=== PATIENT | female | born 1960 | race Caucasian/White ===

== ENCOUNTER 2021-04-27 12:02 | Emergency (ER) | payer BC, SELFPAY ==
[2021-04-27 12:07] VITALS: BP 110/69; PULSE 78; RESP 12; TEMP 37; O2SAT 100
--- NOTE | 2021-04-27 12:19 | ED.WOUNDLAC ---
HPI - Wound/Laceration General Chief Complaint: Wound/Laceration <Phyllis Chapman APRN - Last Filed: 04/29/21 12:15> Stated Complaint: EYEBROW LACERATION <Phyllis Chapman APRN - Last Filed: 04/29/21 12:15> Time Seen by Provider: 04/27/21 12:19 <Phyllis Chapman APRN - Last Filed: 04/29/21 12:15> History of Present Illness HPI narrative: 60-year-old female patient [facility] with complaints of facial laceration. Reports she was putting on her pants lost her balance and fell this morning. She was wearing her glasses, glasses cut her head when she fell. Reports glasses are broken and she was cut above her left eyebrow. Reports bleeding from laceration and applied pressure. Denies loss of consciousness, double vision, headache, or nausea. Reports feeling okay other than hitting head. <Phyllis Chapman APRN - Last Filed: 04/29/21 12:15> Body four view annotation: 1. 3 cm x 0.5 mm laceration <Phyllis Chapman APRN - Last Filed: 04/29/21 12:15> Related Data Home Medications: Home Medications Medication Instructions Recorded Confirmed acyclovir 400 mg PO BID 04/27/21 04/27/21 alprazolam 1 mg PO PRN PRN 04/27/21 04/27/21 duloxetine 60 mg PO DAILY 04/27/21 04/27/21 fremanezumab-vfrm [Ajovy 225 mg SUBCUT PRN PRN 04/27/21 04/27/21 Autoinjector] lamotrigine [Lamictal] 100 mg PO DAILY 04/27/21 04/27/21 rimegepant [Nurtec ODT] 75 mg PO PRN PRN 04/27/21 04/27/21 rizatriptan 10 mg PO PRN PRN 04/27/21 04/27/21 sumatriptan succinate 6 mg SUBCUT PRN PRN 04/27/21 04/27/21 topiramate 100 mg PO BID 04/27/21 04/27/21 <Phyllis Chapman APRN - Last Filed: 04/29/21 12:15> Allergies/Adverse Reactions: Allergies Allergy/AdvReac Type Severity Reaction Status Date / Time clarithromycin Allergy Intermediate NAUSEA/RASH Verified 04/27/21 13:18 <Phyllis Chapman APRN - Last Filed: 04/29/21 12:15> Review of Systems Review of Systems: CONSTITUTIONAL: Denies fever, chills, or sweats. EYES: Denies visual changes, redness, or discharge. ENT: Denies rhinorrhea, congestion, sore throat, or otalgia. CARDIOVASCULAR: Denies chest pain, palpitations, or edema. RESPIRATORY: Denies cough or dyspnea. GASTROINTESTINAL: Denies abdominal pain, nausea, vomiting, or diarrhea. GENITOURINARY: Denies dysuria or hematuria. SKIN: Denies rash or itching. Laceration above left eyebrow. MUSCULOSKELETAL: Denies back pain, joint pain, or myalgia. NEUROLOGIC: Denies headache, numbness, or weakness. PSYCHIATRIC: Denies anxiety or depression. All other systems reviewed are negative, except as documented in HPI. <Phyllis Chapman APRN - Last Filed: 04/29/21 12:15> All systems reviewed & are unremarkable except as noted in HPI and below <Phyllis Chapman APRN - Last Filed: 04/29/21 12:15> Exam Narrative: GENERAL: This is a well-nourished, well-developed female, in no apparent distress. HEAD: normocephalic, 3 cm x 0.5 mm laceration above left eyebrow. EYES: PERRL. Sclera clear/white. Vision is grossly intact. EARS: External ears normal, auditory canals clear and without drainage, Hearing grossly intact. NOSE: External nose normal with no obvious nasal discharge, nares without redness, no rhinorrhea. THROAT: Mucous membranes moist, NECK: Neck supple, non-tender without lymphadenopathy, masses or thyromegaly. CARDIOVASCULAR: Regular rate and rhythm without murmurs, gallops, or rubs. RESPIRATORY: Clear to auscultation. Breath sounds equal bilaterally. No wheezes, rales, or rhonchi. GASTROINTESTINAL: Abdomen soft, non-tender, nondistended. Bowel sounds are active. No hepato-splenomegaly, or palpable masses. No guarding. SKIN: [place] warm, Dry, with no suspicious lesions or rash, good texture and turgor. 3 cm x 0.5 mm laceration above left eyebrow. NEURO: awake, alert, and oriented to person, place and time. There were no obvious focal neurologic abnormalities. EXTREMITIES: No joint tenderness, effusion, or edema noted. No
--- NOTE | 2021-04-27 12:50 | PC.NURSE ---
GREGORY Ferguson spoke with Danuta Zavala at [facility], will sent patient to [facility] to be sutured. [facility] notified. Phyllis spoke with Danuta Du NP.
[2021-04-27] MEDS: TETANUS,DIPHTHERIA,AC PERTUSSIS ADULT (0.5 ML) BOOSTRIX IM (13:33)
== END 2021-04-27 13:51 | disposition home or self-care (01) ==
PROVIDERS: Emergency Provider Nurse Practitioner
DX: S01.81XA Laceration without foreign body of other part of head, initial encounter (principal); W19.XXXA Unspecified fall, initial encounter; Z23 Encounter for immunization
CPT/HCPCS: 12011; 90471; 90715; 99212; G0463

== ENCOUNTER 2022-08-31 14:28 | Emergency (ER) | payer BC, SELFPAY ==
[2022-08-31 14:31] VITALS: BP 130/77; PULSE 105; RESP 18; TEMP 36.6; O2SAT 100
--- NOTE | 2022-08-31 14:42 | ECG_ITS ---
Measurements Intervals [place] Rate: 65 P: 71 ND: 148 QRS: 8 QRSD: 97 T: 53 QT: 377 QTc: 393 Interpretive Statements SINUS RHYTHM NORMAL ECG NO PREVIOUS ECG AVAILABLE FOR COMPARISON Electronically Signed On 08-31-2022 15:44:28 CDT by Kahlil Pacheco D.O.
[2022-08-31 15:17] LABS: Basophils Percent Auto 0.5 % (0.2-1.2); Eosinophils Percent Auto 0.5 % (0-4.4); Hematocrit 42.7 % (37.0-47.0); Hemoglobin 14.1 g/dL (12.0-15.0); Immature Granulocyte Absolute 0.01 K/mm3 (0.00-0.031); Immature Granulocyte Percent A 0.2 % (0-0.5); Lymphocytes Absolute Auto 1.24 K/mm3 (0.9-3.2); Lymphocytes Percent Auto 20.7 % (18.3-44.2); Mean Corpuscular Hemoglobin 31.7 pg (26-34); Mean Platelet Volume 9.4 fl (7.4-10.4); Monocytes Absolute Auto 0.4 K/mm3 (0.1-0.6); Monocytes Percent Auto 6.2 % (2.6-8.5); Neutrophils Absolute Auto 4.3 K/mm3 (1.3-6.7); Neutrophils Percent Auto 71.9 % (45.5-73.1); Platelet Count Result 188 k/mm3 (150-375); Red Blood Count 4.45 M/mm3 (4.2-5.4); Red Cell Distribution Width 12.3 % (11.5-14.5)
[2022-08-31 15:20] LABS: Acetaminophen < 10 ug/mL (10-30); Alanine Aminotransferase 34 U/L (6-35); Alkaline Phosphatase 84 U/L (38-126); Anion Gap 11 mmol/L (8-16); Aspartate Amino Transferase 38 U/L (14-36); Bilirubin,Total 1.1 mg/dL (0.2-1.3); Blood Urea Nitrogen 23 mg/dL (7-17); Calcium 9.9 mg/dL (8.4-10.2); Carbon Dioxide 26 mmol/L (22-30); Chloride 102 mmol/L (98-107); Estimated CRCL calculation 44 ml/min; Estimated Glomerular Filt Rate > 60; Ethanol < 10 mg/dL (<10); Glucose 90 mg/dL (65-110); Potassium 3.7 mmol/L (3.4-5.0); Salicylate < 1.0 mg/dL (2-20); Sodium 139 mmol/L (137-145)
--- NOTE | 2022-08-31 15:41 | PC.NURSE ---
pt changed into green scrubs, belongings collected, labeled and secured.
--- NOTE | 2022-08-31 15:50 | ED.PSYCH ---
HPI - Psych General Chief Complaint: Psychiatric Symptoms <Tammi Auguste MD - Last Filed: 09/05/22 06:10> Stated Complaint: suicidal ideations <Tammi Auguste MD - Last Filed: 09/05/22 06:10> Time Seen by Provider: 08/31/22 14:48 <Tammi Auguste MD - Last Filed: 09/05/22 06:10> History of Present Illness HPI Narrative: Patient is a 62-year-old female presenting after suicide attempt. Patient states that last night she took an unknown number of Xanax with the intent of killing herself. States that she did this in response to some news she recently got from her daughter. She denies HI, hallucinations, paranoia. She denies physical complaints. This morning she spoke with her sister and ended up admitting what she had done last night so she was brought in for evaluation. Denies prior suicide attempts. <Tammi Auguste MD - Last Filed: 09/05/22 06:10> Related Data Home Medications: Home Medications Medication Instructions Recorded Confirmed acyclovir 400 mg tablet 400 mg PO BID 04/27/21 09/01/22 alprazolam 1 mg tablet 1 mg PO PRN PRN Anxiety 04/27/21 09/01/22 duloxetine 60 mg capsule,delayed 60 mg PO QAM 04/27/21 09/01/22 release fremanezumab-vfrm 225 mg/1.5 mL 225 mg subcut PRN PRN Migraine 04/27/21 04/27/21 subcutaneous auto-injector (Ajovy) Headache lamotrigine 100 mg tablet 100 mg PO DAILY 04/27/21 09/01/22 (Lamictal) rimegepant 75 mg disintegrating 75 mg PO PRN PRN Migraine Headache 04/27/21 09/01/22 tablet (Nurtec ODT) rizatriptan 10 mg disintegrating 10 mg PO PRN PRN Migraine Headache 04/27/21 09/01/22 tablet sumatriptan succinate 6 mg/0.5 mL 6 mg subcut PRN PRN Migraine 04/27/21 09/01/22 subcutaneous pen injector Headache topiramate 100 mg tablet 100 mg PO PRN 04/27/21 09/01/22 atogepant 60 mg tablet (Qulipta) mg 09/01/22 magnesium oxide 140 mg capsule 140 mg PO 09/01/22 <Tammi Auguste MD - Last Filed: 09/05/22 06:10> Allergies/Adverse Reactions: Allergies Allergy/AdvReac Type Severity Reaction Status Date / Time clarithromycin Allergy Intermediate NAUSEA/RASH Verified 04/27/21 13:18 <Tammi Auguste MD - Last Filed: 09/05/22 06:10> Review of Systems Review of Systems: All systems reviewed & are unremarkable except as noted in HPI and below <Tammi Auguste MD - Last Filed: 09/05/22 06:10> [facility] Social History Social History: Social History Substance use type: prescription drug <Tammi Auguste MD - Last Filed: 09/05/22 06:10> Exam Narrative: GENERAL: In no acute distress, sitting in bed, cooperative and pleasant HEAD: Normocephalic, atraumatic. EYES: PERRLA and EOMI. ENT: Nares clear, no rhinorrhea or epistaxis. Mucous membranes moist. NECK: Supple. CHEST: No respiratory distress. HEART: Regular rate and rhythm ABDOMEN: nondistended EXTREMITIES: Normal range of motion. No edema. SKIN: Warm, dry, no rash. NEURO: No focal deficits. Alert and oriented x3. PSYCH: Normal mood and affect. <Tammi Auguste MD - Last Filed: 09/05/22 06:10> Course Course Emergency Course: 1899 Zych: [facility] signed out to [facility]. patient was given home night meds and 1 mg of p.o. Ativan for anxiety. 0700 Zych: Signed out to oncoming physician pending placement. <Sumit Ochoa MD - Last Filed: 09/01/22 18:53> 1900 Zych: [facility] to [facility]. patient was given home night meds and 1 mg of p.o. Ativan for anxiety. 0700 Zych: Signed out to oncoming physician pending placement. 0758: Accepted to [facility] by Dr. Encinas. Patient stable. <Cristhian Moore MD - Last Filed: 09/01/22 07:59> Vital Signs Vital signs: Vital Signs Temperature 97.8 F 08/31/22 14:31 Pulse Rate 105 H 08/31/22 14:31 Respiratory Rate 18 08/31/22 14:31 Blood Pressure 130/77 08/31/22 14:31 Pulse Oximetry 100
[2022-08-31 16:10] LABS: Appearance Urine Clear (Clear); Bacteria Urine None Seen /hpf; Bilirubin Urine Negative (Negative); Blood Urine Negative (Negative); Color Urine Yellow (Yellow); Glucose Urine UA Negative (Negative); Ketones Urine Negative (Negative); Leukocyte Esterase Ur 2+ LEU/UL (Negative); Need Manual Microscopic Reviewed; Nitrate Urine Negative (Negative); Non Pathogenic Casts 0-2; Protein Urine Negative (Negative); RBC Urine 0-2 /hpf (0-2); Specific Grav Ur 1.005 (1.001-1.035); Squamous Epithelial Cell Urine None seen /hpf (Few); Urobilinogen Urine 0.2 mg/dL (<2.0)
[2022-08-31 16:11] LABS: Add Urine Microscopic? YES
[2022-08-31 16:12] LABS: Amphetamine Screen Urine Negative (Negative); Barbiturate Screen Urine Negative (Negative); Benzodiazepines Screen Urine Positive (Negative); Cannabinoid Screen Urine Negative (Negative); Cocaine Screen Urine Negative (Negative); Methadone Screen Urine Negative (Negative); Opiate Screen Urine Negative (Negative); Phencyclidine Screen Urine Negative (Negative)
[2022-08-31 16:27] LABS: SARS-CoV-2 RNA PCR Negative (Negative)
[2022-08-31] MEDS: LORazepam (*CRX) 0.5 MG TABLET PO (18:49)
--- NOTE | 2022-08-31 19:43 | PC.NURSE ---
requested paperwork sent to [facility]
[2022-08-31] MEDS: RIZATRIPTAN BENZOATE 10 MG TABLET PO (22:31)
[2022-09-01] MEDS: LORazepam (*CRX) 0.5 MG TABLET PO (00:03)
--- NOTE | 2022-09-01 00:49 | PC.NURSE ---
Pt has been accepted at [facility] at this time. Accepting Doctor is Dr. Encinas. Transport is set for 0900 on 09/01/22
[2022-09-01] MEDS: MAGNESIUM OXIDE 200 MG TABLET PO (01:00)
[2022-09-01] MEDS: lamoTRIgine 100 MG TABLET PO (01:01)
--- NOTE | 2022-09-01 02:33 | PC.NURSE ---
Pt and pt sister made aware of acceptance to [facility]. Pt resting at this time with sister at bedside.
[2022-09-01] MEDS: LORazepam (*CRX) 1 MG TABLET PO (05:45)
[2022-09-01 07:02] VITALS: BP 131/89; PULSE 101; RESP 15; O2SAT 100
[2022-09-01] MEDS: hydrOXYzine HCL 25 MG TABLET PO (08:50)
[2022-09-01 08:57] VITALS: BP 140/74; PULSE 99; RESP 22; O2SAT 98
== END 2022-09-01 09:07 ==
PROVIDERS: Emergency Medicine; Emergency Provider Emergency Medicine
DX: T42.4X2A Poisoning by benzodiazepines, intentional self-harm, initial encounter (principal); Z20.822 Contact with and (suspected) exposure to COVID-19
CPT/HCPCS: 36415; 80053; 80307; 81001; 84443; 85025; 87086; 87635; 93005; 99285; A9270

== ENCOUNTER 2024-06-11 18:15 | Inpatient (IN) | payer BC, SELFPAY ==
--- NOTE | ~2024-06-11 | XR_ITS ---
Exam: Abdomen 1V HISTORY: SBO COMPARISON: Reference is made to a CT examination of the abdomen and pelvis dated 06/11/2024 TECHNIQUE: Supine images of the abdomen FINDINGS: Excreted contrast distends the bladder (from CT examination performed approximately 18 hours earlier) . Fecal stasis within the colon and specifically distending the rectum. No free air is appreciated. IMPRESSION: Significant fecal stasis within the colon and distending the rectum. Reviewed, dictated and finalized at location A.
--- NOTE | ~2024-06-11 | XR_ITS ---
EXAM: XR abdomen gastric tube insert DATE: 06/11/2024 21:20 HISTORY: ng placement . COMPARISON: 06/11/2024. FINDINGS: Clear lung bases. NG tube, tip and side port project over the expected area of the dilated stomach. Multiple loops of dilated small bowel in the upper abdomen. IMPRESSION: NG tube, in good position. Reviewed, dictated and finalized at location K. IMPRESSION: NG tube, in good position.
--- NOTE | ~2024-06-11 | CT_ITS ---
EXAMINATION: CT abdomen pelvis w con DATE: 06/11/2024 19:40 INDICATION: abd distention TECHNIQUE: Computed tomography (CT) of the abdomen and pelvis was performed with 100 mL Omnipaque-350 intravenous contrast. Automated exposure control and iterative reconstruction technique were employe d. The dose-length product was 272.41 mGy-cm. COMPARISON: None. FINDINGS: Lower thorax: Unremarkable Liver: Normal. Biliary/Gallbladder: Gallbladder is normal. No bile duct dilation. Pancreas: No mass or duct dilation. Spleen: Normal. Adrenals:No mass. Kidneys: No suspicious mass, obstructing stone, or hydronephrosis. Multiple simple renal cysts and bi lateral hypodensities that are too small to characterize but also likely represent cysts. GI tract: Large volume of colonic feces. The colon is otherwise normal in appearance. Gastric dilatio n. Multiple loops of dilated proximal and mid small bowel, with uniform bowel wall enhancement, sever al loops of decompressed small bowel are noted in the right lower quadrant. Normal appendix. Mesentery/Peritoneum: No free air. Suggestion of an irregular soft tissue density 2.7 cm mass, closel y applied to the wall of multiple loops of bowel in the upper pelvis (image 111/185, coronal 58/103). Retroperitoneum: No mass. Pelvis: Mostly empty urinary bladder. Absent uterus. Bilateral ovaries not confidently identified. Tr liam free pelvic fluid. Soft Tissues: Soft tissues and body wall unremarkable. Bones: No acute osseous finding. IMPRESSION: Distal small bowel obstruction. A specific transition point is not detected, but evaluation is limite d by paucity of intra-abdominal fat. Suggestion of a 2.7 cm extraluminal mass closely applied to multiple loops of bowel in the upper pelv is, may represent a mesenteric mass such as endometriosis with adjacent bowel wall tethering and subs equent obstruction. Reviewed, dictated and finalized at location K. IMPRESSION: Distal small bowel obstruction. A specific transition point is not detected, bu t evaluation is limited by paucity of intra-abdominal fat. Suggestion of a 2.7 cm extraluminal mass closely applied to multiple loops of b owel in the upper pelvis, may represent a mesenteric mass such as endometriosis with adjacent bowel wall tethering and subsequent obstruction.
--- NOTE | ~2024-06-11 | XR_ITS ---
XR abdomen/kub 1V 06/13/2024 07:55 Indication: Small bowel obstruction Procedure: KUB Comparison: 06/12/2024 Findings: NG tube in the stomach. No significant small bowel bowel dilation. Large amount retained fe herlinda material in the colon and rectum, consistent with fecal impaction. No abnormal calcifications. Allie ng bases unremarkable. No acute osseous abnormality. There is mild osteoarthritis of the hips. Impression: 1: Fecal impaction of the colon and rectum. Reviewed, dictated and finalized at location B. Impression: 1: Fecal impaction of the colon and rectum.
--- NOTE | ~2024-06-11 | XR_ITS ---
EXAMINATION: XR sm bowel follow through WS DATE: 06/13/2024 14:55 INDICATION: Small bowel obstruction TECHNIQUE: Water-soluble oral contrast was administered by the patient's existing nasogastric tube, a nd sequential radiographs of the abdomen were obtained until oral contrast was noted to be in the pro ximal colon. COMPARISON: 06/13/[address] dated 06/11/2024 FINDINGS: Nasogastric tube tip in the body the stomach. Transit time from the stomach to proximal colon was anamaria roximately 45 minutes. There is normal caliber and mucosal fold pattern throughout the small bowel. IMPRESSION: 1. Normal small bowel follow-through with resolution of prior small bowel obstruction. Reviewed, dictated and finalized at location A. IMPRESSION: 1. Normal small bowel follow-through with resolution of prior small bowel obstr uction.
--- OUTSIDE RECORDS SUMMARY | 2024-06-11 18:17 | XMS_ITS | Clinical Summary ---
Author Organization [facility] Address [address] [place] [address] Care Team Providers Care Lead [employer]man [employer] Name Role Phone Candy Rankin RN Unavailable [phone] Subha Rodriguez MD Primary Care Provider [phone] Source Comments [facility],non-owned Affiliates and Associated Physician Practices is amultiple site organization consisting of ambulatory clinics and hospital sitesin [place], [place], [place] and [place]. This disclosure is being madepursuant to the Care Everywhere program and may not contain all information available regarding this patient. Last updated 17.[facility] [employer] Allergies Active Allergy Reactions Criticality Noted Date Comments Clarithromycin Rash,Nausea and/or Vomiting Medium 06/29 Medications * Be aware that medications may not be up to date on this document. Alwaysverify current medications with the patient. acyclovir (Zovirax) 400 MG tablet Take 1 (one) tablet by mouth once daily as directed. 4 Active alendronate (Fosamax) 70 MG tablet Take 1 (one) tablet by mouth every 7 days 4 Active estradiol (Estrace) 0.1 MG/GM vaginal cream Insert 1 applicator into the vagina as directed 3 Active ondansetron, disintegrating , (Zofran ODT) 4 MG tablet Take 2.5 (two and one-half) tablets by mouth once daily 4 Active rizatriptan, disintegrating , (Maxalt CONTROL CLERK REPAIRS) 10 MG tablet Take 1 (one) tablet by mouth as needed 4 Active SUMAtriptan Succinate 6 MG/0.5ML Inject 6 mg subcutaneously as directed 3 Active terbinafine (LamISIL) 250 MG tablet Take 1 (one) tablet by mouth once daily 30 tablet 2 4 Active trospium (Sanctura) 20 MG tablet Take 1 (one) tablet by mouth 2 times daily 3 Active Magnesium Citrate 100 MG CAPS Take 500 mg by mouth once daily Active Calcium Carb-Cholecalc iferol (CALTRATE 600+D3 PO) Take 600 mg by mouth once daily Active ferrous sulfate 325 (65 FE) MG tablet Take 1 (one) tablet by mouth once daily Active Multiple Vitamin (MULTI-VITAMIN PO) Take 1 tablet by mouth once daily Active Atogepant (Qulipta) 60 MG TABS Take 1 (one) tablet by mouth once daily Active Cyanocobalamin (B-12) 100 MCG Take 4 tablets by mouth once daily Active Docusate Sodium 250 MG Take 1 (one) capsule by mouth once daily Active escitalopram (Lexapro) 20 MG tablet Take 1 (one) tablet by mouth once daily 4 Active clonazePAM (KlonoPIN) 0.5 MG tablet Take 1 (one) tablet by mouth 2 times daily 3 Active lamoTRIgine XR 24hr (LaMICtal XR) 200 MG tablet Take 1 (one) tablet by mouth once daily 4 Active Alpha-Lipoic Acid 600 MG Take 600 mg by mouth once daily Active lidocaine viscous (Xylocaine) 2 % solution Swish and spit 5 mL every 4 hours as needed for Sore Throat or Pain 100 mL 3 5 Active Pristiq 50 MG tablet Take 1 (one) tablet by mouth once daily 5 Active Riboflavin 400 MG Take 1 tablet by mouth once daily Active traZODone (Desyrel) 50 MG tablet Take 1 (one) tablet by mouth at bedtime 5 Active diazePAM (Valium) 5 MG tablet Take 1 (one) tablet by mouth 2 times daily 5 Active QUEtiapine (SEROquel) 200 MG tablet Take 1 (one) tablet by mouth once daily Active cyclobenzaprin e (Flexeril) 10 MG tablet Take 1 (one) tablet by mouth at bedtime 30 tablet 5 Active Active Problems Problem Noted Date Diagnosed Date Binocular vision disorder with diplopia 08/06/19 24 Hyperopia of both eyes 08/06/2023 Oral aphthous ulcer 07/22/2023 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 No recent travels, sick contact or trauma. No hx of tick bites. May use Tylenol and/or Ibuprofen for pain. Reviewed red flag symptoms and when to seek emergent care. IF symptoms persist and/or worsened, might need further imaging and or lab work up for eval. Follow up as needed. Vitamin B12 deficiency 10/07/2022 Overview (05/26/2023): Last Assessment & Plan: WNL per prior labs in june Discussed updating w/ any recurrent or persisting stomatitis if warranted Cnt current Vit b12 oral supp interim Generalized anxiety disorder 06/19/2022 Major depressive disorder, single episode, moder ate 09/06/2017 05/26/2023 Overview (05/26/2023): Stable on current regimen Last Assessment & Plan: Adequately controlled though still not satisfactory control and adjusting meds per psych Intractable chronic migraine without aura and without status migrainosus 08/18/2017 05/26/2023 Overview (05/26/2023): Last Assessment & Plan: Tolerable though ongoing severe. Seeing a headache specialist. Nocturia 10/09/2015 05/26/2023 Fatigue 04/09/2015 05/26/2023 Overview (05/26/2023): Last Assessment & Plan: Checking labs as per routine. Osteopenia 03/11/2010 05/26/2023 Overview (05/26/2023): Last Assessment & Plan: Checking vitamin d. Resolved Problems Problem Noted Date Diagnosed Date Resolved Date Pre-op testing 07/17/2014 02/10/2024 Encounters Date Type Department Care Team Description 05/18/2024 1:00 PM CDT Office Visit [facility] [address] [place] [phone] David Martin, BER[place] Burning mouth syndrome (Primary Dx); Tongue thrusting; Bruxism; Exostoses of jaw; Morsicatio buccarum 05/18/2024 Travel 05/02/2024 Orders Only [facility] [address] [place] [phone] Antonio Glover MD Burning mouth syndrome ; Facial pain syndrome 04/26/2024 Orders Only [facility] [address] [place] [phone] David Martin, BERLIN Facial pain syndrome ; Nasal pain 04/19/2024 2:57 PM MATHEMATICAL STATISTICIAN - 04/19/2024 11:59 PM MATHEMATICAL STATISTICIAN Hospital Encounter [facility] [address] [place] [phone] Antonio Glover MD Discharge Disposition: Home or Self Care 04/19/2024 Travel 04/06/2024 2:15 PM MATHEMATICAL STATISTICIAN Office Visit [facility] [address] [facility] [address] [address] Antonio Glover MD Facial pain syndrome (Primary Dx); Nasal pain 04/06/2024 Travel 03/31/2024 Travel 03/30/2024 1:15 PM MATHEMATICAL STATISTICIAN [facility] [address] [place] [phone] David Martin DMD Burning mouth syndrome (Primary Dx); Exostoses of jaw; Tongue thrusting; Bruxism; Morsicatio buccarum 03/30/2024 Travel 03/20/2024 Orders Only [facility] [address] [place] [phone] Shireen Garcia RN 03/17/2024 Telephone [facility] Physician [address] [phone] David Martin DMD Nurse Only 03/15/2024 Orders Only [facility] [address] [phone] Vineet Ambrose MD Facial pain syndrome ; Nasal pain 03/15/2024 Refill [facility] [address] [phone] Nessa Cast MD Refill Request from Last 3 Months Immunizations Immunization Administration Dates Next Due INFLUENZA VACCINE, ADJUVANTE D, TRIV. (FLUAD TRIVALENT; 65Y+) (AIIV3) 01/06/2024 INFLUENZA VACCINE, RECOM-METZ, TRIV. (FLUBLOCK TRIVALENT; 18Y+) (RIV3) 01/06/2024 Influenza Intradermal 12/24/2016 MODERNA SARS-COV-2 COVID-19 VACCINE 0.25ML 02/17 PNEUMOCOCCAL PCV21 01/21/2024 TDAP, HISTORIC VACCINE 04/27/2021 Zoster Hzv Vacc Recombinant Inj Im 01/21/2024 Social History Tobacco Use Types Packs/Day Years Used Date Smoking Tobacco: Never Smokeless Tobacco: Never Tobacco Cessation:Counseling Given: Not Answered Alcohol Use Standard Drinks/Week Comments No 0 (1 standard drink = 0.6 oz pur e alcohol) Comments No Sex and Gender Information Value Date Recorded Sex Assigned at Not on file Legal Sex Female 7:48 AM CDT Gender Identity Not on file Sexual Orientation Not on file Last Filed Vital Signs Vital Sign Reading Time Taken Comments Blood Pressure 117/78 05/18/2024 1:12 PM CDT Pulse 92 05/18/2024 1:12 PM CDT Temperature 36.7 C (98.1 F) 04/19/2024 3:08 PM MATHEMATICAL STATISTICIAN Respiratory Rate 16 04/19/2024 3:08 PM MATHEMATICAL STATISTICIAN Oxygen Saturation 96% 02/10/2024 7:53 AM MATHEMATICAL STATISTICIAN Inhaled Oxygen Concentration - - Weight 52.6 kg (116 lb) 05/18/2024 1:12 PM CDT Height 162.6 cm (5' 4 ) 05/18/2024 1:12 PM CDT Body Mass Index 19.91 05/18/2024 1:12 PM CDT Plan of Treatment Upcoming Encounters Date Type Department Care Team (Late st Contact Info) Description 11/16/2024 1:00 PM CDT Office Visit [facility] [address] [facility], [place] [phone] David Martin, DMD [address] [place] [address] Health Maintenance Due Date Last Done Comments COLOGUARD (AGES 45-75) - COLON CA SCREENING [address] COLONOGRAPHY - COLON CA SCREENING 1960 FIT - COLON CA SCREENING 1960 FLEX SIG - COLON CA SCREENING 1960 LIPID TESTING 1960 HIV SCREENING 1976 Respiratory Syncytial Virus (RSV) Vaccine Pt: or over 60 yrs (1 - Risk 60-74 years 1-dose series) 2021 COVID-19 VACCINE (2 - season) 2023 02/17/2021 DEPRESSION SCREENING 03/01/2024 ZOSTER VACCINE (2 of 2) 03/17/2024 01/21/2024 MAMMOGRAM 09/06/2025 09/07/2023, 07/0 10/2023, 08/25/2022, Additional history exists DTAP/TDAP/TD VACCINES (2 - Td or Tdap) 04/27/2031 04/27/2021 COLONOSCOPY - COLON CA SCREENING 11/26/2032 11/26/2022 Colorectal Cancer Screening 11/26/2032 HEPATITIS C SCREENING Completed 08/02/2023, 024 INFLUENZA VACCINE Completed 01/06/2024, , 12/24/2016 PNEUMOCOCCAL VACCINE 50+ Completed 01/21/2024 HEPATITIS B VACCINE Aged Out No longe r eligible based on patient's age to complete this topic HIB VACCINE Aged Out No longer eligi ble based on patient's age to complete this topic HPV VACCINE Aged Out No longer eligi ble based on patient's age to complete this topic MENINGOCOCCAL (Group B) VACCINE SHARED DECISION-MAKING Aged Out No longer eligible based on patient's age to complete this topic MENINGOCOCCAL GROUPS A/C/Y/W VACCINE Aged Out No longer eligible based on patient's age to complete this topic Medical Devices Implanted Type Area Valve Setter Device Identifier Shelf Expiration Date Model / Serial / Lot Dev Sys Sgl Obtryx Implanted:Qty: 1 on 07/17/2014 by Katya Mccall MD at [facility] [employer] 04/29/2017 [id number] / / [id number] Grft Tiss Rep Xenform 4 X 7cm Implanted:Qty: 1 on 07/17/2014 by Katya Mccall MD at [facility] [employer] [id number] / / [id number] Procedures Procedure Name Priority Date/Time Associated Diagnosis Comments PAIN MANAGEMENT PROCEDURE TIME Routine 04/19/2024 3:32 PM MATHEMATICAL STATISTICIAN Nerve pain from Last 3 Months Results * Pain Management Procedure Time (04/19/2024 3:32 PM MATHEMATICAL STATISTICIAN) Anatomical Region Laterality Modality Radio Fluoroscop y Narrative 04/19/2024 3:40 PM MATHEMATICAL STATISTICIAN Nolberto Alvarez DO 04/19/2024 3:40 PM Procedure Note: Bilateral Sphenopalatine Ganglion Block with Catheter Patient Name: Sabrina SANTAMARIA Date of : 1960 Date of Procedure: 04/19/2024 Physician: Antonio Glover MD Pre-Procedure Details Indication: Refractory facial pain not responsive to conservative measures. Informed Consent: The risks, benefits, and alternatives to the procedure, including potential complications such as bleeding, infection, numbness, and failure of symptom relief, were explained to the patient. The patient demonstrated understanding and provided informed consent. Allergies: Allergies Allergen Reactions Biaxin [Clarithromycin] Rash and Nausea and/or Vomiting Time Out: A procedural time-out was performed to confirm the patient's identity, procedure, site, and planned intervention. Procedure Patient Positioning: The patient was placed in a supine position with the head slightly elevated and rotated left for optimal access and comfort. An 18-gauge, 2-inch, angiocatheter was inserted via intranasal approach, directed towards the pterygopalatine fossa. 2 mL of 4% Lidocaine was injected into the left Naris. The patient's head was then rotated to the right and 2mL of 4% lidocaine was injected into the right naris. The patient tolerated the procedure well. Post-Injection Evaluation: The Angiocatheter was removed without complication. The patient was observed for any immediate adverse reactions or complications. Post-Procedure Instructions The patient was advised to monitor for numbness, nasal congestion, or changes in facial sensation, which are expected and typically temporary. The patient was instructed to contact the clinic if they experienced signs of infection, severe pain, or persistent numbness. Plan of care: Patient advised to contact the Pain Center for any of the followin. Fever, chills or night sweats 2. New onset of severe sharp pain 3. Any new upper/lower extremity weakness or numbness 4. Any questions regarding the procedure If unable to contact the Pain Center, patient instructed to go to local Emergency Room. Procedure Outcome The injection was successfully performed without immediate complications. The patient tolerated the procedure well and reported mild, expected numbness in the treated region during post-procedure evaluation. Final procedural note pending attending attestation. Nolberto Alvarez DO 04/19/2024 3:21 PM Antonio Glover MD DIAGNOSTIC IMAGING ORDERABLES Fi nal Result from Last 3 Months Insurance [employer] Advance Directives * Full Code (Latest Code Status on File) Date Activated Date Inactivated Comments 07/17/2014 1:33 PM 07/18/2014 4:00 PM Care Teams Lead Pressman [employer] Relationship Specialty Start Date End Date Subha Rodriguez MD [id number] [facility] [address] [phone] PCP - General Family Medicine 05/18/24 Candy Rankin, LUISANA Supervisor [employer] 07/17/14
--- OUTSIDE RECORDS SUMMARY | 2024-06-11 18:17 | XMS_ITS | Referral Summary ---
Author Organization [facility] al Address [address] [place] [address] Care Team Providers Care Receiving Worker Name Role Phone Job Coker MD Unavailable [phone] Kendra Steiner MD PhD Unavailable [phone] Mike Levy MD Unavailable [phone] Subha Rodriguez MD Primary Care Provider [phone] Encounters Date Type Department Care Team Description 05/26/2024 Telephone [facility] with [facility] [address] [facility] [address] [place] [address] Lexii Pritchard 05/24/[address] [facility] at [facility] [address] 1[address] [place] [address] Melanie Ramos RN Treat Facial Pain? 05/03/2024 9:27 AM INTERIOR DESIGN ASSISTANT - 05/03/2024 11:59 PM INTERIOR DESIGN ASSISTANT Hospital Encounter [facility] [address] [place] [address] Vertigo Discharge Disposition: Discharge to home or self care 04/26/[address] [facility] [facility] [address] [place] [address] David Martin, B[place] Facial pain syndrome (Primary Dx); Nasal pain 04/17/[address] [place] [phone] Subha Rodriguez MD Medical Question/Miscellane ous 04/17/2024 11:30 AM INTERIOR DESIGN ASSISTANT Office Visit [address] [place] [phone] Subha Rodriguez MD Vertigo (Primary Dx); Pure hypercholesterolemi a; Vitamin B12 deficiency; Well adult exam 04/14/2024 Nurse Triage [address] [place] [phone] Subha Rodriguez MD 03/20/2024 10:00 AM INTERIOR DESIGN ASSISTANT Office Visit [address] [phone] Subha Rodriguez MD Intractable chronic migraine without aura and without status migrainosus (Primary Dx); Vitamin B12 deficiency; Pure hypercholesterolemi a; Family history of heart disease; Well adult exam from Last 3 Months Allergies Active Allergy Reactions Criticality Noted Date Comments Clarithromycin Rash Medium BIAcin Medications acyclovir (ZOVIRAX) 400 mg tablet Take 1 tablet (400 mg total) by mouth 2 (two) times a day 180 tablet 019 Active Additional Information Patient taking differently:400 mg oralDaily, Informant: Self, Reported on 04/17/2024 cyanocobalamin (Vitamin B-12) 1,000 mcg tablet Take 1 tablet (1,000 mcg total) by mouth daily Active multivitamin tablet Take 1 tablet by mouth daily Active ferrous sulfate 325 mg (65 mg of elemental iron) tablet Take 1 tablet (325 mg total) by mouth daily Active magnesium citrate 100 mg capsule Take 100 mg by mouth daily Active lidocaine 2 % solution Take 5 mL by mouth as needed Active calcium carbonate-vitamin D3 (Caltrate with Vitamin D3) 1,500 mg (600mg elemental) -800 unit per tablet daily Acti ve escitalopram (LEXAPRO) 20 mg tablet Take 0.5 tablets (10 mg total) by mouth 2 (two) times a day 08/28/2 024 Active SUMAtriptan (IMITREX) 6 mg/0.5 mL injection INJECT 6 MG UNDER THE SKIN NEEDED FOR MIGRAINE. MAY REPEAT DOSE IN 2 HOURS IF NEEDED. DO NOT EXCEED 2 DOSES IN 24 HOURS. Active trospium (SANCTURA) 20 mg tablet Take 1 tablet (20 mg total) by mouth 2 (two) times a day 60 tablet 11 024 2024 Active alendronate (FOSAMAX) 70 mg tabletIndications :Post-Menopausal Osteoporosis Prevention Take 1 tablet (70 mg total) by mouth every 7 days Take in the morning with a full glass of water, on an empty stomach, and do not take anything else by mouth or lie down for the next 30 min. 4 tablet 11 024 2024 Active lamoTRIgine XR (LaMICtal XR) 200 mg tablet extended release 24hr Take 1 tablet (200 mg total) by mouth daily Active Qulipta 60 mg tablet TAKE 1 TABLET BY MOUTH DAILY 30 tablet 5 Active alpha lipoic acid 600 mg capsule Take 1 capsule (600 mg total) by mouth daily Active rizatriptan RELIEF MAN (MAXALT-RELIEF MAN) 10 mg disintegrating tablet DISSOLVE 1 TABLET ON THE TONGUE AT ONSET OF HEADACHE. MAY REPEAT IN 2 HOURS NEEDED. MAX DOSE 2 IN 24 HOURS 12 tablet 3 025 Active QUEtiapine (SEROquel) 200 mg tablet Take 1 tablet (200 mg total) by mouth nightly Active riboflavin, vitamin B2, 400 mg tablet Take by mouth Active zinc gluconate 50 mg tablet Take 1 tablet (50 mg total) by mouth daily Active estradioL (ESTRACE) 0.01 % (0.1 mg/gram) vaginal cream APPLY 1 GRAM NIGHTLY TO VAGINA FOR 1 WEEK, THEN Wednesday, WEDNESDAY 42.5 g 5 025 Active ondansetron ODT (ZOFRAN-ODT) 4 mg disintegrating tablet DISSOLVE 1 TABLET(4 MG) ON THE TONGUE EVERY 8 HOURS NEEDED FOR NAUSEA OR VOMITING 20 tablet 3 025 Active ondansetron ODT (ZOFRAN-ODT) 4 mg disintegrating tablet DISSOLVE 1 TABLET(4 MG) ON THE TONGUE EVERY 8 HOURS NEEDED FOR NAUSEA OR VOMITING 20 tablet 3 024 2024 Discontinued Active Problems Problem Noted Date Diagnosed Date Vertigo 04/17/2024 Assessment & Plan (04/23/2024 11:47 PM INTERIOR DESIGN ASSISTANT): New Order PT Pure hypercholesterolemia 03/20/2024 Assessment & Plan (03/26/2024 10:50 PM INTERIOR DESIGN ASSISTANT): Chronic Stable Follow low chol diet Goal: TC<200, LDL<100, TG<150 Family history of heart disease 03/20/2024 Well adult exam 03/20/2024 Other general symptoms and signs 01/06/2024 Assessment & Plan (01/06/2024 2:52 PM INTERIOR DESIGN ASSISTANT): Nonspecific, episodic generalized sxs ongoing for over last yr w/o identifiable triggers, etiology; possibly multifactorial Extensive evaluation (imaging, cardiac testing, neuroimaging) w/ PCP & specialist (both neuro & cardiology) unappreciated to explain Exam benign Discussed probable modifiable factors (dietary, supportive mgmt, healthy lifestyle) to consider towards prevention, psychogenic & RX related causes to consider & interim monitoring Recommending endocrinology further eval r/o endo/pituitary dysfunction to align w/ chronic symptoms Reportable red flags reviewed Low serum cortisol level 08/17/2023 Hypoglycemia 07/09/2023 Assessment & Plan (07/09/2023 3:37 PM CDT): This noted on labs last visit . Doubt this a persistent symtpom. Checking again and cortisol level. Atypical nevi 05/04/2023 Assessment & Plan (05/04/2023 2:30 PM INTERIOR DESIGN ASSISTANT): Exam favorable of crusted SK lesion though would appreciate second option from derm for reassurance Provided multiple derm contact in [place] & [place] to arrange and update to route referral once scheduled Interim concerns warranting update discussed Onychomycosis 05/04/2023 Assessment & Plan (05/04/2023 2:26 PM INTERIOR DESIGN ASSISTANT): Moderate onychomycosis along multiple BL feet digits Voiced concerns of oral terbinafine therapy recommending trial of jublia though would like to clear this up sooner Connecting w/ dermatology for unrelated concern and may be best for them to culture & discuss mgmt further Agreeable update LFTs and discuss oral antifungal therapy w/ PCP if WNL w/ closer surveillance Counseled of supportive care mgmt for this as well Update in the wk Polyarthralgia 12/22/2022 Assessment & Plan (07/09/2023 3:36 PM CDT): No overt inflammatory arthritis as cause. Continue efforts to get exercising more regularly . Checking follow up labs. Assessment & Plan (12/22/2022 10:25 AM CDT): Denies fever, chills or joint swelling. No recent travels, sick contact or trauma. No hx of tick bites. May use Tylenol and/or Ibuprofen for pain. Reviewed red flag symptoms and when to seek emergent care. IF symptoms persist and/or worsened, might need further imaging and or lab work up for eval. Follow up as needed. Neck pain 12/22/2022 Right hip pain 12/22/2022 Assessment & Plan (02/10/2023 1:21 PM INTERIOR DESIGN ASSISTANT): May use Tylenol and/or Ibuprofen as needed. Ice/heat the area. Encourage rest. Recent xray did not show any fracture. Referral to Ortho placed. Acute parotitis 10/19/2022 Overview (10/21/2022): 10/21/22 parotid & neck soft tissue US: IMPRESSION: 1. Mildly dilated right parotid duct following sialagogue administration which can be seen in the setting of duct stenosis or intraductal debris/stones. However, no debris or stones were identified within the visualized portions of the duct. The left parotid gland was normal. 2. No cervical lymphadenopathy. Assessment & Plan (10/19/2022 1:48 PM CDT): Exam c/w viral sialoadenitis given recent aphthosis pharyngitis-likely Coxsackie, adenoviral > suppurative More systemic sx of recent, remain mild though best to arrange US for further eval of suppurative sialadenitis, stensen duct obstruction, lymphadenopathy Update pertinent labs as detailed below Referral to ENT further evaluation Discussed trial augmentin- deferred pending US, labs Counseled of OTC supportive including NSAIDs, heat, massage & sour food/candy ingestion to assist with duct drainage Red flags report discussed Update in 1-2wks w/ testing Vitamin B12 deficiency 10/07/2022 Assessment & Plan (03/26/2024 10:50 PM INTERIOR DESIGN ASSISTANT): Chronic Stable Cont supplmeent Assessment & Plan (10/07/2022 2:10 PM CDT): WNL per prior labs in june Discussed updating w/ any recurrent or persisting stomatitis if warranted Cnt current Vit b12 oral supp interim Routine physical examination 06/19/2022 Assessment & Plan (07/09/2023 3:36 PM CDT): Checking labs per routine and pertaining to problems listed . HM items reviewed and updated . No new concerns. Immunizations and cancer screening utd. Assessment & Plan (06/19/2022 10:38 AM CDT): Checking labs per routine and pertaining to problems listed . HM items reviewed and updated . No new concerns. Encouraged shingrix Exercise encouragement. Checking routine labs Colonoscopy/mammogram to be scheduled Generalized anxiety disorder 06/19/2022 Major depressive disorder 09/06/2017 Overview (09/06/2017): Stable on current regimen Assessment & Plan (07/09/2023 3:36 PM CDT): Worsening of symptoms recently . She denies SI/HI. Continue close psych follow up . Assessment & Plan (06/19/2022 10:39 AM CDT): Adequately controlled though still not satisfactory control and adjusting meds per psych Assessment & Plan (06/06/2018 12:10 PM CDT): Psychological condition is doing ok . This is tolerable and monitoring with psych. Assessment & Plan (09/06/2017 2:20 PM CDT): Psychological condition is stable on meds Intractable chronic migraine without aura and without status migrainosus 08/18/2017 Assessment & Plan (03/26/2024 10:50 PM INTERIOR DESIGN ASSISTANT): Chronic Stable Cont maxalt, imitrex prn Assessment & Plan (06/19/2022 10:39 AM CDT): Tolerable though ongoing severe. Seeing a headache specialist. Assessment & Plan (05/02/2021 2:02 PM INTERIOR DESIGN ASSISTANT): Lingering migraine post fall -improving with abortive therapy Neurocognitively intact w/o atypical migraine features Continue with supportive therapies as recommended by neurologist Understand sxs to report Assessment & Plan (06/06/2018 12:10 PM CDT): Headaches are doing great on current regimen . No new complications. Assessment & Plan (09/06/2017 2:25 PM CDT): Headaches are stable on meds per dr steiner Recurrent falls 12/24/2016 Assessment & Plan (06/19/2022 10:39 AM CDT): Working on strength and balance. 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 No sores or erythema noted. Physical assessment negative. Trial patient on Gabapentin x 1 month Encouraged good oral hygiene; salt water gargle; use of soft bristle tooth brush. Follow up as needed Fatigue 04/09/2015 Assessment & Plan (07/09/2023 3:35 PM CDT): Likely combination of depression and polypharmacy of meds for this. Continue current regimen and to discuss with her psychiatrist ? If regimen could be simplified. That stated checking for hormonal or other disease related causes including tft's , cortisol , basic lab.s Assessment & Plan (06/06/2018 12:11 PM CDT): Checking labs as per routine. Unspecified urinary incontinence 11/20/2011 Osteopenia 03/11/2010 Assessment & Plan (06/06/2018 12:13 PM CDT): Checking vitamin d. Resolved Problems Problem Noted Date Diagnosed Date Resolved Date Aphthous ulcer of mouth 10/07/2022 08/2 03/2022 Assessment & Plan (10/07/2022 2:09 PM CDT): Exam C/W mild, aphthaous oropharyngitis Discussed pred course- declined p + valacyclovir, magic mouth wash prn;SER Counseled of expectations in viral illness & treatment, OTC supportives, food avoidances & sx warranting further f/u Update status 1-2wks revisit steroids, labs, etc Rib pain on right side 09/06/201706/19 Overview (09/06/2017): No obvious explanation. Checking cxr and ekg. If no improvement then further eval Acquired deviated nasal septum 08/19/2015 09/06/2017 Open fracture of nasal bone 08/19/2015 09/06/2017 Nasal congestion 08/19/2015 09/06/2017 Fracture of nasal septum 08/19/201510/2017 Pruritus of skin 07/31/2015 09/06/2017 Injury of head 11/29/2014 09/06/2017 Closed fracture of proximal end of humerus 06/19/2013 09/06/2017 Blood in urine 02/02/2012 09/06/2017 Atrophic vaginitis 11/20/2011 8 Crushing injury of finger 12/18/2010 Immunizations Immunization Administration Dates Next Due Influenza, Trivalent, Adjuvanted, Intramuscular 01/06/2024 Influenza, Trivalent, Recomb inant, Egg Free, Preservative Free, Antibiotic Free, IM (FLUBLOK) 01/06/2024 Influenza, Trivalent, Split, Preservative Free, Intradermal 12/24/2016 Tdap 04/27/2021 Social History Tobacco Use Types Packs/Day Years Used Date Smoking Tobacco: Never Smokeless Tobacco: Never Tobacco Cessation:Counseling Given: Not Answered AUDIT-C Answer Date Recorded Q1: How often do you have a drink containing alcohol? Never 03/20/2024 Q2: How many drinks containi ng alcohol do you have on a typical day when you are drinking? Patient does not drink Q3: How often do you have si x or more drinks on one occasion? Never 03/20/2024 PHQ-2 Answer Date Recorded PHQ-2 Total Score (If total score is 3 or more points, staff should administer the PHQ-9) 1 06/19/2022 PHQ-9 Answer Date Recorded PHQ-9 Total Score 10 07/09/2023 Personal Safety Answer Date Recorded Have you ever been in or are you currently in a harmful physical or emotional relationship or is someone making you feel afraid or unsafe? Denies 09/06/2023 Comments No Sex and Gender Information Value Date Recorded Sex Assigned at Not on file Legal Sex Female 3:24 PM INTERIOR DESIGN ASSISTANT Gender Identity Female 11/21/2020 8:28 AM CDT Sexual Orientation Not on file Last Filed Vital Signs Vital Sign Reading Time Taken Comments Blood Pressure 110/68 04/17/2024 11:27 AM INTERIOR DESIGN ASSISTANT Pulse 90 04/17/2024 11:27 AM INTERIOR DESIGN ASSISTANT Temperature 36.7 C (98 F) 04/17/2024 11:27 AM INTERIOR DESIGN ASSISTANT Respiratory Rate 18 03/20/2024 10:00 AM INTERIOR DESIGN ASSISTANT Oxygen Saturation 97% 04/17/2024 11:27 AM INTERIOR DESIGN ASSISTANT Inhaled Oxygen Concentration - - Weight 53.3 kg (117 lb 6.4 oz) 04/17/2024 11:27 AM INTERIOR DESIGN ASSISTANT Height 162.6 cm (5' 4 ) 04/17/2024 11:27 AM INTERIOR DESIGN ASSISTANT Body Mass Index 20.15 04/17/2024 11:27 AM INTERIOR DESIGN ASSISTANT Plan of Treatment Scheduled Procedures Name Priority Associated Diagnoses Date/Ti me ESOPHAGOGASTRODUODENOSCOPY Iron deficiency anemia, unspecified iron deficiency anemia type Procedures Procedure Name Priority Date/Time Associated Diagnosis Comments MRI BRAIN WO CONTRAST Schedule Routine, Read Routine (OP Routine) 05/03/2024 10:12 AM INTERIOR DESIGN ASSISTANT Vertigo VITAMIN B12 Routine 04/18/2024 12:34 PM INTERIOR DESIGN ASSISTANT Vertigo Pure hypercholesterole jose david Vitamin B12 deficiency Well adult exam CBC WITH AUTO DIFFERENTIAL Routine 04/18/2024 12:34 PM INTERIOR DESIGN ASSISTANT Vertigo Pure hypercholesterole jose david Vitamin B12 deficiency Well adult exam LIPID PANEL Routine 04/18/2024 12:34 PM INTERIOR DESIGN ASSISTANT Vertigo Pure hypercholesterole jose david Vitamin B12 deficiency Well adult exam COMPREHENSIVE METABOLIC PANEL Routine 04/18/2024 12:34 PM INTERIOR DESIGN ASSISTANT Vertigo Pure hypercholesterole jose david Vitamin B12 deficiency Well adult exam THYROID FUNCTION CASCADE Routine 04/18/2024 12:34 PM INTERIOR DESIGN ASSISTANT Vertigo Pure hypercholesterole jose david Vitamin B12 deficiency Well adult exam SCREENING MAMMOGRAM BILATERAL W QUE Schedule Routine, Read Routine (OP Routine) 09/07/2023 9:42 AM CDT Screening mammogram, encounter for HEPATITIS PANEL, ACUTE Routine 12/23/2022 9:46 AM CDT Polyarthralgia COLONOSCOPY 11/26/2022 8:14 AM CDT from Last 3 Months or Most Recently Relevant to Health Maintenance Results * MRI Brain WO Contrast (05/03/2024 10:12 AM INTERIOR DESIGN ASSISTANT) Anatomical Region Laterality Modality Head and Neck N/A Magnetic Resonan ce 05/03/2024 12:4 6 PM INTERIOR DESIGN ASSISTANT Impressions 05/03/2024 12:46 PM INTERIOR DESIGN ASSISTANT No acute intracranial abnormality. Electronically signed by: MD Dangelo Gil 05/03/2024 12:46 PM INTERIOR DESIGN ASSISTANT EXAMINATION: Magnetic resonance imaging (MRI) of the brain and brainstem without contrast HISTORY: vertigo. TECHNIQUE: Multiplanar multi-weighted MRI of the brain and brainstem was performed without intravenous contrast using the general brain protocol. COMPARISON: 02/13/2023 FINDINGS: No acute intracranial infarction or hemorrhage. Morphologically normal ventricles without hydrocephalus. Incidental note of a cavum septum pellucidum. Periventricular white matter T2 FLAIR hyperintense signal is nonspecific but may reflect underlying chronic small vessel ischemic changes. The scalp and calvarium are normal. The superior sagittal sinus demonstrates normal venous flow. The corpus callosum is normal in shape and signal intensity. The posterior fossa is unremarkable. The pituitary and sella are normal. The brainstem and craniocervical junction are unremarkable. The visualized portions of the orbits are normal. The visualized portions of the mastoids are normal. The visualized portions of the paranasal sinuses are normal. Normal flow voids are demonstrated in the carotid arteries and basilar artery. Procedure Note Dane Warner MD - 05/03/2024 EXAMINATION: Magnetic resonance imaging (MRI) of the brain and brainstem without contrast HISTORY: vertigo. TECHNIQUE: Multiplanar multi-weighted MRI of the brain and brainstem was performed without intravenous contrast using the general brain protocol. COMPARISON: 02/13/2023 FINDINGS: No acute intracranial infarction or hemorrhage. Morphologically normal ventricles without hydrocephalus. Incidental note of a cavum septum pellucidum. Periventricular white matter T2 FLAIR hyperintense signal is nonspecific but may reflect underlying chronic small vessel ischemic changes. The scalp and calvarium are normal. The superior sagittal sinus demonstrates normal venous flow. The corpus callosum is normal in shape and signal intensity. The posterior fossa is unremarkable. The pituitary and sella are normal. The brainstem and craniocervical junction are unremarkable. The visualized portions of the orbits are normal. The visualized portions of the mastoids are normal. The visualized portions of the paranasal sinuses are normal. Normal flow voids are demonstrated in the carotid arteries and basilar artery. IMPRESSION: No acute intracranial abnormality. Electronically signed by: Dane Warner MD us Subha Rodriguez MD [facility] MRI PROCEDURES Final Result * Thyroid Function [place] (04/18/2024 12:34 PM INTERIOR DESIGN ASSISTANT) TSH 1.13 0.40 - 4.50 mIU/L [facility] Blood 04/18/2024 12:3 4 PM INTERIOR DESIGN ASSISTANT 04/18/2024 12:35 PM INTERIOR DESIGN ASSISTANT Narrative [facility] - 04/19/2024 6:17 AM INTERIOR DESIGN ASSISTANT FASTING:NO FASTING: NO us Subha Rodriguez MD LAB BLOOD ORDERABLES Alissa l Result [facility] [address] [place] [address] * CBC with auto differential (04/18/2024 12:34 PM INTERIOR DESIGN ASSISTANT) WBC 3.9 3.8 - 10.8 Thousand/u L [facility] RBC, POC 4.06 3.80 - 5.10 Million/uL [facility] Hgb 12.9 11.7 - 15.5 g/dL [facility] Hct 39.3 35.0 - 45.0 % [facility] MCV 96.8 80.0 - 100.0 fL [facility] MCH 31.8 27.0 - 33.0 pg [facility] MCHC 32.8 32.0 - 36.0 g/dL [facility] Comment: For adults, a slight decrease in the calculated MCHC value (in the range of 30 to 32 g/dL) is most likely not clinically significant; however, it should be interpreted with caution in correlation with other red cell parameters and the patient's clinical condition. Rdw 12.1 11.0 - 15.0 % [facility] Platelets 235 140 - 400 Thousand/u L [facility] MPV 9.9 7.5 - 12.5 fL [facility] Neutrophils, abs 2,480 1,500 - 7,800 cells/uL [facility] Lymphocytes, abs 913 850 - 3,900 cells/uL [facility] Monocyte abs 406 200 - 950 cells/uL [facility] Eosinophils, abs 82 15 - 500 cells/uL [facility] Basophils, abs 20 0 - 200 cells/uL [facility] Neutrophils 63.6 % [facility] Lymphocyte pct 23.4 % [facility] Monocytes 10.4 % [facility] Eosinophils 2.1 % [facility] Basophils 0.5 % [facility] Blood 04/18/2024 12:3 4 PM INTERIOR DESIGN ASSISTANT 04/18/2024 12:35 PM INTERIOR DESIGN ASSISTANT Narrative [facility] - 04/19/2024 6:17 AM INTERIOR DESIGN ASSISTANT FASTING:NO FASTING: NO us Subha Km-Hilaly MD LAB BLOOD ORDERABLES Alissa l Result [facility] [address] [place] [address] * (ABNORMAL) Vitamin B12 (04/18/2024 12:34 PM INTERIOR DESIGN ASSISTANT) Vitamin B12 >2000(H) 200 - 1100 pg/mL [facility] Blood 04/18/2024 12:3 4 PM INTERIOR DESIGN ASSISTANT 04/18/2024 12:35 PM INTERIOR DESIGN ASSISTANT Narrative [facility] - 04/19/2024 6:17 AM INTERIOR DESIGN ASSISTANT FASTING:NO FASTING: NO Subha Rodriguez MD LAB BLOOD ORDERABLES Alissa l Result [facility] [address] [place] [address] * (ABNORMAL) Lipid panel (04/18/2024 12:34 PM INTERIOR DESIGN ASSISTANT) Cholesterol 209(H) <200 mg/dL [facility] HDL 77 > OR = 50 mg/dL [facility] Triglycerides 210(H) <150 mg/dL [facility] Comment: If a non-fasting specimen was collected, consider repeat triglyceride testing on a fasting specimen if clinically indicated. Atul et al. J. of Clin. Lipidol. 2015;9:129-169. LDL 99 mg/dL (calc) [facility] Comment: Reference range: <100 Desirable range <100 mg/dL for primary prevention; <70 mg/dL for patients with CHD or diabetic patients with > or = 2 CHD risk factors. LDL-C is now calculated using the Tyron calculation, which is a validated novel method providing better accuracy than the Friedewald equation in the estimation of LDL-C. Leandro SHETH et al. JANKI. 2013;310(19): 0602-8291 (http://education.Gigzolo/faq/RVP799) Chol/HDL ratio 2.7 <5.0 (calc) [facility] Non-HDL, (LDL+VLDL) 132(H) <130 mg/dL (calc) [facility] Comment: For patients with diabetes plus 1 major ASCVD risk factor, treating to a non-HDL-C goal of <100 mg/dL (LDL-C of <70 mg/dL) is considered a therapeutic option. Blood 04/18/2024 12:3 4 PM INTERIOR DESIGN ASSISTANT 04/18/2024 12:35 PM INTERIOR DESIGN ASSISTANT Narrative [facility] - 04/19/2024 6:17 AM INTERIOR DESIGN ASSISTANT FASTING:NO FASTING: NO us Subha Rodriguez MD LAB BLOOD ORDERABLES Alissa l Result [facility] [address] [place] [address] * (ABNORMAL) Comprehensive metabolic panel (04/18/2024 12:34 PM INTERIOR DESIGN ASSISTANT) Glucose 76 65 - 139 mg/dL [facility] Comment: Non-fasting reference interval BUN 31(H) 7 - 25 mg/dL [facility] [[email or web address]] [facility] [place] Creatinine 1.24(H) 0.50 - 1.05 mg/dL [facility] [place] eGFR 49(L) > OR = 60 mL/min/1.7 3m2 [facility] BUN/creat ratio 25(H) 6 - 22 (calc) [facility] [place] Sodium 140 135 - 146 mmol/L [facility] [place] Potassium, pl 4.2 3.5 - 5.3 mmol/L [facility] [place] Chloride 100 98 - 110 mmol/L [facility] [place] CO2 33(H) 20 - 32 mmol/L [facility] Calcium 9.4 8.6 - 10.4 mg/dL [facility] [place] Protein, sr 6.6 6.1 - 8.1 g/dL [facility] [place] Albumin 4.5 3.6 - 5.1 g/dL [facility] GLOBULIN 2.1 1.9 - 3.7 g/dL (calc) [facility] Alb/glob ratio 2.1 1.0 - 2.5 (calc) [facility] Bilirubin, total 0.4 0.2 - 1.2 mg/dL [facility] Alk phos 56 37 - 153 U/L [facility] AST 25 10 - 35 U/L [facility] ALT (SGPT) 24 6 - 29 U/L [facility] Blood 04/18/2024 12:3 4 PM INTERIOR DESIGN ASSISTANT 04/18/2024 12:35 PM INTERIOR DESIGN ASSISTANT Narrative [facility] - 04/19/2024 6:17 AM INTERIOR DESIGN ASSISTANT FASTING:NO FASTING: NO us Subha Rodriguez MD LAB BLOOD ORDERABLES Alissa l Result [facility] [address] [place] [address] * Screening Mammogram Bilateral W Que (09/07/2023 9:42 AM CDT) Anatomical Region Laterality Modality Breast Bilateral Mammography Narrative 09/07/2023 4:21 PM CDT Mammogram Technique: Bilateral Digital Breast Tomosynthesis, Bilateral C-view 2D Screening mammogram. Views obtained: bilateral craniocaudal and bilateral mediolateral oblique. Computer Aided Detection was performed. Mammogram Findings: The present examination has been compared to prior imaging studies performed at [facility] on 08/19/2012, and at [facility] on 09/06/2017 and 08/25/2022. There are scattered areas of fibroglandular density. There is no suspicious abnormality in either breast. There are no significant changes from the prior study. Impression: There is no mammographic evidence of malignancy. Annual screening mammography is recommended. OVERALL FINAL ASSESSMENT: BI-RADS CATEGORY 1: Negative. Procedure Note Alva Holloway MD - 09/07/2023 Mammogram Technique: Bilateral Digital Breast Tomosynthesis, Bilateral C-view 2D Screening mammogram. Views obtained: bilateral craniocaudal and bilateral mediolateral oblique. Computer Aided Detection was performed. Mammogram Findings: The present examination has been compared to prior imaging studies performed at [facility] on 08/19/2012, and at [facility] on 09/06/2017 and 08/25/2022. There are scattered areas of fibroglandular density. There is no suspicious abnormality in either breast. There are no significant changes from the prior study. Impression: There is no mammographic evidence of malignancy. Annual screening mammography is recommended. OVERALL FINAL ASSESSMENT: BI-RADS CATEGORY 1: Negative. us Self Screening Mammogram IMG MAMMO PROCEDURES Fi nal Result * Hepatitis panel, acute Blood (12/23/2022 9:46 AM CDT) Hep A IgM NON-REACTI VE NON-REACT MAURIZIO [facility] Comment: For additional information, please refer to http://SignStorey/faq/CXV855 (This link is being provided for informational/ educational purposes only.) HepBsAg NON-REACTI VE NON-REACT MAURIZIO [facility] Comment: For additional information, please refer to http://SignStorey/faq/ECE450 (This link is being provided for informational/ educational purposes only.) Hep B core IgM NON-REACTI VE NON-REACT MAURIZIO [facility] Comment: For additional information, please refer to http://SignStorey/faq/PDP231 (This link is being provided for informational/ educational purposes only.) Hep C Ab NON-REACTI VE NON-REACT MAURIZIO [facility] Comment: HCV antibody was non-reactive. There is no laboratory evidence of HCV infection. In most cases, no further action is required. However, if recent HCV exposure is suspected, a test for HCV RNA (test code 29782) is suggested. For additional information please refer to http://Exavio[employer]/faq/LSG60k6 (This link is being provided for informational/ educational purposes only.) Blood 12/23/2022 9:46 AM CDT 12/23/2022 9:47 AM CDT Narrative [facility] - 12/25/2022 3:26 PM CDT FASTING:YES FASTING: YES Palma Trevino [facility] MICROBIOLOGY - GE NERAL ORDERABLES Final Result [facility] [address] [id number] * COLONOSCOPY (11/26/2022 8:14 AM CDT) Anatomical Region Laterality Modality Other Narrative Procedure Note Gómez Kirk MD PhD - 11/26/2022 8:14 AM CDT [facility] Patient Name: Sabrina Barajas Procedure Date: 11/26/2022 8:14 AM Date of : 1960 Admit Type: Outpatient Age: 62 Gender: Female Attending MD: Gómez Kirk MD,PHD Room: [facility] ENDOSCOPY ROOM 4 Note Status: Finalized Procedure: Colonoscopy Indications: Screening for colorectal malignant neoplasm Referring MD: Claudio Suazo M.D. Providers: Gómez Kirk MD, PHD Medicines: Monitored Anesthesia Care Complications: No immediate complications. Estimated Blood Loss: Estimated blood loss was minimal. Procedure: Pre-Anesthesia Assessment: - Prior to the procedure, a History and Physicalwas performed, and patient medications, allergies and sensitivities were reviewed. The patient'stolerance of previous anesthesia was reviewed. - The risks and benefits of the procedure and the sedation options and risks were discussed with the patient. All questions were answered and informed consent was obtained. - After reviewing the risks and benefits, thepatient was deemed in satisfactory condition to undergo the procedure. - Immediately prior to administration ofmedications, the patient was re-assessed for adequacy to receive sedatives. The benefits, risks and alternatives of theprocedure and sedation were discussed and informed consentwas obtained. All questions were answered. Please referto the signed informed consent document in the medical record. The scope was passed under direct vision.The CF HQ [id number] endoscope was introducedthrough the anus and advanced to the cecum, identified by appendiceal orifice and ileocecal valve. The colonoscopy was performed without difficulty. The patient tolerated the procedure well. The qualityof the bowel preparation was good. The quality of the bowel preparation was evaluated using the BBPS(Tyler Bowel Preparation Scale) with scores of: RightColon = 2 (minor amount of residual staining, smallfragments of stool and/or opaque liquid, but mucosa seenwell), Transverse Colon = 2 (minor amount of residual staining, small fragments of stool and/or opaque liquid, but mucosa seen well) and Left Colon = 2 (minor amount of residual staining, small fragmentsof stool and/or opaque liquid, but mucosa seen well).The total BBPS score equals 6. The quality of the bowel preparation was good. The bowel preparation usedwas GoLYTELY via split dose instruction. Findings: The perianal and digital rectal examinations were normal. A 3 mm polyp was found in the cecum. The polyp was sessile. The polyp was removed with a jumbo cold forceps. Resection and retrieval were complete. A 4 mm polyp was found in the ascending colon. The polyp was sessile. The polyp was removed with a jumbo cold forceps. Resection andretrieval were complete. The exam was otherwise without abnormality on direct and retroflexion views. Impression: - One 3 mm polyp in the cecum, removed with a jumbo cold forceps. Resected and retrieved. - One 4 mm polyp in the ascending colon, removedwith a jumbo cold forceps. Resected and retrieved. - The examination was otherwise normal on directand retroflexion views. Recommendation: - Discharge patient to home. - Repeat colonoscopy in 5 years for surveillance. - A polyp or polyps were removed during your colonoscopy today. After the pathology result ofthe polyp(s) is reviewed, the doctor who performedyour colonoscopy will recommend follow-up colonoscopy to you based on current guidelines by gastroenterology societies: - If only small hyperplastic polyps from the rectumor sigmoid were removed, repeat the colonoscopy in 10 years. - If 1 or 2 polyps less than 1 cm in size are adenomas, repeat the colonoscopy in 5 years. - If 3 or more polyps are adenomas, repeat the colonoscopy in 3 years. - If there are 10 or more adenomas, repeat the colonoscopy in 1 year. - If any polyp is 10 mm or greater in size, has villous histology or high grade dysplasia,repeat the colonoscopy in 3 years. - If a polyp greater than 2 cm was removed with a piecemeal technique, repeat the colonoscopy in 6 months to be certain that there is no residualpolyp. - Sessile serrated polyps are treated like adenomas for surveillance purposes. Electronically signed by Gómez Kirk MD PHD Gómez Kirk MD, PHD 11/26/2022 8:55:34 AM . Number of Addenda: 0 Note Initiated On: 11/26/2022 8:14 AM Recognized by the [place] for promoting quality in endoscopy Gómez Kirk MD PhD ENDOSCOPY PROCEDURES F inal Result from Last 3 Months or Most Recently Relevant to Health Maintenance [place] Advance Directives For more information, please contact: [phone] * Full Code (Latest Code Status on File) Date Activated Date Inactivated Comments 11/26/2022 7:28 AM 11/26/2022 1:55 PM Care Teams Receiving Worker Relationship Specialty Start Date End Date Subha Rodriguez MD [address] [facility] [place] [id number] PCP - General Family Medicine 03/07/24 Job Coker MD [address] [place] [address] Referring Physician Psychiatry 06/19/22 Kendra Steiner MD PhD [address] [place] [address] Referring Physician Neurology 06/19/22 Mike Levy MD [address] [facility] [place] [id number] Referring Physician Emergency Medicine 06/19/22
--- OUTSIDE RECORDS SUMMARY | 2024-06-11 18:17 | XMS_ITS | Continuity of Care Document ---
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 Name Role Phone Barrington PT,MPT,ATC, Mike Unavailable Unavai lable Procedures Procedure Date Therapeutic Activities Neuromuscular Re-Ed Therapeutic Exercise Therapeutic Activities Neuromuscular Re-Ed Therapeutic Exercise Therapeutic Activities Neuromuscular Re-Ed Therapeutic Exercise Neuromuscular Re-Ed Therapeutic Activities Therapeutic Exercise Doc neg elder mal no plan PT Evaluation High Complexity Therapeutic Activities Therapeutic Exercise Progress Note Therapeutic Exercise Therapeutic Activities Neuromuscular Re-Ed Manual Therapy Therapeutic Exercise Therapeutic Activities Neuromuscular Re-Ed Manual Therapy Therapeutic Exercise Therapeutic Activities Neuromuscular Re-Ed Manual Therapy Therapeutic Exercise Therapeutic Activities Neuromuscular Re-Ed Manual Therapy Therapeutic Exercise Therapeutic Activities Neuromuscular Re-Ed Manual Therapy PT Evaluation Moderate Complexity Therapeutic Exercise Neuromuscular Re-Ed Manual Therapy Advance Directives Directive Yes / No Effective Date File Name No Information Encounters Encounter Description Practice Location Reason(s) For Visit Diagnoses Date Provider Providers Copied on Encounter [facility] [address] [facility] [place], [place], [id number], tel:[phone] [place] No Information Nov-2 3 [place], [place], [place]. Referring Provider: Palma Trevino, [address] [place] [address], [address]. tel:[phone] [place] [address] [address], [place], [place], [address], tel:[phone] [place] No Information Nov-1 3 [place], [place], [place]. Referring Provider: Palma Trevino, [address] [place] [address], [address]. tel:[phone] [facility] [address], [place], [place], [address], tel:[phone] [place] No Information Nov-1 3 [facility] [place]erring Provider: Palma Trevino, [address] [place] [address], [address]. tel:[phone] [facility] [address], [place], [place], [address], [place] tel:[phone] [place] No Information Nov-0 3 [place], [place], [place]. Referring Provider: Palma Trevino, [address] [place] [address], [address]. tel:[phone] [facility] [address], [place], [place], [address], tel:[phone] [place] No Information Nov-0 1-202 3 [place], [place], [place]. Referring Provider: Palma Trevino, [address] [place] [address], [address]. tel:[phone] [facility], [address], [place], [place], [id number], [place] tel:[phone] [place] Pain in left shoulderWeakness May-1 5-201 9 Makler Luke. . Referring Provider: Claudio Suazo, [address] [place] [address], [place], [address]. tel:[phone] [facility], [address], [place], [place], [id number], [place] tel:[phone] [place] Pain in left shoulderWeakness May-0 8-201 9 Makler Luke. . Referring Provider: Claudio Suazo, [address] [place] [address], [place], [address]. tel:[phone] [facility], [address], [place], [place], [address], [place] tel:[phone] [place] Pain in left shoulderWeakness May-0 1-201 9 Makler Luke. . Referring Provider: Claudio Suazo, [address] [place] [address], [place], [address]. tel:[phone] [facility] [address], [place], [place], [id number], [place] tel:[phone] [place] Pain in left shoulderWeakness Apr-2 4-201 9 Makler Luke. . Referring Provider: Claudio Suazo, [address] [place] [address], [place], [address]. tel:[phone] [facility], [address], [place], [place], [address], [place] tel:[phone] [place] Pain in left shoulderWeakness Apr-1 6-201 9 Makler Luke. . Referring Provider: Claudio Suazo [address] [place] [address], [place], [address]. tel:[phone] [facility], [address] [facility] [address], [place], [place], [id number], [place] tel:[phone] [place] Pain in left shoulderWeakness 9 Mady Toth. . Referring Provider: Claudio Suazo, [address] [address], [place], [address]. tel:[phone] Family History Family Member Type Diagnosis Age At Onset No Information Payers Payer name Insurance type Covered green party ID Authorchaa debbie(s) [facility] [id number] Social History Type Description Quantity Date Captured Comments Sex Female Smoking Status No Information Chief Complaint And Reason For Visit No Information Reason For Referral Reason For Referral No Information History Of Present Illness Encounter Date Complaint History Of Prese nt Illness No Information Functional Status Date Functional Assessmen t No Information Instructions Date Instruction Additional Infor mation No Information Assessments Type Assessment Date No Information Patient Care Teams Name Effective Dates (start - stop) Status Members No Information
--- OUTSIDE RECORDS SUMMARY | 2024-06-11 18:17 | XMS_ITS | Encounter Summary ---
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 Name Role Phone Claudio Suazo MD Primary Care Provider [phone] Job Coker MD Unavailable [phone] Kendra Steiner MD PhD Unavailable [phone] Mike Levy MD Unavailable [phone] Subha Rodriguez MD Primary Care Provider [phone] Reason for Visit * Reason Onset Date Comments ready to schedule 06/23/2022 Encounter Details Date Type Department Care Team (Late st Contact Info) Description 06/23/2022 Telephone [facility] Specialty Services [address] [place] [address] Miscellaneous, Not In File ready to schedule Social History Tobacco Use Types Packs/Day Years Used Date Smoking Tobacco: Never Smokeless Tobacco: Never AUDIT-C Answer Date Recorded Q1: How often do you have a drink containing alcohol? Never 06/19/2022 Q2: How many drinks containi ng alcohol do you have on a typical day when you are drinking? Patient does not drink Q3: How often do you have si x or more drinks on one occasion? 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 Gender Identity Female 11/21/2020 8:28 AM CDT Sexual Orientation Not on file documented as of this encounter Plan of Treatment Scheduled Procedures Name Priority Associated Diagnoses Date/Ti me ESOPHAGOGASTRODUODENOSCOPY Iron deficiency anemia, unspecified iron deficiency anemia type documented as of this encounter Visit Diagnoses Not on filedocumented in this encounter Care Teams Bricklayer Tender Relationship Specialty Start Date End Date Claudio Suazo MD PCP - General 06/19/16 03/06/24 Subha Rodriguez MD [address] [facility] [place] [address] PCP - General Family Medicine 03/07/24 Job Coker MD [address] [place] [address] Referring Physician Psychiatry 06/19/22 Kendra Steiner MD PhD [address] [place] [address] Referring Physician Neurology 06/19/22 Mike Levy MD [address] [facility] [place] [address] Referring Physician Emergency Medicine 06/19/22 documented as of this encounter
--- OUTSIDE RECORDS SUMMARY | 2024-06-11 18:17 | XMS_ITS | Patient Health Record ---
Author Organization [facility] [employer] Address [address] [place] [address] Care Team Providers Care Software Test Technician Name Role Phone Jennifer PÉREZ, Subha Primary Care Provider Un available Job Coker Unavailable [phone] David Martin DMD Unavailable Unavailable Migration, Provider Unavailable Unavailable Diogenes Muñiz Unavailable [phone] Allergies Allergen (clinical drug ingredient) Drug/Non Drug Allergy documented on EMR Reaction Allergy Type Onset Date Status Biaxin Unknown Drug Allergy 05/14/2023 Active clarithromycin Clarithromycin rash Drug Allergy Active Results Component Value Reference Range Notes DRUG SCREEN, 14 DRUGS (DETEC TIMED), URINE Reviewed date:07/02/2023 12:00:00 AM Interpretation: Performing Lab: Notes/Report: Amphetamine negative Barbiturates negative Benzodiazipine negative Buprenorphine negative Cocaine negative MDMA/Ectasy negative Methadone negative Methamphetamine negative Morphine negative note 90, neg Oxycodone negative Phenocyclidine negative THC negative UDT Reviewed date:10/29/2023 10:17:36 PM Interpretation: Performing Lab: Notes/Report: THC n 0 - 50 ng/ml Cocaine n 0 - 300 ng/ml Amphetamine n 0 - 1000 ng/ml Buprenorphine (BUP) n 0 - 10 ng/ml Secobarbital (Bar) n 0 - 300 ng/ml Oxazepam (BZO) n 0 - 300 ng/ml 9-dqfzocyqzf-5,1-ajqftkif-7, 3-diphenylpyrrolidine (EDDP) n 0 - 300 ng/ml Methamphetamine (MET) n 0 - 1000 ng/ml Methylenedioxymethamphetamine (MDMA) n 0 - 500 ng/ml Morphine (MOP 300/[id number]) n 0 - 300 ng/ml Methadone (MTD) n 0 - 300 ng/ml Phencyclidine (PCP) n 0 - 25 ng/ml Nortriptyline (TCA) n 0 - 1000 ng/ml Oxycodone n 0 - 300 ng/ml x n 0 - 300 ng/ml UDT Reviewed date:03/24/2024 01:14:14 PM Interpretation: Performing Lab: Notes/Report: THC NEG 0 - 50 ng/ml Cocaine NEG 0 - 300 ng/ml Amphetamine NEG 0 - 1000 ng/ml Buprenorphine (BUP) NEG 0 - 10 ng/ml Secobarbital (Bar) NEG 0 - 300 ng/ml Oxazepam (BZO) NEG 0 - 300 ng/ml 4-hrixdmqxsa-2,0-swjjbhnj-7, 3-diphenylpyrrolidine (EDDP) NEG 0 - 300 ng/ml Methamphetamine (MET) NEG 0 - 1000 ng/ml Methylenedioxymethamphetamine (MDMA) NEG 0 - 500 ng/ml Morphine (MOP 300/[id number]) NEG 0 - 300 ng/ml Methadone (MTD) NEG 0 - 300 ng/ml Phencyclidine (PCP) NEG 0 - 25 ng/ml Nortriptyline (TCA) NEG 0 - 1000 ng/ml Oxycodone NEG 0 - 300 ng/ml x NEG 0 - 300 ng/ml UDT Reviewed date:12/02/2023 08:47:59 AM Interpretation: Performing Lab: Notes/Report: THC n 0 - 50 ng/ml Cocaine n 0 - 300 ng/ml Amphetamine n 0 - 1000 ng/ml Buprenorphine (BUP) n 0 - 10 ng/ml Secobarbital (Bar) n 0 - 300 ng/ml Oxazepam (BZO) n 0 - 300 ng/ml 9-tpwuyrwtah-8,9-ultuials-5, 3-diphenylpyrrolidine (EDDP) n 0 - 300 ng/ml Methamphetamine (MET) n 0 - 1000 ng/ml Methylenedioxymethamphetamine (MDMA) n 0 - 500 ng/ml Morphine (MOP 300/[id number]) n 0 - 300 ng/ml Methadone (MTD) n 0 - 300 ng/ml Phencyclidine (PCP) n 0 - 25 ng/ml Nortriptyline (TCA) n 0 - 1000 ng/ml Oxycodone n 0 - 300 ng/ml x n 0 - 300 ng/ml Reason For Referral No Information Medications Medication SIG (Take, Route, Frequency, Duration) Notes Start Date End Date Status Riboflavin 400 MG 1 capsule Orally Onc e a day Active QUEtiapine Fumarate 200 MG 1 tablet Oral Once a day for 90 days Active Zinc 50 MG 1 tablet Orally Once a day Active lamoTRIgine ER 200 MG 1 tablet Orally On ce a day for 90 days Active B12 Active Iron 18 MG/15ML 15 mL mixed with israel er or juice Orally Once a day Active Magnesium Citrate 100 MG as directed Orally Active clonazePAM 0.5 MG 1 tablet Orally Twic e a day for 30 days 06/08/2024 Active Alpha Lipoic Acid 200 MG 1 capsule Orally 3 times a day 600 mg total 03/24/2024 Active busPIRone HCl 5 MG 1 tablet once a day for 4 days, 1 tablet 2 times a day for 4 days, 1 tablet 3 times a day for 22 days Oral see sign for 30 days 06/08/2024 07/08/2024 Active Multi Vitamin Active QUEtiapine Fumarate 200 MG TAKE 1 TABLET BY MOUTH EVERY NIGHT for 90 Active Trospium Chloride 20 MG 1 tablet at bedtime on an empty stomach Orally Twice a day 03/24/2024 Active Estradiol 0.1 MG/GM as directed Vaginal Active Rizatriptan Benzoate 10 MG Oral for 12 Days Active Qulipta 60 MG Oral for 30 Days Active SUMAtriptan Succinate 6 MG/0.5ML INJECT 6 MG UNDER THE SKIN NEEDED FOR MIGRAINE. MAY REPEAT DOSE IN 2 HOURS IF NEEDED. DO NOT EXCEED 2 DOSES IN 24 HOURS. Subcutaneous for 28 Days Active Alendronate Sodium 70 MG Oral for 84 Days Active Acyclovir 400 MG TAKE 1 TABLET BY NICOLAS TH DAILY Oral for 90 Days Active Lidocaine Viscous HCl 2 % Mouth/Throat for 3 Days Active Immunizations Vaccine Route Administration Date Status Comme nts Tdap Unknown 04/27/2021 Administered Tdap Unknown 04/27/2021 Administered Moderna Covid-19 Vaccine 1st dose Unknown 02/17/2021 Ad ministered Influenza (split), seasonal, intradermal, preservative free Unknown 12/24/2016 Administered Influenza (split), seasonal, intradermal, preservative free Unknown 12/24/2016 Administered Social History Tobacco Use: Social History Observation Description Date Details (start date - stop date) Never Smoker NA - NA Sex Assigned At : Social History Observation Description Sex Assigned At Female Tobacco Control (Standard) Question Answer Notes Tobacco use: Nonsmoker AUDIT-C (Standard) Question Answer Notes Did you have a drink containing alcohol in the p ast year? No Problems Problem Type SNOMED Code ICD Code Onset Dates Problem Status W/U Status Risk Notes Problem Severe recurrent major depression without psychotic features (35616680) Major depressive disorder, recurrent severe without psychotic features (F33.2) Active confirmed Problem Generalized anxiety disorder (99483336) Generalized anxiety disorder (F41.1) Active confirmed Problem Primary insomnia (4220915) Primary insomnia (F51.01) Active confirmed Problem Vitamin B12 deficiency (388047466) Vitamin B12 deficiency (E53.8) 4 Active confirmed Problem Chronic intractable migraine without aura (503666599063730 ) Intractable chronic migraine without aura and without status migrainosus (G43.719) 4 Active confirmed Problem Burning mouth syndrome (985296966) Burning mouth syndrome (K14.6) 3 Active confirmed Problem Vertigo (374421896) Vertigo (R42) 5 Active confirmed Vital Signs Heart Rate 108 /min 06/08/2024 Height-cm 162.56 cm 06/08/2024 Blood pressure diastolic 83 mm Hg 06/08/2024 Weight-kg 52.89 kg 06/08/2024 Height 64.00 in 06/08/2024 Blood pressure systolic 121 mm Hg 06/08/2024 Weight 116.6 lbs 06/08/2024 BMI 20.01 kg/m2 06/08/2024 Encounters Encounter Location Date Provider Diagnosis [facility] [address] [facility] [address] [facility] [address] [place] [address] 07/02/2023 Job Coker Generalized anxiety disorder F41.1 ; Major depressive disorder, single episode, in full remission F32.5 and Primary insomnia F51.01 [facility] [address] [facility] [address] [place] [address] 08/13/2023 Job Sheela Major depressive disorder, recurrent severe without psychotic features F33.2 ; Primary insomnia F51.01 ; Intractable chronic migraine without aura and without status migrainosus G43.719 ; Vitamin B12 deficiency E53.8 and Generalized anxiety disorder F41.1 [facility] [address] [place] [address] 10/13/2023 Job Sheela Major depressive disorder, recurrent severe without psychotic features F33.2 ; Generalized anxiety disorder F41.1 ; Primary insomnia F51.01 ; Intractable chronic migraine without aura and without status migrainosus G43.719 and Vitamin B12 deficiency E53.8 [facility] [address] [place] [address] 10/19/2023 Diogenes Clubb Major depressive disorder, recurrent severe without psychotic features F33.2 ; Generalized anxiety disorder F41.1 and Primary insomnia F51.01 [facility], [facility] [address] [place] [address] 10/27/2023 Job Sheela Major depressive disorder, recurrent severe without psychotic features F33.2 ; Generalized anxiety disorder F41.1 and Primary insomnia F51.01 [facility], [facility] [address] [place] [address] 12/02/2023 Job Sheela Major depressive disorder, recurrent severe without psychotic features F33.2 ; Generalized anxiety disorder F41.1 and Primary insomnia F51.01 [facility] [email or web address] [facility] [address] [place] [address] 01/03/2024 Job Sheela Major depressive disorder, recurrent severe without psychotic features F33.2 ; Generalized anxiety disorder F41.1 and Primary insomnia F51.01 [facility] [email or web address] [facility] [address] [place] [address] 01/10/2024 Job Sheela Major depressive disorder, recurrent severe without psychotic features F33.2 ; Generalized anxiety disorder F41.1 and Primary insomnia F51.01 [facility], [facility] [address] [place] [address] 01/26/2024 Job Sheela Major depressive disorder, recurrent severe without psychotic features F33.2 ; Generalized anxiety disorder F41.1 and Primary insomnia F51.01 [facility] [email or web address] [facility] [address] [place] [address] 02/28/2024 Job Sheela Major depressive disorder, recurrent severe without psychotic features F33.2 ; Generalized anxiety disorder F41.1 and Primary insomnia F51.01 [facility], [facility] [address] [place] [address] 03/24/2024 Job Sheela Major depressive disorder, recurrent severe without psychotic features F33.2 ; Generalized anxiety disorder F41.1 and Primary insomnia F51.01 [facility], [facility] [address] [place] [address] 04/27/2024 Job Sheela Major depressive disorder, recurrent severe without psychotic features F33.2 ; Generalized anxiety disorder F41.1 and Primary insomnia F51.01 [facility], [place] [address] [place] [address] 05/11/2024 Job Sheela Encounter for screening for cardiovascular disorders Z13.6 ; Burning mouth syndrome K14.6 ; Vertigo R42 ; Encounter for screening for depression Z13.31 ; Major depressive disorder, recurrent severe without psychotic features F33.2 ; Generalized anxiety disorder F41.1 and Primary insomnia F51.01 [facility], [place] [address] [place] [address] 06/08/2024 Job Sheela Encounter for screening for depression Z13.31 ; Encounter for screening for cardiovascular disorders Z13.6 ; Burning mouth syndrome K14.6 ; Vertigo R42 ; Major depressive disorder, recurrent severe without psychotic features F33.2 ; Generalized anxiety disorder F41.1 and Primary insomnia F51.01 [facility], [place] [address] [place] [address] 07/17/2023 Provider Migration [facility], [facility] [address] [place] [address] 07/18/2023 Provider Migration [facility], [place] [address] [place] [address] 09/06/2023 Job Sheela [facility], [facility] [address] [place] [address] 09/14/2023 Job Sheela [facility], [facility] [address] [place] [address] 09/16/2023 Job Sheela Generalized anxiety disorder F41.1 [facility], [place] [address] [place] [address] 09/17/2023 Job Sheela Generalized anxiety disorder F41.1 [facility], [facility] [address] [place] [address] 10/18/2023 Job Sheela [facility], [facility] [address] [place] [address] 11/25/2023 Job Sheela Major depressive disorder, recurrent severe without psychotic features F33.2 [facility], [facility] [address] [place] [address] 11/30/2023 Job Sheela [facility], [facility] [address] [place] [address] 03/27/2024 Job Sheela [facility], [facility] [address] [place] [address] 03/28/2024 Job Sheela Major depressive disorder, recurrent severe without psychotic features F33.2 [facility], [facility] [address] [place] [address] 04/19/2024 Job Sheela [facility], [facility] [address] [place] [address] 04/26/2024 Job Sheela [facility], [facility] [address] [place] [address] 10/19/2023 Job Sheela [facility], [facility] [address] [place] [address] 04/05/2024 Job Sheela [facility], [facility] [address] [place] [address] 04/05/2024 Job Sheela [facility], [facility] [address] [place] [address] 04/06/2024 Job Sheela Major depressive disorder, recurrent severe without psychotic features F33.2 [facility], [facility] [address] [place] [address] 05/10/2024 Job Sheela [facility], [facility] [address] [place] [address] 05/10/2024 Job Sheela [facility], [facility] [address] [place] [address] 05/10/2024 Job Sheela Assessments Encounter Date Diagnosis (ICD Code) Assessment Notes Treatment Notes Treatment Clinical Notes Section Notes 09/17/2023 Generalized anxiety disorder (ICD-10 - F41.1) 08/13/2023 Major depressive disorder, recurrent severe without psychotic features (ICD-10 - F33.2) Depression - Assessment: Patient reports ongoing depression with fluctuations depending on daily situations. - Plan: - Continue current medications: Escitalopram 10 mg daily, Trazodone for insomnia, Quetiapine at bedtime, Lamotrigine one tablet twice a day. - Continue weekly counseling sessions with therapist. - Follow-up in two months. Anxiety Related to Communication with Estranged Family Member - Assessment: Patient experiences panic when receiving text messages, fearing contact from Prema. - Plan: - Encourage continued support from sisters and therapist. - No changes in medications at this time. Interest in Obtaining a Psychiatric Service Dog (PSD) - Plan: - Provide a letter of support for a support dog. - Discuss options for obtaining a service dog, including companies that provide service dogs for free or train the patient's dog for fees. Migraines - Assessment: Patient reports being prescribed Lyrica by neurologist for migraines. - Plan: - No changes in medications at this time. - Encourage patient to follow up with neurologist as needed. Driving Ability - Assessment: Patient reports no issues with driving. - Plan: - No changes in medications at this time. Follow-up - Plan: Follow-up in two months to reassess patient's progress and make any necessary adjustments to the treatment plan. 10/19/2023 Major depressive disorder, recurrent severe without psychotic features (ICD-10 - F33.2) 1. Anxiety and sleep disturbance - She reports increased anxiety and difficulty sleeping after the recent medication change from quetiapine 150 mg and trazodone 50 mg to quetiapine ER 50 mg (2 tablets at night). - Plan: return medications to trazodone 50 mg HS and quetiapine 150. discontinue quetiapine extended release 100 mg hs. 2. Dizziness and lightheadedness - She reports persistent dizziness and lightheadedness , which has not resolved after the medication change. Her vital signs are within normal range, - Plan: Monitor her symptoms and consider further evaluation if they persist or worsen. Review her recent blood work results, including sodium and potassium levels, to rule out any electrolyte imbalances. 3. Shaking and weakness - She reports shaking and weakness, which could be related to the quetiapine or lack of sleep. She was previously on quetiapine 150 mg without these side effects. - Plan: Monitor her symptoms and consider adjusting the quetiapine dosage if necessary. Encourage her to maintain good sleep hygiene and address any sleep disturbances. 5. Medication management - She is on a complex medication regimen, including multivitamin, iron supplement, vitamin B12, calcitrate, D3 magnesium, trospium chloride, rizatriptan, clonazepam, lubiprostone, acyclovir, Zofran, sumatriptan, alendronate, estradiol cream, terbinafine, escitalopram, lamotrigine, and quetiapine. - Plan: Review her medication list for any potential interactions or side effects that may be contributing to her symptoms. - stop extended release quetiapine. - start short acting quetiapine 150 mg - start Trazodone 50 mg po hs 6. Follow-up - Plan: Follow up with Dr. Coker in one week. 11/25/2023 Major depressive disorder, recurrent severe without psychotic features (ICD-10 - F33.2) 12/02/2023 Major depressive disorder, recurrent severe without psychotic features (ICD-10 - F33.2) Major Depressive Disorder - Assessment: Patient reports no significant change in mood and depression since the last visit. Currently on escitalopram 10mg daily (half tablet of 20mg). - Plan: - Continue escitalopram at the current dose and monitor for any changes in mood. - Encourage the patient to continue attending counseling sessions with Cele at [facility]. Generalized Anxiety Disorder - Assessment: Patient reports improvement in anxiety since the last visit. Currently on clonazepam 0.5mg daily. - Plan: - Continue clonazepam at the current dose and monitor for any changes in anxiety levels. Insomnia - Assessment: Patient is using trazodone 50mg for sleep. - Plan: - Continue trazodone at the current dose and monitor for sleep quality. Bipolar Disorder - Assessment: Patient is on lamotrigine 100mg twice a day. - Plan: - Continue lamotrigine at the current dose and monitor for mood stability. Family and Social Issues - Assessment: Patient expresses feelings of guilt and loneliness due to lack of contact with children and grandchildren. Patient reports being very close to her youngest sister and two nieces, considering them as her family. - Plan: - Encourage the patient to strengthen relationships with her sister and nieces and consider making one of them her power of certified retinal angiographer for health. - Suggest the patient to explore opportunities for social support and engagement, such as joining support groups or participating in community activities. Medication Management - Plan: - Quetiapine 150mg was not approved; revert to the previous dose. - Refill prescriptions for lamotrigine, clonazepam, trazodone, and quetiapine. - Schedule a follow-up appointment in 3 months to assess the patient's progress and medication needs. 10/13/2023 Major depressive disorder, recurrent severe without psychotic features (ICD-10 - F33.2) Major Depressive Disorder - Plan: - Continue Escitalopram 10 mg once daily - Discontinue Trazodone 50 mg - Change Quetiapine to ER, 50 mg two tablets at night - Maintain Lamotrigine 100 mg daily - Follow up in three months or sooner if needed Anxiety - Plan: - Increase Quetiapine ER to help with anxiety symptoms - Continue Clonazepam 0.5 mg twice a day - Continue Risperidone 10 mg as needed - Encourage patient to seek support from family members for caregiving responsibilitie s - Address patient's report of feeling shaky and weak upon waking, which worsens throughout the day Orofacial Pain - Plan: - Patient to undergo CT scan of sinuses on November 01 - Continue care under Dr. Reyez from [facility] and ENT referral - Address patient's report of horrible throbbing in face, teeth, and gums Suspected POTS and Autoimmune Issues - Plan: - Patient to be referred for POTS evaluation by Dr. Castro - Autoimmune blood work to be done - Continue current multivitamin, iron, B12, calcium, magnesium, and Qulipta 60 mg daily regimen - Address patient's report of feeling lightheaded and shaky Caregiver Stress - Plan: - Encourage patient to seek additional support from family members and consider community resources for assistance with parents' needs - Continue counseling sessions with Cele - Acknowledge patient's role as primary caregiver for 89-year-old father and mother, responsible for appointments, groceries, and transportation Sleep - Plan: - Advise patient to adjust Quetiapine ER administration time if difficulty falling asleep occurs - Note patient typically takes medications at 9 PM and goes to bed around 10-10:30 PM Follow-up - Plan: - Follow up in three months or sooner if needed 10/13/2023 Generalized anxiety disorder (ICD-10 - F41.1) Major Depressive Disorder - Plan: - Continue Escitalopram 10 mg once daily - Discontinue Trazodone 50 mg - Change Quetiapine to ER, 50 mg two tablets at night - Maintain Lamotrigine 100 mg daily - Follow up in three months or sooner if needed Anxiety - Plan: - Increase Quetiapine ER to help with anxiety symptoms - Continue Clonazepam 0.5 mg twice a day - Continue Risperidone 10 mg as needed - Encourage patient to seek support from family members for caregiving responsibilitie s - Address patient's report of feeling shaky and weak upon waking, which worsens throughout the day Orofacial Pain - Plan: - Patient to undergo CT scan of sinuses on November 01 - Continue care under [facility]. Reyez from [facility] and ENT referral - Address patient's report of horrible throbbing in face, teeth, and gums Suspected POTS and Autoimmune Issues - Plan: - Patient to be referred for POTS evaluation by Dr. Castro - Autoimmune blood work to be done - Continue current multivitamin, iron, B12, calcium, magnesium, and Qulipta 60 mg daily regimen - Address patient's report of feeling lightheaded and shaky Caregiver Stress - Plan: - Encourage patient to seek additional support from family members and consider community resources for assistance with parents' needs - Continue counseling sessions with Cele - Acknowledge patient's role as primary caregiver for 89-year-old father and mother, responsible for appointments, groceries, and transportation Sleep - Plan: - Advise patient to adjust Quetiapine ER administration time if difficulty falling asleep occurs - Note patient typically takes medications at 9 PM and goes to bed around 10-10:30 PM Follow-up - Plan: - Follow up in three months or sooner if needed 08/13/2023 Primary insomnia (ICD-10 - F51.01) Depression - Assessment: Patient reports ongoing depression with fluctuations depending on daily situations. - Plan: - Continue current medications: Escitalopram 10 mg daily, Trazodone for insomnia, Quetiapine at bedtime, Lamotrigine one tablet twice a day. - Continue weekly counseling sessions with therapist. - Follow-up in two months. Anxiety Related to Communication with Estranged Family Member - Assessment: Patient experiences panic when receiving text messages, fearing contact from [facility]. - Plan: - Encourage continued support from sisters and therapist. - No changes in medications at this time. Interest in Obtaining a Psychiatric Service Dog (PSD) - Plan: - Provide a letter of support for a support dog. - Discuss options for obtaining a service dog, including companies that provide service dogs for free or train the patient's dog for fees. Migraines - Assessment: Patient reports being prescribed Lyrica by neurologist for migraines. - Plan: - No changes in medications at this time. - Encourage patient to follow up with neurologist as needed. Driving Ability - Assessment: Patient reports no issues with driving. - Plan: - No changes in medications at this time. Follow-up - Plan: Follow-up in two months to reassess patient's progress and make any necessary adjustments to the treatment plan. 08/13/2023 Vitamin B12 deficiency (ICD-10 - E53.8) Depression - Assessment: Patient reports ongoing depression with fluctuations depending on daily situations. - Plan: - Continue current medications: Escitalopram 10 mg daily, Trazodone for insomnia, Quetiapine at bedtime, Lamotrigine one tablet twice a day. - Continue weekly counseling sessions with therapist. - Follow-up in two months. Anxiety Related to Communication with Estranged Family Member - Assessment: Patient experiences panic when receiving text messages, fearing contact from [facility]. - Plan: - Encourage continued support from sisters and therapist. - No changes in medications at this time. Interest in Obtaining a Psychiatric Service Dog (PSD) - Plan: - Provide a letter of support for a support dog. - Discuss options for obtaining a service dog, including companies that provide service dogs for free or train the patient's dog for fees. Migraines - Assessment: Patient reports being prescribed Lyrica by neurologist for migraines. - Plan: - No changes in medications at this time. - Encourage patient to follow up with neurologist as needed. Driving Ability - Assessment: Patient reports no issues with driving. - Plan: - No changes in medications at this time. Follow-up - Plan: Follow-up in two months to reassess patient's progress and make any necessary adjustments to the treatment plan. 08/13/2023 Intractable chronic migraine without aura and without status migrainosus (ICD-10 - G43.719) Depression - Assessment: Patient reports ongoing depression with fluctuations depending on daily situations. - Plan: - Continue current medications: Escitalopram 10 mg daily, Trazodone for insomnia, Quetiapine at bedtime, Lamotrigine one tablet twice a day. - Continue weekly counseling sessions with therapist. - Follow-up in two months. Anxiety Related to Communication with Estranged Family Member - Assessment: Patient experiences panic when receiving text messages, fearing contact from [place]. - Plan: - Encourage continued support from sisters and therapist. - No changes in medications at this time. Interest in Obtaining a Psychiatric Service Dog (PSD) - Plan: - Provide a letter of support for a support dog. - Discuss options for obtaining a service dog, including companies that provide service dogs for free or train the patient's dog for fees. Migraines - Assessment: Patient reports being prescribed Lyrica by neurologist for migraines. - Plan: - No changes in medications at this time. - Encourage patient to follow up with neurologist as needed. Driving Ability - Assessment: Patient reports no issues with driving. - Plan: - No changes in medications at this time. Follow-up - Plan: Follow-up in two months to reassess patient's progress and make any necessary adjustments to the treatment plan. 10/27/2023 Major depressive disorder, recurrent severe without psychotic features (ICD-10 - F33.2) Anxiety - Assessment: The patient reports increased anxiety and difficulty sleeping. They are currently on Clonazepam 0.5 mg once a day and Acetalopram 10 mg daily. The patient is tolerating the medication but experiences increased anxiety later in the day. - Plan: - Increase Acetalopram to 20 mg daily, with the patient taking half a tablet twice a day. - Monitor the patient's response to the increased dosage and adjust as needed during the follow-up visit. - The patient can use their current 10 mg tablets twice daily until the new prescription is filled. Insomnia - Assessment: The patient is currently taking Trazodone 50 mg for sleep and reports no issues with the medication. The patient recently picked up their Trazodone prescription. - Plan: - Continue Trazodone 50 mg as needed for sleep. - Reassess the patient's sleep quality during the follow-up visit. Shaking and Fatigue - Assessment: The patient reports shaking and fatigue, which may or may not be related to anxiety. The patient has seen a PA at the clinic who did not attribute the shaking to anxiety. The patient is currently being evaluated for autoimmune disorders. Recent tests show negative results for SSA antibodies and Brazilian antibodies. - Plan: - Await results of the autoimmune disorder evaluation. - Reassess the patient's shaking and fatigue during the follow-up visit and consider further evaluation or referral if necessary. Psychiatric Medications - Assessment: The patient is currently taking Quetiapine 150 mg at night (as 100 mg + 50 mg tablets) and Lamotrigine 100 mg twice a day. The patient reports tolerating the medications well. - Plan: - Send a prescription for Quetiapine 150 mg to the pharmacy, as it was not sent previously. - Continue the current dosages of Quetiapine and Lamotrigine. - Reassess the patient's psychiatric symptoms during the follow-up visit. Follow-up - Schedule a follow-up visit in one month to reassess the patient's anxiety, sleep, shaking, fatigue, and response to the increased Acetalopram dosage. The patient hopes to have more information about their ongoing health issues by then. 01/03/2024 Major depressive disorder, recurrent severe without psychotic features (ICD-10 - F33.2) Anxiety - Assessment: Patient reports severe anxiety upon waking, with symptoms including shaking, chest pains, and nausea. Currently on Lexapro 20 mg daily and clonazepam as needed. Anxiety described as extreme, forcing patient to push through morning routine. - Plan: - Change lamotrigine 100 mg twice daily to lamotrigine ER (extended-relea se) once daily at night. - Monitor response to medication change for 4 weeks. - Schedule follow-up in 4 weeks; extend to 2 months if patient is doing well. Nausea - Assessment: Patient experiences intermittent morning nausea, less frequent than anxiety symptoms. Currently taking Zofran as needed for headaches. Nausea not correlated with food intake. - Plan: - Continue using Zofran as needed for nausea. - Monitor response to lamotrigine ER change and assess impact on nausea symptoms at follow-up. Insomnia - Assessment: Patient discontinued trazodone independently and reports improved sleep without dizziness or haziness. Reports difficulty falling asleep. - Plan: - No further intervention needed at this time. - Monitor sleep quality at follow-up appointment. Medication Management - Assessment: Patient currently on Lexapro 20 mg daily (10 mg twice daily), lamotrigine 100 mg twice daily, and clonazepam as needed. - Plan: - Discontinue lamotrigine 100 mg twice daily. - Prescribe lamotrigine ER once daily at night, to be taken about 30 minutes before bedtime with other medications. - Continue Lexapro 20 mg daily and clonazepam as needed. - Monitor response to medication changes at follow-up appointment. Note: Follow-up appointment scheduled during potentially stressful time (Thanksgiving with family), which may affect assessment of anxiety symptoms. 01/10/2024 Major depressive disorder, recurrent severe without psychotic features (ICD-10 - F33.2) Severe Anxiety - Assessment: The patient reports worsening anxiety with persistent shaking and worrying for the past 4 days. The patient's insurance premium increase seems to be a contributing factor. The current medication regimen does not appear to be providing adequate relief. Patient reports shaking all the time and that exercise is not helping as it usually does. - Plan: Increase clonazepam to twice a day (morning and evening) to help manage anxiety. Reevaluate in 2 weeks. Depression - Assessment: The patient reports no significant improvement in depressive symptoms but emphasizes that anxiety is the primary concern. Patient states, I'm not saying I want to commit suicide or anything, but this anxiety, it's mostly the anxiety, not the depression. - Plan: Continue current medications (Lexapro 20 mg half tablet twice a day, quetiapine 150 mg, and lamotrigine 200 mg). Reevaluate in 2 weeks. Mouth Movements (Possible Tardive Dyskinesia) - Assessment: The patient has been experiencing mouth movements for over a year, starting in October of the previous year. No body rocking or other body movements reported. Patient states the mouth movement is just escalating. - Plan: Continue monitoring the patient's symptoms and consider referral to a specialist if the condition does not improve or worsens. Insomnia - Assessment: The patient reports somewhat improved sleep. - Plan: Continue current medications and monitor sleep quality during follow-up visits. Family Stressors - Assessment: The patient has ongoing concerns regarding her daughter, who has not been in contact for a month. The daughter lives in [place]. - Plan: Encourage the patient to seek support from friends, family, or a therapist to help cope with family stressors. Follow-up - Plan: Schedule a follow-up appointment in 2 weeks to assess the patient's response to the increased clonazepam dosage and overall mental health status. Patient agreed to the 2-week follow-up. 01/26/2024 Major depressive disorder, recurrent severe without psychotic features (ICD-10 - F33.2) Anxiety and Stress-related Oral Symptoms - Assessment: Patient reports stress and anxiety significantly affect her mouth. - Plan: - Continue using Viscous Lidocaine as needed for oral symptoms. - Monitor the effectiveness of the current anxiety management strategies. Clonazepam - Assessment: Patient reports that the increased clonazepam dosage has not improved morning anxiety. - Plan: - No further increase in clonazepam at this time. Lamotrigine ER - Assessment: The patient is currently on 200 mg of lamotrigine ER. - Plan: - Continue the current dosage and monitor for effectiveness and side effects. Quetiapine - Plan: - Increase quetiapine dosage from 150 mg to 200 mg at night. - If increased dosage causes excessive tiredness, the patient may reduce the dosage back to 150 mg. - Monitor for effectiveness in improving morning anxiety and any side effects. - Patient has enough medication for more than a month with current prescriptions. Coping Strategies and Support - Assessment: Patient reports using relaxation exercises to cope with stressful situations. - Plan: - Encourage the patient to continue exercising and pursuing volunteer opportunities at the [facility]. - Support the patient in managing her relationship with her daughter and navigating insurance issues. Follow-up - Plan: - Schedule a follow-up appointment after [place] to assess the effectiveness of the increased quetiapine dosage and overall mental health status. - Ensure the patient has an adequate supply of medications and adjust prescriptions as needed. - Next appointment may be after [place] due to provider's time off. 03/28/2024 Major depressive disorder, recurrent severe without psychotic features (ICD-10 - F33.2) Electronic Prior Authorization was requested for Pristiq 50 MG Tablet Extended Release 24 Hour. Provider can order medication once approval received. 04/06/2024 Major depressive disorder, recurrent severe without psychotic features (ICD-10 - F33.2) 04/27/2024 Major depressive disorder, recurrent severe without psychotic features (ICD-10 - F33.2) Electronic Prior Authorization was requested for Desvenlafaxine ER 50 MG Tablet Extended Release 24 Hour. Provider can order medication once approval received. 02/28/2024 Major depressive disorder, recurrent severe without psychotic features (ICD-10 - F33.2) Mood Stabilization - Assessment: Patient reports improvement in mood after the change in medication. Lamotrigine 200 mg daily is helping in stabilizing the patient's mood. - Plan: - Continue Lamotrigine 200 mg daily. Depression - Assessment: Patient reports no significant symptoms of depression currently. Escitalopram 20 mg daily is being taken for depression. - Plan: - Continue Escitalopram 20 mg daily. Anxiety - Assessment: Patient reports some anxiety during the holidays but was able to manage it. Clonazepam 0.5 mg twice a day is being taken for anxiety. - Plan: - Continue Clonazepam 0.5 mg twice a day. - Refill prescription for 30 days with 2 refills. - Ensure patient does not use the old prescription when contacting the pharmacy. Sleep and Mood Regulation - Assessment: Patient reports improvement with the change in medication to Quetiapine 200 mg daily. - Plan: - Change Quetiapine prescription to 200 mg tablets. - Continue Quetiapine 200 mg daily, to be taken at night. - Refill prescription as needed. Social Support and Activities - Assessment: Patient exercises 5 times a week and plans to volunteer at the [facility]. Patient has a good relationship with siblings and nieces, which provides strong social support. - Plan: - Encourage patient to continue engaging in social activities and maintaining relationships. Follow-up - Assessment: Patient requests to extend the time between appointments to 3 months. - Plan: - Schedule a follow-up appointment in 3 months. 03/24/2024 Major depressive disorder, recurrent severe without psychotic features (ICD-10 - F33.2) Electronic Prior Authorization was requested for Desvenlafaxine ER 50 MG Tablet Extended Release 24 Hour. Provider can order medication once approval received. 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) 05/11/2024 Encounter for screening for cardiovascular disorders (ICD-10 - Z13.6) 06/08/2024 Encounter for screening for depression (ICD-10 - Z13.31) 07/02/2023 Major depressive disorder, single episode, in full remission (ICD-10 - F32.5) 07/02/2023 Generalized anxiety disorder (ICD-10 - F41.1) 07/02/2023 Primary insomnia (ICD-10 - F51.01) 05/11/2024 Encounter for screening for depression (ICD-10 - Z13.31) 06/08/2024 Encounter for screening for cardiovascular disorders (ICD-10 - Z13.6) 03/24/2024 Generalized anxiety disorder (ICD-10 - F41.1) 02/28/2024 Generalized anxiety disorder (ICD-10 - F41.1) Mood Stabilization - Assessment: Patient reports improvement in mood after the change in medication. Lamotrigine 200 mg daily is helping in stabilizing the patient's mood. - Plan: - Continue Lamotrigine 200 mg daily. Depression - Assessment: Patient reports no significant symptoms of depression currently. Escitalopram 20 mg daily is being taken for depression. - Plan: - Continue Escitalopram 20 mg daily. Anxiety - Assessment: Patient reports some anxiety during the holidays but was able to manage it. Clonazepam 0.5 mg twice a day is being taken for anxiety. - Plan: - Continue Clonazepam 0.5 mg twice a day. - Refill prescription for 30 days with 2 refills. - Ensure patient does not use the old prescription when contacting the pharmacy. Sleep and Mood Regulation - Assessment: Patient reports improvement with the change in medication to Quetiapine 200 mg daily. - Plan: - Change Quetiapine prescription to 200 mg tablets. - Continue Quetiapine 200 mg daily, to be taken at night. - Refill prescription as needed. Social Support and Activities - Assessment: Patient exercises 5 times a week and plans to volunteer at the [facility]. Patient has a good relationship with siblings and nieces, which provides strong social support. - Plan: - Encourage patient to continue engaging in social activities and maintaining relationships. Follow-up - Assessment: Patient requests to extend the time between appointments to 3 months. - Plan: - Schedule a follow-up appointment in 3 months. 04/27/2024 Generalized anxiety disorder (ICD-10 - F41.1) 01/26/2024 Generalized anxiety disorder (ICD-10 - F41.1) Anxiety and Stress-related Oral Symptoms - Assessment: Patient reports stress and anxiety significantly affect her mouth. - Plan: - Continue using Viscous Lidocaine as needed for oral symptoms. - Monitor the effectiveness of the current anxiety management strategies. Clonazepam - Assessment: Patient reports that the increased clonazepam dosage has not improved morning anxiety. - Plan: - No further increase in clonazepam at this time. Lamotrigine ER - Assessment: The patient is currently on 200 mg of lamotrigine ER. - Plan: - Continue the current dosage and monitor for effectiveness and side effects. Quetiapine - Plan: - Increase quetiapine dosage from 150 mg to 200 mg at night. - If increased dosage causes excessive tiredness, the patient may reduce the dosage back to 150 mg. - Monitor for effectiveness in improving morning anxiety and any side effects. - Patient has enough medication for more than a month with current prescriptions. Coping Strategies and Support - Assessment: Patient reports using relaxation exercises to cope with stressful situations. - Plan: - Encourage the patient to continue exercising and pursuing volunteer opportunities at the [facility]. - Support the patient in managing her relationship with her daughter and navigating insurance issues. Follow-up - Plan: - Schedule a follow-up appointment after [place] to assess the effectiveness of the increased quetiapine dosage and overall mental health status. - Ensure the patient has an adequate supply of medications and adjust prescriptions as needed. - Next appointment may be after [place] due to provider's time off. 01/10/2024 Generalized anxiety disorder (ICD-10 - F41.1) Severe Anxiety - Assessment: The patient reports worsening anxiety with persistent shaking and worrying for the past 4 days. The patient's insurance premium increase seems to be a contributing factor. The current medication regimen does not appear to be providing adequate relief. Patient reports shaking all the time and that exercise is not helping as it usually does. - Plan: Increase clonazepam to twice a day (morning and evening) to help manage anxiety. Reevaluate in 2 weeks. Depression - Assessment: The patient reports no significant improvement in depressive symptoms but emphasizes that anxiety is the primary concern. Patient states, I'm not saying I want to commit suicide or anything, but this anxiety, it's mostly the anxiety, not the depression. - Plan: Continue current medications (Lexapro 20 mg half tablet twice a day, quetiapine 150 mg, and lamotrigine 200 mg). Reevaluate in 2 weeks. Mouth Movements (Possible Tardive Dyskinesia) - Assessment: The patient has been experiencing mouth movements for over a year, starting in October of the previous year. No body rocking or other body movements reported. Patient states the mouth movement is just escalating. - Plan: Continue monitoring the patient's symptoms and consider referral to a specialist if the condition does not improve or worsens. Insomnia - Assessment: The patient reports somewhat improved sleep. - Plan: Continue current medications and monitor sleep quality during follow-up visits. Family Stressors - Assessment: The patient has ongoing concerns regarding her daughter, who has not been in contact for a month. The daughter lives in [place]. - Plan: Encourage the patient to seek support from friends, family, or a therapist to help cope with family stressors. Follow-up - Plan: Schedule a follow-up appointment in 2 weeks to assess the patient's response to the increased clonazepam dosage and overall mental health status. Patient agreed to the 2-week follow-up. 01/03/2024 Generalized anxiety disorder (ICD-10 - F41.1) Anxiety - Assessment: Patient reports severe anxiety upon waking, with symptoms including shaking, chest pains, and nausea. Currently on Lexapro 20 mg daily and clonazepam as needed. Anxiety described as extreme, forcing patient to push through morning routine. - Plan: - Change lamotrigine 100 mg twice daily to lamotrigine ER (extended-relea se) once daily at night. - Monitor response to medication change for 4 weeks. - Schedule follow-up in 4 weeks; extend to 2 months if patient is doing well. Nausea - Assessment: Patient experiences intermittent morning nausea, less frequent than anxiety symptoms. Currently taking Zofran as needed for headaches. Nausea not correlated with food intake. - Plan: - Continue using Zofran as needed for nausea. - Monitor response to lamotrigine ER change and assess impact on nausea symptoms at follow-up. Insomnia - Assessment: Patient discontinued trazodone independently and reports improved sleep without dizziness or haziness. Reports difficulty falling asleep. - Plan: - No further intervention needed at this time. - Monitor sleep quality at follow-up appointment. Medication Management - Assessment: Patient currently on Lexapro 20 mg daily (10 mg twice daily), lamotrigine 100 mg twice daily, and clonazepam as needed. - Plan: - Discontinue lamotrigine 100 mg twice daily. - Prescribe lamotrigine ER once daily at night, to be taken about 30 minutes before bedtime with other medications. - Continue Lexapro 20 mg daily and clonazepam as needed. - Monitor response to medication changes at follow-up appointment. Note: Follow-up appointment scheduled during potentially stressful time (Thanksgiving with family), which may affect assessment of anxiety symptoms. 10/27/2023 Generalized anxiety disorder (ICD-10 - F41.1) Anxiety - Assessment: The patient reports increased anxiety and difficulty sleeping. They are currently on Clonazepam 0.5 mg once a day and Acetalopram 10 mg daily. The patient is tolerating the medication but experiences increased anxiety later in the day. - Plan: - Increase Acetalopram to 20 mg daily, with the patient taking half a tablet twice a day. - Monitor the patient's response to the increased dosage and adjust as needed during the follow-up visit. - The patient can use their current 10 mg tablets twice daily until the new prescription is filled. Insomnia - Assessment: The patient is currently taking Trazodone 50 mg for sleep and reports no issues with the medication. The patient recently picked up their Trazodone prescription. - Plan: - Continue Trazodone 50 mg as needed for sleep. - Reassess the patient's sleep quality during the follow-up visit. Shaking and Fatigue - Assessment: The patient reports shaking and fatigue, which may or may not be related to anxiety. The patient has seen a PA at the clinic who did not attribute the shaking to anxiety. The patient is currently being evaluated for autoimmune disorders. Recent tests show negative results for SSA antibodies and Brazilian antibodies. - Plan: - Await results of the autoimmune disorder evaluation. - Reassess the patient's shaking and fatigue during the follow-up visit and consider further evaluation or referral if necessary. Psychiatric Medications - Assessment: The patient is currently taking Quetiapine 150 mg at night (as 100 mg + 50 mg tablets) and Lamotrigine 100 mg twice a day. The patient reports tolerating the medications well. - Plan: - Send a prescription for Quetiapine 150 mg to the pharmacy, as it was not sent previously. - Continue the current dosages of Quetiapine and Lamotrigine. - Reassess the patient's psychiatric symptoms during the follow-up visit. Follow-up - Schedule a follow-up visit in one month to reassess the patient's anxiety, sleep, shaking, fatigue, and response to the increased Acetalopram dosage. The patient hopes to have more information about their ongoing health issues by then. 09/16/2023 Generalized anxiety disorder (ICD-10 - F41.1) 10/13/2023 Primary insomnia (ICD-10 - F51.01) Major Depressive Disorder - Plan: - Continue Escitalopram 10 mg once daily - Discontinue Trazodone 50 mg - Change Quetiapine to ER, 50 mg two tablets at night - Maintain Lamotrigine 100 mg daily - Follow up in three months or sooner if needed Anxiety - Plan: - Increase Quetiapine ER to help with anxiety symptoms - Continue Clonazepam 0.5 mg twice a day - Continue Risperidone 10 mg as needed - Encourage patient to seek support from family members for caregiving responsibilitie s - Address patient's report of feeling shaky and weak upon waking, which worsens throughout the day Orofacial Pain - Plan: - Patient to undergo CT scan of sinuses on November 01 - Continue care under [facility]z [facility] - Address patient's report of horrible throbbing in face, teeth, and gums Suspected POTS and Autoimmune Issues - Plan: - Patient to be referred for POTS evaluation by Dr. Castro - Autoimmune blood work to be done - Continue current multivitamin, iron, B12, calcium, magnesium, and Qulipta 60 mg daily regimen - Address patient's report of feeling lightheaded and shaky Caregiver Stress - Plan: - Encourage patient to seek additional support from family members and consider community resources for assistance with parents' needs - Continue counseling sessions with Cele - Acknowledge patient's role as primary caregiver for 89-year-old father and mother, responsible for appointments, groceries, and transportation Sleep - Plan: - Advise patient to adjust Quetiapine ER administration time if difficulty falling asleep occurs - Note patient typically takes medications at 9 PM and goes to bed around 10-10:30 PM Follow-up - Plan: - Follow up in three months or sooner if needed 12/02/2023 Generalized anxiety disorder (ICD-10 - F41.1) Major Depressive Disorder - Assessment: Patient reports no significant change in mood and depression since the last visit. Currently on escitalopram 10mg daily (half tablet of 20mg). - Plan: - Continue escitalopram at the current dose and monitor for any changes in mood. - Encourage the patient to continue attending counseling sessions with Cele at [facility]. Generalized Anxiety Disorder - Assessment: Patient reports improvement in anxiety since the last visit. Currently on clonazepam 0.5mg daily. - Plan: - Continue clonazepam at the current dose and monitor for any changes in anxiety levels. Insomnia - Assessment: Patient is using trazodone 50mg for sleep. - Plan: - Continue trazodone at the current dose and monitor for sleep quality. Bipolar Disorder - Assessment: Patient is on lamotrigine 100mg twice a day. - Plan: - Continue lamotrigine at the current dose and monitor for mood stability. Family and Social Issues - Assessment: Patient expresses feelings of guilt and loneliness due to lack of contact with children and grandchildren. Patient reports being very close to her youngest sister and two nieces, considering them as her family. - Plan: - Encourage the patient to strengthen relationships with her sister and nieces and consider making one of them her power of certified retinal angiographer for health. - Suggest the patient to explore opportunities for social support and engagement, such as joining support groups or participating in community activities. Medication Management - Plan: - Quetiapine 150mg was not approved; revert to the previous dose. - Refill prescriptions for lamotrigine, clonazepam, trazodone, and quetiapine. - Schedule a follow-up appointment in 3 months to assess the patient's progress and medication needs. 10/19/2023 Generalized anxiety disorder (ICD-10 - F41.1) 1. Anxiety and sleep disturbance - She reports increased anxiety and difficulty sleeping after the recent medication change from quetiapine 150 mg and trazodone 50 mg to quetiapine ER 50 mg (2 tablets at night). - Plan: return medications to trazodone 50 mg HS and quetiapine 150. discontinue quetiapine extended release 100 mg hs. 2. Dizziness and lightheadedness - She reports persistent dizziness and lightheadedness , which has not resolved after the medication change. Her vital signs are within normal range, - Plan: Monitor her symptoms and consider further evaluation if they persist or worsen. Review her recent blood work results, including sodium and potassium levels, to rule out any electrolyte imbalances. 3. Shaking and weakness - She reports shaking and weakness, which could be related to the quetiapine or lack of sleep. She was previously on quetiapine 150 mg without these side effects. - Plan: Monitor her symptoms and consider adjusting the quetiapine dosage if necessary. Encourage her to maintain good sleep hygiene and address any sleep disturbances. 5. Medication management - She is on a complex medication regimen, including multivitamin, iron supplement, vitamin B12, calcitrate, D3 magnesium, trospium chloride, rizatriptan, clonazepam, lubiprostone, acyclovir, Zofran, sumatriptan, alendronate, estradiol cream, terbinafine, escitalopram, lamotrigine, and quetiapine. - Plan: Review her medication list for any potential interactions or side effects that may be contributing to her symptoms. - stop extended release quetiapine. - start short acting quetiapine 150 mg - start Trazodone 50 mg po hs 6. Follow-up - Plan: Follow up with Dr. Coker in one week. 08/13/2023 Generalized anxiety disorder (ICD-10 - F41.1) Depression - Assessment: Patient reports ongoing depression with fluctuations depending on daily situations. - Plan: - Continue current medications: Escitalopram 10 mg daily, Trazodone for insomnia, Quetiapine at bedtime, Lamotrigine one tablet twice a day. - Continue weekly counseling sessions with therapist. - Follow-up in two months. Anxiety Related to Communication with Estranged Family Member - Assessment: Patient experiences panic when receiving text messages, fearing contact from [facility]. - Plan: - Encourage continued support from sisters and therapist. - No changes in medications at this time. Interest in Obtaining a Psychiatric Service Dog (PSD) - Plan: - Provide a letter of support for a support dog. - Discuss options for obtaining a service dog, including companies that provide service dogs for free or train the patient's dog for fees. Migraines - Assessment: Patient reports being prescribed Lyrica by neurologist for migraines. - Plan: - No changes in medications at this time. - Encourage patient to follow up with neurologist as needed. Driving Ability - Assessment: Patient reports no issues with driving. - Plan: - No changes in medications at this time. Follow-up - Plan: Follow-up in two months to reassess patient's progress and make any necessary adjustments to the treatment plan. 10/19/2023 Primary insomnia (ICD-10 - F51.01) 1. Anxiety and sleep disturbance - She reports increased anxiety and difficulty sleeping after the recent medication change from quetiapine 150 mg and trazodone 50 mg to quetiapine ER 50 mg (2 tablets at night). - Plan: return medications to trazodone 50 mg HS and quetiapine 150. discontinue quetiapine extended release 100 mg hs. 2. Dizziness and lightheadedness - She reports persistent dizziness and lightheadedness , which has not resolved after the medication change. Her vital signs are within normal range, - Plan: Monitor her symptoms and consider further evaluation if they persist or worsen. Review her recent blood work results, including sodium and potassium levels, to rule out any electrolyte imbalances. 3. Shaking and weakness - She reports shaking and weakness, which could be related to the quetiapine or lack of sleep. She was previously on quetiapine 150 mg without these side effects. - Plan: Monitor her symptoms and consider adjusting the quetiapine dosage if necessary. Encourage her to maintain good sleep hygiene and address any sleep disturbances. 5. Medication management - She is on a complex medication regimen, including multivitamin, iron supplement, vitamin B12, calcitrate, D3 magnesium, trospium chloride, rizatriptan, clonazepam, lubiprostone, acyclovir, Zofran, sumatriptan, alendronate, estradiol cream, terbinafine, escitalopram, lamotrigine, and quetiapine. - Plan: Review her medication list for any potential interactions or side effects that may be contributing to her symptoms. - stop extended release quetiapine. - start short acting quetiapine 150 mg - start Trazodone 50 mg po hs 6. Follow-up - Plan: Follow up with Dr. Coker in one week. 12/02/2023 Primary insomnia (ICD-10 - F51.01) Major Depressive Disorder - Assessment: Patient reports no significant change in mood and depression since the last visit. Currently on escitalopram 10mg daily (half tablet of 20mg). - Plan: - Continue escitalopram at the current dose and monitor for any changes in mood. - Encourage the patient to continue attending counseling sessions with Cele at [facility]. Generalized Anxiety Disorder - Assessment: Patient reports improvement in anxiety since the last visit. Currently on clonazepam 0.5mg daily. - Plan: - Continue clonazepam at the current dose and monitor for any changes in anxiety levels. Insomnia - Assessment: Patient is using trazodone 50mg for sleep. - Plan: - Continue trazodone at the current dose and monitor for sleep quality. Bipolar Disorder - Assessment: Patient is on lamotrigine 100mg twice a day. - Plan: - Continue lamotrigine at the current dose and monitor for mood stability. Family and Social Issues - Assessment: Patient expresses feelings of guilt and loneliness due to lack of contact with children and grandchildren. Patient reports being very close to her youngest sister and two nieces, considering them as her family. - Plan: - Encourage the patient to strengthen relationships with her sister and nieces and consider making one of them her power of certified retinal angiographer for health. - Suggest the patient to explore opportunities for social support and engagement, such as joining support groups or participating in community activities. Medication Management - Plan: - Quetiapine 150mg was not approved; revert to the previous dose. - Refill prescriptions for lamotrigine, clonazepam, trazodone, and quetiapine. - Schedule a follow-up appointment in 3 months to assess the patient's progress and medication needs. 10/27/2023 Primary insomnia (ICD-10 - F51.01) Anxiety - Assessment: The patient reports increased anxiety and difficulty sleeping. They are currently on Clonazepam 0.5 mg once a day and Acetalopram 10 mg daily. The patient is tolerating the medication but experiences increased anxiety later in the day. - Plan: - Increase Acetalopram to 20 mg daily, with the patient taking half a tablet twice a day. - Monitor the patient's response to the increased dosage and adjust as needed during the follow-up visit. - The patient can use their current 10 mg tablets twice daily until the new prescription is filled. Insomnia - Assessment: The patient is currently taking Trazodone 50 mg for sleep and reports no issues with the medication. The patient recently picked up their Trazodone prescription. - Plan: - Continue Trazodone 50 mg as needed for sleep. - Reassess the patient's sleep quality during the follow-up visit. Shaking and Fatigue - Assessment: The patient reports shaking and fatigue, which may or may not be related to anxiety. The patient has seen a PA at the clinic who did not attribute the shaking to anxiety. The patient is currently being evaluated for autoimmune disorders. Recent tests show negative results for SSA antibodies and Brazilian antibodies. - Plan: - Await results of the autoimmune disorder evaluation. - Reassess the patient's shaking and fatigue during the follow-up visit and consider further evaluation or referral if necessary. Psychiatric Medications - Assessment: The patient is currently taking Quetiapine 150 mg at night (as 100 mg + 50 mg tablets) and Lamotrigine 100 mg twice a day. The patient reports tolerating the medications well. - Plan: - Send a prescription for Quetiapine 150 mg to the pharmacy, as it was not sent previously. - Continue the current dosages of Quetiapine and Lamotrigine. - Reassess the patient's psychiatric symptoms during the follow-up visit. Follow-up - Schedule a follow-up visit in one month to reassess the patient's anxiety, sleep, shaking, fatigue, and response to the increased Acetalopram dosage. The patient hopes to have more information about their ongoing health issues by then. 01/03/2024 Primary insomnia (ICD-10 - F51.01) Anxiety - Assessment: Patient reports severe anxiety upon waking, with symptoms including shaking, chest pains, and nausea. Currently on Lexapro 20 mg daily and clonazepam as needed. Anxiety described as extreme, forcing patient to push through morning routine. - Plan: - Change lamotrigine 100 mg twice daily to lamotrigine ER (extended-relea se) once daily at night. - Monitor response to medication change for 4 weeks. - Schedule follow-up in 4 weeks; extend to 2 months if patient is doing well. Nausea - Assessment: Patient experiences intermittent morning nausea, less frequent than anxiety symptoms. Currently taking Zofran as needed for headaches. Nausea not correlated with food intake. - Plan: - Continue using Zofran as needed for nausea. - Monitor response to lamotrigine ER change and assess impact on nausea symptoms at follow-up. Insomnia - Assessment: Patient discontinued trazodone independently and reports improved sleep without dizziness or haziness. Reports difficulty falling asleep. - Plan: - No further intervention needed at this time. - Monitor sleep quality at follow-up appointment. Medication Management - Assessment: Patient currently on Lexapro 20 mg daily (10 mg twice daily), lamotrigine 100 mg twice daily, and clonazepam as needed. - Plan: - Discontinue lamotrigine 100 mg twice daily. - Prescribe lamotrigine ER once daily at night, to be taken about 30 minutes before bedtime with other medications. - Continue Lexapro 20 mg daily and clonazepam as needed. - Monitor response to medication changes at follow-up appointment. Note: Follow-up appointment scheduled during potentially stressful time (Thanksgiving with family), which may affect assessment of anxiety symptoms. 01/10/2024 Primary insomnia (ICD-10 - F51.01) Severe Anxiety - Assessment: The patient reports worsening anxiety with persistent shaking and worrying for the past 4 days. The patient's insurance premium increase seems to be a contributing factor. The current medication regimen does not appear to be providing adequate relief. Patient reports shaking all the time and that exercise is not helping as it usually does. - Plan: Increase clonazepam to twice a day (morning and evening) to help manage anxiety. Reevaluate in 2 weeks. Depression - Assessment: The patient reports no significant improvement in depressive symptoms but emphasizes that anxiety is the primary concern. Patient states, I'm not saying I want to commit suicide or anything, but this anxiety, it's mostly the anxiety, not the depression. - Plan: Continue current medications (Lexapro 20 mg half tablet twice a day, quetiapine 150 mg, and lamotrigine 200 mg). Reevaluate in 2 weeks. Mouth Movements (Possible Tardive Dyskinesia) - Assessment: The patient has been experiencing mouth movements for over a year, starting in October of the previous year. No body rocking or other body movements reported. Patient states the mouth movement is just escalating. - Plan: Continue monitoring the patient's symptoms and consider referral to a specialist if the condition does not improve or worsens. Insomnia - Assessment: The patient reports somewhat improved sleep. - Plan: Continue current medications and monitor sleep quality during follow-up visits. Family Stressors - Assessment: The patient has ongoing concerns regarding her daughter, who has not been in contact for a month. The daughter lives in [place]. - Plan: Encourage the patient to seek support from friends, family, or a therapist to help cope with family stressors. Follow-up - Plan: Schedule a follow-up appointment in 2 weeks to assess the patient's response to the increased clonazepam dosage and overall mental health status. Patient agreed to the 2-week follow-up. 01/26/2024 Primary insomnia (ICD-10 - F51.01) Anxiety and Stress-related Oral Symptoms - Assessment: Patient reports stress and anxiety significantly affect her mouth. - Plan: - Continue using Viscous Lidocaine as needed for oral symptoms. - Monitor the effectiveness of the current anxiety management strategies. Clonazepam - Assessment: Patient reports that the increased clonazepam dosage has not improved morning anxiety. - Plan: - No further increase in clonazepam at this time. Lamotrigine ER - Assessment: The patient is currently on 200 mg of lamotrigine ER. - Plan: - Continue the current dosage and monitor for effectiveness and side effects. Quetiapine - Plan: - Increase quetiapine dosage from 150 mg to 200 mg at night. - If increased dosage causes excessive tiredness, the patient may reduce the dosage back to 150 mg. - Monitor for effectiveness in improving morning anxiety and any side effects. - Patient has enough medication for more than a month with current prescriptions. Coping Strategies and Support - Assessment: Patient reports using relaxation exercises to cope with stressful situations. - Plan: - Encourage the patient to continue exercising and pursuing volunteer opportunities at the [facility]. - Support the patient in managing her relationship with her daughter and navigating insurance issues. Follow-up - Plan: - Schedule a follow-up appointment after [place] to assess the effectiveness of the increased quetiapine dosage and overall mental health status. - Ensure the patient has an adequate supply of medications and adjust prescriptions as needed. - Next appointment may be after [place] due to provider's time off. 04/27/2024 Primary insomnia (ICD-10 - F51.01) 05/11/2024 Major depressive disorder, recurrent severe without psychotic features (ICD-10 - F33.2) Electronic Prior Authorization was requested for Desvenlafaxine ER 50 MG Tablet Extended Release 24 Hour. Provider can order medication once approval received. 02/28/2024 Primary insomnia (ICD-10 - F51.01) Mood Stabilization - Assessment: Patient reports improvement in mood after the change in medication. Lamotrigine 200 mg daily is helping in stabilizing the patient's mood. - Plan: - Continue Lamotrigine 200 mg daily. Depression - Assessment: Patient reports no significant symptoms of depression currently. Escitalopram 20 mg daily is being taken for depression. - Plan: - Continue Escitalopram 20 mg daily. Anxiety - Assessment: Patient reports some anxiety during the holidays but was able to manage it. Clonazepam 0.5 mg twice a day is being taken for anxiety. - Plan: - Continue Clonazepam 0.5 mg twice a day. - Refill prescription for 30 days with 2 refills. - Ensure patient does not use the old prescription when contacting the pharmacy. Sleep and Mood Regulation - Assessment: Patient reports improvement with the change in medication to Quetiapine 200 mg daily. - Plan: - Change Quetiapine prescription to 200 mg tablets. - Continue Quetiapine 200 mg daily, to be taken at night. - Refill prescription as needed. Social Support and Activities - Assessment: Patient exercises 5 times a week and plans to volunteer at the [facility]. Patient has a good relationship with siblings and nieces, which provides strong social support. - Plan: - Encourage patient to continue engaging in social activities and maintaining relationships. Follow-up - Assessment: Patient requests to extend the time between appointments to 3 months. - Plan: - Schedule a follow-up appointment in 3 months. 03/24/2024 Primary insomnia (ICD-10 - F51.01) 10/13/2023 Intractable chronic migraine without aura and without status migrainosus (ICD-10 - G43.719) Major Depressive Disorder - Plan: - Continue Escitalopram 10 mg once daily - Discontinue Trazodone 50 mg - Change Quetiapine to ER, 50 mg two tablets at night - Maintain Lamotrigine 100 mg daily - Follow up in three months or sooner if needed Anxiety - Plan: - Increase Quetiapine ER to help with anxiety symptoms - Continue Clonazepam 0.5 mg twice a day - Continue Risperidone 10 mg as needed - Encourage patient to seek support from family members for caregiving responsibilitie s - Address patient's report of feeling shaky and weak upon waking, which worsens throughout the day Orofacial Pain - Plan: - Patient to undergo CT scan of sinuses on November 01 - Continue care under [facility]. Reyez [facility] - Address patient's report of horrible throbbing in face, teeth, and gums Suspected POTS and Autoimmune Issues - Plan: - Patient to be referred for POTS evaluation by Dr. Castro - Autoimmune blood work to be done - Continue current multivitamin, iron, B12, calcium, magnesium, and Qulipta 60 mg daily regimen - Address patient's report of feeling lightheaded and shaky Caregiver Stress - Plan: - Encourage patient to seek additional support from family members and consider community resources for assistance with parents' needs - Continue counseling sessions with Cele - Acknowledge patient's role as primary caregiver for 89-year-old father and mother, responsible for appointments, groceries, and transportation Sleep - Plan: - Advise patient to adjust Quetiapine ER administration time if difficulty falling asleep occurs - Note patient typically takes medications at 9 PM and goes to bed around 10-10:30 PM Follow-up - Plan: - Follow up in three months or sooner if needed 06/08/2024 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) 06/08/2024 Vertigo (ICD-10 - R42) 05/11/2024 Generalized anxiety disorder (ICD-10 - F41.1) 10/13/2023 Vitamin B12 deficiency (ICD-10 - E53.8) Major Depressive Disorder - Plan: - Continue Escitalopram 10 mg once daily - Discontinue Trazodone 50 mg - Change Quetiapine to ER, 50 mg two tablets at night - Maintain Lamotrigine 100 mg daily - Follow up in three months or sooner if needed Anxiety - Plan: - Increase Quetiapine ER to help with anxiety symptoms - Continue Clonazepam 0.5 mg twice a day - Continue Risperidone 10 mg as needed - Encourage patient to seek support from family members for caregiving responsibilitie s - Address patient's report of feeling shaky and weak upon waking, which worsens throughout the day Orofacial Pain - Plan: - Patient to undergo CT scan of sinuses on November 01 - Continue care under Dr. Reyez from [facility] referral - Address patient's report of horrible throbbing in face, teeth, and gums Suspected POTS and Autoimmune Issues - Plan: - Patient to be referred for POTS evaluation by Dr. Castro - Autoimmune blood work to be done - Continue current multivitamin, iron, B12, calcium, magnesium, and Qulipta 60 mg daily regimen - Address patient's report of feeling lightheaded and shaky Caregiver Stress - Plan: - Encourage patient to seek additional support from family members and consider community resources for assistance with parents' needs - Continue counseling sessions with Cele - Acknowledge patient's role as primary caregiver for 89-year-old father and mother, responsible for appointments, groceries, and transportation Sleep - Plan: - Advise patient to adjust Quetiapine ER administration time if difficulty falling asleep occurs - Note patient typically takes medications at 9 PM and goes to bed around 10-10:30 PM Follow-up - Plan: - Follow up in three months or sooner if needed 05/11/2024 Primary insomnia (ICD-10 - F51.01) 06/08/2024 Major depressive disorder, recurrent severe without psychotic features (ICD-10 - F33.2) 06/08/2024 Generalized anxiety disorder (ICD-10 - F41.1) 06/08/2024 Primary insomnia (ICD-10 - F51.01) 03/24/2024 Other Anxiety - Assessment: Patient reports increased anxiety in recent weeks, with mornings being particularly difficult. Currently on escitalopram 20 mg in the morning, which helps with depression but not anxiety. Patient has been exercising excessively to cope with anxiety. - Plan: - Obtain prior authorization for desvenlafaxine (Pristiq) 50 mg once daily in the morning. - Once approved, instruct patient to reduce escitalopram to half a tablet for 2 weeks and then discontinue. - Monitor patient's response to desvenlafaxine and adjust treatment as needed. - If desvenlafaxine is not approved or ineffective, consider prescribing BuSpar 5 mg twice daily as an alternative anxiety treatment. Depression - Assessment: Patient reports that depression is well-managed with current escitalopram regimen. - Plan: - Taper and discontinue escitalopram as part of the anxiety treatment plan. - Monitor for any changes in depressive symptoms and adjust treatment accordingly. Medication Management - Assessment: Patient does not need a refill for clonazepam at this time. Patient will need a refill for lamotrigine ER in one week. - Plan: - Coordinate with the patient and pharmacy to ensure timely refills and prior authorization for desvenlafaxine. Follow-up Appointment - Assessment: Patient currently has a follow-up appointment scheduled for April. - Plan: - Schedule a follow-up appointment in one month to assess the patient's response to desvenlafaxine and any changes in anxiety and depression symptoms. - Inform patient they may cancel the appointment if not needed. 04/27/2024 Other Vertigo - Assessment: Patient reports lightheadedness, fogginess, nausea, and shakiness, but denies room spinning sensation. Episodes last 3 to 4 hours, typically starting around 3 PM. Currently attending physical therapy. MRI scheduled for May 03. Meclizine tried but ineffective. Taking Zofran for nausea. - Plan: - Continue physical therapy. - Follow up with seat coverer and neurologist as scheduled. - Monitor symptoms and consider alternative treatments if no improvement. Anxiety - Assessment: Patient has a history of anxiety and is currently taking clonazepam. - Plan: - Discuss the possibility of switching to diazepam with the treating physician if vertigo symptoms persist, as it may help with both vertigo and anxiety. Burning Mouth Syndrome - Assessment: Patient is being treated by Dr. May. Suggested using clonazepam by dissolving on the tongue and spitting it out. - Plan: - Increase clonazepam to 0.5 mg tablets, up to 3 times a day as needed. - Dissolve in the mouth for 3 minutes and swallow instead of spitting out. - Avoid eating or drinking for 10 minutes after administration. - Monitor and rate burning sensation from 0 to 10 before and after taking the medication. - Follow up in 15 days to assess effectiveness. Medication Management - Assessment: Patient is currently taking lamotrigine and ketamine, in addition to clonazepam. Discontinued escitalopram. - Plan: - Refill clonazepam prescription for 15 days. - Assess the need for refills on lamotrigine and ketamine. - Monitor patient's response to medications and adjust as needed during follow-up appointments. 05/11/2024 Carolyn Santamaria presents with anxiety and depression, currently managed with medication, and reports benign positional vertigo with an upcoming specialist appointment. Anxiety Assessment: Patient reports ongoing anxiety, though less severe than previously experienced. Recent trial of clonazepam dissolving tablets up to three times daily did not provide benefit and was discontinued by the patient on Wednesday. Previous medications for anxiety caused side effects including lightheadedness, fatigue, and dizziness, which were problematic given the patient's vertigo symptoms. Plan: - Discontinue clonazepam - Start diazepam 5 mg PO BID - Instruct patient to reduce to half tablet (2.5 mg) if excessive sedation occurs - Advise caution while driving - Inform vertigo specialist of medication change and lack of benefit from clonazepam - Follow up in 4 weeks Depression Assessment: Patient reports depression is currently manageable. Current treatment regimen includes quetiapine 200 mg and lamotrigine ER 200 mg. Plan: - Continue quetiapine 200 mg (frequency and timing not specified) - Continue lamotrigine ER 200 mg (frequency and timing not specified) Benign Positional Vertigo Assessment: Patient confirms diagnosis of benign positional vertigo. Upcoming appointment with Dr. Maritn, a specialist in [place], on May 18. Previous ENT specialist, Dr. Vineet Reyez, is no longer involved in care. Plan: - Patient to attend scheduled appointment with Dr. Martin on May 18 - Diazepam trial may potentially assist with vertigo symptoms - Request detailed instructions from vertigo specialist if alternative treatment is suggested The note is transcribed using speech recognition software. It is a reflection of a visit with the patient. It might have some inaccuracy, including medication names and transcribing errors, though efforts have been made to correct them. 06/08/2024 Other Sabrina Santamaria, a female patient with a history of anxiety and vertigo, presents with increased anxiety this month and reports failed trial of diazepam. Anxiety Disorder Assessment: Patient reports increased anxiety this month. Recent trial of diazepam 5 mg BID was unsuccessful, causing excessive sedation and grogginess without improvement in anxiety or vertigo symptoms. Patient reduced dose to 2.5 mg BID without benefit. Previously, clonazepam was effective in managing anxiety symptoms. During a past hospitalization in [place], buspirone was helpful. Antidepressant trials, including desvenlafaxine (Pristiq), were not tolerated or ineffective. Plan: - Discontinue diazepam - Restart clonazepam 0.5 mg PO BID - Start buspirone 5 mg PO daily for 4 days, then increase to 5 mg PO BID for 4 days, with option to increase to TID as tolerated - Continue current doses of quetiapine and lamotrigine (200 mg ER) - Encourage continuation of current coping strategies: yoga, exercise classes, yard work, yarsani volunteering, and companionship with new puppy - Follow up in 4 weeks Disclaimer: This note has been transcribed using speech recognition software and serves as a reflection of the patient's visit. While efforts have been made to ensure accuracy, there may be errors, including can conveyor feeder inaccuracies and misspellings of medication names. This document should not be considered a verbatim record, and any discrepancies should be verified with the provider. 11/25/2023 Other Electronic Prior Authorization was requested for QUEtiapine Fumarate 150 MG Tablet. Provider can order medication once approval received. Plan Of Treatment Next Appt Details Provider Name:Job Coker , 07/12/2024 10:45:00 AM, [address], [facility] [address], [place], [address], Insurance Providers Payer Name Payer Address Payer Phone Subscriber Number Group Number Insured Name Patient Relationship to Insured Coverage Start Date Coverage End Date [employer] [employer] [address] [place] [address] [id number] SABRINA SANTAMARIA Self - patient is the insured Medical (General) History Medical History History ICD Code Problems: Generalized anxiety disorder Major depression in remission Primary insomnia Past Psychiatric History: Anxiety Disord er,Major Depressive Episode undefined Surgical History Surgery Date(Month/Year) Hysterectomy (43364) Oophorectomy (68378) Sinus surgery
--- OUTSIDE RECORDS SUMMARY | 2024-06-11 18:17 | XMS_ITS | Encounter Summary ---
Author Organization [facility] Address [address] [place] [address] Care Team Providers Care Pastry Artist Name Role Phone Claudio Suazo MD Primary Care Provider [phone] Job Coker MD Unavailable [phone] Kendra Steiner MD PhD Unavailable [phone] Mike Levy MD Unavailable [phone] Subha Rodriguez MD Primary Care Provider [phone] Encounter Details Date Type Department Care Team (Late st Contact Info) Description 09/01/[address] [facility] [address] [place] [address] Cele Iraheta, RN Social History Tobacco Use Types Packs/Day Years Used Date Smoking Tobacco: Never Smokeless Tobacco: Never AUDIT-C Answer Date Recorded Q1: How often do you have a drink containing alcohol? Never 11/26/2022 Q2: How many drinks containi ng alcohol do you have on a typical day when you are drinking? Patient does not drink Q3: How often do you have si x or more drinks on one occasion? Never 11/26/2022 PHQ-2 Answer Date Recorded PHQ-2 Total Score (If total score is 3 or more points, staff should administer the PHQ-9) 1 06/19/2022 PHQ-9 Answer Date Recorded PHQ-9 Total Score 10 07/09/2023 Personal Safety Answer Date Recorded Have you ever been in or are you currently in a harmful physical or emotional relationship or is someone making you feel afraid or unsafe? 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 Gender Identity Female 11/21/2020 8:28 AM CDT Sexual Orientation Not on file documented as of this encounter Plan of Treatment Scheduled Procedures Name Priority Associated Diagnoses Date/Ti me ESOPHAGOGASTRODUODENOSCOPY Iron deficiency anemia, unspecified iron deficiency anemia type documented as of this encounter Visit Diagnoses Not on filedocumented in this encounter Care Teams Pastry Artist Relationship Specialty Start Date End Date Claudio Suazo MD PCP - General 06/19/16 03/06/24 Subha Rodriguez MD [address] [facility] [place] [id number] PCP - General Family Medicine 03/07/24 Job Coker MD [address] [place] [address] Referring Physician Psychiatry 06/19/22 Kendra Steiner MD PhD [address] [place] [address] Referring Physician Neurology 06/19/22 Mike Levy MD [address] [facility] [place] [id number] Referring Physician Emergency Medicine 06/19/22 documented as of this encounter
--- OUTSIDE RECORDS SUMMARY | 2024-06-11 18:17 | XMS_ITS | Clinical Summary ---
Author Organization [facility] Address [address] [place] [address] Care Team Providers Care Intensive Care Anaesthetist Name Role Phone Job Coker MD Unavailable [phone] Kendra Steiner MD PhD Unavailable [phone] Mike Levy MD Unavailable [phone] Subha Rodriguez MD Primary Care Provider [phone] Allergies Active Allergy Reactions Criticality Noted Date [...] mg total) by mouth daily Active rizatriptan SOCIAL AND HUMAN SERVICES ASSISTANT (MAXALT-SOCIAL AND HUMAN SERVICES ASSISTANT) 10 mg disintegrating tablet DISSOLVE 1 TABLET [...] 04/17/2024 Assessment & Plan (04/23/2024 11:47 PM SUPERVISOR MICROWAVE): New Order PT Pure hypercholesterolemia 03/20/2024 Assessment & Plan (03/26/2024 10:50 PM SUPERVISOR MICROWAVE): Chronic Stable Follow low chol diet Goal: TC<200, LDL<100, TG<150 Family history of heart disease 03/20/2024 Well adult exam 03/20/2024 Other general symptoms and signs 01/06/2024 Assessment & Plan (01/06/2024 2:52 PM SUPERVISOR MICROWAVE): Nonspecific, episodic generalized sxs ongoing for over [...] 05/04/2023 Assessment & Plan (05/04/2023 2:30 PM SUPERVISOR MICROWAVE): Exam favorable of crusted SK lesion though would appreciate second option from derm for reassurance Provided multiple derm contact in [place] & [place] to arrange and update to route referral once scheduled Interim concerns warranting update discussed Onychomycosis 05/04/2023 Assessment & Plan (05/04/2023 2:26 PM SUPERVISOR MICROWAVE): Moderate onychomycosis along multiple BL feet digits [...] 12/22/2022 Assessment & Plan (02/10/2023 1:21 PM SUPERVISOR MICROWAVE): May use Tylenol and/or Ibuprofen as needed. [...] 10/07/2022 Assessment & Plan (03/26/2024 10:50 PM SUPERVISOR MICROWAVE): Chronic Stable Cont supplmeent Assessment & Plan [...] 08/18/2017 Assessment & Plan (03/26/2024 10:50 PM SUPERVISOR MICROWAVE): Chronic Stable Cont maxalt, imitrex prn Assessment & Plan (06/19/2022 10:39 AM CDT): Tolerable though ongoing severe. Seeing a headache specialist. Assessment & Plan (05/02/2021 2:02 PM SUPERVISOR MICROWAVE): Lingering migraine post fall -improving with abortive [...] 04/09/2015 Assessment & Plan (01/14/2023 5:59 PM SUPERVISOR MICROWAVE): Patient continue to complain of burning sensation [...] 11/20/2011 8 Crushing injury of finger 12/18/2010 Encounters Date Type Department Care Team Description 05/26/2024 Telephone [facility] with [facility] [address] [facility] [address] [place] [address] Lexii Pritchard 05/24/2024 Telephone [facility] at [facility] [address] [place] [phone] Melanie Ramos RN Treat Facial Pain? 05/03/2024 9:27 AM SUPERVISOR MICROWAVE - 05/03/2024 11:59 PM SUPERVISOR MICROWAVE Hospital Encounter [facility] [address] [facility] [place] [address] Vertigo Discharge Disposition: Discharge to home or self care 04/26/2024 Orders Only [facility] Center at the [facility] [address] [place] [address] David Martin DMD Facial pain syndrome (Primary Dx); Nasal pain 04/17/2024 11:30 AM SUPERVISOR MICROWAVE Office Visit [address] [place] [phone] Subha Rodriguez MD Vertigo (Primary Dx); Pure hypercholesterolemi a; Vitamin B12 deficiency; Well adult exam 04/17/[address] [place] [phone] Subha Rodriguez MD Medical Question/Miscellane ous 04/14/2024 Nurse Triage [address] [place] [phone] Subha Rodriguez MD 03/20/2024 10:00 AM SUPERVISOR MICROWAVE Office Visit [address] [place] [phone] Subha Rodriguez MD Intractable chronic migraine without aura and without status migrainosus (Primary Dx); Vitamin B12 deficiency; Pure hypercholesterolemi a; Family history of heart disease; Well adult exam from Last 3 Months Immunizations Immunization Administration Dates Next Due Influenza, Trivalent, Adjuvanted, Intramuscular 01/06/2024 Influenza, Trivalent, Recomb inant, Egg Free, Preservative Free, Antibiotic Free, IM (FLUBLOK) 01/06/2024 Influenza, Trivalent, Split, Preservative Free, Intradermal 12/24/2016 Tdap 04/27/2021 Surgical History Surgery Date Site/Laterality Comments NC TX ECTOPIC ABDOMINAL/VAGINAL APPR Salpingectomy For Ectopic - (Added by Conv) NC OOPHORECTOMY PARTIAL/TOTA L UNI/BI Oophorectomy Unilateral Left Side - (Added by Conv) EYE SURGERY Eye Surgery - muscle repair after trauma as child (Added by Conv) NC CLOSED TX NASAL SEPTAL FR ACT W/WO STABILIZATION Closed Treatment Of Nasal Septal Fracture - (Added by Conv) FLUORO GUIDED INJECTION SHOULDER LEFT 08/22/2018 Left HYSTERECTOMY BLADDER SURGERY Sling FLUORO GUIDED ASPIRATION OR INJECTION LARGE JOINT BILATERAL 06/04/2023 Bilateral Medical History Medical History Date Comments Urinary incontinence Urinary inc ontinence - (Added by Conv) Personal history of other co mplications of , childbirth and the puerperium History of spontaneous abort ion - (Added by Conv) Intractable migraine without aura and without status migrainosus Common migraine with intrac table migraine - (Added by Conv) Pain in ankle Ankle joint pain - (Added by Conv) Other specified disorders of bone density and structure, unspecified site Osteopenia - (Added by Conv) PONV (postoperative nausea and vomiting) Depression BMS (burning mouth syndrome) Family History Medical History Relation Name Comments recovered alcohol Brother 1 eleazar No Known Problems Brother 2 regan myocardial infarction Brother 3 autumn Depression Daughter 1 adolfo Migraines Daughter 1 adolfo Migraine Headac he - (Added by Conv) pots Daughter 1 adolfo Heart disease Father Migraines Father Migraine Headac he - (Added by Conv) Migraines Mother Migraine Headac he - (Added by Conv) Migraines Sister 1 denny Migraine Headac he - (Added by Conv) polysubstance abuse Son 1 santo Breast cancer Neg Hx Ovarian cancer Neg Hx Uterine cancer Neg Hx Relation Name Status Comments Brother 1 eleazar Alive Brother 2 regan Alive Brother 3 autumn Alive Brother 4 marianela Alive Daughter 1 adolfo Alive Daughter 2 christina Alive Father Alive Mother Alive Sister 1 denny Sister 2 gerber Alive Son 1 santo Alive Son 2 shreya Alive Social History Tobacco Use Types Packs/Day Years [...] on file Legal Sex Female 3:24 PM SUPERVISOR MICROWAVE Gender Identity Female 11/21/2020 8:28 AM CDT Sexual Orientation Not on file Obstetrics History Para Term AB IAB SAB Ectopic Multiple Livin g Live Births 7 4 4 0 3 2 1 2 2 Date Outcome GA Total Labor Labor/2nd/3rd Weight Sex Type Anes PTL Aleida A1 A5 Name Clin SAB SAB Ectopic Term Term Term Term Comments 4 term, all vaginal delivery Ectopic x 2 with left salpingectomy Last Filed Vital Signs Vital Sign Reading Time Taken Comments Blood Pressure 110/68 04/17/2024 11:27 AM SUPERVISOR MICROWAVE Pulse 90 04/17/2024 11:27 AM SUPERVISOR MICROWAVE Temperature 36.7 C (98 F) 04/17/2024 11:27 AM SUPERVISOR MICROWAVE Respiratory Rate 18 03/20/2024 10:00 AM SUPERVISOR MICROWAVE Oxygen Saturation 97% 04/17/2024 11:27 AM SUPERVISOR MICROWAVE Inhaled Oxygen Concentration - - Weight 53.3 kg (117 lb 6.4 oz) 04/17/2024 11:27 AM SUPERVISOR MICROWAVE Height 162.6 cm (5' 4 ) 04/17/2024 11:27 AM SUPERVISOR MICROWAVE Body Mass Index 20.15 04/17/2024 11:27 AM SUPERVISOR MICROWAVE Plan of Treatment Scheduled Procedures Name Priority Associated Diagnoses Date/Ti me ESOPHAGOGASTRODUODENOSCOPY Iron deficiency anemia, unspecified iron deficiency anemia type Health Maintenance Due Date Last Done Comments Covid-19 Vaccine ( season) 2023 02/17/2021, 06/26/2020, 06/04/2020 Zoster Vaccine (2 of 2) 03/17/2024 01/21/2024 Depression Screening 07/08/2024 07/09/2023, 06/20/19 23 Breast Cancer Screening-Mammogram 09/06/2024 09/07/2023, 08/25/2022, 09/06/2017, Additional history exists Regular Well Visit/Exam 18-64 11/29/2024 11/30/2023, 07/09/2023, 11/27/2022 DTaP/Tdap/Td Vaccine (2 - Td or Tdap) 04/27/2031 04/27/2021 Colon Cancer Screening-Colonoscopy 11/26/2032 11/26/2022 Colon Cancer Screening-CT Colonography Discontinued 11/26/2022 Colon Cancer Screening-DNA Stool Discontinued 11/26/2022 Colon Cancer Screening-FIT Discontinued 11/26/2022 Colon Cancer Screening-Sigmoidoscopy Discontinued 11/26/2022 Hepatitis C Screening Completed 12/23/2022 Hepatitis B Screening Completed 08/02/2023 Influenza Vaccine Completed 01/06/2024, , 12/24/2016 Pneumococcal vaccine <65 Aged Out No longer eligible based on patient's age to complete this topic Procedures Procedure Name Priority Date/Time Associated Diagnosis Comments MRI BRAIN WO CONTRAST Schedule Routine, Read Routine (OP Routine) 05/03/2024 10:12 AM SUPERVISOR MICROWAVE Vertigo VITAMIN B12 Routine 04/18/2024 12:34 PM SUPERVISOR MICROWAVE Vertigo Pure hypercholesterole jose david Vitamin B12 deficiency Well adult exam CBC WITH AUTO DIFFERENTIAL Routine 04/18/2024 12:34 PM SUPERVISOR MICROWAVE Vertigo Pure hypercholesterole jose david Vitamin B12 deficiency Well adult exam LIPID PANEL Routine 04/18/2024 12:34 PM SUPERVISOR MICROWAVE Vertigo Pure hypercholesterole jose david Vitamin B12 deficiency Well adult exam COMPREHENSIVE METABOLIC PANEL Routine 04/18/2024 12:34 PM SUPERVISOR MICROWAVE Vertigo Pure hypercholesterole jose david Vitamin B12 deficiency Well adult exam THYROID FUNCTION CASCADE Routine 04/18/2024 12:34 PM SUPERVISOR MICROWAVE Vertigo Pure hypercholesterole jose david Vitamin B12 [...] MRI Brain WO Contrast (05/03/2024 10:12 AM SUPERVISOR MICROWAVE) Anatomical Region Laterality Modality Head and Neck N/A Magnetic Resonan ce 05/03/2024 12:4 6 PM SUPERVISOR MICROWAVE Impressions 05/03/2024 12:46 PM SUPERVISOR MICROWAVE No acute intracranial abnormality. Electronically signed by: Dane Warner MD Narrative 05/03/2024 12:46 PM SUPERVISOR MICROWAVE EXAMINATION: Magnetic resonance imaging (MRI) of the [...] abnormality. Electronically signed by: Dane Warner MD Subha Rodriguez MD IMG MRI PROCEDURES Final Result * Thyroid Function [place] (04/18/2024 12:34 PM SUPERVISOR MICROWAVE) TSH 1.13 0.40 - 4.50 mIU/L [facility] Blood 04/18/2024 12:3 4 PM SUPERVISOR MICROWAVE 04/18/2024 12:35 PM SUPERVISOR MICROWAVE Narrative [facility] - 04/19/2024 6:17 AM SUPERVISOR MICROWAVE FASTING:NO FASTING: NO Subha Rodriguez MD LAB BLOOD ORDERABLES Alissa l Result [facility] [address] [place] [address] * CBC with auto differential (04/18/2024 12:34 PM SUPERVISOR MICROWAVE) WBC 3.9 3.8 - 10.8 Thousand/u L [facility] RBC, POC 4.06 3.80 - 5.10 Million/uL [facility] Hgb 12.9 11.7 - 15.5 g/dL [facility] Hct 39.3 35.0 - 45.0 % [facility] MCV 96.8 80.0 - 100.0 fL [facility] MCH 31.8 27.0 - 33.0 pg [facility] MCHC 32.8 32.0 - 36.0 g/dL [facility] Comment: For adults, a slight decrease in the calculated MCHC value (in the range of 30 to 32 g/dL) is most likely not clinically significant; however, it should be interpreted with caution in correlation with other red cell parameters and the patient's clinical condition. Rdw 12.1 11.0 - 15.0 % [facility] Platelets 235 140 - 400 Thousand/u L [facility] MPV 9.9 7.5 - 12.5 fL [facility] Neutrophils, abs 2,480 1,500 - 7,800 cells/uL [facility] Lymphocytes, abs 913 850 - 3,900 cells/uL [facility] Monocyte abs 406 200 - 950 cells/uL [facility] Eosinophils, abs 82 15 - 500 cells/uL [facility] Basophils, abs 20 0 - 200 cells/uL [facility] Neutrophils 63.6 % [facility] Lymphocyte pct 23.4 % [facility] Monocytes 10.4 % [facility] Eosinophils 2.1 % [facility] Basophils 0.5 % [facility] Blood 04/18/2024 12:3 4 PM SUPERVISOR MICROWAVE 04/18/2024 12:35 PM SUPERVISOR MICROWAVE Narrative [facility] - 04/19/2024 6:17 AM SUPERVISOR MICROWAVE FASTING:NO FASTING: NO Result [facility] Subha Rodriguez MD LAB BLOOD ORDERABLES Alissa l Result [facility] [address] [place] [address] * (ABNORMAL) Vitamin B12 (04/18/2024 12:34 PM SUPERVISOR MICROWAVE) Vitamin B12 >2000(H) 200 - 1100 pg/mL [facility] Blood 04/18/2024 12:3 4 PM SUPERVISOR MICROWAVE 04/18/2024 12:35 PM SUPERVISOR MICROWAVE Narrative [facility] - 04/19/2024 6:17 AM SUPERVISOR MICROWAVE FASTING:NO FASTING: NO Subha Rodriguez MD LAB BLOOD ORDERABLES Alissa l Result [facility] [address] [address] * (ABNORMAL) Lipid panel (04/18/2024 12:34 PM SUPERVISOR MICROWAVE) Cholesterol 209(H) <200 mg/dL [facility] HDL 77 > OR = 50 mg/dL [facility] j[facility] Triglycerides 210(H) <150 mg/dL [facility] jonn Stark Comment: If a non-fasting specimen was collected, consider repeat triglyceride testing on a fasting specimen if clinically indicated. Atul et al. J. of Clin. Lipidol. 2015;9:129-169. LDL 99 mg/dL (calc) Jorge L azeti NetworksSally jonn Stark Comment: Reference range: <100 Desirable range <100 mg/dL for primary prevention; <70 mg/dL for patients with CHD or diabetic patients with > or = 2 CHD risk factors. LDL-C is now calculated using the Leandro-Gray calculation, which is a validated novel method providing better accuracy than the Friedewald equation in the estimation of LDL-C. Leandro SHETH et al. JANKI. 2013;310(19): 9271-5766 (http://education.Theracos/faq/KAH056) Chol/HDL ratio 2.7 <5.0 (calc) [facility]on[facility] Non-HDL, (LDL+VLDL) 132(H) <130 mg/dL (calc) AP[facility]S jonn Stark Comment: For patients with diabetes plus 1 major ASCVD risk factor, treating to a non-HDL-C goal of <100 mg/dL (LDL-C of <70 mg/dL) is considered a therapeutic option. Blood 04/18/2024 12:3 4 PM SUPERVISOR MICROWAVE 04/18/2024 12:35 PM SUPERVISOR MICROWAVE Narrative [facility] - 04/19/2024 6:17 AM SUPERVISOR MICROWAVE FASTING:NO FASTING: NO us Subha Rodriguez MD LAB BLOOD ORDERABLES Alisas l Result [facility] [address] [place] [address] * (ABNORMAL) Comprehensive metabolic panel (04/18/2024 12:34 PM SUPERVISOR MICROWAVE) Pathologist [facility] Glucose 76 65 - 139 mg/dL Jorge L [facility]Sally Stark Comment: Non-fasting reference interval BUN 31(H) 7 - 25 mg/dL Jorge L [facility]Sally Stark Creatinine 1.24(H) 0.50 - 1.05 mg/dL [facility] Stark eGFR 49(L) > OR = 60 mL/min/1.7 3m2 Jorge L [facility] NetworksSally Stark BUN/creat ratio 25(H) 6 - 22 (calc) Jorge L [facility]Sally Stark Sodium 140 135 - 146 mmol/L Jorge L [facility] NetworksSally Stark Potassium, pl 4.2 3.5 - 5.3 mmol/L Jorge L Ritchie[employer] BeautySally Stark Chloride 100 98 - 110 mmol/L Jorge L [facility]itch[facility] BeautySally Stark CO2 33(H) 20 - 32 mmol/L Jorge L [facility] NetworksSally Stark Calcium 9.4 8.6 - 10.4 mg/dL Jorge L [facility]Sally Stark Protein, sr 6.6 6.1 - 8.1 g/dL Jorge L [facility] NetworksSally Stark Albumin 4.5 3.6 - 5.1 g/dL Jorge L [facility] NetworksSally Stark GLOBULIN 2.1 1.9 - 3.7 g/dL (calc) Jorge L [employer]Sally Stark Alb/glob ratio 2.1 1.0 - 2.5 (calc) Jorge L [facility] NetworksSally Stark Bilirubin, total 0.4 0.2 - 1.2 mg/dL Jorge L [facility] NetworksSally Stark Alk phos 56 37 - 153 U/L [facility] AST 25 10 - 35 U/L [facility]ally Stark ALT (SGPT) 24 6 - 29 U/L [facility] Blood 04/18/2024 12:3 4 PM SUPERVISOR MICROWAVE 04/18/2024 12:35 PM SUPERVISOR MICROWAVE Narrative [facility] - 04/19/2024 6:17 AM SUPERVISOR MICROWAVE FASTING:NO FASTING: NO us Subha Rodriguez MD LAB BLOOD ORDERABLES Alissa l Result [facility] Jorge L [facility] [address] [place] [address] * Screening Mammogram Bilateral W Que (09/07/2023 9:42 AM CDT) Anatomical Region Laterality Modality Breast Bilateral Mammography Narrative 09/07/2023 4:21 PM CDT Mammogram Technique: Bilateral Digital Breast Tomosynthesis, Bilateral C-view 2D Screening mammogram. Views obtained: bilateral craniocaudal and bilateral mediolateral oblique. Computer Aided Detection was performed. Mammogram Findings: The present examination has been compared to prior imaging studies performed at [facility] on 08/19/2012, and at [facility] on 09/06/2017 and 08/25/2022. There are scattered [...] compared to prior imaging studies performed at [facility] on 08/19/2012, and at [facility] on 09/06/2017 and 08/25/2022. There are scattered [...] Comment: For additional information, please refer to http://education.51credit.coms.com/faq/PTE570 (This link is being provided for informational/ educational purposes only.) HepBsAg NON-REACTI VE NON-REACT MAURIZIO [facility] Comment: For additional information, please refer to http://Posh Eyes/faq/WGH418 (This link is being provided for informational/ educational purposes only.) Hep B core IgM NON-REACTI VE NON-REACT MAURIZIO [facility] Comment: For additional information, please refer to http://Posh Eyes/faq/QSD932 (This link is being provided for informational/ educational purposes only.) Hep C Ab NON-REACTI VE NON-REACT MAURIZIO [facility] Comment: HCV antibody was non-reactive. There is no laboratory evidence of HCV infection. In most cases, no further action is required. However, if recent HCV exposure is suspected, a test for HCV RNA (test code 91470) is suggested. For additional information please refer to http://Posh Eyes/faq/EWW91b1 (This link is being provided for informational/ educational purposes only.) Blood 12/23/2022 9:46 AM CDT 12/23/2022 9:47 AM CDT Narrative [facility] - 12/25/2022 3:26 PM CDT FASTING:YES FASTING: YES Palma Trevino NP LAB MICROBIOLOGY - NERAL ORDERABLES Final Result [facility] [address] [facility] [place] [address] * COLONOSCOPY (11/26/2022 8:14 AM CDT) Anatomical Region Laterality Modality Other Narrative Procedure Note Gómez Kirk MD PhD - 11/26/2022 8:14 AM CDT [facility] Patient Name: Sabrina Barajas Procedure Date: 11/26/2022 8:14 AM Date of : 1960 Admit Type: Outpatient Age: 62 Gender: Female Attending MD: Gómez Kirk MD,PHD Room: [facility] ENDOSCOPY ROOM 4 Note Status: Finalized Procedure: [...] passed under direct vision.The CF HQ [id number] endoscope was introducedthrough the anus and advanced to the cecum, identified by appendiceal orifice and ileocecal valve. The colonoscopy was performed without difficulty. The patient tolerated the procedure well. The qualityof the bowel preparation was good. The quality of the bowel preparation was evaluated using the BBPS([place] Bowel Preparation Scale) with scores of: RightColon [...] On: 11/26/2022 8:14 AM Recognized by the [place] [employer] for promoting quality in endoscopy Gómez Kirk MD PhD ENDOSCOPY PROCEDURES F inal Result from Last 3 Months or Most Recently Relevant to Health Maintenance [place] Advance [place] For more information, please contact: [phone] * Full Code (Latest Code Status on File) Date Activated Date Inactivated Comments 11/26/2022 7:28 AM 11/26/2022 1:55 PM Care Teams Intensive Care Anaesthetist Relationship Specialty Start Date End Date Subha Rodriguez MD [address] [facility] [place] [address] PCP - General Family Medicine 03/07/24 Job Coker MD [address] [place] [address] Referring Physician Psychiatry 06/19/22 Kendra Steiner MD PhD [address] [place] [address] Referring Physician Neurology 06/19/22 Mike Levy MD [address] [facility] DE[place] [address] Referring Physician Emergency Medicine 06/19/22
[2024-06-11 19:03] LABS: Basophils Absolute Auto 0.1 K/mm3 (0.0-0.1); Basophils Percent Auto 0.5 % (0.2-1.2); Eosinophils Absolute Auto 0.1 K/mm3 (0-0.3); Eosinophils Percent Auto 0.7 % (0-4.4); Hematocrit 46.4 % (37.0-47.0); Hemoglobin 15.2 g/dL (12.0-15.0); Immature Granulocyte Absolute 0.02 K/mm3 (0.00-0.031); Immature Granulocyte Percent A 0.2 % (0-0.5); Lymphocytes Absolute Auto 1.86 K/mm3 (0.9-3.2); Lymphocytes Percent Auto 16.8 % (18.3-44.2); Mean Corpuscular HGB Conc 32.8 g/dl (32-36); Mean Corpuscular Hemoglobin 31.7 pg (26-34); Mean Corpuscular Volume 96.9 fl (80-100); Mean Platelet Volume 9.2 fl (7.4-10.4); Monocytes Absolute Auto 0.6 K/mm3 (0.1-0.6); Monocytes Percent Auto 5.7 % (2.6-8.5); Neutrophils Absolute Auto 8.4 K/mm3 (1.3-6.7); Neutrophils Percent Auto 76.1 % (45.5-73.1); Platelet Count Result 248 k/mm3 (150-375); Red Blood Count 4.79 M/mm3 (4.2-5.4); Red Cell Distribution Width 12.8 % (11.5-14.5); White Blood Count 11.1 K/mm3 (4.5-10.0)
[2024-06-11] MEDS: ONDANSETRON INJ 4 MG/2 ML VIAL IV PUSH ×2 (19:09→21:02)
[2024-06-11] MEDS: HYDROmorphone HCL INJ (*CRX) 1 MG/ML SYR 0.5 MG IV PUSH (19:09)
[2024-06-11 19:12] VITALS: BP 140/91; PULSE 96; RESP 15; O2SAT 100
[2024-06-11] MEDS: SODIUM CHLORIDE 0.9% IV 1,000 ML 999 ML (19:14)
[2024-06-11 19:21] VITALS: BP 140/91; PULSE 97; RESP 16; O2SAT 100
[2024-06-11 19:36] LABS: Alanine Aminotransferase 36 U/L (6-35); Albumin Level 5.4 g/dL (3.5-5.1); Alkaline Phosphatase 81 U/L (38-126); Anion Gap 14 mmol/L (4-12); Aspartate Amino Transferase 48 U/L (14-36); Bilirubin,Total 0.5 mg/dL (0.2-1.3); Blood Urea Nitrogen 29 mg/dL (7-17); Calcium 10.8 mg/dL (8.4-10.2); Carbon Dioxide 33 mmol/L (22-30); Chloride 94 mmol/L (98-107); Estimated CRCL calculation 39 ml/min; Estimated Glomerular Filt Rate 49; Glucose 99 mg/dL (65-110); Lipase 109 U/L (23-300); Sodium 141 mmol/L (137-145)
[2024-06-11 19:37] LABS: Lactic Acid Reflex 3.2 mmol/L (0.7-2.0)
[2024-06-11 19:50] LABS: Add Urine Microscopic? YES; Appearance Urine Cloudy (Clear); Bacteria Urine None Seen /hpf; Bilirubin Urine Negative (Negative); Blood Urine Negative (Negative); Color Urine Dark Yellow (Yellow); Glucose Urine UA Negative (Negative); Ketones Urine Trace mg/dL (Negative); Leukocyte Esterase Ur Negative LEU/UL (Negative); Need Manual Microscopic Reviewed; Nitrate Urine Negative (Negative); Non Pathogenic Casts 0-2; Protein Urine Negative (Negative); RBC Urine 0-2 /hpf (0-2); Squamous Epithelial Cell Urine None Seen /hpf (Few); Urobilinogen Urine 0.2 mg/dL (<2.0); WBC Urine 0-5 /hpf (0-3); pH Urine 7.5 (5.0-9.0)
--- OUTSIDE RECORDS SUMMARY | 2024-06-11 19:54 | XMS_ITS | Clinical Summary ---
Author Organization [facility] Address [address] [place] [address] Care Team Providers Care Cellar Packer Name Role Phone Candy Rankin RN Unavailable [phone] Subha Rodriguez MD Primary Care Provider [phone] Source Comments [facility],non-owned Affiliates and Associated Physician Practices is amultiple site organization consisting of ambulatory clinics and hospital sitesin [place], [place], [place] and [place]. This disclosure is being madepursuant to the Care Everywhere program and may not contain all information available regarding this patient. Last updated 17.[facility] [employer] Allergies Active Allergy Reactions Criticality Noted Date [...] daily 4 Active rizatriptan, disintegrating , (Maxalt LABORATORY TECHNICIAN) 10 MG tablet Take 1 (one) tablet [...] Office Visit [facility] [address] [place] [phone] David Martin, [place] Burning mouth syndrome (Primary Dx); Tongue thrusting; Bruxism; Exostoses of jaw; Morsicatio buccarum 05/18/2024 Travel 05/02/2024 Orders Only [facility] [address] [place] [address] Antonio Glover MD Burning mouth syndrome ; Facial pain syndrome 04/26/2024 Orders Only [facility] [address] [place] [phone] David Martin, [place] Facial pain syndrome ; Nasal pain 04/19/2024 2:57 PM RAILWAY SIGNALLING ENGINEER - 04/19/2024 11:59 PM RAILWAY SIGNALLING ENGINEER Hospital Encounter [facility] [address] [place] [address] Antonio Glover MD Discharge Disposition: Home or Self Care 04/19/2024 Travel 04/06/2024 2:15 PM RAILWAY SIGNALLING ENGINEER Office Visit [facility] [address] [facility] [address] [address] Antonio Glover MD Facial pain syndrome (Primary Dx); Nasal pain 04/06/2024 Travel 03/31/2024 Travel 03/30/2024 1:15 PM RAILWAY SIGNALLING ENGINEER [facility] [address] [place] [phone] David Martin DMD Burning mouth syndrome (Primary Dx); Exostoses of jaw; Tongue thrusting; Bruxism; Morsicatio buccarum 03/30/2024 Travel 03/20/2024 Orders Only [facility] [address] [place] [phone] Shireen Garcia RN 03/17/2024 Telephone [facility] [address] [phone] David Martin DMD Nurse Only 03/15/2024 Orders Only [facility] [address] [phone] Vineet Ambrose MD Facial pain syndrome ; Nasal pain 03/15/2024 Refill [facility] [address] [phone] Nessa Cast MD Refill Request from Last [...] 36.7 C (98.1 F) 04/19/2024 3:08 PM RAILWAY SIGNALLING ENGINEER Respiratory Rate 16 04/19/2024 3:08 PM RAILWAY SIGNALLING ENGINEER Oxygen Saturation 96% 02/10/2024 7:53 AM RAILWAY SIGNALLING ENGINEER Inhaled Oxygen Concentration - - Weight 52.6 kg (116 lb) 05/18/2024 1:12 PM CDT Height 162.6 cm (5' 4 ) 05/18/2024 1:12 PM CDT Body Mass Index 19.91 05/18/2024 1:12 PM CDT Plan of Treatment Upcoming Encounters Date Type Department Care Team (Late st Contact Info) Description 11/16/2024 1:00 PM CDT Office Visit [facility] [address] [facility], [place] [phone] David Martin, DMD [address] [facility] [place] [address] Health Maintenance Due Date Last Done Comments [...] this topic Medical Devices Implanted Type Area Front Line Leader Device Identifier Shelf Expiration Date Model / Serial / Lot Dev Sys Sgl Obtryx Implanted:Qty: 1 on 07/17/2014 by Katya Mccall MD at [facility] [employer] Scimed 04/29/2017 [id number] / / [id number] Grft Tiss Rep Xenform 4 X 7cm Implanted:Qty: 1 on 07/17/2014 by Katya Mccall MD at [facility] [employer] Microvasive [id number] / / [id number] Procedures Procedure Name Priority Date/Time Associated Diagnosis Comments PAIN MANAGEMENT PROCEDURE TIME Routine 04/19/2024 3:32 PM RAILWAY SIGNALLING ENGINEER Nerve pain from Last 3 Months Results * Pain Management Procedure Time (04/19/2024 3:32 PM RAILWAY SIGNALLING ENGINEER) Anatomical Region Laterality Modality Radio Fluoroscop y Narrative 04/19/2024 3:40 PM RAILWAY SIGNALLING ENGINEER Nolberto Alvarez DO 04/19/2024 3:40 PM Procedure [...] 1:33 PM 07/18/2014 4:00 PM Care Teams Cellar Packer Relationship Specialty Start Date End Date Subha Rodriguez MD [address] [facility] [address] [phone] PCP - General Family Medicine 05/18/24 Candy Rankin, LUISANA Sales Assistant 07/17/14
--- OUTSIDE RECORDS SUMMARY | 2024-06-11 19:54 | XMS_ITS | Continuity of Care Document ---
Author Organization [facility] Address [address] [place] [address] [address] [place] [address] Phone Care Team Providers Care Service Agent Name Role Phone Barrington PT,MPT,ATC, Mike Unavailable Unavai lable Procedures Procedure Date Therapeutic Activities Neuromuscular Re-Ed Therapeutic Exercise Therapeutic Activities Neuromuscular Re-Ed Therapeutic Exercise Therapeutic Activities Neuromuscular Re-Ed Therapeutic Exercise Neuromuscular Re-Ed Therapeutic Activities Therapeutic Exercise Doc neg elder mal no plan PT Evaluation High Complexity Therapeutic Exercise Therapeutic Activities Progress Note Therapeutic Exercise Therapeutic Activities Neuromuscular [...] Diagnoses Date Provider Providers Copied on Encounter [facility] [address] [facility], [place], [place], [id number], tel:[phone] [facility] No Information Nov-2 3 [place], [place], [place]. Referring Provider: Palma Trevino, [address] [place] [address], [address]. tel:[phone] [place] [address] [address], [place], [place], [id number], tel:[phone] [facility] No Information Nov-1 3 [place], [place]. Referring Provider: Palma Trevino, [address] [place] [address], [address]. tel:[phone] [facility] [address], [place], [place], [id number], tel:[phone] [facility] No Information Nov-1 3 [facility]. Referring Provider: Palma Trevino, [address] [place] [address], [address]. tel:[phone] [facility] [address], [place], [place], [id number], [place] tel:[phone] [facility] No Information Nov-0 3 [place], [place]. Referring Provider: Palma Trevino, [address] [place] [address], [address]. tel:[phone] [facility] [address], [place], [place], [id number], tel:[phone] [facility] No Information Nov-0 1-202 3 [place], [place]. Referring Provider: Palma Trevino, [address] [place] [address], [address]. tel:[phone] [facility], [address], [place], [place], [id number], [place] tel:[phone] [facility] Pain in left shoulderWeakness May-1 5-201 9 Makler Luke. . Referring Provider: Claudio Suazo, [address] [place] [address], [place], [address]. tel:[phone] [facility], [address], [place], [place], [id number], [place] tel:[phone] [facility] Pain in left shoulderWeakness May-0 8-201 9 Makler Luke. . Referring Provider: Claudio Suazo, [address] [place] [address], [place], [address]. tel:[phone] [facility], [address], [place], [id number], [place] tel:[phone] [facility] Pain in left shoulderWeakness May-0 1-201 9 Makler Luke. . Referring Provider: Claudio Suazo, [address] [place] [address], [place], [address]. tel:[phone] [facility] [address] [facility] [address], [place], [id number], [place] tel:[phone] [facility] Pain in left shoulderWeakness Apr-2 4-201 9 Makler Luke. . Referring Provider: Claudio Suazo, [address] [place] [address], [place], [address]. tel:[phone] [facility], [address], [place], [place], [id number], [place] tel:[phone] [facility] Pain in left shoulderWeakness Apr-1 6-201 9 Makler Luke. . Referring Provider: Claudio Suazo [address] [place] [address], [place], [address]. tel:[phone] [facility], [address] [facility] [address], [place], [place], [id number], [place] tel:[phone] [facility] Pain in left shoulderWeakness 9 Mady Toth. . Referring Provider: Claudio Suazo, [address] [address], [place], [address]. tel:[phone] Family History Family Member Type Diagnosis Age At Onset No Information Payers Payer name Insurance type Covered republican ID Authorchaa debbie(s) [facility] [id number] Social History Type Description Quantity Date Captured [...]
--- OUTSIDE RECORDS SUMMARY | 2024-06-11 19:54 | XMS_ITS | Encounter Summary ---
Author Organization [facility] Address [address] [place] [address] Care Team Providers Care Superintendent Pressure Name Role Phone Claudio Suazo MD Primary Care Provider [phone] Job Coker MD Unavailable [phone] Kendra Steiner MD PhD Unavailable [phone] Mike Levy MD Unavailable [phone] Subha Rodriguez MD Primary Care Provider [phone] Encounter Details Date Type Department Care Team (Late st Contact Info) Description 09/01/2023 Telephone [facility] [address] [facility] [address] [place] [address] Cele Iraheta, RN Social History [...] on file 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 Gender Identity Female 11/21/2020 8:28 AM CDT Sexual Orientation Not on file documented as of this encounter Plan of Treatment Scheduled Procedures Name Priority Associated Diagnoses Date/Ti me ESOPHAGOGASTRODUODENOSCOPY Iron deficiency anemia, unspecified iron deficiency anemia type documented as of this encounter Visit Diagnoses Not on filedocumented in this encounter Care Teams Superintendent Pressure Relationship Specialty Start Date End Date Claudio Suazo MD PCP - General 06/19/16 03/06/24 Subah Rodriguez MD [address] [place] [phone] PCP - General Family Medicine 03/07/24 Job Coker MD [address] [place] [address] Referring Physician Psychiatry 06/19/22 Kendra Steiner MD PhD [address] [place] [address] Referring Physician Neurology 06/19/22 Mike Levy MD [address] [place] [phone] Referring Physician Emergency Medicine 06/19/22 documented as of this encounter
--- OUTSIDE RECORDS SUMMARY | 2024-06-11 19:54 | XMS_ITS | Clinical Summary ---
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) 10 mg disintegrating tablet DISSOLVE 1 TABLET [...] 04/17/2024 Assessment & Plan (04/23/2024 11:47 PM MANAGER UROLOGY): New Order PT Pure hypercholesterolemia 03/20/2024 Assessment & Plan (03/26/2024 10:50 PM MANAGER UROLOGY): Chronic Stable Follow low chol diet Goal: TC<200, LDL<100, TG<150 Family history of heart disease 03/20/2024 Well adult exam 03/20/2024 Other general symptoms and signs 01/06/2024 Assessment & Plan (01/06/2024 2:52 PM MANAGER UROLOGY): Nonspecific, episodic generalized sxs ongoing for over [...] 05/04/2023 Assessment & Plan (05/04/2023 2:30 PM MANAGER UROLOGY): Exam favorable of crusted SK lesion though would appreciate second option from derm for reassurance Provided multiple derm contact in [place] & [place] to arrange and update to route referral once scheduled Interim concerns warranting update discussed Onychomycosis 05/04/2023 Assessment & Plan (05/04/2023 2:26 PM MANAGER UROLOGY): Moderate onychomycosis along multiple BL feet digits [...] 12/22/2022 Assessment & Plan (02/10/2023 1:21 PM MANAGER UROLOGY): May use Tylenol and/or Ibuprofen as needed. [...] 10/07/2022 Assessment & Plan (03/26/2024 10:50 PM MANAGER UROLOGY): Chronic Stable Cont supplmeent Assessment & Plan [...] 08/18/2017 Assessment & Plan (03/26/2024 10:50 PM MANAGER UROLOGY): Chronic Stable Cont maxalt, imitrex prn Assessment & Plan (06/19/2022 10:39 AM CDT): Tolerable though ongoing severe. Seeing a headache specialist. Assessment & Plan (05/02/2021 2:02 PM MANAGER UROLOGY): Lingering migraine post fall -improving with abortive [...] 04/09/2015 Assessment & Plan (01/14/2023 5:59 PM MANAGER UROLOGY): Patient continue to complain of burning sensation [...] Type Department Care Team Description 05/26/2024 Telephone [facility] with [facility] [address] [place] [address] Lexii Pritchard 05/24/2024 Telephone [facility] at [facility] [address] 1[address] [place] [phone] Melanie Ramos RN Treat Facial Pain? 05/03/2024 9:27 AM MANAGER UROLOGY - 05/03/2024 11:59 PM MANAGER UROLOGY Hospital Encounter [facility] Rad[facility] 1 [facility] [place] [address] Vertigo Discharge Disposition: Discharge to home or self care 04/26/2024 Orders Only [facility] at the [facility] [address] [facility] [address] [place] [address] David Martin DMD Facial pain syndrome (Primary Dx); Nasal pain 04/17/2024 11:30 AM MANAGER UROLOGY Office Visit [address] [place] [phone] Subha Rodriguez MD Vertigo (Primary Dx); Pure hypercholesterolemi a; Vitamin B12 deficiency; Well adult exam 04/17/[address] [place] [phone] Subha Rodriguez MD Medical Question/Miscellane ous 04/14/2024 Nurse Triage [address] [place] [phone] Subha Rodriguez MD 03/20/2024 10:00 AM MANAGER UROLOGY Office Visit [address] [place] [phone] Subha Rodriguez MD Intractable chronic migraine without [...] 04/27/2021 Surgical History Surgery Date Site/Laterality Comments DE TX ECTOPIC ABDOMINAL/VAGINAL APPR Salpingectomy For Ectopic - (Added by Conv) DE OOPHORECTOMY PARTIAL/TOTA L UNI/BI Oophorectomy Unilateral Left Side - (Added by Conv) EYE SURGERY Eye Surgery - muscle repair after trauma as child (Added by Conv) DE CLOSED TX NASAL SEPTAL FR ACT W/WO [...] file Legal Sex Female 3:24 PM MANAGER UROLOGY Gender Identity Female 11/21/2020 8:28 AM CDT [...] Comments Blood Pressure 110/68 04/17/2024 11:27 AM MANAGER UROLOGY Pulse 90 04/17/2024 11:27 AM MANAGER UROLOGY Temperature 36.7 C (98 F) 04/17/2024 11:27 AM MANAGER UROLOGY Respiratory Rate 18 03/20/2024 10:00 AM MANAGER UROLOGY Oxygen Saturation 97% 04/17/2024 11:27 AM MANAGER UROLOGY Inhaled Oxygen Concentration - - Weight 53.3 kg (117 lb 6.4 oz) 04/17/2024 11:27 AM MANAGER UROLOGY Height 162.6 cm (5' 4 ) 04/17/2024 11:27 AM MANAGER UROLOGY Body Mass Index 20.15 04/17/2024 11:27 AM MANAGER UROLOGY Plan of Treatment Scheduled Procedures Name Priority [...] Read Routine (OP Routine) 05/03/2024 10:12 AM MANAGER UROLOGY Vertigo VITAMIN B12 Routine 04/18/2024 12:34 PM MANAGER UROLOGY Vertigo Pure hypercholesterole jose david Vitamin B12 deficiency Well adult exam CBC WITH AUTO DIFFERENTIAL Routine 04/18/2024 12:34 PM MANAGER UROLOGY Vertigo Pure hypercholesterole jose david Vitamin B12 deficiency Well adult exam LIPID PANEL Routine 04/18/2024 12:34 PM MANAGER UROLOGY Vertigo Pure hypercholesterole jose david Vitamin B12 deficiency Well adult exam COMPREHENSIVE METABOLIC PANEL Routine 04/18/2024 12:34 PM MANAGER UROLOGY Vertigo Pure hypercholesterole jose david Vitamin B12 deficiency Well adult exam THYROID FUNCTION CASCADE Routine 04/18/2024 12:34 PM MANAGER UROLOGY Vertigo Pure hypercholesterole jose david Vitamin B12 [...] MRI Brain WO Contrast (05/03/2024 10:12 AM MANAGER UROLOGY) Anatomical Region Laterality Modality Head and Neck N/A Magnetic Resonan ce 05/03/2024 12:4 6 PM MANAGER UROLOGY Impressions 05/03/2024 12:46 PM MANAGER UROLOGY No acute intracranial abnormality. Electronically signed by: Dane Warner MD Narrative 05/03/2024 12:46 PM MANAGER UROLOGY EXAMINATION: Magnetic resonance imaging (MRI) of the [...] MRI PROCEDURES Final Result * Thyroid Function Reagan (04/18/2024 12:34 PM MANAGER UROLOGY) TSH 1.13 0.40 - 4.50 mIU/L [facility] Blood 04/18/2024 12:3 4 PM MANAGER UROLOGY 04/18/2024 12:35 PM MANAGER UROLOGY Narrative [facility] - 04/19/2024 6:17 AM MANAGER UROLOGY FASTING:NO FASTING: NO Subha Rodriguez MD LAB BLOOD ORDERABLES Alissa l Result [facility] [address] [place] [address] * CBC with auto differential (04/18/2024 12:34 PM MANAGER UROLOGY) WBC 3.9 3.8 - 10.8 Thousand/u L [facility] RBC, POC 4.06 3.80 - 5.10 Million/uL [facility] Hgb 12.9 11.7 - 15.5 g/dL [facility] Hct 39.3 35.0 - 45.0 % [facility] MCV 96.8 80.0 - 100.0 fL [facility] MCH 31.8 27.0 - 33.0 pg [facility] MCHC 32.8 32.0 - 36.0 g/dL K[facility] Louis Comment: For adults, a slight decrease in the calculated MCHC value (in the range of 30 to 32 g/dL) is most likely not clinically significant; however, it should be interpreted with caution in correlation with other red cell parameters and the patient's clinical condition. Rdw 12.1 11.0 - 15.0 % [facility] Platelets 235 140 - 400 Thousand/u L [facility] MPV 9.9 7.5 - 12.5 fL [facility] Neutrophils, abs 2,480 1,500 - 7,800 cells/uL [facility] Lymphocytes, abs 913 850 - 3,900 cells/uL [facility] Monocyte abs 406 200 - 950 cells/uL [facility] Eosinophils, abs 82 15 - 500 cells/uL [facility] Louis Basophils, abs 20 0 - 200 cells/uL [facility] Neutrophils 63.6 % [facility] Lymphocyte pct 23.4 % [facility] Monocytes 10.4 % [facility] Louis Eosinophils 2.1 % [facility] Basophils 0.5 % [facility] Blood 04/18/2024 12:3 4 PM MANAGER UROLOGY 04/18/2024 12:35 PM MANAGER UROLOGY Narrative [facility] - 04/19/2024 6:17 AM MANAGER UROLOGY FASTING:NO FASTING: NO Result [facility] Subha Rodriguez MD LAB BLOOD ORDERABLES Alissa l Result [facility] [address] [place] [address] * (ABNORMAL) Vitamin B12 (04/18/2024 12:34 PM MANAGER UROLOGY) Vitamin B12 >2000(H) 200 - 1100 pg/mL [facility] Blood 04/18/2024 12:3 4 PM MANAGER UROLOGY 04/18/2024 12:35 PM MANAGER UROLOGY Narrative [facility] - 04/19/2024 6:17 AM MANAGER UROLOGY FASTING:NO FASTING: NO Subha Rodriguez MD LAB BLOOD ORDERABLES Alissa l Result [facility] [address] [address] * (ABNORMAL) Lipid panel (04/18/2024 12:34 PM MANAGER UROLOGY) Cholesterol 209(H) <200 mg/dL [facility] jonn Stark HDL 77 > OR = 50 mg/dL [facility] jonn Stark Triglycerides 210(H) <150 mg/dL [facility] jonn Stark Comment: If a non-fasting specimen was collected, consider repeat triglyceride testing on a fasting specimen if clinically indicated. Atul et al. J. of Clin. Lipidol. 2015;9:129-169. LDL 99 mg/dL (calc) Jorge L [facility]ur SystemsSally jonn Stark Comment: Reference range: <100 Desirable range <100 mg/dL for primary prevention; <70 mg/dL for patients with CHD or diabetic patients with > or = 2 CHD risk factors. LDL-C is now calculated using the Leandro-Gray calculation, which is a validated novel method providing better accuracy than the Friedewald equation in the estimation of LDL-C. Leandro SHETH et al. JANKI. 2013;310(19): 4251-7304 (http://education.Priceonomics/faq/UWZ938) Chol/HDL ratio 2.7 <5.0 (calc) [facility] jonn Stark Non-HDL, (LDL+VLDL) 132(H) <130 mg/dL (calc) [facility] jonn Stark Comment: For patients with diabetes plus 1 major ASCVD risk factor, treating to a non-HDL-C goal of <100 mg/dL (LDL-C of <70 mg/dL) is considered a therapeutic option. Blood 04/18/2024 12:3 4 PM MANAGER UROLOGY 04/18/2024 12:35 PM MANAGER UROLOGY Narrative [facility] - 04/19/2024 6:17 AM MANAGER UROLOGY FASTING:NO FASTING: NO us Subha Rodriguez MD LAB BLOOD ORDERABLES Alissa l Result [facility] [address] [place] [address] * (ABNORMAL) Comprehensive metabolic panel (04/18/2024 12:34 PM MANAGER UROLOGY) Pathologist [facility] Glucose 76 65 - 139 mg/dL Jorge L [facility] SystemsSally Stark Comment: Non-fasting reference interval BUN 31(H) 7 - 25 mg/dL Jorge L [facility] SystemsSally Stark Creatinine 1.24(H) 0.50 - 1.05 mg/dL Bit[facility] Stark eGFR 49(L) > OR = 60 mL/min/1.7 3m2 Jorge L [facility] SystemsSally Stark BUN/creat ratio 25(H) 6 - 22 (calc) Jorge L [employer]Sally Stark Sodium 140 135 - 146 mmol/L Jorge L [facility] SystemsSally Stark Potassium, pl 4.2 3.5 - 5.3 mmol/L Jorge L [facility]Sally Stark Chloride 100 98 - 110 mmol/L Jorge L RitchieMetGenSally Stark CO2 33(H) 20 - 32 mmol/L Jorge L [facility] SystemsSally Stark Calcium 9.4 8.6 - 10.4 mg/dL Jorge L [facility] SystemsSally Stark Protein, sr 6.6 6.1 - 8.1 g/dL Jorge L [facility] SystemsSally Stark Albumin 4.5 3.6 - 5.1 g/dL Jorge L [facility] SystemsSally Stark GLOBULIN 2.1 1.9 - 3.7 g/dL (calc) Jorge L [employer]Sally Stark Alb/glob ratio 2.1 1.0 - 2.5 (calc) Jorge L [facility] SystemsSally Stark Bilirubin, total 0.4 0.2 - 1.2 mg/dL Jorge L [facility] SystemsSally Stark Alk phos 56 37 - 153 U/L Bit[facility] Stark AST 25 10 - 35 U/L BitXSally Stark ALT (SGPT) 24 6 - 29 U/L Bit[facility] Stark Blood 04/18/2024 12:3 4 PM MANAGER UROLOGY 04/18/2024 12:35 PM MANAGER UROLOGY Narrative [facility] - 04/19/2024 6:17 AM MANAGER UROLOGY FASTING:NO FASTING: NO us Subha Rodriguez MD LAB BLOOD ORDERABLES Alissa l Result [facility] Jorge L [facility] [address] [place] [address] * Screening Mammogram Bilateral W Que (09/07/2023 9:42 AM CDT) Anatomical Region Laterality Modality Breast Bilateral Mammography Narrative 09/07/2023 4:21 PM CDT Mammogram Technique: Bilateral Digital Breast Tomosynthesis, Bilateral C-view 2D Screening mammogram. Views obtained: bilateral craniocaudal and bilateral mediolateral oblique. Computer Aided Detection was performed. Mammogram Findings: The present examination has been compared to prior imaging studies performed at [facility] on 08/19/2012, and at [facility] on 09/06/2017 and 08/25/2022. There are scattered [...] compared to prior imaging studies performed at [facility] on 08/19/2012, and at [facility] on 09/06/2017 and 08/25/2022. There are scattered [...] Comment: For additional information, please refer to http://education.UrbanBounds.com/faq/WEM039 (This link is being provided for informational/ educational purposes only.) HepBsAg NON-REACTI VE NON-REACT MAURIZIO [facility] Comment: For additional information, please refer to http://ftopia/faq/HUT790 (This link is being provided for informational/ educational purposes only.) Hep B core IgM NON-REACTI VE NON-REACT MAURIZIO [facility] Comment: For additional information, please refer to http://ftopia/faq/HDK439 (This link is being provided for informational/ educational purposes only.) Hep C Ab NON-REACTI VE NON-REACT MAURIZIO [facility] Comment: HCV antibody was non-reactive. There is no laboratory evidence of HCV infection. In most cases, no further action is required. However, if recent HCV exposure is suspected, a test for HCV RNA (test code 03651) is suggested. For additional information please refer to http://ftopia/faq/JVD67j4 (This link is being provided for informational/ educational purposes only.) Blood 12/23/2022 9:46 AM CDT 12/23/2022 9:47 AM CDT Narrative [facility] - 12/25/2022 3:26 PM CDT FASTING:YES FASTING: YES Palma Trevino NP LAB MICROBIOLOGY - NERAL ORDERABLES Final Result [facility] [address] [facility] [place] [address] * COLONOSCOPY (11/26/2022 8:14 AM CDT) Anatomical Region Laterality Modality Other Narrative Procedure Note Gómez Kirk MD PhD - 11/26/2022 8:14 AM CDT GI ENDOSCOPY [facility] Patient Name: Sabrina Barajas Procedure Date: 11/26/2022 8:14 AM Date of : 1960 Admit Type: Outpatient Age: 62 Gender: Female Attending MD: Gómez Kirk MD,PHD Room: [facility] RO[facility] 4 Note Status: Finalized Procedure: [...] passed under direct vision.The CF [id number] endoscope was introducedthrough the anus and advanced to the cecum, identified by appendiceal orifice and ileocecal valve. The colonoscopy was performed without difficulty. The patient tolerated the procedure well. The qualityof the bowel preparation was good. The quality of the bowel preparation was evaluated using the BBPS(Brooks Bowel Preparation Scale) with scores of: RightColon [...] On: 11/26/2022 8:14 AM Recognized by the [place] [employer] for promoting quality in endoscopy Gómez Kirk MD PhD ENDOSCOPY PROCEDURES F inal Result from Last 3 Months or Most Recently Relevant to Health Maintenance [place] Advance [place] For more information, please contact: [phone] * Full Code (Latest Code Status on File) Date Activated Date Inactivated Comments 11/26/2022 7:28 AM 11/26/2022 1:55 PM Care Teams Systems Security Analyst Relationship Specialty Start Date End Date Subha Rodriguez MD [address] [facility] [place] [address] PCP - General Family Medicine 03/07/24 Job Coker MD [address] [place] [address] Referring Physician Psychiatry 06/19/22 Kendra Steiner MD PhD [address] [place] [address] Referring Physician Neurology 06/19/22 Mike Levy MD [address] [facility] [place]PT [place] [id number] Referring Physician Emergency Medicine 06/19/22
--- OUTSIDE RECORDS SUMMARY | 2024-06-11 19:54 | XMS_ITS | Encounter Summary ---
Author Organization [facility] Healthcare Address [address] [place] [address] Care Team Providers Care Manager English Name Role Phone Claudio Suazo MD Primary Care Provider [phone] Job Coker MD Unavailable [phone] Kendra Steiner MD PhD Unavailable [phone] Mike Levy MD Unavailable [phone] Subha Rodriguez MD Primary Care Provider [phone] Reason for Visit * Reason Onset Date Comments ready to schedule 06/23/2022 Encounter Details Date Type Department Care Team (Late st Contact Info) Description 06/23/2022 Telephone [facility] Specialty Services [address] [place] [address] Miscellaneous, Not In File ready to schedule [...] on file 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 Gender Identity Female 11/21/2020 8:28 AM CDT Sexual Orientation Not on file documented as of this encounter Plan of Treatment Scheduled Procedures Name Priority Associated Diagnoses Date/Ti me ESOPHAGOGASTRODUODENOSCOPY Iron deficiency anemia, unspecified iron deficiency anemia type documented as of this encounter Visit Diagnoses Not on filedocumented in this encounter Care Teams Manager English Relationship Specialty Start Date End Date Claudio Suazo MD PCP - General 06/19/16 03/06/24 Subha Rodriguez MD [address] [place] [phone] PCP - General Family Medicine 03/07/24 Job Coker MD [address] [place] [address] Referring Physician Psychiatry 06/19/22 Kendra Steiner MD PhD [address] [place] [address] Referring Physician Neurology 06/19/22 Mike Levy MD [address] [place] [id number] Referring Physician Emergency Medicine 06/19/22 documented as of this encounter
[2024-06-11] MEDS: SODIUM CHLORIDE 0.9% IV 1,000 ML 999 ML IV CONT (19:55)
--- OUTSIDE RECORDS SUMMARY | 2024-06-11 19:55 | XMS_ITS | Referral Summary ---
Author Organization [facility] al Address [address] [place] [address] Care Team Providers Care Appliance Tester Name Role Phone Job Coker MD Unavailable [phone] Kendra Steiner MD PhD Unavailable [phone] Mike Levy MD Unavailable [phone] Subha Rodriguez MD Primary Care Provider [phone] Encounters Date Type Department Care Team Description 05/26/2024 Telephone [facility] [address] [facility] [address] [place] [address] Lexii Pritchard 05/24/2024 Telephone [facility] [address] [facility] 1st [place] [address] Melanie Ramos RN Treat Facial Pain? 05/03/2024 9:27 AM SLITTER PROCESSED FILM - 05/03/2024 11:59 PM SLITTER PROCESSED FILM Hospital Encounter [facility] [address] [place] [address] Vertigo Discharge Disposition: Discharge to home or self care 04/26/2024 Orders Only [facility] [address] [place] [address] David Martin, [place] Facial pain syndrome (Primary Dx); Nasal pain 04/17/[address] [place] [phone] Subha Rodriguez MD Medical Question/Miscellane ous 04/17/2024 11:30 AM SLITTER PROCESSED FILM Office Visit [address] [place] [phone] Subha Rodriguez MD Vertigo (Primary Dx); Pure hypercholesterolemi a; Vitamin B12 deficiency; Well adult exam 04/14/2024 Nurse Triage [address] [place] [phone] Subha Rodriguez MD 03/20/2024 10:00 AM SLITTER PROCESSED FILM Office Visit [address] [phone] Subha Rodriguez MD Intractable chronic migraine without [...] mg total) by mouth daily Active rizatriptan DRIVER SALESMAN (MAXALT-DRIVER SALESMAN) 10 mg disintegrating tablet DISSOLVE 1 TABLET [...] 04/17/2024 Assessment & Plan (04/23/2024 11:47 PM SLITTER PROCESSED FILM): New Order PT Pure hypercholesterolemia 03/20/2024 Assessment & Plan (03/26/2024 10:50 PM SLITTER PROCESSED FILM): Chronic Stable Follow low chol diet Goal: TC<200, LDL<100, TG<150 Family history of heart disease 03/20/2024 Well adult exam 03/20/2024 Other general symptoms and signs 01/06/2024 Assessment & Plan (01/06/2024 2:52 PM SLITTER PROCESSED FILM): Nonspecific, episodic generalized sxs ongoing for over [...] 05/04/2023 Assessment & Plan (05/04/2023 2:30 PM SLITTER PROCESSED FILM): Exam favorable of crusted SK lesion though would appreciate second option from derm for reassurance Provided multiple derm contact in [place] & [place] to arrange and update to route referral once scheduled Interim concerns warranting update discussed Onychomycosis 05/04/2023 Assessment & Plan (05/04/2023 2:26 PM SLITTER PROCESSED FILM): Moderate onychomycosis along multiple BL feet digits [...] 12/22/2022 Assessment & Plan (02/10/2023 1:21 PM SLITTER PROCESSED FILM): May use Tylenol and/or Ibuprofen as needed. [...] 10/07/2022 Assessment & Plan (03/26/2024 10:50 PM SLITTER PROCESSED FILM): Chronic Stable Cont supplmeent Assessment & Plan [...] 08/18/2017 Assessment & Plan (03/26/2024 10:50 PM SLITTER PROCESSED FILM): Chronic Stable Cont maxalt, imitrex prn Assessment & Plan (06/19/2022 10:39 AM CDT): Tolerable though ongoing severe. Seeing a headache specialist. Assessment & Plan (05/02/2021 2:02 PM SLITTER PROCESSED FILM): Lingering migraine post fall -improving with abortive [...] 04/09/2015 Assessment & Plan (01/14/2023 5:59 PM SLITTER PROCESSED FILM): Patient continue to complain of burning sensation [...] on file Legal Sex Female 3:24 PM SLITTER PROCESSED FILM Gender Identity Female 11/21/2020 8:28 AM CDT Sexual Orientation Not on file Last Filed Vital Signs Vital Sign Reading Time Taken Comments Blood Pressure 110/68 04/17/2024 11:27 AM SLITTER PROCESSED FILM Pulse 90 04/17/2024 11:27 AM SLITTER PROCESSED FILM Temperature 36.7 C (98 F) 04/17/2024 11:27 AM SLITTER PROCESSED FILM Respiratory Rate 18 03/20/2024 10:00 AM SLITTER PROCESSED FILM Oxygen Saturation 97% 04/17/2024 11:27 AM SLITTER PROCESSED FILM Inhaled Oxygen Concentration - - Weight 53.3 kg (117 lb 6.4 oz) 04/17/2024 11:27 AM SLITTER PROCESSED FILM Height 162.6 cm (5' 4 ) 04/17/2024 11:27 AM SLITTER PROCESSED FILM Body Mass Index 20.15 04/17/2024 11:27 AM SLITTER PROCESSED FILM Plan of Treatment Scheduled Procedures Name Priority Associated Diagnoses Date/Ti me ESOPHAGOGASTRODUODENOSCOPY Iron deficiency anemia, unspecified iron deficiency anemia type Procedures Procedure Name Priority Date/Time Associated Diagnosis Comments MRI BRAIN WO CONTRAST Schedule Routine, Read Routine (OP Routine) 05/03/2024 10:12 AM SLITTER PROCESSED FILM Vertigo VITAMIN B12 Routine 04/18/2024 12:34 PM SLITTER PROCESSED FILM Vertigo Pure hypercholesterole jose david Vitamin B12 deficiency Well adult exam CBC WITH AUTO DIFFERENTIAL Routine 04/18/2024 12:34 PM SLITTER PROCESSED FILM Vertigo Pure hypercholesterole jose david Vitamin B12 deficiency Well adult exam LIPID PANEL Routine 04/18/2024 12:34 PM SLITTER PROCESSED FILM Vertigo Pure hypercholesterole jose david Vitamin B12 deficiency Well adult exam COMPREHENSIVE METABOLIC PANEL Routine 04/18/2024 12:34 PM SLITTER PROCESSED FILM Vertigo Pure hypercholesterole jose david Vitamin B12 deficiency Well adult exam THYROID FUNCTION CASCADE Routine 04/18/2024 12:34 PM SLITTER PROCESSED FILM Vertigo Pure hypercholesterole jose david Vitamin B12 [...] MRI Brain WO Contrast (05/03/2024 10:12 AM SLITTER PROCESSED FILM) Anatomical Region Laterality Modality Head and Neck N/A Magnetic Resonan ce 05/03/2024 12:4 6 PM SLITTER PROCESSED FILM Impressions 05/03/2024 12:46 PM SLITTER PROCESSED FILM No acute intracranial abnormality. Electronically signed by: MD Dangelo Gil 05/03/2024 12:46 PM SLITTER PROCESSED FILM EXAMINATION: Magnetic resonance imaging (MRI) of the [...] Dane Warner MD us Subha Rodriguez MD [facility] MRI PROCEDURES Final Result * Thyroid Function [place] (04/18/2024 12:34 PM SLITTER PROCESSED FILM) TSH 1.13 0.40 - 4.50 mIU/L [facility] Blood 04/18/2024 12:3 4 PM SLITTER PROCESSED FILM 04/18/2024 12:35 PM SLITTER PROCESSED FILM Narrative [facility] - 04/19/2024 6:17 AM SLITTER PROCESSED FILM FASTING:NO FASTING: NO us Subha Rodriguez MD LAB BLOOD ORDERABLES Alissa l Result [facility] [address] [place] [address] * CBC with auto differential (04/18/2024 12:34 PM SLITTER PROCESSED FILM) WBC 3.9 3.8 - 10.8 Thousand/u L [facility] RBC, POC 4.06 3.80 - 5.10 Million/uL [facility] Hgb 12.9 11.7 - 15.5 g/dL [facility] Hct 39.3 35.0 - 45.0 % [facility] MCV 96.8 80.0 - 100.0 fL [facility] MCH 31.8 27.0 - 33.0 pg [facility] MCHC 32.8 32.0 - 36.0 g/dL [facility] Comment: For adults, a slight decrease in the calculated MCHC value (in the range of 30 to 32 g/dL) is most likely not clinically significant; however, it should be interpreted with caution in correlation with other red cell parameters and the patient's clinical condition. Rdw 12.1 11.0 - 15.0 % [facility] Platelets 235 140 - 400 Thousand/u L [facility] MPV 9.9 7.5 - 12.5 fL [facility] Neutrophils, abs 2,480 1,500 - 7,800 cells/uL [facility] Lymphocytes, abs 913 850 - 3,900 cells/uL [facility] Monocyte abs 406 200 - 950 cells/uL [facility] Eosinophils, abs 82 15 - 500 cells/uL [facility] Basophils, abs 20 0 - 200 cells/uL [facility] Neutrophils 63.6 % [facility] Lymphocyte pct 23.4 % [facility] Monocytes 10.4 % [facility] Eosinophils 2.1 % [facility] Basophils 0.5 % [facility] Blood 04/18/2024 12:3 4 PM SLITTER PROCESSED FILM 04/18/2024 12:35 PM SLITTER PROCESSED FILM Narrative [facility] - 04/19/2024 6:17 AM SLITTER PROCESSED FILM FASTING:NO FASTING: NO us Subha Km-Hilaly MD LAB BLOOD ORDERABLES Alissa l Result [facility] [address] [place] [address] * (ABNORMAL) Vitamin B12 (04/18/2024 12:34 PM SLITTER PROCESSED FILM) Vitamin B12 >2000(H) 200 - 1100 pg/mL [facility] Blood 04/18/2024 12:3 4 PM SLITTER PROCESSED FILM 04/18/2024 12:35 PM SLITTER PROCESSED FILM Narrative [facility] - 04/19/2024 6:17 AM SLITTER PROCESSED FILM FASTING:NO FASTING: NO Subha Rodriguez MD LAB BLOOD ORDERABLES Alissa l Result [facility] [address] [place] [address] * (ABNORMAL) Lipid panel (04/18/2024 12:34 PM SLITTER PROCESSED FILM) Cholesterol 209(H) <200 mg/dL [facility] HDL 77 > OR = 50 mg/dL [facility] Triglycerides 210(H) <150 mg/dL [facility] Comment: If a non-fasting specimen was collected, consider repeat triglyceride testing on a fasting specimen if clinically indicated. Atul et al. J. of Clin. Lipidol. 2015;9:129-169. LDL 99 mg/dL (calc) [facility] Comment: Reference range: <100 Desirable range <100 mg/dL for primary prevention; <70 mg/dL for patients with CHD or diabetic patients with > or = 2 CHD risk factors. LDL-C is now calculated using the Tyron calculation, which is a validated novel method providing better accuracy than the Friedewald equation in the estimation of LDL-C. Leandro SHETH et al. JANKI. 2013;310(19): 1689-8032 (http://education.[employer]/faq/AJI727) Chol/HDL ratio 2.7 <5.0 (calc) [facility] Non-HDL, (LDL+VLDL) 132(H) <130 mg/dL (calc) [facility] Comment: For patients with diabetes plus 1 major ASCVD risk factor, treating to a non-HDL-C goal of <100 mg/dL (LDL-C of <70 mg/dL) is considered a therapeutic option. Blood 04/18/2024 12:3 4 PM SLITTER PROCESSED FILM 04/18/2024 12:35 PM SLITTER PROCESSED FILM Narrative [facility] - 04/19/2024 6:17 AM SLITTER PROCESSED FILM FASTING:NO FASTING: NO us Subha Rodriguez MD LAB BLOOD ORDERABLES Alissa l Result [facility] [address] [place] [address] * (ABNORMAL) Comprehensive metabolic panel (04/18/2024 12:34 PM SLITTER PROCESSED FILM) Glucose 76 65 - 139 mg/dL [facility] Comment: Non-fasting reference interval BUN 31(H) 7 - 25 mg/dL [facility] Creatinine 1.24(H) 0.50 - 1.05 mg/dL [facility] eGFR 49(L) > OR = 60 mL/min/1.7 3m2 [facility] BUN/creat ratio 25(H) 6 - 22 (calc) [facility] Sodium 140 135 - 146 mmol/L [facility] Potassium, pl 4.2 3.5 - 5.3 mmol/L [facility] Chloride 100 98 - 110 mmol/L [facility] CO2 33(H) 20 - 32 mmol/L [facility] Calcium 9.4 8.6 - 10.4 mg/dL [facility] Protein, sr 6.6 6.1 - 8.1 g/dL [facility] Albumin 4.5 3.6 - 5.1 g/dL [facility] GLOBULIN 2.1 1.9 - 3.7 g/dL (calc) [facility] Alb/glob ratio 2.1 1.0 - 2.5 (calc) [facility] Bilirubin, total 0.4 0.2 - 1.2 mg/dL [facility] Alk phos 56 37 - 153 U/L [facility] AST 25 10 - 35 U/L [facility] ALT (SGPT) 24 6 - 29 U/L [facility] Blood 04/18/2024 12:3 4 PM SLITTER PROCESSED FILM 04/18/2024 12:35 PM SLITTER PROCESSED FILM Narrative [facility] - 04/19/2024 6:17 AM SLITTER PROCESSED FILM FASTING:NO FASTING: NO us Subha Rodriguez MD LAB BLOOD ORDERABLES Alissa l Result [facility] [address] [place] [address] * Screening Mammogram Bilateral W Que (09/07/2023 9:42 AM CDT) Anatomical Region Laterality Modality Breast Bilateral Mammography Narrative 09/07/2023 4:21 PM CDT Mammogram Technique: Bilateral Digital Breast Tomosynthesis, Bilateral C-view 2D Screening mammogram. Views obtained: bilateral craniocaudal and bilateral mediolateral oblique. Computer Aided Detection was performed. Mammogram Findings: The present examination has been compared to prior imaging studies performed at [facility] on 08/19/2012, and at [facility] on 09/06/2017 and 08/25/2022. There are [...] to prior imaging studies performed at [facility] on 08/19/2012, and at [facility] on 09/06/2017 and 08/25/2022. There are [...] Comment: For additional information, please refer to http://QingKe/faq/MGI046 (This link is being provided for informational/ educational purposes only.) HepBsAg NON-REACTI VE NON-REACT MAURIZIO [facility] Comment: For additional information, please refer to http://QingKe/faq/NAO143 (This link is being provided for informational/ educational purposes only.) Hep B core IgM NON-REACTI VE NON-REACT MAURIZIO [facility] Comment: For additional information, please refer to http://QingKe/faq/MPV565 (This link is being provided for informational/ educational purposes only.) Hep C Ab NON-REACTI VE NON-REACT MAURIZIO [facility] Comment: HCV antibody was non-reactive. There is no laboratory evidence of HCV infection. In most cases, no further action is required. However, if recent HCV exposure is suspected, a test for HCV RNA (test code 91787) is suggested. For additional information please refer to http://xkoto.[employer]/faq/XMD59t0 (This link is being provided for informational/ educational purposes only.) Blood 12/23/2022 9:46 AM CDT 12/23/2022 9:47 AM CDT Narrative [facility] - 12/25/2022 3:26 PM CDT FASTING:YES FASTING: YES Pamla Trevino [facility] MICROBIOLOGY - GE NERAL ORDERABLES Final Result [facility] [address] [address] * COLONOSCOPY (11/26/2022 8:14 AM CDT) Anatomical Region Laterality Modality Other Narrative Procedure Note Gómez Kirk MD PhD - 11/26/2022 8:14 AM CDT [facility] END[facility] Patient Name: Sabrina Barajas Procedure Date: 11/26/2022 8:14 AM Date of : 1960 Admit Type: Outpatient Age: 62 Gender: Female Attending MD: Gómez Kirk MD,PHD Room: [facility] ENDOSCOPY ROOM 4 Note Status: Finalized Procedure: [...] the bowel preparation was evaluated using the BBPS([place] Bowel Preparation Scale) with scores of: RightColon [...] On: 11/26/2022 8:14 AM Recognized by the [employer] for promoting quality in endoscopy Gómez Kirk MD PhD ENDOSCOPY PROCEDURES F inal Result from Last 3 Months or Most Recently Relevant to Health Maintenance [place] Advance Directives For more information, please contact: [phone] * Full Code (Latest Code Status on File) Date Activated Date Inactivated Comments 11/26/2022 7:28 AM 11/26/2022 1:55 PM Care Teams Appliance Tester Relationship Specialty Start Date End Date Subha Rodriguez MD [address] [facility] [place] [id number] PCP - General Family Medicine 03/07/24 Job Coker MD [address] [place] [address] Referring Physician Psychiatry 06/19/22 Kendra Steiner MD PhD [address] [place] [address] Referring Physician Neurology 06/19/22 Mike Levy MD [address] [facility] [place] [id number] Referring Physician Emergency Medicine 06/19/22
[2024-06-11 20:30] VITALS: PULSE 98; RESP 13; O2SAT 100
--- NOTE | 2024-06-11 20:42 | ED.GENADULT ---
HPI - General Adult General Chief complaint: Abdominal Pain Stated complaint: abd problems Time Seen by Provider: 06/11/24 19:14 History of Present Illness HPI narrative: Patient is 64-year-old female who presents emergency department with chief complaint of abdominal pain distension and nausea. Patient states her symptoms started about 15 minutes prior to arrival reports that she has had a prior hysterectomy reports she has had an oophorectomy and had a prior ectopic when she was younger. Related Data Home Medications ?Medication ?Instructions ?Recorded ?Confirmed ?Last Taken ?Type acyclovir 400 mg tablet 400 mg PO BID 04/27/21 09/01/22 Unknown History alprazolam 1 mg tablet 1 mg PO PRN PRN Anxiety 04/27/21 09/01/22 Unknown History duloxetine 60 mg capsule,delayed 60 mg PO QAM 04/27/21 09/01/22 Unknown History release fremanezumab-vfrm 225 mg/1.5 mL 225 mg subcut PRN PRN Migraine 04/27/21 04/27/21 Unknown History subcutaneous auto-injector (Ajovy) Headache lamotrigine 100 mg tablet 100 mg PO DAILY 04/27/21 09/01/22 Unknown History (Lamictal) rimegepant 75 mg disintegrating 75 mg PO PRN PRN Migraine Headache 04/27/21 09/01/22 Unknown History tablet (Nurtec ODT) rizatriptan 10 mg disintegrating 10 mg PO PRN PRN Migraine Headache 04/27/21 09/01/22 09/01/22 History tablet sumatriptan succinate 6 mg/0.5 mL 6 mg subcut PRN PRN Migraine 04/27/21 09/01/22 Unknown History subcutaneous pen injector Headache topiramate 100 mg tablet 100 mg PO PRN 04/27/21 09/01/22 Unknown History atogepant 60 mg tablet (Qulipta) mg 09/01/22 Unknown History magnesium oxide 140 mg capsule 140 mg PO 09/01/22 Unknown History Allergies Allergy/AdvReac Type Severity Reaction Status Date / Time clarithromycin Allergy Intermediate NAUSEA/RASH Verified 04/27/21 13:18 Review of Systems Review of Systems: A 10 system review of systems was completed on the patient and is negative except for what is stated in the HPI. Nursing and ancillary documentation was reviewed. [facility] Social History Social History Substance use type: prescription drug Exam Narrative: GENERAL: Well-appearing, well-nourished, and in no acute distress. HEAD: Normocephalic, atraumatic. EYES: PERRLA and EOMI. ENT: Nares clear, no rhinorrhea or epistaxis. Mucous membranes moist. NECK: Supple. CHEST: Clear to auscultation. No respiratory distress. HEART: Regular rate and rhythm. No murmur heard. Normal peripheral pulses. ABDOMEN: Soft, distended diffusely tender to palpation, normal active bowel sounds. EXTREMITIES: Normal range of motion. No edema. SKIN: Warm, dry, no rash. NEURO: No focal deficits. Alert and oriented x3. PSYCH: Normal mood and affect. Course Vital Signs Vital signs: Vital Signs Pulse Rate 97 06/11/24 19:21 Respiratory Rate 16 06/11/24 19:21 Blood Pressure 140/91 H 06/11/24 19:21 Pulse Oximetry 100 06/11/24 19:21 Pulse Rate 97 06/11/24 19:21 Respiratory Rate 16 06/11/24 19:21 Blood Pressure 140/91 H 06/11/24 19:21 Pulse Oximetry 100 06/11/24 19:21 Medical Decision Making MDM Narrative Medical decision making narrative: Differential diagnosis was intra-abdominal infection, bowel obstruction, diverticulitis, colitis, ischemic colitis Laboratory studies were obtained on the patient which showed a white count of 11.1 electrolytes showed a BUN of 29 creatinine 1.13 lactic acid was 3.2 CT scan of the abdomen pelvis showed evidence of a small-bowel obstruction without a well-defined transition point. Vital Signs Vital Signs: Vital Signs Pulse Rate 97 06/11/24 19:21 Respiratory Rate 16 06/11/24 19:21 Blood Pressure 140/91 H 06/11/24 19:21 Pulse Oximetry 100 06/11/24 19:21 Pulse Rate 97 06/11/24 19:21 Respiratory Rate 16 06/11/24 19:21 Blood Pressure 140/91 H 06/11/24 19:21 Pulse Oximetry 100 06/11/24 19:21 Lab Data 06/11/24 18:55 06/11/24 18:55 Labs: Lab Results 04/13/25 04/13/25 Range/Units 18:55 19:18 WBC 11.1 H (4.5-10.0) K/mm3 RBC 4.79 (4.2-5.4) M/mm3 Hgb 15.2 H (12.0-15.0) g/dL Hct 46.4 (37.0-47.0) % MCV 96.9 (80-100) fl MCH 31.7 (26-34) pg MCHC 32.8 (32-36) g/dl RDW 12.8 (11.5-14.5) % Plt Count 248 (150-375) k/mm3 MPV 9.2 (7.4-10.4) fl Immature Gran % (Auto) 0.2 (0-0.5) % Neut % (Auto) 76.1 H (45.5-73.1) % Lymph % (Auto) 16.8 L (18.3-44.2) % [place] % (Auto) 5.7 (2.6-8.5) % Eos % (Auto) 0.7 (0-4.4) % Baso % (Auto) 0.5 (0.2-1.2) % Lymph # (Auto) 1.86 (0.9-3.2) K/mm3 [place] # (Auto) 0.6 (0.1-0.6) K/mm3 Eos # (Auto) 0.1 (0-0.3) K/mm3 Baso # (Auto) 0.1 (0.0-0.1) K/mm3 Abs Immat Gran (auto) 0.02 (0.00-0.031) K/mm3 Absolute Neuts (auto) 8.4 H (1.3-6.7) K/mm3 Absolute Nucleated RBC 0.000 (0.0-0.012) K/mm3 Nucleated RBC % 0.0 (0.0-0.2) % Sodium 141 (137-145) mmol/L Potassium 4.0 (3.4-5.0) mmol/L Chloride 94 L (98-107) mmol/L Carbon Dioxide 33 H (22-30) mmol/L Anion Gap 14 H (4-12) mmol/L BUN 29 H (7-17) mg/dL Creatinine 1.13 H (0.7-1.0) mg/dL Estim Creat Clear Calc 39 ml/min Estimated GFR 49 L (59 - ) Glucose 99 (65-110) mg/dL Lactic Acid 3.2 H (0.7-2.0) mmol/L Calcium 10.8 H (8.4-10.2) mg/dL Total Bilirubin 0.5 (0.2-1.3) mg/dL AST 48 H (14-36) U/L ALT 36 H (6-35) U/L Alkaline Phosphatase 81 (38-126) U/L Total Protein 9.0 H (6.3-8.2) g/dL Albumin 5.4 H (3.5-5.1) g/dL Lipase 109 (23-300) U/L Urine Color Dark yellow (Yellow) Urine Appearance Cloudy H (Clear) Urine pH 7.5 (5.0-9.0) Ur Specific Mcdonald 1.020 (1.001-1.035) Urine Protein Negative (Negative) mg/dL Urine Glucose (UA) Negative (Negative) mg/dL Urine Ketones Trace H (Negative) mg/dL Ur Blood (Man) Negative (Negative) Urine Nitrate Negative (Negative) Urine Bilirubin Negative (Negative) Urine Urobilinogen 0.2 (<2.0) mg/dL Add Ur Microanalysis Reviewed Leukocyte Esterase Rfl Negative (Negative) PRASHANT/UL Urine RBC 0-2 (0-2) /hpf Urine WBC 0-5 (0-3) /hpf Ur Squamous Epith Cells None seen (Few) /hpf Urine Bacteria None seen /hpf Urine Casts 0-2 Discharge Plan Discharge Clinical Impression: Small bowel obstruction, Abdominal pain Patient Disposition: Still a Patient Condition: Stable Patient Language: Swedish Prescriptions: No Action alprazolam 1 mg tablet 1 mg PO PRN PRN (Reason: Anxiety) acyclovir 400 mg tablet 400 mg PO BID rizatriptan 10 mg tablet,disintegrating 10 mg PO PRN PRN (Reason: Migraine Headache) topiramate 100 mg tablet 100 mg PO PRN lamotrigine [Lamictal] 100 mg tablet 100 mg PO DAILY sumatriptan succinate 6 mg/0.5 mL pen injector 6 mg SUBCUT PRN PRN (Reason: Migraine Headache) duloxetine 60 mg capsule,delayed release(DR/EC) 60 mg PO QAM Nurtec ODT 75 mg tablet,disintegrating 75 mg PO PRN PRN (Reason: Migraine Headache) Ajovy Autoinjector 225 mg/1.5 mL auto-injector 225 mg SUBCUT PRN PRN (Reason: Migraine Headache) magnesium oxide 140 mg Capsule 140 mg PO Qulipta 60 mg tablet Follow-up/Referrals: PHYSICIAN NOT ON STAFF,NONSTAFF [Primary Care Provider] - Time of Disposition: 20:45
[2024-06-11 21:15] VITALS: PULSE 91; RESP 16; O2SAT 98
--- NOTE | 2024-06-11 21:17 | PC.NURSE ---
this rn inserted patient ng tube in the right nare. pt was able to tolerate procedure well. pt states her pain is a 10/10 prior to procedure. pt had copious amount of vomiting prior to insertion of ng tube. pt ng tube inserted to 60 to the right nare and had spontaneous return. kub ordered edp dr. ravi verbalized correct placement. ng tube placed to low intermittent suctioning at this time. prn pain medication given at this time.
[2024-06-11] MEDS: HYDROmorphone HCL INJ (*CRX) 1 MG/ML SYR IV PUSH (21:22)
[2024-06-11 21:25] LABS: Reflex Lactic Acid Yes or No Add Lactic
[2024-06-11] MEDS: SODIUM CHLORIDE 0.9% IV 1,000 ML 125 ML IV CONT (21:28)
--- NOTE | 2024-06-11 22:02 | ADMGEN ---
This patient, Sabrina Freire, was admitted to [facility] Surg Room 302-01. Patient/family oriented to hospital policies and general routines including ID bracelet, bed and alarms, visiting hours, pain management, procedures, bathroom and other care routines, personal items, smoking policy, room service/diet, and visiting hours. Information on how to activate the Rapid Response Team has been discussed. Patient/Family are encouraged to report perceived risks to care and to ask questions if they do not understand what they are told or what they should do.
[2024-06-11 22:33] VITALS: BP 128/90; PULSE 83; RESP 16; TEMP 36.7; O2SAT 99
[2024-06-11] MEDS: PROCHLORPERAZINE EDISYLATE 10 MG/2 ML VIAL IV PUSH (23:02)
[2024-06-11 23:58] LABS: Lactic Acid 2.1 mmol/L (0.7-2.0)
--- NOTE | 2024-06-12 01:37 | P.HP_ITS ---
H&P: HPI History of Present Illness Date/Time: 06/12/24 01:37 Chief Complaint: 1. Abdominal pain 2. Nausea 3. Vomiting Narrative: Sabrina Bill is a 64F with a mhx significant for migraines, depression, s/p hysterectomy She presents with a few hours history of epigastric abdominal pain; she had remained stable since having breakfast which consisted of yogurt and granola and salad for lunch. She describes epigastric pain as sharp/crampy in nature; constant, nonradiating, rated 10 in intensity, associated with nausea and bilious emesis, malaise or anxiety. Allows bowel movement was a day and was of normal consistency, color, void of blood blood. She denies hematemesis, fevers, chills, rigors, previous episodes of bowel obstruction. 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 A specific transition point is not detected, but evaluation is limited by paucity of intra-abdominal fat. Suggestion of a 2.7 cm extraluminal mass closely applied to multiple loops of bowel in the upper pelvis, may represent a mesenteric mass such as endometriosis with adjacent bowel wall tethering and subsequent obstruction. Sabrina Bill will be admitted, evaluated and managed for SBO and ANTONIO Review of Systems Review of Systems: All systems reviewed & are unremarkable except as noted in HPI and below PMFSH Social History Social History Smoking status: Former smoker Alcohol intake: never Substance use: never Substance use type: prescription drug Do You Feel Safe in your Home?: Yes Lack of Transportation: No Lack of Food: Never True Current Housing: I Have Housing Concerned About Future Housing: No Difficulty Paying Gas/Electric Bills: No Difficulty Paying for Meds: No Currently Unemployed: No Education: Trade/Vocational Certificate Difficulty w/ Childcare or Family Care: No Spiritual care concerns: No Meds Home Medications and Allergies Home Medications ?Medication ?Instructions ?Recorded ?Confirmed ?Type acyclovir 400 mg tablet 400 mg PO BID 04/27/21 06/11/24 History lamotrigine 100 mg tablet 100 mg PO DAILY 04/27/21 06/11/24 History (Lamictal) rizatriptan 10 mg disintegrating 10 mg PO PRN PRN Migraine Headache 04/27/21 06/11/24 History tablet sumatriptan succinate 6 mg/0.5 mL 6 mg subcut PRN PRN Migraine 04/27/21 06/11/24 History subcutaneous pen injector Headache atogepant 60 mg tablet (Qulipta) 60 mg PO DAILY 09/01/22 06/11/24 History alendronate 70 mg tablet 70 mg PO WEEKLY 06/11/24 06/11/24 History alpha lipoic acid 600 mg tablet 600 mg PO DAILY 06/11/24 06/11/24 History calcium 600 mg (as carbonate)-vit 1 tablet PO DAILY 06/11/24 06/11/24 History D3 10 mcg (400 unit)-minerals tablet cyanocobalamin (vitamin B-12) 100 400 mcg PO DAILY 06/11/24 06/11/24 History mcg tablet (Vitamin B-12) cyclobenzaprine 10 mg tablet 10 mg PO HS 06/11/24 06/11/24 History diazepam 5 mg tablet 5 mg PO DAILY 06/11/24 06/11/24 History estradiol 0.01% (0.1 mg/gram) 1 appful vaginal WEEKLY 06/11/24 06/11/24 History vaginal cream ferrous sulfate 325 mg (65 mg 325 mg PO DAILY 06/11/24 06/11/24 History iron) tablet lidocaine HCl 2 % mucosal solution 5 ml PO Q4H PRN pain 06/11/24 06/11/24 History magnesium citrate 100 mg capsule 500 mg PO DAILY 06/11/24 06/11/24 History ondansetron 4 mg disintegrating 8 mg PO DAILY 06/11/24 06/11/24 History tablet quetiapine 200 mg tablet 200 mg PO DAILY 06/11/24 06/11/24 History riboflavin (vitamin B2) 400 mg 400 mg PO DAILY 06/11/24 06/11/24 History tablet trospium 20 mg tablet 20 mg PO Q12H 06/11/24 06/11/24 History Allergies Allergy/AdvReac Type Severity Reaction Status Date / Time clarithromycin Allergy Intermediate NAUSEA/RASH Verified 04/27/21 13:18 Vital Signs Vital Signs - 24 hr 06/11/24 19:12 06/11/24 19:21 06/11/24 20:30 Temperature Pulse Rate 96 97 98 Respiratory Rate 15 16 13 Blood Pressure 140/91 H 140/91 H Pulse Oximetry 100 100 100 Oxygen Delivery 06/11/24 21:15 06/11/24 22:01 06/11/24 22:33 Temperature 98.0 F Pulse Rate 91 83 Respiratory Rate 16 16 Blood Pressure 128/90 Pulse Oximetry 98 99 Oxygen Delivery Room Air Exam Const: General: no acute distress and in distress HENMT: Ears: TM's normal bilaterally Face/Nose/Sinus: Normal nares present Eyes: General: appearance normal, both eyes and all related structures Sclera: sclerae normal Pupils: Equal, round and reactive pupils present Neck: Neck: supple Resp: Effort & Inspection: normal respiratory effort Cardio: Rate: regular rate Rhythm: regular rhythm GI: Auscultation: abnormal bowel sounds Skin: General skin exam: normal color Lesions: lesion noted Neuro: Motor exam (neuro): 5/5 motor strength present throughout and Normal motor muscle tone present throughout Extrem: General: normal to inspection Psych: Mental Status: mental status grossly normal Affect: Anxious affect present H&P: Results Labs Labs: Short CBC 06/11/24 Range/Units 18:55 WBC 11.1 H (4.5-10.0) K/mm3 Hgb 15.2 H (12.0-15.0) g/dL Hct 46.4 (37.0-47.0) % Plt Count 248 (150-375) k/mm3 [facility] 06/11/24 18:55 Sodium 141 Potassium 4.0 Chloride 94 L Carbon Dioxide 33 H BUN 29 H Creatinine 1.13 H Glucose 99 Calcium 10.8 H Liver Function 06/11/24 Range/Units 18:55 Total Bilirubin 0.5 (0.2-1.3) mg/dL AST 48 H (14-36) U/L ALT 36 H (6-35) U/L Alkaline Phosphatase 81 (38-126) U/L Albumin 5.4 H (3.5-5.1) g/dL Urine 04/13/25 Range/Units 19:18 Urine Color Dark yellow (Yellow) Urine Appearance Cloudy H (Clear) Urine pH 7.5 (5.0-9.0) Ur Specific [place] 1.020 (1.001-1.035) Urine Protein Negative (Negative) mg/dL Urine Glucose (UA) Negative (Negative) mg/dL Assessment and Plan Assessment and plan (1) Small bowel obstruction: Code(s): K56.609 - Unspecified intestinal obstruction, unspecified as to partial versus complete obstruction Status: Acute (2) Migraine: Code(s): G43.909 - Migraine, unspecified, not intractable, without status migrainosus Status: Acute (3) Depression: Code(s): F32.A - Depression, unspecified Status: Acute Plan Acute and principal conditions 1. SBO 2. Acute renal insufficiency 3. Lactic acidemia. 4. Dehydration 5. Intra-abdominal mass: 2.7 cm extraluminal mass closely applied to multiple loops of bowel in the upper pelvis, may represent a mesenteric mass such as endometriosis with adjacent bowel wall tethering and subsequent obstruction Rx: * NPO; IVFs; I/O * General surgery consulted * Optimize analgesia * Anti-emetics Chronic and stable conditions * Migraines. * Recurrent depression w/anxiety. Miscellaneous care * Code status. Full * Nutrition. NPO * VTE prophylaxis. SCDs; [facility] Quality VTE Prophylaxis VTE prophylaxis: mechanical ordered and pharmacologic ordered Hospitalist MIPS Advance Care Plan I have confirmed that the patient's Advanced Care Plan is present, code status is documented, or surrogate decision maker is listed in patient medical record.: Yes Medication Reconciliation I have utilized all available resources to obtain, update and review the patients current medications (includes all prescriptions, OTC, herbals, cannabis, and nutritional supplements).: Yes The patient is not eligible for med reconciliation; the patient is in a emergent medical situation where delaying treatment would jeopardize the patients health.: Yes
[2024-06-12] MEDS: SODIUM CHLORIDE 0.9% IV 1,000 ML 125 ML IV CONT (05:28)
[2024-06-12 05:51] VITALS: BP 106/64; PULSE 88; RESP 14; TEMP 36.8; O2SAT 97
[2024-06-12 06:27] LABS: Basophils Percent Auto 0.3 % (0.2-1.2); Eosinophils Percent Auto 0.6 % (0-4.4); Hematocrit 35.4 % (37.0-47.0); Immature Granulocyte Absolute 0.02 K/mm3 (0.00-0.031); Immature Granulocyte Percent A 0.3 % (0-0.5); Lymphocytes Absolute Auto 0.69 K/mm3 (0.9-3.2); Lymphocytes Percent Auto 9.8 % (18.3-44.2); Mean Corpuscular HGB Conc 31.1 g/dl (32-36); Mean Corpuscular Hemoglobin 31.3 pg (26-34); Mean Corpuscular Volume 100.9 fl (80-100); Mean Platelet Volume 9.6 fl (7.4-10.4); Monocytes Absolute Auto 0.4 K/mm3 (0.1-0.6); Monocytes Percent Auto 6.1 % (2.6-8.5); Neutrophils Absolute Auto 5.8 K/mm3 (1.3-6.7); Neutrophils Percent Auto 82.9 % (45.5-73.1); Platelet Count Result 161 k/mm3 (150-375); Red Blood Count 3.51 M/mm3 (4.2-5.4); Red Cell Distribution Width 12.9 % (11.5-14.5)
[2024-06-12 06:40] LABS: Alanine Aminotransferase 23 U/L (6-35); Albumin Level 3.3 g/dL (3.5-5.1); Alkaline Phosphatase 50 U/L (38-126); Anion Gap 4 mmol/L (4-12); Aspartate Amino Transferase 30 U/L (14-36); Bilirubin,Total 0.5 mg/dL (0.2-1.3); Blood Urea Nitrogen 22 mg/dL (7-17); Calcium 7.6 mg/dL (8.4-10.2); Carbon Dioxide 28 mmol/L (22-30); Chloride 108 mmol/L (98-107); Estimated CRCL calculation 53 ml/min; Estimated Glomerular Filt Rate > 60; Glucose 104 mg/dL (65-110); Potassium 4.4 mmol/L (3.4-5.0); Sodium 140 mmol/L (137-145)
[2024-06-12] MEDS: HYDROmorphone HCL INJ (*CRX) 1 MG/ML SYR IV PUSH ×3 (08:01→17:59)
[2024-06-12] MEDS: HEPARIN SODIUM 5,000 UNITS/ML VIAL 5000 UNITS SUB-Q (08:01)
[2024-06-12 09:43] LABS: Magnesium 2.1 mg/dL (1.6-2.3)
--- NOTE | 2024-06-12 12:42 | P.PNIM_ITS ---
Progress Note: A&P Assessment and Plan (1) Small bowel obstruction: Code(s): K56.609 - Unspecified intestinal obstruction, unspecified as to partial versus complete obstruction Status: Acute Assessment and Plan: * NPO * NGT to suction. * NS @ 75 ml/hr. * Surgery consult. * Pain control. * CT showed: Distal small bowel obstruction. A specific transition point is not detected, but evaluation is limited by paucity of intra-abdominal fat.2.7 cm extraluminal mass closely applied to multiple loops of bowel in the upper pelvis, may represent a mesenteric mass such as endometriosis with adjacent bowel wall tethering and subsequent obstruction. * KUB showed: Significant fecal stasis within the colon and distending the rectum. * Anti-emetics (2) Migraine: Code(s): G43.909 - Migraine, unspecified, not intractable, without status migrainosus Status: Acute Assessment and Plan: * Rizatriptan 10 mg PRN * Sumatriptan succinate 6 mg subq PRN. (3) Urinary retention: Code(s): R33.9 - Retention of urine, unspecified Status: Acute Assessment and Plan: * Patient retaining. * Connell placed. * Urine culture ordered. Subjective Date/time seen: 06/12/24 12:42 Interval history: Patient reports pain from the NGT is a 10 , constant, and irritating. Patient reports slight nauseous but does not feel she needs nausea medications. Patient denies chest pain, palpitations, dizziness, nausea, or vomiting. Review of Systems Review of Systems: All systems reviewed & are unremarkable except as noted in HPI and below Exam Const: General: no acute distress and uncomfortable Resp: Effort & Inspection: normal respiratory effort Auscultation: clear to auscultation bilaterally Cardio: Rate: regular rate Rhythm: regular rhythm GI: GI Palp: Yes Soft to palpation and Yes Tenderness to palpation present (GI) Other: hypoactive bowel sounds Neuro: Speech: normal speech Extrem: General: no pedal edema Psych: Mental Status: mental status grossly normal Affect: normal affect Objective Data Vital Signs Vital Signs: Vital Signs - 24 hr 06/11/24 19:12 06/11/24 19:21 06/11/24 20:30 Temperature Pulse Rate 96 97 98 Respiratory Rate 15 16 13 Blood Pressure 140/91 H 140/91 H Pulse Oximetry 100 100 100 Oxygen Delivery 06/11/24 21:15 06/11/24 22:01 06/11/24 22:33 Temperature 98.0 F Pulse Rate 91 83 Respiratory Rate 16 16 Blood Pressure 128/90 Pulse Oximetry 98 99 Oxygen Delivery Room Air 06/12/24 05:51 Temperature 98.3 F Pulse Rate 88 Respiratory Rate 14 Blood Pressure 106/64 Pulse Oximetry 97 Oxygen Delivery Intake/Output Intake/Output: Intake & Output 06/09/24 06/10/24 06/11/24 06/12/24 23:59 23:59 23:59 23:59 Intake Total 1999 1000 Output Total 700 1000 Balance 1300 0 Meds/Results Medications: Active Medications Generic Name Dose Route Start Last Admin Trade Name Freq PRN Reason Stop Dose Admin Enoxaparin Sodium 40 mg 06/12/24 17:00 Enoxaparin 40 Mg/0.4 Ml Syringe SUB-Q DAILY RO Hydromorphone HCl 1 mg 06/11/24 20:56 06/12/24 08:01 Hydromorphone Hcl Inj (*Crx) 1 Mg/Ml Syr IV PUSH 1 mg Q4H PRN Administration Pain Rated 7-10 Sodium Chloride 1,000 mls @ 125 mls/hr 06/11/24 20:45 06/12/24 05:28 Normal Saline Iv IV CONT 125 mls/hr .Q8H RO Administration Phenol 1 spray 06/12/24 08:21 Phenol/Sod Pheno [place] Au (*Bkc) MUCOUS MEM PRN PRN Sore Throat Prochlorperazine Edisylate 10 mg 06/12/24 01:35 Prochlorperazine Edisylate 10 Mg/2 Ml Vial IV PUSH Q6H PRN Nausea And Vomiting Radiology Results: ITS Impressions Abdomen/Pelvis CT 06/11/24 19:59 IMPRESSION: Distal small bowel obstruction. A specific transition point is not detected, but evaluation is limited by paucity of intra-abdominal fat. Suggestion of a 2.7 cm extraluminal mass closely applied to multiple loops of bowel in the upper pelvis, may represent a mesenteric mass such as endometriosis with adjacent bowel wall tethering and subsequent obstruction. Labs Labs: Laboratory Results - last 24 hr 06/11/24 06/11/24 06/11/24 18:55 19:18 23:19 WBC 11.1 H RBC 4.79 Hgb 15.2 H Hct 46.4 MCV 96.9 MCH 31.7 MCHC 32.8 RDW 12.8 Plt Count 248 MPV 9.2 Immature Gran % (Auto) 0.2 Neut % (Auto) 76.1 H Lymph % (Auto) 16.8 L [place] % (Auto) 5.7 Eos % (Auto) 0.7 Baso % (Auto) 0.5 Lymph # (Auto) 1.86 [place] # (Auto) 0.6 Eos # (Auto) 0.1 Baso # (Auto) 0.1 Abs Immat Gran (auto) 0.02 Absolute Neuts (auto) 8.4 H Absolute Nucleated RBC 0.000 Nucleated RBC % 0.0 Sodium 141 Potassium 4.0 Chloride 94 L Carbon Dioxide 33 H Anion Gap 14 H BUN 29 H Creatinine 1.13 H Estim Creat Clear Calc 39 Estimated GFR 49 L Glucose 99 Lactic Acid 3.2 H 2.1 H Calcium 10.8 H Magnesium Total Bilirubin 0.5 AST 48 H ALT 36 H Alkaline Phosphatase 81 Total Protein 9.0 H Albumin 5.4 H Lipase 109 Urine Color Dark yellow Urine Appearance Cloudy H Urine pH 7.5 Ur Specific [place] 1.020 Urine Protein Negative Urine Glucose (UA) Negative Urine Ketones Trace H Ur Blood (Man) Negative Urine Nitrate Negative Urine Bilirubin Negative Urine Urobilinogen 0.2 Add Ur Microanalysis Reviewed Leukocyte Esterase Rfl Negative Urine RBC 0-2 Urine WBC 0-5 Ur Squamous Epith Cells None seen Urine Bacteria None seen Urine Casts 0-2 06/12/24 06/12/24 05:33 05:34 WBC 7.0 RBC 3.51 L Hgb 11.0 L D Hct 35.4 L MCV 100.9 H MCH 31.3 MCHC 31.1 L RDW 12.9 Plt Count 161 MPV 9.6 Immature Gran % (Auto) 0.3 Neut % (Auto) 82.9 H Lymph % (Auto) 9.8 L [place] % (Auto) 6.1 Eos % (Auto) 0.6 Baso % (Auto) 0.3 Lymph # (Auto) 0.69 L [place] # (Auto) 0.4 Eos # (Auto) 0.0 Baso # (Auto) 0.0 Abs Immat Gran (auto) 0.02 Absolute Neuts (auto) 5.8 Absolute Nucleated RBC 0.000 Nucleated RBC % 0.0 Sodium 140 Potassium 4.4 Chloride 108 H Carbon Dioxide 28 Anion Gap 4 BUN 22 H Creatinine 0.81 Estim Creat Clear Calc 53 Estimated GFR > 60 Glucose 104 Lactic Acid Calcium 7.6 L Magnesium 2.1 Total Bilirubin 0.5 AST 30 ALT 23 Alkaline Phosphatase 50 Total Protein 6.0 L Albumin 3.3 L Lipase Urine Color Urine Appearance Urine pH Ur Specific [place] Urine Protein Urine Glucose (UA) Urine Ketones Ur Blood (Man) Urine Nitrate Urine Bilirubin Urine Urobilinogen Add Ur Microanalysis Leukocyte Esterase Rfl Urine RBC Urine WBC Ur Squamous Epith Cells Urine Bacteria Urine Casts Quality VTE Prophylaxis VTE prophylaxis: mechanical ordered and pharmacologic ordered
[2024-06-12 14:00] VITALS: BP 113/70; PULSE 88; RESP 20; TEMP 36.6; O2SAT 100
[2024-06-12] MEDS: RIZATRIPTAN BENZOATE 10 MG ODT PO (14:06)
[2024-06-12] MEDS: SODIUM CHLORIDE 0.9% IV 1,000 ML 75 ML IV CONT (14:43)
[2024-06-12] MEDS: diphenhydrAMINE HCl INJ 50 MG/ML VIAL 25 MG IV PUSH (15:28)
[2024-06-12] MEDS: ENOXAPARIN 40 MG/0.4 ML SYRINGE SUB-Q (18:02)
[2024-06-12] MEDS: LORazepam INJ (*CRX) 2 MG/ML VIAL 1 MG IV PUSH (18:05)
--- NOTE | 2024-06-12 18:24 | P.CONGS_ITS ---
Assessment and Plan Assessment and plan (1) Small bowel obstruction: Code(s): K56.609 - Unspecified intestinal obstruction, unspecified as to partial versus complete obstruction Status: Acute Assessment and Plan: CT scan reviewed with the Radiologist and discussed with the patient. The area of concern for a possible pelvic mass appears to be a loop of decompressed distal small bowel. There is no mass noted on CT and there is a transition point in the mid lower abdomen with dilated small bowel consistent with a small bowel obstruction. She has had a previous hysterectomy and this could be related to intraabdominal adhesions. Her repeat KUB today showed a large amount of stool within the colon but no significantly dilated small bowel. Her abdominal pain and distention have improved with NG tube decompression. Will continue NG tube, bowel rest, and IV fluids for now. Will repeat a KUB tomorrow morning. May consider a water soluble contrast study tomorrow depending on her KUB and how she is progressing. (2) Urinary retention: Code(s): R33.9 - Retention of urine, unspecified Status: Acute Assessment and Plan: Connell in place for urinary retention, management per Hospitalist. (3) Migraine: Code(s): G43.909 - Migraine, unspecified, not intractable, without status migrainosus Status: Chronic (4) Anxiety and depression: Code(s): F41.9 - Anxiety disorder, unspecified; F32.A - Depression, unspecified Status: Chronic Assessment and Plan: While her home PO medications are on hold, we will order IV Ativan PRN for her anxiety. Plan I have discussed the patient's case and plan of care with Dr. Coe. Thank you for allowing us to see the patient in consultation and we will continue to follow along with you. History of Present Illness Consult details Consult date: 06/12/24 Reason for consult: other (Small bowel obstruction) Requesting physician: Tomas Watson MD Narrative: This is a 64-year-old woman with PMH of PTSD, depression/anxiety, and hypertension, who we have been asked to see in surgical consultation for small bowel obstruction. She reports developing abdominal pain and bloating yesterday in the afternoon. She had granola and yogurt for breakfast, and then a salad for lunch. She reports associated nausea with bilious-appearing emesis. She then came into the ED for evaluation as her symptoms did not improve. Labs showed a WBC count of 11,100 and lactic acid 3.2 that came down to 2.[address] scan of the abdomen and pelvis showed a distal small bowel obstruction with a possible 2.7 cm extraluminal mass near adjacent small bowel in the upper pelvis. She had NG tube placed and made NPO. Previous abdominal surgery include an ectopic , oophorectomy, and hysterectomy. No previous bowel obstruction. She feels her abdominal pain has improved, as well as her abdominal distention. Denies flatus, and her last BM was yesterday and reportedly normal. She also has a Connell catheter in place for urinary retention. Review of Systems 2 Review of Systems: All systems reviewed & are unremarkable except as noted in HPI and below PMFSH Past Medical History Medical History Anxiety and depression History of ectopic History of posttraumatic stress disorder (PTSD) Migraine Surgical History Surgical History History of hysterectomy History of oophorectomy Social History Social History Smoking status: Former smoker Alcohol intake: never Substance use: never Substance use type: prescription drug Do You Feel Safe in your Home?: Yes Lack of Transportation: No Lack of Food: Never True Current Housing: I Have Housing Concerned About Future Housing: No Difficulty Paying Gas/Electric Bills: No Difficulty Paying for Meds: No Currently Unemployed: No Education: Trade/Vocational Certificate Difficulty w/ Childcare or Family Care: No Spiritual care concerns: No Meds Home Medications and Allergies Home Medications ?Medication ?Instructions ?Recorded ?Confirmed ?Type acyclovir 400 mg tablet 400 mg PO BID 04/27/21 06/11/24 History lamotrigine 100 mg tablet 100 mg PO DAILY 04/27/21 06/11/24 History (Lamictal) rizatriptan 10 mg disintegrating 10 mg PO PRN PRN Migraine Headache 04/27/21 06/11/24 History tablet sumatriptan succinate 6 mg/0.5 mL 6 mg subcut PRN PRN Migraine 04/27/21 06/11/24 History subcutaneous pen injector Headache atogepant 60 mg tablet (Qulipta) 60 mg PO DAILY 09/01/22 06/11/24 History alendronate 70 mg tablet 70 mg PO WEEKLY 06/11/24 06/11/24 History alpha lipoic acid 600 mg tablet 600 mg PO DAILY 06/11/24 06/11/24 History calcium 600 mg (as carbonate)-vit 1 tablet PO DAILY 06/11/24 06/11/24 History D3 10 mcg (400 unit)-minerals tablet cyanocobalamin (vitamin B-12) 100 400 mcg PO DAILY 06/11/24 06/11/24 History mcg tablet (Vitamin B-12) cyclobenzaprine 10 mg tablet 10 mg PO HS 06/11/24 06/11/24 History diazepam 5 mg tablet 5 mg PO DAILY 06/11/24 06/11/24 History estradiol 0.01% (0.1 mg/gram) 1 appful vaginal WEEKLY 06/11/24 06/11/24 History vaginal cream ferrous sulfate 325 mg (65 mg 325 mg PO DAILY 06/11/24 06/11/24 History iron) tablet lidocaine HCl 2 % mucosal solution 5 ml PO Q4H PRN pain 06/11/24 06/11/24 History magnesium citrate 100 mg capsule 500 mg PO DAILY 06/11/24 06/11/24 History ondansetron 4 mg disintegrating 8 mg PO DAILY 06/11/24 06/11/24 History tablet quetiapine 200 mg tablet 200 mg PO DAILY 06/11/24 06/11/24 History riboflavin (vitamin B2) 400 mg 400 mg PO DAILY 06/11/24 06/11/24 History tablet trospium 20 mg tablet 20 mg PO Q12H 06/11/24 06/11/24 History Allergies Allergy/AdvReac Type Severity Reaction Status Date / Time clarithromycin Allergy Intermediate NAUSEA/RASH Verified 04/27/21 13:18 Vital Signs Vital Signs - 24 hr 06/11/24 19:12 06/11/24 19:21 06/11/24 20:30 Temperature Pulse Rate 96 97 98 Respiratory Rate 15 16 13 Blood Pressure 140/91 H 140/91 H Pulse Oximetry 100 100 100 Oxygen Delivery 06/11/24 21:15 06/11/24 22:01 06/11/24 22:33 Temperature 98.0 F Pulse Rate 91 83 Respiratory Rate 16 16 Blood Pressure 128/90 Pulse Oximetry 98 99 Oxygen Delivery Room Air 06/12/24 05:51 06/12/24 14:00 Temperature 98.3 F 98 F Pulse Rate 88 88 Respiratory Rate 14 20 Blood Pressure 106/64 113/70 Pulse Oximetry 97 100 Oxygen Delivery Exam 2 Const: General: comfortable and no acute distress Nutritional Appearance: a verage body habitus Orientation/consciousness: patient oriented x3 HENMT: Head: normocephalic and atraumatic Ears: hearing grossly normal bilaterally Mouth: Yes moist mucous membranes Eyes: General: appearance normal, both eyes and all related structures P upils: Equal, round and reactive pupils present Neck: Neck: normal visual inspection and full ROM Resp: Effort & Inspection: no respiratory distress Auscultation: clear to auscultation bilaterally Cardio: Rate: regular rate Rhythm: regular rhythm Peripheral pulses: P eripheral pulses 2+ throughout GI: Inspection: other (mildly distended) GI Palp: Yes Soft to palpation, No Tenderness to palpation present (GI), No Guarding due to palpation present (GI) and No Rebound tenderness present Auscultation: Hypoactive bowel sounds present Urinary Catheter: Urinary Catheter: patent and draining Skin: General skin exam: normal color Neuro: General: moves all extremities and no focal motor deficits Speech: n ormal speech Motor exam (neuro): 5/5 motor strength present throughout Extrem: General: normal to inspection and no edema Psych: Mental Status: mental status grossly normal Attitude: cooperative Insight: Good insight present (Psych) Judgement: Good judgement present (Psych) Results Labs 06/12/24 05:34 06/12/24 05:34 Labs: Abnormal lab results 06/11/24 06/11/24 06/11/24 Range/Units 18:55 19:18 23:19 WBC 11.1 H (4.5-10.0) K/mm3 RBC (4.2-5.4) M/mm3 Hgb 15.2 H (12.0-15.0) g/dL Hct (37.0-47.0) % MCV (80-100) fl MCHC (32-36) g/dl Neut % (Auto) 76.1 H (45.5-73.1) % Lymph % (Auto) 16.8 L (18.3-44.2) % Lymph # (Auto) (0.9-3.2) K/mm3 Absolute Neuts (auto) 8.4 H (1.3-6.7) K/mm3 Chloride 94 L (98-107) mmol/L Carbon Dioxide 33 H (22-30) mmol/L Anion Gap 14 H (4-12) mmol/L BUN 29 H (7-17) mg/dL Creatinine 1.13 H (0.7-1.0) mg/dL Estimated GFR 49 L (59 - ) Lactic Acid 3.2 H 2.1 H (0.7-2.0) mmol/L Calcium 10.8 H (8.4-10.2) mg/dL AST 48 H (14-36) U/L ALT 36 H (6-35) U/L Total Protein 9.0 H (6.3-8.2) g/dL Albumin 5.4 H (3.5-5.1) g/dL Urine Appearance Cloudy H (Clear) Urine Ketones Trace H (Negative) mg/dL 06/12/24 Range/Units 05:34 WBC (4.5-10.0) K/mm3 RBC 3.51 L (4.2-5.4) M/mm3 Hgb 11.0 L D (12.0-15.0) g/dL Hct 35.4 L (37.0-47.0) % MCV 100.9 H (80-100) fl MCHC 31.1 L (32-36) g/dl Neut % (Auto) 82.9 H (45.5-73.1) % Lymph % (Auto) 9.8 L (18.3-44.2) % Lymph # (Auto) 0.69 L (0.9-3.2) K/mm3 Absolute Neuts (auto) (1.3-6.7) K/mm3 Chloride 108 H (98-107) mmol/L Carbon Dioxide (22-30) mmol/L Anion Gap (4-12) mmol/L BUN 22 H (7-17) mg/dL Creatinine (0.7-1.0) mg/dL Estimated GFR (59 - ) Lactic Acid (0.7-2.0) mmol/L Calcium 7.6 L (8.4-10.2) mg/dL AST (14-36) U/L ALT (6-35) U/L Total Protein 6.0 L (6.3-8.2) g/dL Albumin 3.3 L (3.5-5.1) g/dL Urine Appearance (Clear) Urine Ketones (Negative) mg/dL Diabetes panel 06/11/24 06/12/24 Range/Units 18:55 05:34 Sodium 141 140 (137-145) mmol/L Potassium 4.0 4.4 (3.4-5.0) mmol/L Chloride 94 L 108 H (98-107) mmol/L Carbon Dioxide 33 H 28 (22-30) mmol/L BUN 29 H 22 H (7-17) mg/dL Creatinine 1.13 H 0.81 (0.7-1.0) mg/dL Glucose 99 104 (65-110) mg/dL Calcium 10.8 H 7.6 L (8.4-10.2) mg/dL AST 48 H 30 (14-36) U/L ALT 36 H 23 (6-35) U/L Alkaline Phosphatase 81 50 (38-126) U/L Total Protein 9.0 H 6.0 L (6.3-8.2) g/dL Albumin 5.4 H 3.3 L (3.5-5.1) g/dL Calcium panel 06/11/24 06/12/24 Range/Units 18:55 05:34 Calcium 10.8 H 7.6 L (8.4-10.2) mg/dL Albumin 5.4 H 3.3 L (3.5-5.1) g/dL Pituitary panel 06/11/24 06/12/24 Range/Units 18:55 05:34 Sodium 141 140 (137-145) mmol/L Potassium 4.0 4.4 (3.4-5.0) mmol/L Chloride 94 L 108 H (98-107) mmol/L Carbon Dioxide 33 H 28 (22-30) mmol/L BUN 29 H 22 H (7-17) mg/dL Creatinine 1.13 H 0.81 (0.7-1.0) mg/dL Glucose 99 104 (65-110) mg/dL Calcium 10.8 H 7.6 L (8.4-10.2) mg/dL Adrenal panel 06/11/24 06/12/24 Range/Units 18:55 05:34 Sodium 141 140 (137-145) mmol/L Potassium 4.0 4.4 (3.4-5.0) mmol/L Chloride 94 L 108 H (98-107) mmol/L Carbon Dioxide 33 H 28 (22-30) mmol/L BUN 29 H 22 H (7-17) mg/dL Creatinine 1.13 H 0.81 (0.7-1.0) mg/dL Glucose 99 104 (65-110) mg/dL Calcium 10.8 H 7.6 L (8.4-10.2) mg/dL Total Bilirubin 0.5 0.5 (0.2-1.3) mg/dL AST 48 H 30 (14-36) U/L ALT 36 H 23 (6-35) U/L Alkaline Phosphatase 81 50 (38-126) U/L Total Protein 9.0 H 6.0 L (6.3-8.2) g/dL Albumin 5.4 H 3.3 L (3.5-5.1) g/dL All other labs normal. Imaging Additional studies: ITS Impressions Abdomen/Pelvis CT 06/11/24 19:59 IMPRESSION: Distal small bowel obstruction. A specific transition point is not detected, but evaluation is limited by paucity of intra-abdominal fat. Suggestion of a 2.7 cm extraluminal mass closely applied to multiple loops of bowel in the upper pelvis, may represent a mesenteric mass such as endometriosis with adjacent bowel wall tethering and subsequent obstruction. Abdomen X-Ray 06/11/24 21:27 IMPRESSION: NG tube, in good position. Abdomen X-Ray 06/12/24 13:01 IMPRESSION: Significant fecal stasis within the colon and distending the rectum.
[2024-06-12 22:00] VITALS: BP 143/90; PULSE 104; RESP 16; TEMP 36.8; O2SAT 100
[2024-06-13] MEDS: RIZATRIPTAN BENZOATE 10 MG ODT PO (02:11)
[2024-06-13] MEDS: SODIUM CHLORIDE 0.9% IV 1,000 ML 75 ML IV CONT ×2 (04:30→12:10)
[2024-06-13 05:38] VITALS: BP 122/73; PULSE 92; RESP 16; TEMP 36.9; O2SAT 98
[2024-06-13 06:16] LABS: Hematocrit 43.4 % (37.0-47.0); Hemoglobin 13.6 g/dL (12.0-15.0); Mean Corpuscular HGB Conc 31.3 g/dl (32-36); Mean Corpuscular Hemoglobin 31.3 pg (26-34); Mean Corpuscular Volume 99.8 fl (80-100); Mean Platelet Volume 9.6 fl (7.4-10.4); Platelet Count Result 190 k/mm3 (150-375); Red Blood Count 4.35 M/mm3 (4.2-5.4); Red Cell Distribution Width 12.5 % (11.5-14.5); White Blood Count 6.5 K/mm3 (4.5-10.0)
[2024-06-13 06:33] LABS: Anion Gap 8 mmol/L (4-12); Blood Urea Nitrogen 14 mg/dL (7-17); CRP 2.5 mg/dL (<1.0); Calcium 8.2 mg/dL (8.4-10.2); Carbon Dioxide 26 mmol/L (22-30); Chloride 106 mmol/L (98-107); Estimated CRCL calculation 52 ml/min; Estimated Glomerular Filt Rate > 60; Glucose 98 mg/dL (65-110); Magnesium 2.2 mg/dL (1.6-2.3); Potassium 4.2 mmol/L (3.4-5.0); Sodium 140 mmol/L (137-145)
[2024-06-13] MEDS: ENOXAPARIN 40 MG/0.4 ML SYRINGE SUB-Q (08:18)
[2024-06-13] MEDS: LORazepam INJ (*CRX) 2 MG/ML VIAL 1 MG IV PUSH (08:20)
[2024-06-13 10:20] VITALS: O2SAT 96
--- NOTE | 2024-06-13 11:23 | P.PNIM_ITS ---
Progress Note: A&P Assessment and Plan (1) Small bowel obstruction: Code(s): K56.609 - Unspecified intestinal obstruction, unspecified as to partial versus complete obstruction Status: Acute Assessment and Plan: * NPO * NGT to suction. * NS @ 75 ml/hr. * Surgery consult. * Pain control. * CT showed: Distal small bowel obstruction. A specific transition point is not detected, but evaluation is limited by paucity of intra-abdominal fat.2.7 cm extraluminal mass closely applied to multiple loops of bowel in the upper pelvis, may represent a mesenteric mass such as endometriosis with adjacent bowel wall tethering and subsequent obstruction. * KUB showed: Significant fecal stasis within the colon and distending the rectum on 06/12. * KUB today showed: no dilated small bowel and still a large amount of stool in the colon. * Anti-emetics * Plan for a water soluble small bowel follow through today. * Continue NG tube decompression, bowel rest, and IV fluids while awaiting results. (2) Migraine: Code(s): G43.909 - Migraine, unspecified, not intractable, without status migrainosus Status: Chronic Assessment and Plan: * Rizatriptan 10 mg PRN * Sumatriptan succinate 6 mg subq PRN. (3) Urinary retention: Code(s): R33.9 - Retention of urine, unspecified Status: Acute Assessment and Plan: * Patient retaining. * Connell in place. * Urine culture pending. Subjective Date/time seen: 06/13/24 11:23 Interval history: Patient reports pain from the NGT is a 10 , constant, and irritating. Patient denies chest pain, palpitations, dizziness, nausea, or vomiting. Review of Systems Review of Systems: All systems reviewed & are unremarkable except as noted in HPI and below Exam Const: General: no acute distress and uncomfortable Resp: Effort & Inspection: normal respiratory effort Auscultation: clear to auscultation bilaterally Cardio: Rate: regular rate Rhythm: regular rhythm GI: GI Palp: Yes Soft to palpation and Yes Tenderness to palpation present (GI) Auscultation: normal bowel sounds Neuro: Speech: normal speech Extrem: General: no pedal edema Psych: Mental Status: mental status grossly normal Affect: normal affect Objective Data Vital Signs Vital Signs: Vital Signs - 24 hr 06/12/24 14:00 06/12/24 22:00 06/13/24 05:38 Temperature 98 F 98.2 F 98.4 F Pulse Rate 88 104 H 92 Respiratory Rate 20 16 16 Blood Pressure 113/70 143/90 H 122/73 Pulse Oximetry 100 100 98 Oxygen Delivery 06/13/24 08:00 06/13/24 10:20 Temperature Pulse Rate Respiratory Rate Blood Pressure Pulse Oximetry 96 Oxygen Delivery Room Air Room Air Intake/Output Intake/Output: Intake & Output 06/10/24 06/11/24 06/12/24 06/13/24 23:59 23:59 23:59 23:59 Intake Total 1999 Output Total 700 1850 1650 Balance 1300 150 -750 Meds/Results Medications: Active Medications Generic Name Dose Route Start Last Admin Trade Name Freq PRN Reason Stop Dose Admin Enoxaparin Sodium 40 mg 06/12/24 17:00 06/13/24 08:18 Enoxaparin 40 Mg/0.4 Ml Syringe SUB-Q 40 mg DAILY RO Administration Hydromorphone HCl 1 mg 06/11/24 20:56 06/12/24 17:59 Hydromorphone Hcl Inj (*Crx) 1 Mg/Ml Syr IV PUSH 1 mg Q4H PRN Administration Pain Rated 7-10 Sodium Chloride 1,000 mls @ 75 mls/hr 06/11/24 20:45 06/13/24 04:30 Normal Saline Iv IV CONT 75 mls/hr .[id number] RO Administration Lorazepam 1 mg 06/12/24 16:50 06/13/24 08:20 Lorazepam Inj (*Crx) 2 Mg/Ml Vial IV PUSH 1 mg Q6H PRN Administration Anxiety Miscellaneous Information 0 each 06/12/24 00:01 Sumatriptan Is Duplicate Therapy With Rizatriptan XX 07/12/24 00:00 CLARIFY RO Non-Formulary Medication 6 mg 06/12/24 12:54 Sumatriptan Succinate SUB-Q PRN PRN Migraine Headache Phenol 1 spray 06/12/24 08:21 Phenol/Sod Pheno [place] Au (*Bkc) MUCOUS MEM PRN PRN Sore Throat Prochlorperazine Edisylate 10 mg 06/12/24 01:35 Prochlorperazine Edisylate 10 Mg/2 Ml Vial IV PUSH Q6H PRN Nausea And Vomiting Rizatriptan Benzoate 10 mg 06/12/24 13:02 06/13/24 02:11 Rizatriptan Benzoate 10 Mg Odt PO 10 mg PRN PRN Administration Migraine Headache Radiology Results: ITS Impressions Abdomen/Pelvis CT 06/11/24 19:59 IMPRESSION: Distal small bowel obstruction. A specific transition point is not detected, but evaluation is limited by paucity of intra-abdominal fat. Suggestion of a 2.7 cm extraluminal mass closely applied to multiple loops of bowel in the upper pelvis, may represent a mesenteric mass such as endometriosis with adjacent bowel wall tethering and subsequent obstruction. Abdomen X-Ray 06/13/24 08:27 Impression: 1: Fecal impaction of the colon and rectum. Labs Labs: Laboratory Results - last 24 hr 06/13/24 05:39 WBC 6.5 RBC 4.35 Hgb 13.6 Hct 43.4 MCV 99.8 MCH 31.3 MCHC 31.3 L RDW 12.5 Plt Count 190 MPV 9.6 Sodium 140 Potassium 4.2 Chloride 106 Carbon Dioxide 26 Anion Gap 8 BUN 14 D Creatinine 0.83 Estim Creat Clear Calc 52 Estimated GFR > 60 Glucose 98 Calcium 8.2 L Magnesium 2.2 C-Reactive Protein 2.5 H Quality VTE Prophylaxis VTE prophylaxis: mechanical ordered and pharmacologic ordered
[2024-06-13 13:20] VITALS: BP 125/73; PULSE 97; RESP 18; TEMP 36.7; O2SAT 98
--- NOTE | 2024-06-13 13:41 | PM.PNGS ---
Progress Note: A&P Assessment and Plan (1) Small bowel obstruction: Code(s): K56.609 - Unspecified intestinal obstruction, unspecified as to partial versus complete obstruction Status: Acute Assessment and Plan: Clinically improving with NG decompression. No abdominal pain and starting to pass flatus. KUB shows no dilated small bowel and still a large amount of stool in the colon. Will order a water-soluble small-bowel follow-through today. Continue NG tube decompression, bowel rest, and IV fluids while awaiting results. (2) Urinary retention: Code(s): R33.9 - Retention of urine, unspecified Status: Acute Assessment and Plan: Removing Connell catheter today for a voiding trial. (3) Migraine: Code(s): G43.909 - Migraine, unspecified, not intractable, without status migrainosus Status: Chronic (4) Anxiety and depression: Code(s): F41.9 - Anxiety disorder, unspecified; F32.A - Depression, unspecified Status: Chronic Assessment and Plan: Hopefully if her NG tube is removed later today after the small-bowel follow-through, then she can resume her home medications. Plan I have discussed the patient's case and plan of care with Dr. Coe. Subjective Subjective Date/Time Seen: 06/13/24 13:41 Patient reports: no new complaints, feels better, flatus and no bowel movement Interval history: Patient is feeling better today. No abdominal pain or nausea. She is passing some flatus but no BM yet Exam Const: General: comfortable and no acute distress Orientation/consciousness: patient oriented x3 GI: Inspection: non-distended GI Palp: Yes Soft to palpation, No Tenderness to palpation present (GI) and No Guarding due to palpation present (GI) Auscultation: normal bowel sounds Objective Data Vital Signs Vital Signs: Vital Signs - 24 hr 06/12/24 14:00 06/12/24 22:00 06/13/24 05:38 Temperature 98 F 98.2 F 98.4 F Pulse Rate 88 104 H 92 Respiratory Rate 20 16 16 Blood Pressure 113/70 143/90 H 122/73 Pulse Oximetry 100 100 98 Oxygen Delivery 06/13/24 08:00 06/13/24 10:20 06/13/24 13:20 Temperature 98.1 F Pulse Rate 97 Respiratory Rate 18 Blood Pressure 125/73 Pulse Oximetry 96 98 Oxygen Delivery Room Air Room Air Intake/Output Intake/Output: Intake & Output 06/10/24 06/11/24 06/12/24 06/13/24 23:59 23:59 23:59 23:59 Intake Total 1999 1999 1474 Output Total 700 1850 1650 Balance 1300 150 -175 Meds/Results Medications: Active Medications Generic Name Dose Route Start Last Admin Trade Name Freq PRN Reason Stop Dose Admin Enoxaparin Sodium 40 mg 06/12/24 17:00 06/13/24 08:18 Enoxaparin 40 Mg/0.4 Ml Syringe SUB-Q 40 mg DAILY RO Administration Hydromorphone HCl 1 mg 06/11/24 20:56 06/12/24 17:59 Hydromorphone Hcl Inj (*Crx) 1 Mg/Ml Syr IV PUSH 1 mg Q4H PRN Administration Pain Rated 7-10 Sodium Chloride 1,000 mls @ 75 mls/hr 06/11/24 20:45 06/13/24 12:10 Normal Saline Iv IV CONT 75 mls/hr .[id number] RO Administration Lorazepam 1 mg 06/12/24 16:50 06/13/24 08:20 Lorazepam Inj (*Crx) 2 Mg/Ml Vial IV PUSH 1 mg Q6H PRN Administration Anxiety Miscellaneous Information 0 each 06/12/24 00:01 Sumatriptan Is Duplicate Therapy With Rizatriptan XX 07/12/24 00:00 CLARIFY RO Non-Formulary Medication 6 mg 06/12/24 12:54 Sumatriptan Succinate SUB-Q PRN PRN Migraine Headache Phenol 1 spray 06/12/24 08:21 Phenol/Sod Pheno [place] Au (*Bkc) MUCOUS MEM PRN PRN Sore Throat Prochlorperazine Edisylate 10 mg 06/12/24 01:35 Prochlorperazine Edisylate 10 Mg/2 Ml Vial IV PUSH Q6H PRN Nausea And Vomiting Rizatriptan Benzoate 10 mg 06/12/24 13:02 06/13/24 02:11 Rizatriptan Benzoate 10 Mg Odt PO 10 mg PRN PRN Administration Migraine Headache Radiology Results: ITS Impressions Abdomen/Pelvis CT 06/11/24 19:59 IMPRESSION: Distal small bowel obstruction. A specific transition point is not detected, but evaluation is limited by paucity of intra-abdominal fat. Suggestion of a 2.7 cm extraluminal mass closely applied to multiple loops of bowel in the upper pelvis, may represent a mesenteric mass such as endometriosis with adjacent bowel wall tethering and subsequent obstruction. Abdomen X-Ray 06/13/24 08:27 Impression: 1: Fecal impaction of the colon and rectum. Labs Labs: Laboratory Results - last 24 hr 06/13/24 05:39 WBC 6.5 RBC 4.35 Hgb 13.6 Hct 43.4 MCV 99.8 MCH 31.3 MCHC 31.3 L RDW 12.5 Plt Count 190 MPV 9.6 Sodium 140 Potassium 4.2 Chloride 106 Carbon Dioxide 26 Anion Gap 8 BUN 14 D Creatinine 0.83 Estim Creat Clear Calc 52 Estimated GFR > 60 Glucose 98 Calcium 8.2 L Magnesium 2.2 C-Reactive Protein 2.5 H
[2024-06-13 21:02] VITALS: BP 133/85; PULSE 99; RESP 20; TEMP 36.3; O2SAT 100
[2024-06-14] MEDS: SODIUM CHLORIDE 0.9% IV 1,000 ML 75 ML IV CONT (04:54)
[2024-06-14 05:28] VITALS: BP 118/77; PULSE 96; RESP 16; TEMP 36.1; O2SAT 100
[2024-06-14 05:55] LABS: Hematocrit 38.3 % (37.0-47.0); Hemoglobin 12.2 g/dL (12.0-15.0); Mean Corpuscular HGB Conc 31.9 g/dl (32-36); Mean Corpuscular Hemoglobin 31.6 pg (26-34); Mean Corpuscular Volume 99.2 fl (80-100); Mean Platelet Volume 9.7 fl (7.4-10.4); Platelet Count Result 157 k/mm3 (150-375); Red Blood Count 3.86 M/mm3 (4.2-5.4); Red Cell Distribution Width 12.2 % (11.5-14.5); White Blood Count 8.3 K/mm3 (4.5-10.0)
[2024-06-14 06:05] LABS: Anion Gap 8 mmol/L (4-12); Blood Urea Nitrogen 17 mg/dL (7-17); Calcium 8.2 mg/dL (8.4-10.2); Carbon Dioxide 23 mmol/L (22-30); Chloride 109 mmol/L (98-107); Estimated CRCL calculation 59 ml/min; Estimated Glomerular Filt Rate > 60; Glucose 95 mg/dL (65-110); Potassium 3.8 mmol/L (3.4-5.0); Sodium 140 mmol/L (137-145)
[2024-06-14] MEDS: ENOXAPARIN 40 MG/0.4 ML SYRINGE SUB-Q (08:36)
--- NOTE | 2024-06-14 10:23 | P.PNIM_ITS ---
Progress Note: A&P Assessment and Plan (1) Small bowel obstruction: Code(s): K56.609 - Unspecified intestinal obstruction, unspecified as to partial versus complete obstruction Status: Acute (2) Abdominal pain: Code(s): R10.9 - Unspecified abdominal pain Status: Acute (3) Urinary retention: Code(s): R33.9 - Retention of urine, unspecified Status: Acute (4) Anxiety and depression: Code(s): F41.9 - Anxiety disorder, unspecified; F32.A - Depression, unspecified Status: Chronic Plan (1) Small bowel obstruction: Code(s): K56.609 - Unspecified intestinal obstruction, unspecified as to partial versus complete obstruction Status: Acute Assessment and Plan: CT showed: Distal small bowel obstruction. A specific transition point is not detected, but evaluation is limited by paucity of intra-abdominal fat.2.7 cm extraluminal mass closely applied to multiple loops of bowel in the upper pelvis, may represent a mesenteric mass such as endometriosis with adjacent bowel wall tethering and subsequent obstruction. KUB showed: Significant fecal stasis within the colon and distending the rectum on 06/12. Received NG tube decompression, bowel rest, and IV fluids NG tube is removed today, Migraine: Code(s): G43.909 - Migraine, unspecified, not intractable, without status migrainosus Status: Chronic Assessment and Plan: Continue home medications * Urinary retention: Code(s): R33.9 - Retention of urine, unspecified Status: Acute Assessment and Plan: Connell in place. Urine culture ENTEROCOCCUS Start ceftriaxone IV Anxiety Continue home medications Subjective Date/time seen: 06/14/24 10:23 Interval history: NG tube is removed, Patient denies abdomen pain, nausea vomiting chest pain, palpitations, dizziness. Patient has water stools Exam Narrative: GENERAL: Pleasant, in no acute distress. Well-nourished. - EYES: EOMI. Anicteric. - HENT: Moist mucous membranes. - LUNGS: Clear to auscultation bilateral ly, no wheezing, rhonchi, or rales. - CARDIOVASCULAR: Regular rate and rhyth m. No murmur. No JVD. - ABDOMEN: Soft, diffused tender and non -distended. No palpable masses. - EXTREMITIES: No edema. Peripheral puls es 2+. Non-tender. - NEUROLOGIC: No focal neurological defi cits. CN II-XII grossly intact. - PSYCHIATRIC: Awake, Alert and oriented x 3. Anxious mood and affect. - SKIN: No rashes or lesions. Warm. - LYMPH: No cervical lymphadenopathy. Objective Data Vital Signs Vital Signs: Vital Signs - 24 hr 06/13/24 13:20 06/13/24 21:02 06/14/24 05:28 Temperature 98.1 F 97.3 F L 97 F L Pulse Rate 97 99 96 Respiratory Rate 18 20 16 Blood Pressure 125/73 133/85 118/77 Pulse Oximetry 98 100 100 Oxygen Delivery 06/14/24 08:00 Temperature Pulse Rate Respiratory Rate Blood Pressure Pulse Oximetry Oxygen Delivery Room Air Intake/Output Intake/Output: Intake & Output 06/11/24 06/12/24 06/13/24 06/14/24 23:59 23:59 23:59 23:59 Intake Total 1999 1999 1475 1200 Output Total 700 1850 1650 Balance 1300 150 -175 1200 Meds/Results Medications: Active Medications Generic Name Dose Route Start Last Admin Trade Name Freq PRN Reason Stop Dose Admin Enoxaparin Sodium 40 mg 06/12/24 17:00 06/14/24 08:36 Enoxaparin 40 Mg/0.4 Ml Syringe SUB-Q 40 mg DAILY RO Administration Hydromorphone HCl 1 mg 06/11/24 20:56 06/12/24 17:59 Hydromorphone Hcl Inj (*Crx) 1 Mg/Ml Syr IV PUSH 1 mg Q4H PRN Administration Pain Rated 7-10 Sodium Chloride 1,000 mls @ 75 mls/hr 06/11/24 20:45 06/14/24 04:54 Normal Saline Iv IV CONT 75 mls/hr .[id number] RO Administration Lorazepam 1 mg 06/12/24 16:50 06/13/24 08:20 Lorazepam Inj (*Crx) 2 Mg/Ml Vial IV PUSH 1 mg Q6H PRN Administration Anxiety Miscellaneous Information 0 each 06/12/24 00:01 Sumatriptan Is Duplicate Therapy With Rizatriptan XX 07/12/24 00:00 CLARIFY RO Non-Formulary Medication 6 mg 06/12/24 12:54 Sumatriptan Succinate SUB-Q PRN PRN Migraine Headache Phenol 1 spray 06/12/24 08:21 Phenol/Sod Pheno [place] Au (*Bkc) MUCOUS MEM PRN PRN Sore Throat Prochlorperazine Edisylate 10 mg 06/12/24 01:35 Prochlorperazine Edisylate 10 Mg/2 Ml Vial IV PUSH Q6H PRN Nausea And Vomiting Rizatriptan Benzoate 10 mg 06/12/24 13:02 06/13/24 02:11 Rizatriptan Benzoate 10 Mg Odt PO 10 mg PRN PRN Administration Migraine Headache Radiology Results: ITS Impressions Abdomen/Pelvis CT 06/11/24 19:59 IMPRESSION: Distal small bowel obstruction. A specific transition point is not detected, but evaluation is limited by paucity of intra-abdominal fat. Suggestion of a 2.7 cm extraluminal mass closely applied to multiple loops of bowel in the upper pelvis, may represent a mesenteric mass such as endometriosis with adjacent bowel wall tethering and subsequent obstruction. Abdomen X-Ray 06/13/24 08:27 Impression: 1: Fecal impaction of the colon and rectum. Small Bowel X-Ray 06/13/24 15:34 IMPRESSION: 1. Normal small bowel follow-through with resolution of prior small bowel obstruction. Labs Labs: Laboratory Results - last 24 hr 06/14/24 05:32 WBC 8.3 RBC 3.86 L Hgb 12.2 Hct 38.3 MCV 99.2 MCH 31.6 MCHC 31.9 L RDW 12.2 Plt Count 157 MPV 9.7 Sodium 140 Potassium 3.8 Chloride 109 H Carbon Dioxide 23 Anion Gap 8 BUN 17 Creatinine 0.73 Estim Creat Clear Calc 59 Estimated GFR > 60 Glucose 95 Calcium 8.2 L Magnesium 2.0
[2024-06-14] MEDS: clonazePAM (*CRX) 0.5 MG TABLET PO ×2 (11:45→17:24)
[2024-06-14] MEDS: RIZATRIPTAN BENZOATE 10 MG ODT PO (13:37)
[2024-06-14] MEDS: busPIRone HCL 5 MG TABLET PO ×2 (13:38→17:24)
[2024-06-14 14:00] VITALS: BP 121/80; PULSE 81; RESP 18; TEMP 36.6; O2SAT 100
[2024-06-14] MEDS: AMPICILLIN 2 GM/NS 100 ML 2 GM/100 ML BAG IVPB ×3 (14:43→23:53)
--- NOTE | 2024-06-14 16:03 | P.PNGS_ITS ---
Progress Note: A&P Assessment and Plan (1) Small bowel obstruction: Code(s): K56.609 - Unspecified intestinal obstruction, unspecified as to partial versus complete obstruction Status: Acute Assessment and Plan: Resolving. Small-bowel follow-through showed normal transit time to the colon. Bowels are moving and she is tolerating full liquids. Will advance to a soft diet. (2) Anxiety and depression: Code(s): F41.9 - Anxiety disorder, unspecified; F32.A - Depression, unspecified Status: Chronic Assessment and Plan: Home medications resumed. Plan I have discussed the patient's case and plan of care with Dr. Coe. Subjective Subjective Date/Time Seen: 06/14/24 16:03 Interval history: Patient feeling much better today. Denies having any abdominal pain, nausea, or vomiting. She has had multiple bowel movements yesterday and through the night last night. She cannot estimate how many. Initially she had multiple formed bowel move and they eventually became more liquid. She is tolerating liquid diet well. Exam Const: General: comfortable and no acute distress Orientation/consciousness: patient oriented x3 GI: Inspection: non-distended GI Palp: Yes Soft to palpation, No Tenderness to palpation present (GI), No Guarding due to palpation present (GI) and No Rebound tenderness present Auscultation: normal bowel sounds Objective Data Vital Signs Vital Signs: Vital Signs - 24 hr 06/13/24 21:02 06/14/24 05:28 06/14/24 08:00 Temperature 97.3 F L 97 F L Pulse Rate 99 96 Respiratory Rate 20 16 Blood Pressure 133/85 118/77 Pulse Oximetry 100 100 Oxygen Delivery Room Air 06/14/24 14:00 Temperature 97.9 F Pulse Rate 81 Respiratory Rate 18 Blood Pressure 121/80 Pulse Oximetry 100 Oxygen Delivery Intake/Output Intake/Output: Intake & Output 06/11/24 06/12/24 06/13/24 06/14/24 23:59 23:59 23:59 23:59 Intake Total 1999 1999 1475 1560 Output Total 1850 1650 Balance 1300 150 -175 1560 Meds/Results Medications: Active Medications Generic Name Dose Route Start Last Admin Trade Name Freq PRN Reason Stop Dose Admin Buspirone HCl 5 mg 06/14/24 13:00 06/14/24 13:38 Buspirone Hcl 5 Mg Tablet PO 5 mg TID REPLACED BY [facility] Administration Clonazepam 0.5 mg 06/14/24 11:10 06/14/24 11:45 Clonazepam (*Crx) 0.5 Mg Tablet PO 0.5 mg BID REPLACED BY [facility] Administration Cyclobenzaprine HCl 10 mg 06/14/24 21:00 Cyclobenzaprine Hcl 10 Mg Tablet PO HS REPLACED BY [facility] Enoxaparin Sodium 40 mg 06/12/24 17:00 06/14/24 08:36 Enoxaparin 40 Mg/0.4 Ml Syringe SUB-Q 40 mg DAILY RO Administration Ferrous Sulfate 325 mg 06/15/24 09:00 Ferrous Sulfate [address] BY MOUTH DAILY REPLACED BY [facility] Hydromorphone HCl 1 mg 06/11/24 20:56 06/12/24 17:59 Hydromorphone Hcl Inj (*Crx) 1 Mg/Ml Syr IV PUSH 1 mg Q4H PRN Administration Pain Rated 7-10 Ampicillin Sodium 2 gm in 100 mls @ 200 mls/hr 06/14/24 13:50 06/14/24 14:43 Ampicillin 2 Gm/Ns 100 Ml IVPB 200 mls/hr Q6HR RO Administration Lamotrigine 100 mg 06/15/24 09:00 Lamotrigine 100 Mg Tablet PO DAILY REPLACED BY [facility] Lorazepam 1 mg 06/12/24 16:50 06/13/24 08:20 Lorazepam Inj (*Crx) 2 Mg/Ml Vial IV PUSH 1 mg Q6H PRN Administration Anxiety Miscellaneous Information 0 each 06/12/24 00:01 Sumatriptan Is Duplicate Therapy With Rizatriptan XX 07/12/24 00:00 CLARIFY REPLACED BY [facility] Non-Formulary Medication 6 mg 06/12/24 12:54 Sumatriptan Succinate SUB-Q PRN PRN Migraine Headache Phenol 1 spray 06/12/24 08:21 Phenol/Sod Pheno [place] Au (*Bkc) MUCOUS MEM PRN PRN Sore Throat Prochlorperazine Edisylate 10 mg 06/12/24 01:35 Prochlorperazine Edisylate 10 Mg/2 Ml Vial IV PUSH Q6H PRN Nausea And Vomiting Quetiapine Fumarate 200 mg 06/14/24 21:00 Quetiapine Fumarate 100 Mg Tablet PO HS REPLACED BY [facility] Rizatriptan Benzoate 10 mg 06/12/24 13:02 06/14/24 13:37 Rizatriptan Benzoate 10 Mg Odt PO 10 mg PRN PRN Administration Migraine Headache Radiology Results: ITS Impressions Abdomen/Pelvis CT 06/11/24 19:59 IMPRESSION: Distal small bowel obstruction. A specific transition point is not detected, but evaluation is limited by paucity of intra-abdominal fat. Suggestion of a 2.7 cm extraluminal mass closely applied to multiple loops of bowel in the upper pelvis, may represent a mesenteric mass such as endometriosis with adjacent bowel wall tethering and subsequent obstruction. Abdomen X-Ray 06/13/24 08:27 Impression: 1: Fecal impaction of the colon and rectum. Small Bowel X-Ray 06/13/24 15:34 IMPRESSION: 1. Normal small bowel follow-through with resolution of prior small bowel obstruction. Labs Labs: Laboratory Results - last 24 hr 06/14/24 05:32 WBC 8.3 RBC 3.86 L Hgb 12.2 Hct 38.3 MCV 99.2 MCH 31.6 MCHC 31.9 L RDW 12.2 Plt Count 157 MPV 9.7 Sodium 140 Potassium 3.8 Chloride 109 H Carbon Dioxide 23 Anion Gap 8 BUN 17 Creatinine 0.73 Estim Creat Clear Calc 59 Estimated GFR > 60 Glucose 95 Calcium 8.2 L Magnesium 2.0
[2024-06-14 21:14] VITALS: BP 122/76; PULSE 85; RESP 20; TEMP 36.5; O2SAT 100
[2024-06-14] MEDS: PROCHLORPERAZINE EDISYLATE 10 MG/2 ML VIAL IV PUSH (21:20)
[2024-06-14] MEDS: QUEtiapine FUMARATE 100 MG TABLET 200 MG PO (21:20)
[2024-06-14] MEDS: CYCLOBENZAPRINE HCL 10 MG TABLET PO (21:20)
[2024-06-15 06:00] VITALS: BP 138/87; PULSE 79; RESP 16; TEMP 36.3; O2SAT 99
[2024-06-15 06:02] LABS: Hematocrit 36.6 % (37.0-47.0); Hemoglobin 11.8 g/dL (12.0-15.0); Mean Corpuscular HGB Conc 32.2 g/dl (32-36); Mean Corpuscular Hemoglobin 31.3 pg (26-34); Mean Corpuscular Volume 97.1 fl (80-100); Mean Platelet Volume 9.5 fl (7.4-10.4); Platelet Count Result 148 k/mm3 (150-375); Red Blood Count 3.77 M/mm3 (4.2-5.4); Red Cell Distribution Width 12.2 % (11.5-14.5); White Blood Count 3.3 K/mm3 (4.5-10.0)
[2024-06-15 06:23] LABS: Anion Gap 10 mmol/L (4-12); Blood Urea Nitrogen 17 mg/dL (7-17); Calcium 8.3 mg/dL (8.4-10.2); Carbon Dioxide 23 mmol/L (22-30); Chloride 110 mmol/L (98-107); Estimated CRCL calculation 70 ml/min; Estimated Glomerular Filt Rate > 60; Glucose 88 mg/dL (65-110); Magnesium 1.9 mg/dL (1.6-2.3); Potassium 3.4 mmol/L (3.4-5.0); Sodium 143 mmol/L (137-145)
[2024-06-15] MEDS: AMPICILLIN 2 GM/NS 100 ML 2 GM/100 ML BAG IVPB (06:25)
[2024-06-15 08:00] VITALS: O2SAT 99
--- NOTE | 2024-06-15 08:19 | P.PNIM_ITS ---
Progress Note: A&P Assessment and Plan (1) Small bowel obstruction: Code(s): K56.609 - Unspecified intestinal obstruction, unspecified as to partial versus complete obstruction Status: Acute (2) Abdominal pain: Code(s): R10.9 - Unspecified abdominal pain Status: Acute (3) Urinary retention: Code(s): R33.9 - Retention of urine, unspecified Status: Acute (4) Anxiety and depression: Code(s): F41.9 - Anxiety disorder, unspecified; F32.A - Depression, unspecified Status: Chronic Plan (1) Small bowel obstruction: Code(s): K56.609 - Unspecified intestinal obstruction, unspecified as to partial versus complete obstruction Status: Acute Assessment and Plan: CT showed: Distal small bowel obstruction. A specific transition point is not detected, but evaluation is limited by paucity of intra-abdominal fat.2.7 cm extraluminal mass closely applied to multiple loops of bowel in the upper pelvis, may represent a mesenteric mass such as endometriosis with adjacent bowel wall tethering and subsequent obstruction. KUB showed: Significant fecal stasis within the colon and distending the rectum on 06/12. Received NG tube decompression, bowel rest, and IV fluids NG tube removed 06/14 tolerate diet Migraine: Code(s): G43.909 - Migraine, unspecified, not intractable, without status migrainosus Status: Chronic Assessment and Plan: Continue home medications * Urinary retention: Code(s): R33.9 - Retention of urine, unspecified Status: Acute Assessment and Plan: Connell in place. Urine culture ENTEROCOCCUS Started ampicillin iv change to Augmentin as patient can tolerate diet Anxiety Continue home medications Subjective Date/time seen: 06/15/24 08:19 Interval history: Patient denies abdomen pain, nausea vomiting chest pain, palpitations, dizziness. tolerated diet Exam Narrative: GENERAL: Pleasant, in no acute distress. Well-nourished. - EYES: EOMI. Anicteric. - HENT: Moist mucous membranes. - LUNGS: Clear to auscultation bilateral ly, no wheezing, rhonchi, or rales. - CARDIOVASCULAR: Regular rate and rhyth m. No murmur. No JVD. - ABDOMEN: Soft, diffused tender and non -distended. No palpable masses. - EXTREMITIES: No edema. Peripheral puls es 2+. Non-tender. - NEUROLOGIC: No focal neurological defi cits. CN II-XII grossly intact. - PSYCHIATRIC: Awake, Alert and oriented x 3. Anxious mood and affect. - SKIN: No rashes or lesions. Warm. - LYMPH: No cervical lymphadenopathy. Objective Data Vital Signs Vital Signs: Vital Signs - 24 hr 06/14/24 14:00 06/14/24 21:14 06/15/24 06:00 Temperature 97.9 F 97.7 F 97.3 F L Pulse Rate 81 85 79 Respiratory Rate 18 20 16 Blood Pressure 121/80 122/76 138/87 Pulse Oximetry 100 100 99 Intake/Output Intake/Output: Intake & Output 06/12/24 06/13/24 06/14/24 06/15/24 23:59 23:59 23:59 23:59 Intake Total 1999 1475 1760 300 Output Total 1850 1650 Balance 150 -175 1760 300 Meds/Results Medications: Active Medications Generic Name Dose Route Start Last Admin Trade Name Freq PRN Reason Stop Dose Admin Buspirone HCl 5 mg 06/14/24 13:00 06/14/24 17:24 Buspirone Hcl 5 Mg Tablet PO 5 mg TID RO Administration Clonazepam 0.5 mg 06/14/24 11:10 06/14/24 17:24 Clonazepam (*Crx) 0.5 Mg Tablet PO 0.5 mg BID RO Administration Cyclobenzaprine HCl 10 mg 06/14/24 21:00 06/14/24 21:20 Cyclobenzaprine Hcl 10 Mg Tablet PO 10 mg HS RO Administration Enoxaparin Sodium 40 mg 06/12/24 17:00 06/14/24 08:36 Enoxaparin 40 Mg/0.4 Ml Syringe SUB-Q 40 mg DAILY RO Administration Ferrous Sulfate 325 mg 06/15/24 09:00 Ferrous Sulfate [address] BY MOUTH DAILY RO Hydromorphone HCl 1 mg 06/11/24 20:56 06/12/24 17:59 Hydromorphone Hcl Inj (*Crx) 1 Mg/Ml Syr IV PUSH 1 mg Q4H PRN Administration Pain Rated 7-10 Ampicillin Sodium 2 gm in 100 mls @ 200 mls/hr 06/14/24 13:50 06/15/24 06:25 Ampicillin 2 Gm/Ns 100 Ml IVPB 200 mls/hr Q6HR RO Administration Lamotrigine 100 mg 06/15/24 09:00 Lamotrigine 100 Mg Tablet PO DAILY RO Lorazepam 1 mg 06/12/24 16:50 06/13/24 08:20 Lorazepam Inj (*Crx) 2 Mg/Ml Vial IV PUSH 1 mg Q6H PRN Administration Anxiety Miscellaneous Information 0 each 06/12/24 00:01 Sumatriptan Is Duplicate Therapy With Rizatriptan XX 07/12/24 00:00 CLARIFY RO Non-Formulary Medication 6 mg 06/12/24 12:54 Sumatriptan Succinate SUB-Q PRN PRN Migraine Headache Phenol 1 spray 06/12/24 08:21 Phenol/Sod Pheno [place] Au (*Bkc) MUCOUS MEM PRN PRN Sore Throat Prochlorperazine Edisylate 10 mg 06/12/24 01:35 06/14/24 21:20 Prochlorperazine Edisylate 10 Mg/2 Ml Vial IV PUSH 10 mg Q6H PRN Administration Nausea And Vomiting Quetiapine Fumarate 200 mg 06/14/24 21:00 06/14/24 21:20 Quetiapine Fumarate 100 Mg Tablet PO 200 mg HS RO Administration Rizatriptan Benzoate 10 mg 06/12/24 13:02 06/14/24 13:37 Rizatriptan Benzoate 10 Mg Odt PO 10 mg PRN PRN Administration Migraine Headache Radiology Results: ITS Impressions Abdomen/Pelvis CT 06/11/24 19:59 IMPRESSION: Distal small bowel obstruction. A specific transition point is not detected, but evaluation is limited by paucity of intra-abdominal fat. Suggestion of a 2.7 cm extraluminal mass closely applied to multiple loops of bowel in the upper pelvis, may represent a mesenteric mass such as endometriosis with adjacent bowel wall tethering and subsequent obstruction. Abdomen X-Ray 06/13/24 08:27 Impression: 1: Fecal impaction of the colon and rectum. Small Bowel X-Ray 06/13/24 15:34 IMPRESSION: 1. Normal small bowel follow-through with resolution of prior small bowel obstruction. Labs Labs: Laboratory Results - last 24 hr 06/15/24 05:25 WBC 3.3 L RBC 3.77 L Hgb 11.8 L Hct 36.6 L MCV 97.1 MCH 31.3 MCHC 32.2 RDW 12.2 Plt Count 148 L MPV 9.5 Sodium 143 Potassium 3.4 Chloride 110 H Carbon Dioxide 23 Anion Gap 10 BUN 17 Creatinine 0.60 L Estim Creat Clear Calc 70 Estimated GFR > 60 Glucose 88 Calcium 8.3 L Magnesium 1.9
--- NOTE | 2024-06-15 08:22 | P.DS_ITS ---
DS: Admitting Diagnosis Discharge Date 06/15/24 Admitting Diagnosis (1) Small bowel obstruction: Code(s): K56.609 - Unspecified intestinal obstruction, unspecified as to partial versus complete obstruction Status: Acute (2) Abdominal pain: Code(s): R10.9 - Unspecified abdominal pain Status: Acute (3) Urinary retention: Code(s): R33.9 - Retention of urine, unspecified Status: Acute (4) Anxiety and depression: Code(s): F41.9 - Anxiety disorder, unspecified; F32.A - Depression, unspecified Status: Chronic DS: Discharge Diagnosis Discharge Diagnosis (1) Small bowel obstruction: Code(s): K56.609 - Unspecified intestinal obstruction, unspecified as to partial versus complete obstruction Status: Acute (2) Abdominal pain: Code(s): R10.9 - Unspecified abdominal pain Status: Acute (3) Urinary retention: Code(s): R33.9 - Retention of urine, unspecified Status: Acute (4) Anxiety and depression: Code(s): F41.9 - Anxiety disorder, unspecified; F32.A - Depression, unspecified Status: Chronic DS: Summary Hospital Course Hospital Course: Per H&P, Sabrina Bill is a 64F with a mhx significant for migraines, depression, s/p hysterectomy She presents with a few hours history of epigastric abdominal pain; she had remained stable since having breakfast which consisted of yogurt and granola and salad for lunch. She describes epigastric pain as sharp/crampy in nature; constant, nonradiating, rated 10 in intensity, associated with nausea and bilious emesis, malaise or anxiety. Allows bowel movement was a day and was of normal consistency, color, void of blood blood. She denies hematemesis, fevers, chills, rigors, previous episodes of bowel obstruction. The following med issues have been addressed during hospitalization Small bowel obstruction: Code(s): K56.609 - Unspecified intestinal obstruction, unspecified as to partial versus complete obstruction Status: Acute Assessment and Plan: CT showed: Distal small bowel obstruction. A specific transition point is not detected, but evaluation is limited by paucity of intra-abdominal fat.2.7 cm extraluminal mass closely applied to multiple loops of bowel in the upper pelvis, may represent a mesenteric mass such as endometriosis with adjacent bowel wall tethering and subsequent obstruction. KUB showed: Significant fecal stasis within the colon and distending the rectum on 06/12. Received NG tube decompression, bowel rest, and IV fluids NG tube removed 06/14 tolerate diet Migraine: Code(s): G43.909 - Migraine, unspecified, not intractable, without status migrainosus Status: Chronic Assessment and Plan: Continue home medications * Urinary retention: Code(s): R33.9 - Retention of urine, unspecified Status: Acute Assessment and Plan: Connell in place. Urine culture ENTEROCOCCUS Started ampicillin iv change to Augmentin as patient can tolerate diet Anxiety Continue home medications Time Spent with Patient Time attestation: Total time spent providing and/or coordinating discharge services: Exam Narrative: GENERAL: Pleasant, in no acute distress. Well-nourished. - EYES: EOMI. Anicteric. - HENT: Moist mucous membranes. - LUNGS: Clear to auscultation bilateral ly, no wheezing, rhonchi, or rales. - CARDIOVASCULAR: Regular rate and rhyth m. No murmur. No JVD. - ABDOMEN: Soft, non-tender and non-dist ended. No palpable masses. - EXTREMITIES: No edema. Peripheral puls es 2+. Non-tender. - NEUROLOGIC: No focal neurological defi cits. CN II-XII grossly intact. - PSYCHIATRIC: Awake, Alert and oriented x 3. Appropriate mood and affect. - SKIN: No rashes or lesions. Warm. - LYMPH: No cervical lymphadenopathy. DS: Data Data Completed and Pending Labs on day of discharge: Labs from last 24 hours 06/15/24 05:25 WBC 3.3 L RBC 3.77 L Hgb 11.8 L Hct 36.6 L MCV 97.1 MCH 31.3 MCHC 32.2 RDW 12.2 Plt Count 148 L MPV 9.5 Sodium 143 Potassium 3.4 Chloride 110 H Carbon Dioxide 23 Anion Gap 10 BUN 17 Creatinine 0.60 L Estim Creat Clear Calc 70 Estimated GFR > 60 Glucose 88 Calcium 8.3 L Magnesium 1.9 Discharge Plan Discharge Attending physician on discharge: gustabo Consulting providers: Bassem Coe Discharging Clinician: Patrick Hernandez Patient Disposition: Home Activity: as tolerated Diet: as tolerated Patient Instructions: Antibiotic Form Patient Language: Malaysian Stand Alone Forms: General Discharge Information Follow-up/Referrals: Km Stephens,Subha [Other] (Patient needs to see PCP in 1 week) Discharge Medications: New amoxicillin-pot clavulanate [Augmentin] 500-125 mg tablet 1 tablet PO TID Qty: 10 0RF Continued acyclovir 400 mg tablet 400 mg PO DAILY rizatriptan 10 mg tablet,disintegrating 10 mg PO PRN PRN (Reason: Migraine Headache) lamotrigine [Lamictal] 100 mg tablet 100 mg PO DAILY sumatriptan succinate 6 mg/0.5 mL pen injector 6 mg SUBCUT PRN PRN (Reason: Migraine Headache) Qulipta 60 mg tablet 60 mg PO DAILY alendronate 70 mg tablet 70 mg PO WEEKLY estradiol 0.01 % (0.1 mg/gram) cream 1 appful VAGINAL WEEKLY lidocaine HCl 2 % solution 5 ml PO Q4H PRN (Reason: pain) ondansetron 4 mg tablet,disintegrating 8 mg PO DAILY quetiapine 200 mg tablet 200 mg PO DAILY riboflavin (vitamin B2) 400 mg tablet 400 mg PO DAILY alpha lipoic acid 600 mg tablet 600 mg PO DAILY cyanocobalamin (vitamin B-12) [Vitamin B-12] 100 mcg tablet 400 mcg PO DAILY calcium carbonate-vit D3-min 600 mg-10 mcg (400 unit) tablet 1 tablet PO DAILY ferrous sulfate 325 mg (65 mg iron) tablet 325 mg PO DAILY cyclobenzaprine 10 mg tablet 10 mg PO HS trospium 20 mg tablet 20 mg PO Q12H magnesium citrate 100 mg capsule 500 mg PO DAILY clonazepam 0.5 mg tablet 0.5 mg PO BID multivitamin [Daily Multi-Vitamin] Tablet 1 tablet PO DAILY buspirone 5 mg tablet 5 mg PO TID Date of admission: 06/12/24 08:03 Primary Care Provider: Km Stephens,Subha Admitting Provider: Naseem Ibanez Attending physician on admission: Sherwin Lopez Condition: Stable
[2024-06-15] MEDS: busPIRone HCL 5 MG TABLET PO (08:51)
[2024-06-15] MEDS: FERROUS SULFATE 325 MG TABLET DR BY MOUTH (08:51)
[2024-06-15] MEDS: clonazePAM (*CRX) 0.5 MG TABLET PO (08:51)
[2024-06-15] MEDS: AMOXICILLIN/CLAVULANATE K 875-125 MG TAB 1 TABLET PO (08:51)
[2024-06-15] MEDS: lamoTRIgine 100 MG TABLET PO (08:51)
--- NOTE | 2024-06-15 11:04 | PM.PNGS ---
Progress Note: A&P Assessment and Plan (1) Small bowel obstruction: Code(s): K56.609 - Unspecified intestinal obstruction, unspecified as to partial versus complete obstruction Status: Acute Assessment and Plan: Resolved. Tolerating a solid diet and bowels are moving. She is stable for discharge from a surgical standpoint. No follow-up with surgery needed. (2) Anxiety and depression: Code(s): F41.9 - Anxiety disorder, unspecified; F32.A - Depression, unspecified Status: Chronic Plan I have discussed the patient's case and plan of care with Dr. Coe. Subjective Subjective Date/Time Seen: 06/15/24 11:04 Patient reports: no new complaints, feels better, tolerating a regular diet, flatus and bowel movement Interval history: Patient doing well this morning. Denies any abdominal pain, nausea, or vomiting. She did not eat much for dinner last night, but reports this is due to taste of the food. She has an appetite and was able to tolerate oral intake well yesterday. Bowels moving yesterday, no BM yet this morning, but passing flatus. Exam Const: General: comfortable and no acute distress GI: Inspection: non-distended GI Palp: Yes Soft to palpation, No Tenderness to palpation present (GI), No Guarding due to palpation present (GI) and No Rebound tenderness present Auscultation: normal bowel sounds Objective Data Vital Signs Vital Signs: Vital Signs - 24 hr 06/14/24 14:00 06/14/24 21:14 06/15/24 06:00 Temperature 97.9 F 97.7 F 97.3 F L Pulse Rate 81 85 79 Respiratory Rate 18 20 16 Blood Pressure 121/80 122/76 138/87 Pulse Oximetry 100 100 99 Oxygen Delivery 06/15/24 08:00 Temperature Pulse Rate Respiratory Rate Blood Pressure Pulse Oximetry 99 Oxygen Delivery Room Air Intake/Output Intake/Output: Intake & Output 06/12/24 06/13/24 06/14/24 06/15/24 23:59 23:59 23:59 23:59 Intake Total 1999 1475 1760 300 Output Total 1850 1650 Balance 150 -175 1760 300 Meds/Results Medications: Active Medications Generic Name Dose Route Start Last Admin Trade Name Freq PRN Reason Stop Dose Admin Amoxicillin/Clavulanate Potassium 1 tablet 06/15/24 09:00 06/15/24 08:51 Amoxicillin/Clavulanate K 875-125 Mg Tab PO 1 tablet Q12HR RO Administration Buspirone HCl 5 mg 06/14/24 13:00 06/15/24 08:51 Buspirone Hcl 5 Mg Tablet PO 5 mg TID RO Administration Clonazepam 0.5 mg 06/14/24 11:10 06/15/24 08:51 Clonazepam (*Crx) 0.5 Mg Tablet PO 0.5 mg BID RO Administration Cyclobenzaprine HCl 10 mg 06/14/24 21:00 06/14/24 21:20 Cyclobenzaprine Hcl 10 Mg Tablet PO 10 mg HS [facility] Administration Enoxaparin Sodium 40 mg 06/12/24 17:00 06/14/24 08:36 Enoxaparin 40 Mg/0.4 Ml Syringe SUB-Q 40 mg DAILY RO Administration Ferrous Sulfate 325 mg 06/15/24 09:00 06/15/24 08:51 Ferrous Sulfate [address] BY MOUTH 325 mg DAILY [facility] Administration Hydromorphone HCl 1 mg 06/15/24 10:12 Hydromorphone Hcl Inj (*Crx) 2 Mg/Ml Vial IV PUSH Q4H PRN Pain Rated 7-10 Lamotrigine 100 mg 06/15/24 09:00 06/15/24 08:51 Lamotrigine 100 Mg Tablet PO 100 mg DAILY [facility] Administration Lorazepam 1 mg 06/12/24 16:50 06/13/24 08:20 Lorazepam Inj (*Crx) 2 Mg/Ml Vial IV PUSH 1 mg Q6H PRN Administration Anxiety Miscellaneous Information 0 each 06/12/24 00:01 Sumatriptan Is Duplicate Therapy With Rizatriptan XX 07/12/24 00:00 CLARIFY RO Non-Formulary Medication 6 mg 06/12/24 12:54 Sumatriptan Succinate SUB-Q PRN PRN Migraine Headache Phenol 1 spray 06/12/24 08:21 Phenol/Sod Pheno Dingess Au (*Bkc) MUCOUS MEM PRN PRN Sore Throat Prochlorperazine Edisylate 10 mg 06/12/24 01:35 06/14/24 21:20 Prochlorperazine Edisylate 10 Mg/2 Ml Vial IV PUSH 10 mg Q6H PRN Administration Nausea And Vomiting Quetiapine Fumarate 200 mg 06/14/24 21:00 06/14/24 21:20 Quetiapine Fumarate 100 Mg Tablet PO 200 mg HS RO Administration Rizatriptan Benzoate 10 mg 06/12/24 13:02 06/14/24 13:37 Rizatriptan Benzoate 10 Mg Odt PO 10 mg PRN PRN Administration Migraine Headache Radiology Results: ITS Impressions Abdomen/Pelvis CT 06/11/24 19:59 IMPRESSION: Distal small bowel obstruction. A specific transition point is not detected, but evaluation is limited by paucity of intra-abdominal fat. Suggestion of a 2.7 cm extraluminal mass closely applied to multiple loops of bowel in the upper pelvis, may represent a mesenteric mass such as endometriosis with adjacent bowel wall tethering and subsequent obstruction. Abdomen X-Ray 06/13/24 08:27 Impression: 1: Fecal impaction of the colon and rectum. Small Bowel X-Ray 06/13/24 15:34 IMPRESSION: 1. Normal small bowel follow-through with resolution of prior small bowel obstruction. Labs Labs: Laboratory Results - last 24 hr 06/15/24 05:25 WBC 3.3 L RBC 3.77 L Hgb 11.8 L Hct 36.6 L MCV 97.1 MCH 31.3 MCHC 32.2 RDW 12.2 Plt Count 148 L MPV 9.5 Sodium 143 Potassium 3.4 Chloride 110 H Carbon Dioxide 23 Anion Gap 10 BUN 17 Creatinine 0.60 L Estim Creat Clear Calc 70 Estimated GFR > 60 Glucose 88 Calcium 8.3 L Magnesium 1.9
== END 2024-06-15 12:37 | disposition home or self-care (01) | DRG 389 ==
LOC: ANHED 20:47 → ANH3MEDSUR 21:46
PROVIDERS: Emergency Medicine; Nurse Practitioner Family; Physician Assistant; Surgery; Admitting Provider Internal Medicine; Emergency Provider Emergency Medicine; Visit Provider Hospitalist
DX: K56.609 Unspecified intestinal obstruction, unspecified as to partial versus complete obstruction (principal); N39.0 Urinary tract infection, site not specified; E86.0 Dehydration; R33.9 Retention of urine, unspecified; R19.00 Intra-abdominal and pelvic swelling, mass and lump, unspecified site; G43.909 Migraine, unspecified, not intractable, without status migrainosus; F32.A Depression, unspecified; Z87.891 Personal history of nicotine dependence
CPT/HCPCS: 36415; 74018; 74177; 74250; 80048; 80053; 81001; 83605; 83690; 83735; 85025; 85027; 86140; 87086; 87181; 96361; 96374; 96375; 96376; 99285; A9270; G0378; J0290; J0696; J0780; J1171; J1200; J1644; J1650; J2060; J2405; J7030; Q9967

== ENCOUNTER 2024-08-06 13:53 | Emergency (ER) | payer BC, SELFPAY ==
--- NOTE | ~2024-08-06 | CT_ITS ---
EXAMINATION: CT abdomen pelvis w con DATE: 08/06/2024 15:12 INDICATION: GENERALIZED ABDOMINAL PAIN MAINLY UPPER ABDOMEN TECHNIQUE: Computed tomography (CT) of the abdomen and pelvis was performed with 100 mL Omnipaque-350 intravenous contrast. Automated exposure control and iterative reconstruction technique were employe d. The dose-length product was 258.01 mGy-cm. COMPARISON: 06/11/2024. FINDINGS: Lower thorax: Unremarkable Liver: Normal. Biliary/Gallbladder: Gallbladder is normal. No bile duct dilation. Pancreas: No mass or duct dilation. Spleen: Normal. Adrenals:No mass. Kidneys: No suspicious mass, obstructing stone, or hydronephrosis. Simple left upper pole cyst. Multi ple additional subcentimeter bilateral renal hypodensities, too small to characterize but most likely represent cysts. GI tract: Small hiatal hernia. Mild distal esophageal and gastric wall edema. No small or large bowel dilation. Redundant transverse colon. Large volume of colonic feces. The appendix is partially visua lized, visualized portions appear normal. Mesentery/Peritoneum: No ascites, mass, or free air. Retroperitoneum: No mass. Pelvis: Distended urinary bladder without wall thickening. Absent uterus. Ovaries not confidently rebecca ntified. Soft Tissues: Soft tissues and body wall unremarkable. Bones: No acute osseous finding. IMPRESSION: Mild esophagitis/gastritis. Large volume of colonic feces, correlate for clinical findings of constipation. Distended urinary bladder, correlate for clinical findings of urinary retention. Reviewed, dictated and finalized at location K. IMPRESSION: Mild esophagitis/gastritis. Large volume of colonic feces, correlate for clinical findings of constipation. Distended urinary bladder, correlate for clinical findings of urinary retention .
[2024-08-06 13:55] VITALS: BP 145/87; PULSE 100; RESP 16; TEMP 36.6; O2SAT 100
--- OUTSIDE RECORDS SUMMARY | 2024-08-06 13:55 | XMS_ITS | Clinical Summary ---
Author Organization [facility] Address [address] [place] [address] Care Team Providers Care Nonprofit Fundraiser Name Role Phone Job Coker MD Unavailable [phone] Kendra Steiner MD PhD Unavailable [phone] Mike Levy MD Unavailable [phone] Subha Rodriguez MD Primary Care Provider [phone] Allergies Active Allergy Reactions Criticality Noted Date Comments Clarithromycin Rash Medium BIAcin Medications acyclovir (ZOVIRAX) 400 mg tablet Take 1 tablet (400 mg total) by mouth 2 (two) times a day 180 tablet 019 Active Additional Information Patient taking differently:400 mg oralDaily, Informant: Self, Reported on 07/27/2024 cyanocobalamin (Vitamin B-12) 1,000 mcg tablet Take [...] Take 5 mL by mouth as needed 024 Active calcium carbonate-vitamin D3 (Caltrate with Vitamin D3) 1,500 mg (600mg elemental) -800 unit per tablet daily Acti ve SUMAtriptan (IMITREX) 6 mg/0.5 mL injection INJECT [...] the next 30 min. 4 tablet 11 2024 Active lamoTRIgine XR (LaMICtal XR) 200 mg tablet extended release 24hr Take 1 tablet (200 mg total) by mouth daily Active alpha lipoic acid 600 mg capsule Take 1 capsule (600 mg total) by mouth daily Active QUEtiapine (SEROquel) 200 mg tablet Take 1 tablet (200 mg total) by mouth nightly Active riboflavin, vitamin B2, 400 mg tablet Take by mouth Active estradioL (ESTRACE) 0.01 % (0.1 mg/gram) vaginal cream APPLY 1 GRAM NIGHTLY TO VAGINA FOR 1 WEEK, THEN Wednesday, WEDNESDAY 42.5 g 5 Active ondansetron ODT (ZOFRAN-ODT) 4 mg disintegrating tablet DISSOLVE 1 TABLET(4 MG) ON THE TONGUE EVERY 8 HOURS NEEDED FOR NAUSEA OR VOMITING 20 tablet 3 Active clonazePAM (KlonoPIN) 0.5 mg tablet Take 1 tablet (0.5 mg total) by mouth 2 (two) times a day Active rosuvastatin (CRESTOR) 5 mg tabletIndications :Mixed hyperlipidemia Take 1 tablet (5 mg total) by mouth daily 30 tablet 2 Active Qulipta 60 mg tablet TAKE 1 TABLET BY MOUTH DAILY 30 tablet 5 025 Active busPIRone (BUSPAR) 5 mg tablet every 8 hours Active rizatriptan THREADER (MAXALT-THREADER) 10 mg disintegrating tablet DISSOLVE 1 TABLET ON THE TONGUE AT ONSET OF HEADACHE. MAY REPEAT IN 2 HOURS NEEDED. MAX DOSE 2 IN 24 HOURS 12 tablet 3 025 Active Qulipta 60 mg tablet TAKE 1 TABLET BY MOUTH DAILY 30 tablet 5 024 2024 Discontinued rizatriptan THREADER (MAXALT-THREADER) 10 mg disintegrating tablet DISSOLVE 1 TABLET ON THE TONGUE AT ONSET OF HEADACHE. MAY REPEAT IN 2 HOURS NEEDED. MAX DOSE 2 IN 24 HOURS 12 tablet 3 025 2024 Discontinued busPIRone (BUSPAR) 5 mg tablet Take 1 tablet (5 mg total) by mouth 3 (three) times a day 025 2024 ciprofloxacin (CIPRO) 500 mg tabletIndications :Skin/Soft Tissue Infection Take 1 tablet (500 mg total) by mouth 2 (two) times a day for 10 days 20 tablet 025 2024 Active Problems Problem Noted Date Diagnosed Date Chronic fatigue 07/27/2024 Assessment & Plan (07/27/2024 5:27 PM CDT): 64 y.o. female with chronic fatigue of unclear etiology and concern for underlying endocrinopathy. Various hormone imbalances can lead to chronic fatigue symptoms, including adrenal and/or pituitary insufficiency, hypothyroidism, hypercalcemia, and diabetes mellitus. Hypogonadism can also be a cause for fatigue symptoms. Primary adrenal insufficiency (AI) results from adrenal dysfunction from any cause; BOTH glucocorticoid and mineralocorticoid deficiency and is associated with low cortisol, high ACTH and often hyperpigmentation of the skin and mucosa, as well as low aldosterone, high renin with hyperkalemia and hyponatremia. Secondary AI no associated pigmentation changes of the skin and mucosa, no alterations in potassium, sodium. No associated imaging provided (CT or MRI to assess the adrenal glands). Plan: 1) Check basal (8 am) cortisol, ACTH, Aldosterone, Renin levels, CBC w diff, renal function panel, ionized Ca, Hgb A1c, TSH, free T4 Stage 3a chronic kidney disease 07/02/2024 Assessment & Plan (07/02/2024 5:37 PM CDT): Chornic stable Bowel obstruction 06/21/2024 Assessment & Plan (07/02/2024 5:37 PM CDT): New resolved Mixed hyperlipidemia 06/21/2024 Assessment & Plan (07/02/2024 5:35 PM CDT): Chornic Stable Cont crestor Goal: TC<200, LDL<100, TG<150 Bilateral hip pain 06/21/2024 Vertigo 04/17/2024 Assessment & Plan (04/23/2024 11:47 PM VIDEOGAME DESIGNER): New Order PT Pure hypercholesterolemia 03/20/2024 Assessment & Plan (03/26/2024 10:50 PM VIDEOGAME DESIGNER): Chronic Stable Follow low chol diet Goal: TC<200, LDL<100, TG<150 Family history of heart disease 03/20/2024 Well adult exam 03/20/2024 Other general symptoms and signs 01/06/2024 Assessment & Plan (01/06/2024 2:52 PM VIDEOGAME DESIGNER): Nonspecific, episodic generalized sxs ongoing for over [...] 05/04/2023 Assessment & Plan (05/04/2023 2:30 PM VIDEOGAME DESIGNER): Exam favorable of crusted SK lesion though would appreciate second option from derm for reassurance Provided multiple derm contact in [place] & [place] to arrange and update to route referral once scheduled Interim concerns warranting update discussed Onychomycosis 05/04/2023 Assessment & Plan (05/04/2023 2:26 PM VIDEOGAME DESIGNER): Moderate onychomycosis along multiple BL feet digits [...] 12/22/2022 Assessment & Plan (02/10/2023 1:21 PM VIDEOGAME DESIGNER): May use Tylenol and/or Ibuprofen as needed. [...] 10/07/2022 Assessment & Plan (03/26/2024 10:50 PM VIDEOGAME DESIGNER): Chronic Stable Cont supplmeent Assessment & Plan [...] 08/18/2017 Assessment & Plan (03/26/2024 10:50 PM VIDEOGAME DESIGNER): Chronic Stable Cont maxalt, imitrex prn Assessment & Plan (06/19/2022 10:39 AM CDT): Tolerable though ongoing severe. Seeing a headache specialist. Assessment & Plan (05/02/2021 2:02 PM VIDEOGAME DESIGNER): Lingering migraine post fall -improving with abortive [...] 04/09/2015 Assessment & Plan (01/14/2023 5:59 PM VIDEOGAME DESIGNER): Patient continue to complain of burning sensation [...] incontinence 11/20/2011 Osteopenia 03/11/2010 Assessment & Plan (07/02/2024 5:37 PM CDT): Chronic Stable Cont fosamax Assessment & Plan (06/06/2018 12:13 PM CDT): [...] Encounters Date Type Department Care Team Description 07/27/2024 4:00 PM CDT Office Visit [facility] Endocrinology Metabolism and Lipid [address] [facility] [place] [address] [place] [address] Dariel Chow MD PhD Chronic fatigue (Primary Dx) 07/27/2024 2:00 PM CDT [facility] [address] [facility] [address] [facility] [address] 4th [address] [place] [address] Lucas Silveira MD Fingernail abnormalities 07/13/2024 12:30 PM CDT Office Visit [address] [place] [address] Marlen Wright NP Fingernail abnormalities (Primary Dx); Dysphagia, unspecified type 06/29/2024 Results Follow-Up [address] [place] [address] Leila Woods MRI Brain WO Contrast 06/21/2024 1:15 PM CDT Office Visit [address] [place] [address] Subha Rodriguez MD Mixed hyperlipidemia (Primary Dx); Bowel obstruction (HCC); Bilateral hip pain; Stage 3a chronic kidney disease (HCC); Osteopenia, unspecified location 06/12/2024 Orders Only [facility] Health Information Management [address] [place] [address] Scanning, Provider 06/11/2024 Nurse Triage [address] [place] [address] Subha Rodriguez MD 05/26/2024 Telephone [facility] with [facility] [address] [facility] [address] [place] [address] Lexii Pritchard 05/24/2024 Telephone [facility] Pain Center at [facility] [address] 1[address] [place] [address] Melanie Ramos, LUISANA Treat Facial Pain? from Last 3 Months Immunizations Immunization Administration Dates Next Due Influenza, Trivalent, Adjuvanted, Intramuscular 01/06/2024 Influenza, Trivalent, Recomb inant, Egg Free, Preservative Free, Antibiotic Free, IM (FLUBLOK) 01/06/2024 Influenza, Trivalent, Split, Preservative Free, Intradermal 12/24/2016 Pneumococcal Conjugate Pcv21 01/21/2024 Tdap 04/27/2021 ZOSTER Recombinant 01/21/2024 Surgical History Surgery Date Site/Laterality Comments [place] TX ECTOPIC ABDOMINAL/VAGINAL APPR Salpingectomy For Ectopic - (Added by TW Conv) [place] OOPHORECTOMY PARTIAL/TOTA L UNI/BI Oophorectomy Unilateral Left Side - (Added by TW Conv) EYE SURGERY Eye Surgery - muscle repair after trauma as child (Added by TW Conv) [place] CLOSED TX NASAL SEPTAL FR ACT W/WO STABILIZATION Closed Treatment Of Nasal Septal Fracture - (Added by TW Conv) FLUORO GUIDED INJECTION SHOULDER LEFT 08/22/2018 Left HYSTERECTOMY BLADDER SURGERY Sling FLUORO GUIDED ASPIRATION OR INJECTION LARGE JOINT BILATERAL 06/04/2023 Bilateral SINUS SURGERY Medical History Medical History Date Comments Urinary incontinence Urinary inc ontinence - (Added by TW Conv) Personal history of other co mplications of , childbirth and the puerperium History of spontaneous abort ion - (Added by TW Conv) Intractable migraine without aura and without status migrainosus Common migraine with intrac table migraine - (Added by TW Conv) Pain in ankle Ankle joint pain - (Added by TW Conv) Other specified disorders of bone density and structure, unspecified site Osteopenia - (Added by TW Conv) PONV (postoperative nausea and vomiting) Depression BMS (burning mouth syndrome) GERD (gastroesophageal reflux disease) iam Osteoporosis yes Anemia yes Alcohol abuse none Anxiety Arthritis yes Brain concussion Bowel obstruction (HCC) Family History Medical History Relation Name Comments Alcohol abuse Brother 1 eleazar recovered alcohol Brother 1 eleazar No Known Problems Brother 2 regan myocardial infarction Brother 3 autumn Depression Daughter 1 adolfo Mental illness Daughter 1 adolfo Migraines Daughter 1 adolfo Migraine Headac he - (Added by TW Conv) pots Daughter 1 adolfo Mental illness Daughter 2 christina COPD Father Alex Mouna Hearing loss Father Alex Mouna Heart disease Father Alex Mouna Migraines Father Alex Mouna Migraine Hea dache - (Added by TW Conv) Migraines Mother Marisela Freire Migraine Hea dache - (Added by TW Conv) Miscarriages / Stillbirths Mother Marisela Escalante r Arthritis Sister 1 Elmira Alexandria Migraines Sister 1 Elmira Kaz Migraine Heada colt - (Added by TW Conv) Migraines Sister 2 Padmini Reynolds polysubstance abuse Son 1 santo Breast cancer Neg Hx Ovarian cancer Neg Hx Uterine cancer Neg Hx Relation Name Status Comments Brother 1 eleazar Alive Brother 2 regan Alive Brother 3 autumn Alive Brother 4 marianela Alive Daughter 1 adolfo Alive Daughter 2 christina Alive Father Alex Freire Alive Mother Marisela Freire Alive Sister 1 Elmira Nevesd Sister 2 Padmini Reynolds Alive Son 1 santo Alive Son 2 shreya Alive Social History Tobacco Use Types Packs/Day Years Used Date Smoking Tobacco: Never Smokeless Tobacco: Never Tobacco Cessation:Counseling Given: Not Answered AUDIT-C Answer Date Recorded Q1: How often do you have a drink containing alcohol? Never 07/27/2024 Q2: How many drinks containi ng alcohol do you have on a typical day when you are drinking? Patient does not drink Q3: How often do you have si x or more drinks on one occasion? Never 07/27/2024 PHQ-2 Answer Date Recorded PHQ-2 Total Score (If total score is 3 or more points, staff should administer the PHQ-9) 0 06/21/2024 Hunger Vital Sign Answer Date Recorded Within the past 12 months, y ou worried that your food would run out before you got the money to buy more. Never true 07/28/19 25 Within the past 12 months, t he food you bought just didn't last and you didn't have money to get more. Never true 07/27/2024 PHQ-9 Answer Date Recorded PHQ-9 Total Score 10 07/09/2023 Personal Safety Answer Date Recorded Have you ever been in or are you currently in a harmful physical or emotional relationship or is someone making you feel afraid or unsafe? Denies 09/06/2023 Comments No Sex and Gender Information Value Date Recorded Sex Assigned at Not on file Legal Sex Female 3:24 PM VIDEOGAME DESIGNER Gender Identity Female 11/21/2020 8:28 AM CDT [...] Sign Reading Time Taken Comments Blood Pressure 143/81 07/27/2024 3:26 PM CDT Pulse 67 07/27/2024 3:26 PM CDT Temperature 36.7 C (98 F) 07/27/2024 3:26 PM CDT Respiratory Rate 16 06/21/2024 1:18 PM CDT Oxygen Saturation 99% 07/13/2024 12:17 PM CDT Inhaled Oxygen Concentration - - Weight 54 kg (119 lb) 07/27/2024 3:26 PM CDT Height 162.6 cm (5' 4) 07/27/2024 3:26 PM CDT Body Mass Index 20.43 07/27/2024 3:26 PM CDT Plan of Treatment Scheduled Procedures Name Priority Associated Diagnoses Date/Ti me ESOPHAGOGASTRODUODENOSCOPY Iron deficiency anemia, unspecified iron deficiency anemia type Health Maintenance Due Date Last Done Comments Covid-19 Vaccine ( season) 2023 02/17/2021, 06/26/2020, 06/04/2020 Zoster Vaccine (2 of 2) 03/17/2024 01/21/2024 Breast Cancer Screening-Mammogram 09/06/2024 09/07/2023, 08/25/2022, 09/06/2017, Additional history exists Regular Well Visit/Exam 18-64 11/29/2024 11/30/2023, 07/09/2023, 11/27/2022 Depression Screening 06/21/2025 06/21/2024, 07/09/2023, 06/19/2022 Colon Cancer Screening-Colonoscopy 11/27/2027 11/26/2022 DTaP/Tdap/Td Vaccine (2 - Td or Tdap) 04/27/2031 04/27/2021 Colon Cancer Screening-CT Colonography Discontinued 11/26/2022 Colon Cancer Screening-DNA Stool Discontinued 11/26/2022 Colon Cancer Screening-FIT Discontinued 11/26/2022 Colon Cancer Screening-Sigmoidoscopy Discontinued 11/26/2022 Hepatitis C Screening Completed 12/23/2022 Hepatitis B Screening Completed 08/02/2023 Influenza Vaccine Completed 01/06/2024, , 12/24/2016 Pneumococcal vaccine <65 Aged Out 01/21/2024 No longer eligible based on patient's age to complete this topic Procedures Procedure Name Priority Date/Time Associated Diagnosis Comments VITAMIN D 25 HYDROXY Routine 07/31/2024 11:24 AM CDT PROLACTIN Routine 07/31/2024 11:24 AM CDT CREATINE KINASE (CK), TOTAL Routine 07/31/2024 11:24 AM CDT RENAL FUNCTION PANEL Routine 07/31/2024 11:24 AM CDT ACTH Routine 07/31/2024 11:24 AM CDT Chronic fatigue CORTISOL Routine 07/31/2024 11:24 AM CDT Chronic fatigue SCAN - RADIOLOGY/IMAGING 06/12/2024 SCREENING MAMMOGRAM BILATERAL W QUE Schedule Routine, Read Routine (OP Routine) 09/07/2023 9:42 AM CDT Screening mammogram, encounter for HEPATITIS PANEL, ACUTE Routine 12/23/2022 9:46 AM CDT Polyarthralgia COLONOSCOPY 11/26/2022 8:14 AM CDT from Last 3 Months or Most Recently Relevant to Health Maintenance Results * Vitamin D 25 hydroxy (07/31/2024 11:24 AM CDT) Vitamin D 25-OH 66 30 - 100 ng/mL [facility] Comment: Vitamin D Status 25-OH Vitamin D: Deficiency: <20 ng/mL Insufficiency: 20 - 29 ng/mL Optimal: > or = 30 ng/mL For 25-OH Vitamin D testing on patients on D2-supplementation and patients for whom quantitation of D2 and D3 fractions is required, the QuestAssureD(TM) 25-OH VIT D, (D2,D3), LC/MS/MS is recommended: order code 28901 (patients >2yrs). See Note 1 Note 1 For additional information, please refer to http://education.Trading Blox/faq/LKH736 (This link is being provided for informational/ educational purposes only.) 07/31/2024 11:2 4 AM CDT 07/31/2024 11:25 AM CDT Narrative [facility] - 08/03/2024 11:40 AM CDT FASTING:NO FASTING: NO Dariel Chow MD PhD LAB BLOOD ORDERABLES Fin al Result Performing Organization Address [facility] Co de Phone Number [facility] [address] [place] [address] * Prolactin (07/31/2024 11:24 AM CDT) Pathologist [facility] Prolactin 8.1 ng/mL [facility] Comment: Reference Range Females Non- 3.0-30.0 10.0-209.0 Postmenopausal 2.0-20.0 07/31/2024 11:2 4 AM CDT 07/31/2024 11:25 AM CDT Narrative [facility] - 08/03/2024 11:40 AM CDT FASTING:NO FASTING: NO Dariel Chow MD PhD LAB BLOOD ORDERABLES Fin al Result Performing Organization Address [facility]/ZIP Co de Phone Number [facility] [address] [place] [address] * ACTH (07/31/2024 11:24 AM CDT) Pathologist [facility] ACTH, PLASMA 15 6 - 50 pg/mL [facility] Comment: Reference range applies only to specimens collected between 7am-10am. Blood 07/31/2024 11:2 4 AM CDT 07/31/2024 11:25 AM CDT Narrative [facility] - 08/03/2024 11:40 AM CDT FASTING:NO FASTING: NO Dariel Chow MD PhD LAB BLOOD ORDERABLES Fin al Result [facility] [address] [place] [address] * Creatine kinase (CK), total (07/31/2024 11:24 AM CDT) CK 84 20 - 243 U/L [facility] 07/31/2024 11:2 4 AM CDT 07/31/2024 11:25 AM CDT Narrative [facility] - 08/03/2024 11:40 AM CDT FASTING:NO FASTING: NO Dariel Chow MD PhD LAB BLOOD ORDERABLES Fin al Result Performing Organization Address [facility] Co de Phone Number [facility] [address] [place] [address] * Cortisol (07/31/2024 11:24 AM CDT) Cortisol 12.0 mcg/dL [facility] Comment: Reference Range: For 8 a.m.(7-9 a.m.) Specimen: 4.0-22.0 Reference Range: For 4 p.m.(3-5 p.m.) Specimen: 3.0-17.0 * Please interpret above results accordingly * Blood 07/31/2024 11:2 4 AM CDT 07/31/2024 11:25 AM CDT Narrative [facility] - 08/03/2024 11:40 AM CDT FASTING:NO FASTING: NO Dariel Chow MD PhD LAB BLOOD ORDERABLES Fin al Result Performing Organization Address [facility]/ZIP Co de Phone Number [facility] [address] [place] [address] * (ABNORMAL) Renal function panel (07/31/2024 11:24 AM CDT) Glucose 85 65 - 99 mg/dL [facility] | [facility] Comment: Fasting reference interval BUN 36(H) 7 - 25 mg/dL [facility] Creatinine 1.13(H) 0.50 - 1.05 mg/dL [facility] eGFR 55(L) > OR = 60 mL/min/1.7 3m2 [facility] BUN/creat ratio 32(H) 6 - 22 (calc) [facility] [employer] | mentor | [employer] Sodium 141 135 - 146 mmol/L [facility] [employer] [facility] [employer] | mentor | [employer] Potassium, pl 4.1 3.5 - 5.3 mmol/L [facility] Chloride 101 98 - 110 mmol/L [facility] CO2 31 20 - 32 mmol/L [facility] Calcium 9.3 8.6 - 10.4 mg/dL [facility] [employer] | mentor | [employer] Stark Phosphorus, sr 3.1 2.5 - 4.5 mg/dL [facility] [employer] [facility] [employer] | mentor | [employer] Stark Albumin 4.5 3.6 - 5.1 g/dL [facility] | mentor | [facility] Stark 07/31/2024 11:2 4 AM CDT 07/31/2024 11:25 AM CDT Narrative [facility] - 08/03/2024 11:40 AM CDT FASTING:NO FASTING: NO Dariel Chow MD PhD LAB BLOOD ORDERABLES Fin al Result [facility] [address] [place] [address] * SCAN - RADIOLOGY/IMAGING (06/12/2024) Anatomical Region Laterality Modality Other us Provider Scanning Final Result * Screening Mammogram Bilateral W Que (09/07/2023 9:42 AM CDT) Anatomical Region Laterality Modality Breast Bilateral Mammography Narrative 09/07/2023 4:21 PM CDT Mammogram Technique: Bilateral Digital Breast Tomosynthesis, Bilateral C-view 2D Screening mammogram. Views obtained: bilateral craniocaudal and bilateral mediolateral oblique. Computer Aided Detection was performed. Mammogram Findings: The present examination has been compared to prior imaging studies performed at [facility] on 08/19/2012, and at [facility] on 09/06/2017 and 08/25/2022. There are [...] compared to prior imaging studies performed at [facility] on 08/19/2012, and at [facility] on 09/06/2017 and 08/25/2022. There are [...] Comment: For additional information, please refer to http://education.Ubequity.Signal/faq/XLC572 (This link is being provided for informational/ educational purposes only.) HepBsAg NON-REACTI VE NON-REACT MAURIZIO [facility] Comment: For additional information, please refer to http://education.Ubequity.Signal/faq/WJI955 (This link is being provided for informational/ educational purposes only.) Hep B core IgM NON-REACTI VE NON-REACT MAURIZIO [facility] Comment: For additional information, please refer to http://MedeFile International.Zartis/faq/VYB562 (This link is being provided for informational/ educational purposes only.) Hep C Ab NON-REACTI VE NON-REACT MAURIZIO [facility] Comment: HCV antibody was non-reactive. There is no laboratory evidence of HCV infection. In most cases, no further action is required. However, if recent HCV exposure is suspected, a test for HCV RNA (test code 67150) is suggested. For additional information please refer to http://MedeFile International.Zartis/faq/WXE82i3 (This link is being provided for informational/ educational purposes only.) Blood 12/23/2022 9:46 AM CDT 12/23/2022 9:47 AM CDT Narrative [facility] - 12/25/2022 3:26 PM CDT FASTING:YES FASTING: YES Palma Trevino NP LAB MICROBIOLOGY - NERAL ORDERABLES Final Result [facility] [address] [place] [address] * COLONOSCOPY (11/26/2022 8:14 AM CDT) Anatomical Region Laterality Modality Other Narrative Procedure Note Gómez Kirk MD PhD - 11/26/2022 8:14 AM CDT [facility] Patient Name: Sabrina Barajas Procedure Date: 11/26/2022 8:14 AM Date of : 1960 Admit Type: Outpatient Age: 62 Gender: Female Attending MD: Gómez Kirk MD,PHD Room: [facility] ENDOSCOPY ROOM 4 Note Status: Finalized Procedure: [...] passed under direct vision.The CF HQ [id number] endoscope was introducedthrough the anus and advanced to the cecum, identified by appendiceal orifice and ileocecal valve. The colonoscopy was performed without difficulty. The patient tolerated the procedure well. The qualityof the bowel preparation was good. The quality of the bowel preparation was evaluated using the BBPS([place] Bowel Preparation Scale) with scores of: RightColon [...] On: 11/26/2022 8:14 AM Recognized by the [employer] for promoting quality in endoscopy Gómez Kirk MD PhD ENDOSCOPY PROCEDURES F inal Result from Last 3 Months or Most Recently Relevant to Health Maintenance Insurance [place] Advance Directives For more information, please contact: [phone] * Full Code (Latest Code Status on File) Date Activated Date Inactivated Comments 11/26/2022 7:28 AM 11/26/2022 1:55 PM Care Teams Nonprofit Fundraiser Relationship Specialty Start Date End Date Subha Rodriguez MD [address] [facility] [place] [address] PCP - General Family Medicine 03/07/24 Job Coker MD [address] [place] [address] Referring Physician Psychiatry 06/19/22 Kendra Steiner MD PhD [address] [place] [address] Referring Physician Neurology 06/19/22 Mike Levy MD [address] [facility] [place] [address] Referring Physician Emergency Medicine 06/19/22"
--- OUTSIDE RECORDS SUMMARY | 2024-08-06 13:55 | XMS_ITS | Encounter Summary ---
Author Organization [facility] Healthcare Address [address] [place] [address] Care Team Providers Care Hydroblaster Name Role Phone Job Coker MD Unavailable [phone] Kendra Steiner MD PhD Unavailable [phone] Mike Levy MD Unavailable [phone] Subha Rodriguez MD Primary Care Provider [phone] Encounter Details Date Type Department Care Team (Late st Contact Info) Description 06/29/2024 Results Follow-Up [facility] Family Medicine [address] [address] Leila Woods MRI Brain WO Contrast Social History Tobacco Use Types Packs/Day Years [...] staff should administer the PHQ-9) 0 06/21/2024 PHQ-9 Answer Date Recorded PHQ-9 Total Score 10 07/09/2023 Personal Safety Answer Date Recorded Have you ever been in or are you currently in a harmful physical or emotional relationship or is someone making you feel afraid or unsafe? Denies 09/06/2023 Comments No Sex and Gender Information Value Date Recorded Sex Assigned at Not on file Legal Sex Female 3:24 PM OVEN DRIER TENDER Gender Identity Female 11/21/2020 8:28 AM CDT Sexual Orientation Not on file documented as of this encounter Plan of Treatment Scheduled Procedures Name Priority Associated Diagnoses Date/Ti me ESOPHAGOGASTRODUODENOSCOPY Iron deficiency anemia, unspecified iron deficiency anemia type documented as of this encounter Visit Diagnoses Not on filedocumented in this encounter Care Teams Hydroblaster Relationship Specialty Start Date End Date Subha Rodriguez MD [address] [place] [address] PCP - General Family Medicine 03/07/24 Job Coker MD [address] [place] [address] Referring Physician Psychiatry 06/19/22 Kendra Steiner MD PhD [address] [place] [address] Referring Physician Neurology 06/19/22 Mike Levy MD [address] [place] [address] Referring Physician Emergency Medicine 06/19/22 documented as of this encounter
--- OUTSIDE RECORDS SUMMARY | 2024-08-06 13:55 | XMS_ITS | Referral Summary ---
Author Organization [facility] Address [address] [place] [address] Care Team Providers Care Beauty Sales Consultant Name Role Phone Job Coker MD Unavailable [phone] Kendra Steiner MD PhD Unavailable [phone] Mike Levy MD Unavailable [phone] Subha Rodriguez MD Primary Care Provider Encounters Date Type Department Care Team Description 07/27/2024 2:00 PM CDT Office Visit [facility] D[facility] [address] [facility] 4th Floor [address] [place] [address] Lucas Silveira MD Fingernail abnormalities 07/27/2024 4:00 PM CDT Office Visit [facility] Endocrinology Metabolism and Lipid [address] [facility] 13th [place] [address] [place] [address] Dariel Chow MD PhD Chronic fatigue (Primary Dx) 07/13/2024 12:30 PM CDT Office Visit [place] [id number] [facility] [address] [place] [address] Marlen Wright NP Fingernail abnormalities (Primary Dx); Dysphagia, unspecified type 06/29/2024 Results Follow-Up [facility] [address] [facility] [address] [place] [address] Leila Woods MRI Brain WO Contrast 06/21/2024 1:15 PM CDT Office Visit [address] [place] [address] Subha Rodriguez MD Mixed hyperlipidemia (Primary Dx); Bowel obstruction (HCC); Bilateral hip pain; Stage 3a chronic kidney disease (HCC); Osteopenia, unspecified location 06/12/2024 Orders Only [facility] [address] [place] [address] Scanning, Provider 06/11/2024 Nurse Triage [address] [place] [address] Subha Rodriguez MD 05/26/2024 Telephone [facility] with [facility] Physicians [address] [facility] [address] [place] [address] Lexii Pritchard 05/24/2024 Telephone [facility] at [facility] [address] 1[address] [place] [address] Melanie Ramos, LUISANA Treat Facial Pain? from Last 3 Months Allergies Active Allergy [...] BY MOUTH DAILY 30 tablet 5 Active busPIRone (BUSPAR) 5 mg tablet every 8 hours Active rizatriptan FIELD ENGINEER (MAXALT-FIELD ENGINEER) 10 mg disintegrating tablet DISSOLVE 1 TABLET ON THE TONGUE AT ONSET OF HEADACHE. MAY REPEAT IN 2 HOURS NEEDED. MAX DOSE 2 IN 24 HOURS 12 tablet 3 025 Active Qulipta 60 mg tablet TAKE 1 TABLET BY MOUTH DAILY 30 tablet 5 024 2024 Discontinued rizatriptan FIELD ENGINEER (MAXALT-FIELD ENGINEER) 10 mg disintegrating tablet DISSOLVE 1 TABLET [...] 04/17/2024 Assessment & Plan (04/23/2024 11:47 PM PIG FARM MANAGER): New Order PT Pure hypercholesterolemia 03/20/2024 Assessment & Plan (03/26/2024 10:50 PM PIG FARM MANAGER): Chronic Stable Follow low chol diet Goal: TC<200, LDL<100, TG<150 Family history of heart disease 03/20/2024 Well adult exam 03/20/2024 Other general symptoms and signs 01/06/2024 Assessment & Plan (01/06/2024 2:52 PM PIG FARM MANAGER): Nonspecific, episodic generalized sxs ongoing for over [...] 05/04/2023 Assessment & Plan (05/04/2023 2:30 PM PIG FARM MANAGER): Exam favorable of crusted SK lesion though would appreciate second option from derm for reassurance Provided multiple derm contact in [place] & [place] to arrange and update to route referral once scheduled Interim concerns warranting update discussed Onychomycosis 05/04/2023 Assessment & Plan (05/04/2023 2:26 PM PIG FARM MANAGER): Moderate onychomycosis along multiple BL feet digits [...] 12/22/2022 Assessment & Plan (02/10/2023 1:21 PM PIG FARM MANAGER): May use Tylenol and/or Ibuprofen as needed. [...] 10/07/2022 Assessment & Plan (03/26/2024 10:50 PM PIG FARM MANAGER): Chronic Stable Cont supplmeent Assessment & Plan [...] 08/18/2017 Assessment & Plan (03/26/2024 10:50 PM PIG FARM MANAGER): Chronic Stable Cont maxalt, imitrex prn Assessment & Plan (06/19/2022 10:39 AM CDT): Tolerable though ongoing severe. Seeing a headache specialist. Assessment & Plan (05/02/2021 2:02 PM PIG FARM MANAGER): Lingering migraine post fall -improving with abortive [...] 04/09/2015 Assessment & Plan (01/14/2023 5:59 PM PIG FARM MANAGER): Patient continue to complain of burning sensation [...] Resolved Date Aphthous ulcer of mouth 10/07/2022 0803/2022 Assessment & Plan (10/07/2022 2:09 PM CDT): [...] Pcv21 01/21/2024 Tdap 04/27/2021 ZOSTER Recombinant 01/21/2024 Social History Tobacco Use Types Packs/Day [...] on file Legal Sex Female 3:24 PM PIG FARM MANAGER Gender Identity Female 11/21/2020 8:28 AM CDT [...] D 25-OH 66 30 - 100 ng/mL [facility] Comment: Vitamin D Status 25-OH Vitamin D: Deficiency: <20 ng/mL Insufficiency: 20 - 29 ng/mL Optimal: > or = 30 ng/mL For 25-OH Vitamin D testing on patients on D2-supplementation and patients for whom quantitation of D2 and D3 fractions is required, the QuestAssureD(TM) 25-OH VIT D, (D2,D3), LC/MS/MS is recommended: order code 13924 (patients >2yrs). See Note 1 Note 1 For additional information, please refer to http://education.Hammer and Grind/faq/MOK109 (This link is being provided for informational/ educational purposes only.) 07/31/2024 11:2 4 AM CDT 07/31/2024 11:25 AM CDT Narrative [facility] - 08/03/2024 11:40 AM CDT FASTING:NO FASTING: NO Dariel Chow MD PhD LAB BLOOD ORDERABLES Fin al Result Performing Organization Address [facility] Co de Phone Number [facility] [address] [place] [address] * Prolactin (07/31/2024 11:24 AM CDT) Pathologist [facility] Prolactin 8.1 ng/mL [facility] Comment: Reference Range Females Non- 3.0-30.0 10.0-209.0 Postmenopausal 2.0-20.0 07/31/2024 11:2 4 AM CDT 07/31/2024 11:25 AM CDT Narrative [facility] - 08/03/2024 11:40 AM CDT FASTING:NO FASTING: NO Dariel Chow MD PhD LAB BLOOD ORDERABLES Fin al Result Performing Organization Address [facility] Co de Phone Number [facility] [address] [place] [address] * ACTH (07/31/2024 11:24 AM CDT) ACTH, PLASMA 15 6 - 50 pg/mL [facility] Comment: Reference range applies only to specimens collected between 7am-10am. Blood 07/31/2024 11:2 4 AM CDT 07/31/2024 11:25 AM CDT Narrative [facility] - 08/03/2024 11:40 AM CDT FASTING:NO FASTING: NO Dariel Chow MD PhD LAB BLOOD ORDERABLES Fin al Result Performing Organization Address [facility] Co de Phone Number [facility] [address] [facility] [place] [address] * Creatine kinase (CK), total (07/31/2024 11:24 AM CDT) CK 84 20 - 243 U/L [facility] 07/31/2024 11:2 4 AM CDT 07/31/2024 11:25 AM CDT Narrative [facility] - 08/03/2024 11:40 AM CDT FASTING:NO FASTING: NO Dariel Chow MD PhD LAB BLOOD ORDERABLES Fin al Result Performing Organization Address [facility] Co de Phone Number [facility] [address] [place] [address] * Cortisol (07/31/2024 11:24 AM CDT) Cortisol 12.0 mcg/dL [facility] Comment: Reference Range: For 8 a.m.(7-9 a.m.) Specimen: 4.0-22.0 Reference Range: For 4 p.m.(3-5 p.m.) Specimen: 3.0-17.0 * Please interpret above results accordingly * Blood 07/31/2024 11:2 4 AM CDT 07/31/2024 11:25 AM CDT Narrative [facility] - 08/03/2024 11:40 AM CDT FASTING:NO FASTING: NO Dariel Chow MD PhD LAB BLOOD ORDERABLES Fin al Result [facility] [address] [address] * (ABNORMAL) Renal function panel (07/31/2024 11:24 AM CDT) Glucose 85 65 - 99 mg/dL [facility] Comment: Fasting reference interval BUN 36(H) 7 - 25 mg/dL [facility] Creatinine 1.13(H) 0.50 - 1.05 mg/dL [facility] eGFR 55(L) > OR = 60 mL/min/1.7 3m2 [facility] BUN/creat ratio 32(H) 6 - 22 (calc) [facility] Sodium 141 135 - 146 mmol/L [facility] [place] Potassium, pl 4.1 3.5 - 5.3 mmol/L [facility] [place] Chloride 101 98 - 110 mmol/L [facility] [place] CO2 31 20 - 32 mmol/L [facility] [place] Calcium 9.3 8.6 - 10.4 mg/dL [facility] [place] Phosphorus, sr 3.1 2.5 - 4.5 mg/dL [facility] Albumin 4.5 3.6 - 5.1 g/dL [facility] 07/31/2024 11:2 4 AM CDT 07/31/2024 11:25 AM CDT Narrative [facility] - 08/03/2024 11:40 AM CDT FASTING:NO FASTING: NO us Dariel Chow MD PhD LAB BLOOD ORDERABLES Fin al Result [facility] [address] [place] [address] * SCAN - RADIOLOGY/IMAGING (06/12/2024) Anatomical Region [...] compared to prior imaging studies performed at [facility] on 08/19/2012, and at [facility] on 09/06/2017 and 08/25/2022. There are [...] compared to prior imaging studies performed at [facility] on 08/19/2012, and at [facility] on 09/06/2017 and 08/25/2022. There are [...] Comment: For additional information, please refer to http://education.MAG Interactive.Chug/faq/SZU591 (This link is being provided for informational/ educational purposes only.) HepBsAg NON-REACTI VE NON-REACT MAURIZIO [facility] Comment: For additional information, please refer to http://BagThat.Bactest/faq/HFP372 (This link is being provided for informational/ educational purposes only.) Hep B core IgM NON-REACTI VE NON-REACT MAURIZIO [facility] Comment: For additional information, please refer to http://Muufri/faq/OCB681 (This link is being provided for informational/ educational purposes only.) Hep C Ab NON-REACTI VE NON-REACT MAURIZIO [facility] Comment: HCV antibody was non-reactive. There is no laboratory evidence of HCV infection. In most cases, no further action is required. However, if recent HCV exposure is suspected, a test for HCV RNA (test code 96515) is suggested. For additional information please refer to http://Muufri/faq/WHM70u0 (This link is being provided for informational/ educational purposes only.) Blood 12/23/2022 9:46 AM CDT 12/23/2022 9:47 AM CDT Narrative [facility] - 12/25/2022 3:26 PM CDT FASTING:YES FASTING: YES Palma Trevino MALT HOUSE OPERATOR LAB MICROBIOLOGY - NERAL ORDERABLES Final Result [facility] [address] [place] [address] * COLONOSCOPY (11/26/2022 8:14 AM CDT) Anatomical Region Laterality Modality Other Narrative Procedure Note Gómez Kirk MD PhD - 11/26/2022 8:14 AM CDT GI ENDOSCOPY [facility] Patient Name: Sabrina Barajas Procedure Date: 11/26/2022 8:14 AM Date of : 1960 Admit Type: Outpatient Age: 62 Gender: Female Attending MD: Gómez Kirk MD,PHD Room: [facility] ENDOSCOPY ROOM 4 Note Status: Finalized Procedure: [...] passed under direct vision.The CF [id number] endoscope was introducedthrough the anus and advanced to the cecum, identified by appendiceal orifice and ileocecal valve. The colonoscopy was performed without difficulty. The patient tolerated the procedure well. The qualityof the bowel preparation was good. The quality of the bowel preparation was evaluated using the BBPS([place] Bowel Preparation Scale) with scores of: RightColon [...] On: 11/26/2022 8:14 AM Recognized by the [employer] for promoting quality in endoscopy Gómez Kirk MD PhD ENDOSCOPY PROCEDURES F inal Result from Last 3 Months or Most Recently Relevant to Health Maintenance [place] For more information, please contact: [phone] * Full Code (Latest Code Status on File) Date Activated Date Inactivated Comments 11/26/2022 7:28 AM 11/26/2022 1:55 PM Care Teams Beauty Sales Consultant Relationship Specialty Start Date End Date Subha Rodriguez MD [address] [facility] [place] [address] PCP - General Family Medicine 03/07/24 Job Coker MD [address] [place] [address] Referring Physician Psychiatry 06/19/22 Kendra Steiner MD PhD [address] [place] [address] Referring Physician Neurology 06/19/22 Mike Levy MD [address] [facility] [place] [address] Referring Physician Emergency Medicine 06/19/22
--- OUTSIDE RECORDS SUMMARY | 2024-08-06 13:55 | XMS_ITS | Patient Health Record ---
Author Organization [facility] Address [address] [place] [address] Care Team Providers Care Smoke Jumper Supervisor Name Role Phone Jennifer PÉREZ, Subha Primary Care Provider Un available Job Coker Unavailable [phone] David Martin DMD Unavailable Unavailable Diogenes Muñiz Unavailable [phone] Allergies Allergen (clinical drug ingredient) Drug/Non Drug Allergy documented on EMR Reaction Allergy Type Onset Date Status Biaxin Unknown Drug Allergy 05/14/2023 Active clarithromycin Clarithromycin rash Drug Allergy Active Results Component Value Reference Range Notes UDT Reviewed date:10/29/2023 10:17:36 PM Interpretation: Performing Lab: Notes/Report: THC n 0 - 50 ng/ml Cocaine n 0 - 300 ng/ml Amphetamine n 0 - 1000 ng/ml Buprenorphine (BUP) n 0 - 10 ng/ml Secobarbital (Bar) n 0 - 300 ng/ml Oxazepam (BZO) n 0 - 300 ng/ml 9-podszjnbpy-9,4-wqxmuufb-4,3-diphenylpyrrolidine (NAM P) n 0 - 300 ng/ml Methamphetamine (MET) n 0 - 1000 ng/ml Methylenedioxymethamphetamine (MDMA) n 0 - 500 ng/ml Morphine (MOP 300/OLK0164) n 0 - 300 ng/ml Methadone (MTD) n 0 - 300 ng/ml Phencyclidine (PCP) n 0 - 25 ng/ml Nortriptyline (TCA) n 0 - 1000 ng/ml Oxycodone n 0 - 300 ng/ml x n 0 - 300 ng/ml UDT Reviewed date:12/02/2023 08:47:59 AM Interpretation: Performing Lab: Notes/Report: THC n 0 - 50 ng/ml Cocaine n 0 - 300 ng/ml Amphetamine n 0 - 1000 ng/ml Buprenorphine (BUP) n 0 - 10 ng/ml Secobarbital (Bar) n 0 - 300 ng/ml Oxazepam (BZO) n 0 - 300 ng/ml 8-zbsqrldrqz-4,4-fqlscweg-0,3-diphenylpyrrolidine (NAM P) n 0 - 300 ng/ml Methamphetamine (MET) n 0 - 1000 ng/ml Methylenedioxymethamphetamine (MDMA) n 0 - 500 ng/ml Morphine (MOP 300/UVX1744) n 0 - 300 ng/ml Methadone (MTD) [...] Oxazepam (BZO) NEG 0 - 300 ng/ml 7-evyyphoyqx-2,4-croexuhd-6,3-diphenylpyrrolidine (NAM P) NEG 0 - 300 ng/ml Methamphetamine (MET) NEG 0 - 1000 ng/ml Methylenedioxymethamphetamine (MDMA) NEG 0 - 500 ng/ml Morphine (MOP 300/[id number]) NEG 0 - 300 ng/ml Methadone (MTD) NEG 0 - 300 ng/ml Phencyclidine (PCP) NEG 0 - 25 ng/ml Nortriptyline (TCA) NEG 0 - 1000 ng/ml Oxycodone NEG 0 - 300 ng/ml x NEG 0 - 300 ng/ml Reason For Referral No Information Medications Medication SIG (Take, Route, Frequency, Duration) Notes Start Date End Date Status Magnesium Citrate 100 MG as directed Orally Active Iron 18 MG/15ML 15 mL mixed with israel er or juice Orally Once a day Active Lidocaine Viscous HCl 2 % Mouth/Throat for 3 Days Acti ve B12 Active Acyclovir 400 MG TAKE 1 TABLET BY NICOLAS TH DAILY Oral for 90 Days Active lamoTRIgine ER 200 MG 1 tablet Orally On ce a day for 90 days Active Zinc 50 MG 1 tablet Orally Once a day Active Alendronate Sodium 70 MG Oral for 84 Days Active QUEtiapine Fumarate 200 MG 1 tablet Oral Once a day for 90 days Active Riboflavin 400 MG 1 capsule Orally Onc e a day Active SUMAtriptan Succinate 6 MG/0.5ML INJECT 6 MG UNDER THE SKIN NEEDED FOR MIGRAINE. MAY REPEAT DOSE IN 2 HOURS IF NEEDED. DO NOT EXCEED 2 DOSES IN 24 HOURS. Subcutaneous for 28 Days Active Qulipta 60 MG Oral for 30 Days Active Rizatriptan Benzoate 10 MG Oral for 12 Days Active Estradiol 0.1 MG/GM as directed Vaginal Active Trospium Chloride 20 MG 1 tablet at bedtime on an empty stomach Orally Twice a day 03/24/2024 Active Multi Vitamin Active Alpha Lipoic Acid 200 MG 1 capsule Orally 3 times a day 600 mg total 03/24/2024 Active QUEtiapine Fumarate 200 MG TAKE 1 TABLET BY MOUTH EVERY NIGHT for 90 Active busPIRone HCl 5 MG 1 tablet Oral 3 time s a day for 30 days Active clonazePAM 0.5 MG 1 tablet Orally Twic e a day for 30 days 07/06/2024 Active Immunizations Vaccine Route Administration Date Status Comme nts Influenza (split), seasonal, intradermal, preservative free Unknown 12/24/2016 Administered Influenza (split), seasonal, intradermal, preservative free Unknown 12/24/2016 Administered Moderna Covid-19 Vaccine 1st dose Unknown 02/17/2021 Ad ministered Tdap Unknown 04/27/2021 Administered Tdap Unknown 04/27/2021 Administered Social History Tobacco Use: Social History [...] Severe recurrent major depression without psychotic features (91139539) Major depressive disorder, recurrent severe without psychotic features (F33.2) Active confirmed Problem Generalized anxiety disorder (04035662) Generalized anxiety disorder (F41.1) Active confirmed Problem Primary insomnia (6624769) Primary insomnia (F51.01) Active confirmed Problem Vitamin B12 deficiency (277383572) Vitamin B12 deficiency (E53.8) 4 Active confirmed Problem Chronic intractable migraine without aura (982915217577702 ) Intractable chronic migraine without aura and without status migrainosus (G43.719) 4 Active confirmed Problem Burning mouth syndrome (370808727) Burning mouth syndrome (K14.6) 3 Active confirmed Problem Vertigo (672677937) Vertigo (R42) 5 Active confirmed Vital Signs Heart Rate 90 /min 07/06/2024 Blood pressure diastolic 71 mm Hg 07/06/2024 Height-cm 162.56 cm 07/06/2024 Weight-kg 52.16 kg 07/06/2024 Height 64.00 in 07/06/2024 Blood pressure systolic 110 mm Hg 07/06/2024 Weight 115 lbs 07/06/2024 BMI 19.74 kg/m2 07/06/2024 Encounters Encounter Location Date Provider Diagnosis [facility] [address] [place] [address] 09/06/2023 Job Coker [facility] [address] [place] [address] 09/14/2023 Job Coker [facility] [address] [address] 09/16/2023 Job Coker Generalized anxiety disorder F41.1 [facility] [address] [place] [address] 09/17/2023 Job Coker Generalized anxiety disorder F41.1 [facility] [address] [place] [address] 10/18/2023 Job Coker [facility] [address] [place] [address] 11/25/2023 Job Coker Major depressive disorder, recurrent severe without psychotic features F33.2 [facility] [address] [place] [address] 11/30/2023 Job Coker [facility], [facility] [address] [place] [address] 03/27/20[facility] [address] [place] [address] 03/28/2024 Job Sheela Major depressive disorder, recurrent severe without psychotic features F33.2 [facility], [facility] [address] [place] [address] 04/19/2024 Job [facility], [facility] [address] [place] [address] 04/26/2024 Job [facility], [facility] [address] [place] [address] 06/22/2024 Job [facility], [facility] [address] [place] [address] 06/26/2024 [facility], [facility] [address] [place] [address] 10/19/2023 [facility], [facility] [address] [place] [address] 04/05/2024 Job [facility], [facility] [address] [place] [address] 04/05/2024 [facility] [address] [place] [address] 04/06/2024 Job Sheela Major depressive disorder, recurrent severe without psychotic features F33.2 [facility], [facility] [address] [place] [address] 05/10/2024 [facility] [address] [place] [address] 05/10/2024 Job [facility], [facility] [address] [place] [address] 05/10/2024 [facility], [facility] [address] [place] [address] 07/03/2024 [facility], [facility] [address] [place] [address] 08/01/2024 Job Sheela [facility] [address] [place] [address] 08/13/2023 Job Sheela Major depressive disorder, recurrent severe without psychotic features F33.2 ; Primary insomnia F51.01 ; Intractable chronic migraine without aura and without status migrainosus G43.719 ; Vitamin B12 deficiency E53.8 and Generalized anxiety disorder F41.1 [facility] [address] [place] [address] 10/13/2023 Job Sheela Major depressive disorder, recurrent severe without psychotic features F33.2 ; Generalized anxiety disorder F41.1 ; Primary insomnia F51.01 ; Intractable chronic migraine without aura and without status migrainosus G43.719 and Vitamin B12 deficiency E53.8 [facility] [address] [place] [address] 10/19/2023 Diogenes Clubb Major depressive disorder, recurrent severe without psychotic features F33.2 ; Generalized anxiety disorder F41.1 and Primary insomnia F51.01 [facility] [address] [place] [address] 10/27/2023 Job Sheela Major depressive disorder, recurrent severe without psychotic features F33.2 ; Generalized anxiety disorder F41.1 and Primary insomnia F51.01 [facility] [address] [place] [address] 12/02/2023 Job Sheela Major depressive disorder, recurrent severe without psychotic features F33.2 ; Generalized anxiety disorder F41.1 and Primary insomnia F51.01 [facility] [address] [place] [address] 01/03/2024 Job Sheela Major depressive disorder, recurrent severe without psychotic features F33.2 ; Generalized anxiety disorder F41.1 and Primary insomnia F51.01 [facility] [address] [place] [address] 01/26/2024 Job Sheela Major depressive disorder, recurrent severe without psychotic features F33.2 ; Generalized anxiety disorder F41.1 and Primary insomnia F51.01 [facility] [address] [place] [address] 02/28/2024 Job Sheela Major depressive disorder, recurrent severe without psychotic features F33.2 ; Generalized anxiety disorder F41.1 and Primary insomnia F51.01 [facility] [address] [address] 03/24/2024 Job Sheela Major depressive disorder, recurrent severe without psychotic features F33.2 ; Generalized anxiety disorder F41.1 and Primary insomnia F51.01 [facility] [address] [place] [address] 04/27/2024 Job Sheela Major depressive disorder, recurrent severe without psychotic features F33.2 ; Generalized anxiety disorder F41.1 and Primary insomnia F51.01 [facility] [address] [place] [address] 05/11/2024 Job Sheela Encounter for screen ing for cardiovascular disorders Z13.6 ; Burning mouth syndrome K14.6 ; Vertigo R42 ; Encounter for screening for depression Z13.31 ; Major depressive disorder, recurrent severe without psychotic features F33.2 ; Generalized anxiety disorder F41.1 and Primary insomnia F51.01 [facility] [address] [address] 06/08/2024 Job Sheela Encounter for screen ing for depression Z13.31 ; Encounter for screening for cardiovascular disorders Z13.6 ; Burning mouth syndrome K14.6 ; Vertigo R42 ; Major depressive disorder, recurrent severe without psychotic features F33.2 ; Generalized anxiety disorder F41.1 and Primary insomnia F51.01 [facility] [address] [address] 07/06/2024 Job Sheela Major depressive disorder, recurrent severe without psychotic features F33.2 ; Generalized anxiety disorder F41.1 ; Primary insomnia F51.01 ; Burning mouth syndrome K14.6 ; Vertigo R42 ; Encounter for screening for depression Z13.31 and Encounter for screening for cardiovascular disorders Z13.6 [facility] [address] [address] 01/10/2024 Job Sheela Major depressive disorder, recurrent severe without psychotic features F33.2 ; Generalized anxiety disorder F41.1 and Primary insomnia F51.01 Assessments Encounter Date Diagnosis (ICD Code) Assessment [...] any necessary adjustments to the treatment plan. 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) 04/27/2024 Major depressive disorder, recurrent severe without psychotic features (ICD-10 - F33.2) Electronic Prior Authorization was requested for Desvenlafaxine ER 50 MG Tablet Extended Release 24 Hour. Provider can order medication once approval received. 05/11/2024 Encounter for screening for cardiovascular disorders (ICD-10 - Z13.6) 12/02/2023 Major depressive disorder, recurrent severe without [...] continue attending counseling sessions with Cele at [facility]. Generalized Anxiety Disorder - Assessment: Patient reports [...] making one of them her power of bankruptcy attorney for health. - Suggest the patient to [...] the patient's progress and medication needs. 10/27/2023 Major depressive disorder, recurrent severe without [...] show negative results for SSA antibodies and [place] Citizen antibodies. - Plan: - Await results of [...] about their ongoing health issues by then. 10/19/2023 Major depressive disorder, recurrent severe without [...] Follow-up - Plan: Follow up with Dr. Ckoer in one week. 03/28/2024 Major depressive disorder, recurrent severe without psychotic features (ICD-10 - F33.2) Electronic Prior Authorization was requested for Pristiq 50 MG Tablet Extended Release 24 Hour. Provider can order medication once approval received. 06/08/2024 Encounter for screening for depression (ICD-10 - Z13.31) 01/03/2024 Major depressive disorder, recurrent severe without [...] which may affect assessment of anxiety symptoms. 11/25/2023 Major depressive disorder, recurrent severe without psychotic features (ICD-10 - F33.2) 07/06/2024 Major depressive disorder, recurrent severe without psychotic features (ICD-10 - F33.2) Imported from [facility]: The patient had several encounters with [facility] from May to June 2024. On June 11, 2024, the patient had a nurse triage with Dr. Subha Rodriguez. A subsequent order was placed on June 12, 2024, by Provider Scanning. The patient had an office visit on June 21, 2024, with Dr. Subha Rodriguez, during which several health issues were identified, including bilateral hip pain, bowel obstruction, mixed hyperlipidemia, osteopenia at an unspecified location, and stage 3a chronic kidney disease. A follow-up for these results was conducted on June 29, 2024, with Leila Woods. 07/06/2024 Generalized anxiety disorder (ICD-10 - F41.1) Imported from [facility]: The patient had several encounters with [facility] from May to June 2024. On June 11, 2024, the patient had a nurse triage with Dr. Subha Rodriguez. A subsequent order was placed on June 12, 2024, by Provider Scanning. The patient had an office visit on June 21, 2024, with Dr. Subha Rodriguez, during which several health issues were identified, including bilateral hip pain, bowel obstruction, mixed hyperlipidemia, osteopenia at an unspecified location, and stage 3a chronic kidney disease. A follow-up for these results was conducted on June 29, 2024, with Leila Woods. 02/28/2024 Major depressive disorder, recurrent severe without [...] week and plans to volunteer at the [facility]. Patient has a good relationship with siblings and nieces, which provides strong social support. - Plan: - Encourage patient to continue engaging in social activities and maintaining relationships. Follow-up - Assessment: Patient requests to extend the time between appointments to 3 months. - Plan: - Schedule a follow-up appointment in 3 months. 01/26/2024 Major depressive disorder, recurrent severe without [...] exercising and pursuing volunteer opportunities at the [facility]. - Support the patient in managing her relationship with her daughter and navigating insurance issues. Follow-up - Plan: - Schedule a follow-up appointment after to assess the effectiveness of the increased quetiapine dosage and overall mental health status. - Ensure the patient has an adequate supply of medications and adjust prescriptions as needed. - Next appointment may be after Eva due to provider's time off. 01/10/2024 Major depressive disorder, recurrent severe without [...] for a month. The daughter lives in [place]. - Plan: Encourage the patient to seek support from friends, family, or a therapist to help cope with family stressors. Follow-up - Plan: Schedule a follow-up appointment in 2 weeks to assess the patient's response to the increased clonazepam dosage and overall mental health status. Patient agreed to the 2-week follow-up. 10/13/2023 Major depressive disorder, recurrent severe without [...] when receiving text messages, fearing contact from [facility]. - Plan: - Encourage continued support from [...] any necessary adjustments to the treatment plan. 04/06/2024 Major depressive disorder, recurrent severe without psychotic features (ICD-10 - F33.2) 03/24/2024 Major depressive disorder, recurrent severe without psychotic features (ICD-10 - F33.2) Electronic Prior Authorization was requested for Desvenlafaxine ER 50 MG Tablet Extended Release 24 Hour. Provider can order medication once approval received. 03/24/2024 Generalized anxiety disorder (ICD-10 - F41.1) 10/13/2023 [...] in three months or sooner if needed 01/10/2024 Generalized anxiety disorder (ICD-10 - F41.1) [...] for a month. The daughter lives in [place]. - Plan: Encourage the patient to seek support from friends, family, or a therapist to help cope with family stressors. Follow-up - Plan: Schedule a follow-up appointment in 2 weeks to assess the patient's response to the increased clonazepam dosage and overall mental health status. Patient agreed to the 2-week follow-up. 01/26/2024 Generalized anxiety disorder (ICD-10 - F41.1) [...] exercising and pursuing volunteer opportunities at the [facility]. - Support the patient in managing her relationship with her daughter and navigating insurance issues. Follow-up - Plan: - Schedule a follow-up appointment after Eva to assess the effectiveness of the increased quetiapine dosage and overall mental health status. - Ensure the patient has an adequate supply of medications and adjust prescriptions as needed. - Next appointment may be after Andres due to provider's time off. 02/28/2024 Generalized anxiety disorder (ICD-10 - F41.1) [...] week and plans to volunteer at the [facility] [employer]. Patient has a good relationship with siblings and nieces, which provides strong social support. - Plan: - Encourage patient to continue engaging in social activities and maintaining relationships. Follow-up - Assessment: Patient requests to extend the time between appointments to 3 months. - Plan: - Schedule a follow-up appointment in 3 months. 07/06/2024 Primary insomnia (ICD-10 - F51.01) Imported from [facility]: The patient had several encounters with [facility] from May to June 2024. On June 11, 2024, the patient had a nurse triage with Dr. Subha Rodriguez. A subsequent order was placed on June 12, 2024, by Provider Scanning. The patient had an office visit on June 21, 2024, with Dr. Subha Rodriguez, during which several health issues were identified, including bilateral hip pain, bowel obstruction, mixed hyperlipidemia, osteopenia at an unspecified location, and stage 3a chronic kidney disease. A follow-up for these results was conducted on June 29, 2024, with Leila Woods. 01/03/2024 Generalized anxiety disorder (ICD-10 - F41.1) [...] which may affect assessment of anxiety symptoms. 09/16/2023 Generalized anxiety disorder (ICD-10 - F41.1) 10/19/2023 Generalized anxiety disorder (ICD-10 - F41.1) [...] up with Dr. Coker in one week. 10/27/2023 Generalized anxiety disorder (ICD-10 - F41.1) [...] show negative results for SSA antibodies and [place] Citizen antibodies. - Plan: - Await results of [...] about their ongoing health issues by then. 12/02/2023 Generalized anxiety disorder (ICD-10 - F41.1) Major Depressive Disorder - Assessment: Patient reports no significant change in mood and depression since the last visit. Currently on escitalopram 10mg daily (half tablet of 20mg). - Plan: - Continue escitalopram at the current dose and monitor for any changes in mood. - Encourage the patient to continue attending counseling sessions with Cele higgins [facility]. Generalized Anxiety Disorder - Assessment: Patient reports [...] making one of them her power of bankruptcy attorney for health. - Suggest the patient to [...] assess the patient's progress and medication needs. 05/11/2024 Encounter for screening for depression (ICD-10 - Z13.31) 04/27/2024 Generalized anxiety disorder (ICD-10 - F41.1) 08/13/2023 Generalized anxiety disorder (ICD-10 - F41.1) [...] any necessary adjustments to the treatment plan. 06/08/2024 Encounter for screening for cardiovascular disorders (ICD-10 - Z13.6) 04/27/2024 Primary insomnia (ICD-10 - F51.01) 06/08/2024 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) 05/11/2024 Major depressive disorder, recurrent severe without psychotic features (ICD-10 - F33.2) Electronic Prior Authorization was requested for Desvenlafaxine ER 50 MG Tablet Extended Release 24 Hour. Provider can order medication once approval received. 12/02/2023 Primary insomnia (ICD-10 - F51.01) Major Depressive Disorder - Assessment: Patient reports no significant change in mood and depression since the last visit. Currently on escitalopram 10mg daily (half tablet of 20mg). - Plan: - Continue escitalopram at the current dose and monitor for any changes in mood. - Encourage the patient to continue attending counseling sessions with Cele [facility]. Generalized Anxiety Disorder - Assessment: Patient reports [...] making one of them her power of bankruptcy attorney for health. - Suggest the patient to [...] show negative results for SSA antibodies and [place] Citizen antibodies. - Plan: - Await results of [...] about their ongoing health issues by then. 10/19/2023 Primary insomnia (ICD-10 - F51.01) 1. [...] up with Dr. Coker in one week. 01/03/2024 Primary insomnia (ICD-10 - F51.01) Anxiety [...] which may affect assessment of anxiety symptoms. 07/06/2024 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) Imported from [facility]: The patient had several encounters with [facility] from May to June 2024. On June 11, 2024, the patient had a nurse triage with Dr. Subha Rodriguez. A subsequent order was placed on June 12, 2024, by Provider Scanning. The patient had an office visit on June 21, 2024, with Dr. Subha Rodriguez, during which several health issues were identified, including bilateral hip pain, bowel obstruction, mixed hyperlipidemia, osteopenia at an unspecified location, and stage 3a chronic kidney disease. A follow-up for these results was conducted on June 29, 2024, with Leila Woods. 10/13/2023 Intractable chronic migraine without aura and [...] in three months or sooner if needed 02/28/2024 Primary insomnia (ICD-10 - F51.01) Mood [...] week and plans to volunteer at the [facility] [employer]. Patient has a good relationship with siblings and nieces, which provides strong social support. - Plan: - Encourage patient to continue engaging in social activities and maintaining relationships. Follow-up - Assessment: Patient requests to extend the time between appointments to 3 months. - Plan: - Schedule a follow-up appointment in 3 months. 01/26/2024 Primary insomnia (ICD-10 - F51.01) Anxiety [...] exercising and pursuing volunteer opportunities at the [facility]. - Support the patient in managing her relationship with her daughter and navigating insurance issues. Follow-up - Plan: - Schedule a follow-up appointment after Eva to assess the effectiveness of the increased quetiapine dosage and overall mental health status. - Ensure the patient has an adequate supply of medications and adjust prescriptions as needed. - Next appointment may be after Andres due to provider's time off. 01/10/2024 Primary insomnia (ICD-10 - F51.01) Severe [...] for a month. The daughter lives in [place]. - Plan: Encourage the patient to seek support from friends, family, or a therapist to help cope with family stressors. Follow-up - Plan: Schedule a follow-up appointment in 2 weeks to assess the patient's response to the increased clonazepam dosage and overall mental health status. Patient agreed to the 2-week follow-up. 03/24/2024 Primary insomnia (ICD-10 - F51.01) 10/13/2023 Vitamin B12 deficiency (ICD-10 - E53.8) [...] November 01 - Continue care under Dr. eRyez from [facility] and ENT referral - Address [...] in three months or sooner if needed 07/06/2024 Vertigo (ICD-10 - R42) Imported from [employer]: The patient had several encounters with [facility] from May to June 2024. On June 11, 2024, the patient had a nurse triage with Dr. Subha Rodriguez. A subsequent order was placed on June 12, 2024, by Provider Scanning. The patient had an office visit on June 21, 2024, with Dr. Subha Rodriguez, during which several health issues were identified, including bilateral hip pain, bowel obstruction, mixed hyperlipidemia, osteopenia at an unspecified location, and stage 3a chronic kidney disease. A follow-up for these results was conducted on June 29, 2024, with Leila Woods. 06/08/2024 Vertigo (ICD-10 - R42) 05/11/2024 Generalized anxiety disorder (ICD-10 - F41.1) 05/11/2024 Primary insomnia (ICD-10 - F51.01) 06/08/2024 Major depressive disorder, recurrent severe without psychotic features (ICD-10 - F33.2) 07/06/2024 Encounter for screening for depression (ICD-10 - Z13.31) Imported from [employer]: The patient had several encounters with [facility] from May to June 2024. On June 11, 2024, the patient had a nurse triage with Dr. Subha Rodriguez. A subsequent order was placed on June 12, 2024, by Provider Scanning. The patient had an office visit on June 21, 2024, with Dr. Subha Rodriguez, during which several health issues were identified, including bilateral hip pain, bowel obstruction, mixed hyperlipidemia, osteopenia at an unspecified location, and stage 3a chronic kidney disease. A follow-up for these results was conducted on June 29, 2024, with Leila Woods. 07/06/2024 Encounter for screening for cardiovascular disorders (ICD-10 - Z13.6) Imported from [employer]: The patient had several encounters with [facility] from May to June 2024. On June 11, 2024, the patient had a nurse triage with Dr. Subha Rodriguez. A subsequent order was placed on June 12, 2024, by Provider Scanning. The patient had an office visit on June 21, 2024, with Dr. Subha Rodriguez, during which several health issues were identified, including bilateral hip pain, bowel obstruction, mixed hyperlipidemia, osteopenia at an unspecified location, and stage 3a chronic kidney disease. A follow-up for these results was conducted on June 29, 2024, with Leila Woods. 06/08/2024 Generalized anxiety disorder (ICD-10 - F41.1) 06/08/2024 Primary insomnia (ICD-10 - F51.01) 06/08/2024 Other Sabrina Santamaria, a female patient [...] anxiety symptoms. During a past hospitalization in [place], buspirone was helpful. Antidepressant trials, including desvenlafaxine [...] coping strategies: yoga, exercise classes, yard work, [employer] volunteering, and companionship with new puppy - Follow up in 4 weeks Disclaimer: This note has been transcribed using speech recognition software and serves as a reflection of the patient's visit. While efforts have been made to ensure accuracy, there may be errors, including multifold operator inaccuracies and misspellings of medication names. This document should not be considered a verbatim record, and any discrepancies should be verified with the provider. 03/24/2024 Other Anxiety - Assessment: Patient reports [...] Continue physical therapy. - Follow up with small package and bundle sorter clerk and neurologist as scheduled. - Monitor symptoms [...] benign positional vertigo. Upcoming appointment with Dr. Martin, a specialist in [place], on May 18. Previous ENT specialist, Dr. [...] efforts have been made to correct them. 07/06/2024 Carolyn Santamaria, a female patient with a history of anxiety and depression, presents with worsening anxiety and feelings of abandonment following a recent hospitalization for bowel obstruction. Anxiety Assessment: Patient reports increased anxiety following a week-long hospitalization for bowel obstruction in mid-May. She expresses feeling tired of fighting this anxiety and describes it as getting old. The exacerbation may be related to the temporary discontinuation of her psychiatric medications during hospitalization. Patient also reports feelings of abandonment and being second best to her sister, particularly in relation to her nieces, which appears to be contributing to her anxiety. Plan: - Continue BuSpar 1 tablet PO TID - Continue clonazepam 0.5 mg PO BID - Encourage ongoing work with counselor to address feelings of abandonment and self-worth - Follow up in 1 month Depression Assessment: Patient reports intermittent depressive symptoms, describing them as sporadic with moments of depression. She specifically mentions the past two days as bad days. Her depressive symptoms appear to be closely linked to her feelings of abandonment and desire to be number one to somebody, particularly in relation to her family dynamics and the lack of contact from her children during her recent hospitalization. Plan: - Continue quetiapine 200 mg (due for refill this month) - Continue lamotrigine 200 mg (due for refill) - Encourage ongoing work with counselor to address family dynamics and self-esteem issues - Follow up in 1 month Recent hospitalization for bowel obstruction Assessment: Patient reports a week-long hospitalization from June 12 to June 19 (Wednesday to Wednesday) for a small bowel obstruction. The obstruction resolved without surgical intervention. Patient was instructed to increase fiber intake and try MiraLAX for ongoing constipation issues. She reports limited success with this regimen and plans to discuss it further with her bar catcher in July. Plan: - Encourage adherence to recommended fiber intake and MiraLAX regimen - Advise patient to follow up with bar catcher as scheduled in July to address ongoing constipation issues Disclaimer: This note has been transcribed using speech recognition software and serves as a reflection of the patient's visit. While efforts have been made to ensure accuracy, there may be errors, including multifold operator inaccuracies and misspellings of medication names. This document should not be considered a verbatim record, and any discrepancies should be verified with the provider. Imported from [facility]: The patient had several encounters with [facility] from May to June 2024. On June 11, 2024, the patient had a nurse triage with Dr. Subha Rodriguez. A subsequent order was placed on June 12, 2024, by Provider Scanning. The patient had an office visit on June 21, 2024, with Dr. Subha Rodriguez, during which several health issues were identified, including bilateral hip pain, bowel obstruction, mixed hyperlipidemia, osteopenia at an unspecified location, and stage 3a chronic kidney disease. A follow-up for these results was conducted on June 29, 2024, with Leila Woods. 11/25/2023 Other Electronic Prior Authorization was requested for QUEtiapine Fumarate 150 MG Tablet. Provider can order medication once approval received. Plan Of Treatment Next Appt Details Provider Name:Job Coker , 10/19/2024 11:15:00 AM, [address] [place], [place], [address], Insurance Providers Payer Name Payer Address Payer Phone Subscriber Number Group Number Insured Name Patient Relationship to Insured Coverage Start Date Coverage End Date [facility] [address] [place] [address] [id number] SABRINA SANTAMARIA Self - patient is the insured Medical (General) History Medical History History ICD Code Problems: Generalized anxiety disorder Major depression in remission Primary insomnia Past Psychiatric History: Anxiety Disord er,Major Depressive Episode undefined Surgical History Surgery Date(Month/Year) Hysterectomy (50086) Oophorectomy (04217) Sinus surgery
--- OUTSIDE RECORDS SUMMARY | 2024-08-06 13:55 | XMS_ITS | Clinical Summary ---
Author Organization [facility] Address [address] [place] [address] Care Team Providers Care Bingo Caller Name Role Phone Candy Rankin RN Unavailable [phone] Subha Rodriguez MD Primary Care Provider [phone] Source Comments [facility],non-owned Affiliates and Associated Physician Practices is amultiple site organization consisting of ambulatory clinics and hospital sitesin [place] and [place]. This disclosure is being madepursuant to the Care Everywhere program and may not contain all information available regarding this patient. Last updated 17.[facility] [employer] Allergies Active Allergy Reactions Criticality Noted Date Comments Clarithromycin Rash,Nausea and/or Vomiting Medium 06/29 Medications * Be aware that medications may not be up to date on this document. Alwaysverify current medications with the patient. acyclovir (Zovirax) 400 MG tablet Take 1 (one) tablet by mouth once daily as directed. 03/28/19 24 Active alendronate (Fosamax) 70 MG tablet Take 1 (one) tablet by mouth every 7 days 03/26/19 24 Active estradiol (Estrace) 0.1 MG/GM vaginal cream Insert 1 applicator into the vagina as directed 02/23/20 23 Active ondansetron, disintegratin g, (Zofran ODT) 4 MG tablet Take 2.5 (two and one-half) tablets by mouth once daily 03/28/19 24 Active rizatriptan, disintegratin g, (Maxalt LOLLYPOP MACHINE OPERATOR) 10 MG tablet Take 1 (one) tablet by mouth as needed 03/18/19 24 Active SUMAtriptan Succinate 6 MG/0.5ML Inject 6 mg subcutaneously as directed 02/03/20 23 Active terbinafine (LamISIL) 250 MG tablet Take 1 (one) tablet by mouth once daily 30 tablet 2 05/07/19 24 Active trospium (Sanctura) 20 MG tablet Take 1 (one) tablet by mouth 2 times daily 02/17/20 23 Active Magnesium Citrate 100 MG CAPS Take 500 mg by mouth once daily Active Calcium Carb-Cholecal ciferol (CALTRATE 600+D3 PO) Take 600 mg by mouth once daily Active ferrous sulfate 325 (65 FE) MG tablet Take 1 (one) tablet by mouth once daily Active Multiple Vitamin (MULTI-VITAMI N PO) Take 1 tablet by mouth once daily Active Atogepant (Qulipta) 60 MG TABS Take 1 (one) tablet by mouth once daily Active Cyanocobalami n (B-12) 100 MCG Take 4 tablets by mouth once daily Active Docusate Sodium 250 MG Take 1 (one) capsule by mouth once daily Active escitalopram (Lexapro) 20 MG tablet Take 1 (one) tablet by mouth once daily 10/27/19 24 Active clonazePAM (KlonoPIN) 0.5 MG tablet Take 1 (one) tablet by mouth 2 times daily 11/26/19 23 Active lamoTRIgine XR 24hr (LaMICtal XR) 200 MG tablet Take 1 (one) tablet by mouth once daily 01/04/20 24 Active Alpha-Lipoic Acid 600 MG Take 600 mg by mouth once daily Active Pristiq 50 MG tablet Take 1 (one) tablet by mouth once daily 03/29/19 25 Active Riboflavin 400 MG Take 1 tablet by mouth once daily Active traZODone (Desyrel) 50 MG tablet Take 1 (one) tablet by mouth at bedtime 03/11/19 25 Active diazePAM (Valium) 5 MG tablet Take 1 (one) tablet by mouth 2 times daily 05/12/19 25 Active QUEtiapine (SEROquel) 200 MG tablet Take 1 (one) tablet by mouth once daily Active cyclobenzapri ne (Flexeril) 10 MG tablet Take 1 (one) tablet by mouth at bedtime 30 tablet 05/19/19 25 Active lidocaine viscous (Xylocaine) 2 % solution SWISH AND SPIT 5 ML BY MOUTH EVERY 4 HOURS NEEDED FOR SORE THROAT OR PAIN 100 mL 3 07/15/19 25 Active lidocaine viscous (Xylocaine) 2 % solution Swish and spit 5 mL every 4 hours as needed for Sore Throat or Pain 100 mL 3 03/20/19 25 2024 Discontinued Active Problems Problem Noted Date [...] Encounters Date Type Department Care Team Description 07/14/2024 Refill [facility] - ENT [address] [place] [phone] Ren Adame MD Refill Request 05/18/2024 1:00 PM CDT Office Visit [facility] - ENT [address] [place] [phone] David Martin, DMD Burning mouth syndrome (Primary Dx); Tongue thrusting; Bruxism; Exostoses of jaw; Morsicatio buccarum 05/18/2024 Travel from Last 3 Months Immunizations Immunization Administration [...] 36.7 C (98.1 F) 04/19/2024 3:08 PM GENERATION TECHNICIAN Respiratory Rate 16 04/19/2024 3:08 PM GENERATION TECHNICIAN Oxygen Saturation 96% 02/10/2024 7:53 AM GENERATION TECHNICIAN Inhaled Oxygen Concentration - - Weight 52.6 kg (116 lb) 05/18/2024 1:12 PM CDT Height 162.6 cm (5' 4) 05/18/2024 1:12 PM CDT Body Mass Index 19.91 05/18/2024 1:12 PM CDT Plan of Treatment Upcoming Encounters Date Type Department Care Team (Late st Contact Info) Description 11/16/2024 1:00 PM CDT Office Visit [facility] - ENT [facility] [place] [address] David Martin, DMD [address] [place] [address] [place] [address] Health Maintenance Due Date Last Done Comments COLOGUARD (AGES 45-75) - COLON CA SCREENING [address] COLONOGRAPHY - COLON CA SCREENING [...] (2 - Td or Tdap) 04/27/2031 04/27/2021 COLON MONITORING 11/26/2032 11/26/2022 COLONOSCOPY - COLON CA SCREENING 11/26/2032 11/26/2022 [...] this topic Medical Devices Implanted Type Area Account Review Specialist Device Identifier Shelf Expiration Date Model / Serial / Lot Dev Sys Sgl Obtryx Implanted:Qty: 1 on 07/17/2014 by Katya Mccall MD at [facility] [employer] 04/29/2017 [id number] / / [id number] Gr Tiss Rep Xenform 4 X 7cm Implanted:Qty: 1 on 07/17/2014 by Katya Mccall MD at [facility] [employer] [id number] / / [id number] Insurance [employer]AN[employer] Advance Directives * Full Code (Latest Code Status on File) Date Activated Date Inactivated Comments 07/17/2014 1:33 PM 07/18/2014 4:00 PM Care Teams Bingo Caller Relationship Specialty Start Date End Date Subha Rodriguez MD [address] [facility] [address] [address] PCP - General Family Medicine 05/18/24 Candy Rankin, RN Traffic Recorder 07/17/14
--- OUTSIDE RECORDS SUMMARY | 2024-08-06 13:55 | XMS_ITS | Encounter Summary ---
Author Organization [facility] Address [address] [place] [address] Care Team Providers Care Window Cutter Name Role Phone Claudio Suazo MD Primary Care Provider [phone] Job Coker MD Unavailable [phone] Kendra Steinre MD PhD Unavailable [phone] Mike Levy MD Unavailable [phone] Subha Rodriguez MD Primary Care Provider [phone] Encounter Details Date Type Department Care Team (Late st Contact Info) Description 09/01/2023 Telephone [facility] [address] [facility] [address] [facility] [address] [place] [address] Cele Iraheta, RN Social History [...] on file 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 Gender Identity Female 11/21/2020 8:28 AM CDT Sexual Orientation Not on file documented as of this encounter Plan of Treatment Scheduled Procedures Name Priority Associated Diagnoses Date/Ti me ESOPHAGOGASTRODUODENOSCOPY Iron deficiency anemia, unspecified iron deficiency anemia type documented as of this encounter Visit Diagnoses Not on filedocumented in this encounter Care Teams Window Cutter Relationship Specialty Start Date End Date Claudio Suazo MD PCP - General 06/19/16 03/06/24 Subha Rodriguez MD [address] [place] [phone] PCP - General Family Medicine 03/07/24 Job Coker MD [address] [place] [address] Referring Physician Psychiatry 06/19/22 Kendra Steiner MD PhD [address] [place] [address] Referring Physician Neurology 06/19/22 Mike Levy MD [address] [place] [address] Referring Physician Emergency Medicine 06/19/22 documented as of this encounter
--- OUTSIDE RECORDS SUMMARY | 2024-08-06 13:55 | XMS_ITS | Encounter Summary ---
Author Organization [facility] Address [address] [place] [address] Care Team Providers Care Consumer Experience Consultant Name Role Phone Claudio Suazo MD Primary Care Provider [phone] Job Coker MD Unavailable [phone] Kendra Steiner MD PhD Unavailable [phone] Mike Levy MD Unavailable [phone] Subha Rodriguez MD Primary Care Provider [phone] Reason for Visit * Reason Onset Date Comments ready to schedule 06/23/2022 Encounter Details Date Type Department Care Team (Late st Contact Info) Description 06/23/2022 Telephone [facility] Specialty Services [address] [place] [address] Miscellaneous, Not In File ready to schedule [...] on file 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 Gender Identity Female 11/21/2020 8:28 AM CDT Sexual Orientation Not on file documented as of this encounter Plan of Treatment Scheduled Procedures Name Priority Associated Diagnoses Date/Ti me ESOPHAGOGASTRODUODENOSCOPY Iron deficiency anemia, unspecified iron deficiency anemia type documented as of this encounter Visit Diagnoses Not on filedocumented in this encounter Care Teams Consumer Experience Consultant Relationship Specialty Start Date End Date Claudio Suazo MD PCP - General 06/19/16 03/06/24 Subha Rodriguez MD [address] [place] [id number] PCP - General Family Medicine 03/07/24 Job Coker MD [address] [place] [address] Referring Physician Psychiatry 06/19/22 Kendra Steiner MD PhD [address] [place] [address] Referring Physician Neurology 06/19/22 Mike Levy MD [address] [place] [id number] Referring Physician Emergency Medicine 06/19/22 documented as of this encounter
--- OUTSIDE RECORDS SUMMARY | 2024-08-06 13:55 | XMS_ITS | Continuity of Care Document ---
Author Organization [employer] [facility] Address [address] [place] [address] [address] [place] [address] Phone Care Team Providers Care Consulting Solution Manager Name Role Phone Barrington PT,MPT,ATC, Mike Unavailable Unavai lable Procedures Procedure Date Therapeutic Activities Neuromuscular Re-Ed Therapeutic Exercise Therapeutic Activities Neuromuscular Re-Ed Therapeutic Exercise Therapeutic Activities Neuromuscular Re-Ed Therapeutic Exercise Therapeutic Activities Neuromuscular Re-Ed Therapeutic Exercise Doc neg elder mal no [...] Copied on Encounter [facility] [address] [facility], [place], [place], [id number], tel:[phone] [place] No Information Nov-2 3 [place], [place], [place]. Referring Provider: Palma Trevino, [address] [place] [address], [address]. tel:[phone] [place] [address] [address], [place], [place], [id number], tel:[phone] [place] No Information Nov-1 3 [place], [place], [place]. Referring Provider: Palma Trevino, [address] [place] [address], [address]. tel:[phone] [facility] [address], [place], [place], [id number], tel:[phone] [place] No Information Nov-1 3 [facility]. Referring Provider: Palma Trevino, [address] [place] [address], [address]. tel:[phone] [facility] [address], [place], [place], [id number], [place] tel:[phone] [place] No Information Nov-0 3 [place], [place]. Referring Provider: Palma Trevino, [address] [place] [address], [address]. tel:[phone] [facility] [address], [place], [place], [id number], tel:[phone] [place] No Information Nov-0 1-202 3 [place], [place]. Referring Provider: Palma Trevino, [address] [place] [address], [address]. tel:[phone] [facility], [address], [place], [place], [id number], [place] tel:[phone] [place] Pain in left shoulderWeakness May-1 5-201 9 Mak[facility] Luke. . Referring Provider: Claudio Suazo, [address] [place] [address], [place], [address]. tel:[phone] [facility], [address], [place], [place], [id number], [place] tel:[phone] [place] Pain in left shoulderWeakness May-0 8-201 9 [facility]. . Referring Provider: Claudio Suazo, [address] [place] [address], [place], [address]. tel:[phone] [facility], [address], [place], [place], [id number], [place] tel:[phone] [place] Pain in left shoulderWeakness May-0 1-201 9 [facility]. . Referring Provider: Claudio Suazo, [address] [place] [address], [place], [address]. tel:[phone] [facility] [address], [place], [place], [id number], [place] tel:[phone] [place] Pain in left shoulderWeakness Apr-2 4-201 9 [facility] Luke. . Referring Provider: Claudio Suazo, [address] [place] [address], [place], [address]. tel:[phone] [facility], [address], [place], [place], [id number], [place] tel:[phone] [place] Pain in left shoulderWeakness Apr-1 6-201 9 [facility] Luke. . Referring Provider: Claudio Suazo [address] [place] [address], [place], [address]. tel:[phone] [facility], [address] [facility] [address], [place], [place], [id number], [place] tel:[phone] [place] Pain in left shoulderWeakness 9 M[address] Toth. . Referring Provider: Claudio Suazo, [address] [address], [place], [address]. tel:[phone] Family History Family Member Type Diagnosis Age At Onset No Information Payers Payer name Insurance type Covered republican ID Authorchaa debbie(s) [facility] [id number] Social History Type Description Quantity Date Captured [...]
--- OUTSIDE RECORDS SUMMARY | 2024-08-06 13:55 | XMS_ITS | Encounter Summary ---
Author Organization [facility] Healthcare Address [address] [place] [address] Care Team Providers Care Aeronautical Project Engineer Name Role Phone Job Coker MD Unavailable [phone] Kendra Steiner MD PhD Unavailable [phone] Mike Levy MD Unavailable [phone] Subha Rodriguez MD Primary Care Provider [phone] Encounter Details Date Type Department Care Team (Late st Contact Info) Description 06/12/2024 Orders Only [facility] Information Management [address] [place] [address] Scanning, Provider Social History Tobacco Use Types Packs/Day Years [...] on file 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 Gender Identity Female 11/21/2020 8:28 AM CDT Sexual Orientation Not on file documented as of this encounter Plan of Treatment Scheduled Procedures Name Priority Associated Diagnoses Date/Ti me ESOPHAGOGASTRODUODENOSCOPY Iron deficiency anemia, unspecified iron deficiency anemia type documented as of this encounter Procedures Procedure Name Priority Date/Time Associated Diagnosis Comments SCAN - RADIOLOGY/IMAGING 06/12/2024 documented in this encounter Results * SCAN - RADIOLOGY/IMAGING (06/12/2024) Anatomical Region Laterality Modality Other us Provider Scanning Final Result documented in this encounter Visit Diagnoses Not on filedocumented in this encounter Care Teams Aeronautical Project Engineer Relationship Specialty Start Date End Date Subha Rodriguez MD [address] [address] DEPT [place] [address] PCP - General Family Medicine 03/07/24 Job Coker MD [address] [place] [address] Referring Physician Psychiatry 06/19/22 Kendra Steiner MD PhD [address] [place] [address] Referring Physician Neurology 06/19/22 Mike Levy MD [address] [address] DEPT [place] [address] Referring Physician Emergency Medicine 06/19/22 documented as of this encounter
[2024-08-06 14:25] VITALS: BP 126/81; O2SAT 100
[2024-08-06 14:30] VITALS: BP 130/92; O2SAT 100
--- NOTE | 2024-08-06 14:39 | ED.ABDPAIN ---
HPI - Abdominal Pain General Chief Complaint: Abdominal Pain Stated Complaint: I think I have a bowel obstruction Time Seen by Provider: 08/06/24 14:38 Source: patient Mode of arrival: ambulatory Limitations: no limitations History of Present Illness HPI narrative: 64 YEARS OLD WHITE FEMALE DROVE HERSELF TO THE EMERGENCY ROOM COMPLAINING OF ABDOMINAL DISTENSION, GENERALIZED PAIN, STARTED 3 HOURS PRIOR TO ARRIVAL, SIMILAR TO HER SYMPTOMS IN MAY SECONDARY TO SMALL-BOWEL OBSTRUCTION. PATIENT IS TELLING ME THAT SHE HAVE AT LEAST 2 BOWEL MOVEMENT A DAY, ALSO HAVE NO TROUBLE URINATING. SHE DENIES ANY FEVER, CHILLS, NAUSEA, VOMITING, DIARRHEA OR CONSTIPATION OR TROUBLE HISTORY OF HYSTERECTOMY AND HYPERLIPIDEMIA Related Data Home Medications ?Medication ?Instructions ?Recorded ?Confirmed ?Last Taken ?Type acyclovir 400 mg tablet 400 mg PO DAILY 04/27/21 06/13/24 Unknown History lamotrigine 100 mg tablet 100 mg PO DAILY 04/27/21 06/11/24 Unknown History (Lamictal) rizatriptan 10 mg disintegrating 10 mg PO PRN PRN Migraine Headache 04/27/21 06/11/24 09/01/22 History tablet sumatriptan succinate 6 mg/0.5 mL 6 mg subcut PRN PRN Migraine 04/27/21 06/11/24 Unknown History subcutaneous pen injector Headache atogepant 60 mg tablet (Qulipta) 60 mg PO DAILY 09/01/22 06/11/24 Unknown History alendronate 70 mg tablet 70 mg PO WEEKLY 06/11/24 06/11/24 Unknown History alpha lipoic acid 600 mg tablet 600 mg PO DAILY 06/11/24 06/11/24 Unknown History calcium 600 mg (as carbonate)-vit 1 tablet PO DAILY 06/11/24 06/11/24 Unknown History D3 10 mcg (400 unit)-minerals tablet cyanocobalamin (vitamin B-12) 100 400 mcg PO DAILY 06/11/24 06/11/24 Unknown History mcg tablet (Vitamin B-12) cyclobenzaprine 10 mg tablet 10 mg PO HS 06/11/24 06/11/24 Unknown History estradiol 0.01% (0.1 mg/gram) 1 appful vaginal WEEKLY 06/11/24 06/11/24 Unknown History vaginal cream ferrous sulfate 325 mg (65 mg 325 mg PO DAILY 06/11/24 06/11/24 Unknown History iron) tablet lidocaine HCl 2 % mucosal solution 5 ml PO Q4H PRN pain 06/11/24 06/11/24 Unknown History magnesium citrate 100 mg capsule 500 mg PO DAILY 06/11/24 06/11/24 Unknown History ondansetron 4 mg disintegrating 8 mg PO DAILY 06/11/24 06/11/24 Unknown History tablet quetiapine 200 mg tablet 200 mg PO DAILY 06/11/24 06/11/24 Unknown History riboflavin (vitamin B2) 400 mg 400 mg PO DAILY 06/11/24 06/11/24 Unknown History tablet trospium 20 mg tablet 20 mg PO Q12H 06/11/24 06/11/24 Unknown History buspirone 5 mg tablet 5 mg PO TID 06/13/24 06/13/24 Unknown History clonazepam 0.5 mg tablet 0.5 mg PO BID 06/13/24 06/13/24 Unknown History multivitamin (Daily Multi-Vitamin 1 tablet PO DAILY 06/13/24 06/13/24 Unknown History tablet) Allergies Allergy/AdvReac Type Severity Reaction Status Date / Time clarithromycin Allergy Intermediate NAUSEA/RASH Verified 04/27/21 13:18 Review of Systems Review of Systems: All systems reviewed & are unremarkable except as noted in HPI and below PMFSH Past Medical History Medical History Anxiety and depression History of ectopic History of posttraumatic stress disorder (PTSD) Migraine Surgical History Surgical History History of hysterectomy History of oophorectomy Social History Social History Smoking status: Former smoker Alcohol intake: never Substance use: never Substance use type: prescription drug Do You Feel Safe in your Home?: Yes Lack of Transportation: No Lack of Food: Never True Current Housing: I Have Housing Concerned About Future Housing: No Difficulty Paying Gas/Electric Bills: No Difficulty Paying for Meds: No Currently Unemployed: No Education: Trade/Vocational Certificate Difficulty w/ Childcare or Family Care: No Spiritual care concerns: No Exam Narrative: GENERAL APPEARANCE: WELL-DEVELOPED, WELL-NOURISHED SKIN: NORMAL COLOR HEAD: NORMOCEPHALIC, NONTRAUMATIC EYES: CLEAR CONJUNCTIVA ENT: OROPHARYNX NORMAL, EARS NORMAL, NOSE NORMAL NECK: SUPPLE, NONTENDER CHEST AND RESPIRATORY: AIRWAY PATENT, NO RESPIRATORY DISTRESS, NO ACCESSORY MUSCLE USE HEART: REGULAR RATE/RHYTHM ABDOMEN: FIRM, TIGHT IN, DISTENDED, QUITE BOWEL SOUND, DIFFUSELY TENDER VASCULAR: NORMAL PERIPHERAL PULSES, NORMAL CAPILLARY REFILL. MUSCULOSKELETAL: NORMAL RANGE OF MOTION, NONTENDER BACK NEUROLOGIC: ALERT AND ORIENTED ?3, TIRE CHANGER IS NORMAL TESTED, NO GROSS MOTOR DEFICIT Course Vital Signs Vital signs: Vital Signs Temperature 36.6 C 08/06/24 13:55 Pulse Rate 100 08/06/24 13:55 Respiratory Rate 16 08/06/24 13:55 Blood Pressure 145/87 H 08/06/24 13:55 Pulse Oximetry 100 08/06/24 13:55 Oxygen Delivery Room Air 08/06/24 13:55 Temperature 36.6 C 08/06/24 13:55 Pulse Rate 80 08/06/24 15:49 Respiratory Rate 16 08/06/24 15:49 Blood Pressure 130/82 08/06/24 15:49 Pulse Oximetry 100 08/06/24 15:49 Oxygen Delivery Room Air 08/06/24 13:55 MDM - Abdominal Pain MDM Narrative Medical decision making narrative: PATIENT PRESENTS WITH DIFFUSE ABDOMINAL PAIN SIMILAR TO HER PREVIOUS HISTORY OF SMALL-BOWEL OBSTRUCTION VITAL SIGNS ARE STABLE PHYSICAL EXAMINATION SHOWING DISTENDED ABDOMEN, DIFFUSELY TENDER, QUITE BOWEL SOUNDS DIFFERENTIAL DIAGNOSIS INCLUDE BOWEL OBSTRUCTION, URINARY TRACT INFECTION, COLITIS, DIVERTICULITIS, INTRA-ABDOMINAL TUMOR, BLOOD WORKUP TODAY INCLUDES CBC, CMP, LIPASE SHOWED CREATININE 1.1 SIMILAR TO PREVIOUS RECORDS, AST 53 OTHERWISE WITHIN NORMAL LIMIT URINALYSIS SHOWED NO EVIDENCE OF INFECTION CT ABDOMEN AND PELVIS WITH IV CONTRAST SHOWED MILD ESOPHAGITIS/GASTRITIS, CONSTIPATION, URINARY BLADDER DISTENSION BLADDER SCAN SHOWED MORE THAN 800 CC OF URINE ANDERSON CATHETER ORDERED YIELD 1000 AT THE TIME OF DISCHARGE PATIENT TELLING ME THAT SHE HAVE HISTORY OF CHRONIC CONSTIPATION FOR YEARS AND BEEN USING A LOT OF CONSTIPATION MEDICATION WITHOUT SUCCESS. PATIENT REPORT SHE IS PLANNING TO FOLLOW-UP WITH HER HATCHERY WORKER AT [facility] SOON POSSIBLE FOR CONSTIPATION MANAGEMENT. PATIENT WAS ADVISED TO KEEP THE ANDERSON CATHETER IN FOR 3-5 DAYS AND FOLLOW-UP WITH UROLOGIST SOON POSSIBLE FOR FURTHER EVALUATION. THE PT WAS DISCHARGED TO HOME.THE PT,S CONDITION UPON DISCHARGE WAS FAIR,EDUCATION WAS PROVIDED TO THE PT IN REFERENCE TO THE FINAL IMPRESSION,DISCHARGE STUDY RESULTS,TREATMENT,PROGNOSIS AND NEED FOR FOLLOW UP . Differential Diagnosis Differential diagnosis: Likely other ( ABOVE) Medical Records Attestation: I reviewed the patient's medical records. Lab Data Attestation: I reviewed the patient's lab results. 08/06/24 14:30 08/06/24 14:30 Labs: Lab Results 08/06/24 08/06/24 08/06/24 Range/Units 14:30 14:50 14:59 WBC 5.8 (4.5-10.0) K/mm3 RBC 4.05 L (4.2-5.4) M/mm3 Hgb 12.7 (12.0-15.0) g/dL Hct 39.8 (37.0-47.0) % MCV 98.3 (80-100) fl MCH 31.4 (26-34) pg MCHC 31.9 L (32-36) g/dl RDW 12.4 (11.5-14.5) % Plt Count 184 (150-375) k/mm3 MPV 9.0 (7.4-10.4) fl Immature Gran % (Auto) 0.2 (0-0.5) % Neut % (Auto) 72.2 (45.5-73.1) % Lymph % (Auto) 17.9 L (18.3-44.2) % Mcdowell % (Auto) 8.0 (2.6-8.5) % Eos % (Auto) 1.2 (0-4.4) % Baso % (Auto) 0.5 (0.2-1.2) % Lymph # (Auto) 1.03 (0.9-3.2) K/mm3 Mcdowell # (Auto) 0.5 (0.1-0.6) K/mm3 Eos # (Auto) 0.1 (0-0.3) K/mm3 Baso # (Auto) 0.0 (0.0-0.1) K/mm3 Abs Immat Gran (auto) 0.01 (0.00-0.031) K/mm3 Absolute Neuts (auto) 4.2 (1.3-6.7) K/mm3 Absolute Nucleated RBC 0.000 (0.0-0.012) K/mm3 Nucleated RBC % 0.0 (0.0-0.2) % Sodium 139 (137-145) mmol/L Potassium 3.9 (3.4-5.0) mmol/L Chloride 98 (98-107) mmol/L Carbon Dioxide 32 H (22-30) mmol/L Anion Gap 9 (4-12) mmol/L BUN 23 H (7-17) mg/dL Creatinine 1.12 H (0.7-1.0) mg/dL Estim Creat Clear Calc 38 ml/min Estimated GFR 49 L (59 - ) Glucose 86 (65-110) mg/dL Calcium 10.1 (8.4-10.2) mg/dL Total Bilirubin 0.4 (0.2-1.3) mg/dL AST 53 H (14-36) U/L ALT 33 (6-35) U/L Alkaline Phosphatase 54 (38-126) U/L Total Protein 7.6 (6.3-8.2) g/dL Albumin 4.8 (3.5-5.1) g/dL Lipase 159 (23-300) U/L Urine Color Yellow (Yellow) Urine Appearance Clear (Clear) Urine pH 7.5 (5.0-9.0) Ur Specific [place] 1.004 (1.001-1.035) Urine Protein Negative (Negative) mg/dL Urine Glucose (UA) Negative (Negative) mg/dL Urine Ketones Negative (Negative) mg/dL Ur Blood (Man) Negative (Negative) Urine Nitrate Negative (Negative) Urine Bilirubin Negative (Negative) Urine Urobilinogen 0.2 (<2.0) mg/dL Leukocyte Esterase Rfl Negative (Negative) PRASHANT/UL POC Urine HCG, Qual Negative (Negative) Imaging Data Radiologist's impression: ITS Impressions Abdomen/Pelvis CT 08/06/24 15:20 IMPRESSION: Mild esophagitis/gastritis. Large volume of colonic feces, correlate for clinical findings of constipation. Distended urinary bladder, correlate for clinical findings of urinary retention. Critical Care Time Critical Care Time Critical Care Time: No Discharge Plan Discharge Clinical Impression: Constipation, Acute urinary retention Patient Disposition: Home Condition: Improved Instructions: Constipation (DC), Acute Urinary Retention in Women (ED) Additional Instructions: RETURN IF SYMPTOMS ARE WORSENING , CALL YOUR FAMILY PHYSICIAN FOR APPOINTMENT, TAKE TYLENOL NEEDED FOR ACHES AND PAIN, CONTINUE HOME MEDICATIONS. TAKE MIRALAX 1 PACK EVERY 2 HOURS UP TO 6 TIMES A DAY CONTACT YOUR HATCHERY WORKER SOON POSSIBLE FOR CONSTIPATION EVALUATION CONTACT UROLOGIST SOON POSSIBLE FOR ANDERSON CATHETER MANAGEMENT. REMOVE THE ANDERSON CATHETER IN 3-5 DAYS Patient Language: Marshallese Prescriptions: New bisacodyl [Laxative (bisacodyl)] 10 mg suppository 10 mg RECTAL TID PRN (Reason: constipation) Qty: 12 0RF No Action acyclovir 400 mg tablet 400 mg PO DAILY rizatriptan 10 mg tablet,disintegrating 10 mg PO PRN PRN (Reason: Migraine Headache) lamotrigine [Lamictal] 100 mg tablet 100 mg PO DAILY sumatriptan succinate 6 mg/0.5 mL pen injector 6 mg SUBCUT PRN PRN (Reason: Migraine Headache) Qulipta 60 mg tablet 60 mg PO DAILY alendronate 70 mg tablet 70 mg PO WEEKLY estradiol 0.01 % (0.1 mg/gram) cream 1 appful VAGINAL WEEKLY lidocaine HCl 2 % solution 5 ml PO Q4H PRN (Reason: pain) ondansetron 4 mg tablet,disintegrating 8 mg PO DAILY quetiapine 200 mg tablet 200 mg PO DAILY riboflavin (vitamin B2) 400 mg tablet 400 mg PO DAILY alpha lipoic acid 600 mg tablet 600 mg PO DAILY cyanocobalamin (vitamin B-12) [Vitamin B-12] 100 mcg tablet 400 mcg PO DAILY calcium carbonate-vit D3-min 600 mg-10 mcg (400 unit) tablet 1 tablet PO DAILY ferrous sulfate 325 mg (65 mg iron) tablet 325 mg PO DAILY cyclobenzaprine 10 mg tablet 10 mg PO HS trospium 20 mg tablet 20 mg PO Q12H magnesium citrate 100 mg capsule 500 mg PO DAILY clonazepam 0.5 mg tablet 0.5 mg PO BID multivitamin [Daily Multi-Vitamin] Tablet 1 tablet PO DAILY buspirone 5 mg tablet 5 mg PO TID amoxicillin-pot clavulanate [Augmentin] 500-125 mg tablet 1 tablet PO TID Qty: 10 0RF Follow-up/Referrals: Anthony Mckay MD [Physician] - 08/08/24 PHYSICIAN NOT ON STAFF,NONSTAFF [Primary Care Provider] -
[2024-08-06 14:40] LABS: Basophils Percent Auto 0.5 % (0.2-1.2); Eosinophils Absolute Auto 0.1 K/mm3 (0-0.3); Eosinophils Percent Auto 1.2 % (0-4.4); Hematocrit 39.8 % (37.0-47.0); Hemoglobin 12.7 g/dL (12.0-15.0); Immature Granulocyte Absolute 0.01 K/mm3 (0.00-0.031); Immature Granulocyte Percent A 0.2 % (0-0.5); Lymphocytes Absolute Auto 1.03 K/mm3 (0.9-3.2); Lymphocytes Percent Auto 17.9 % (18.3-44.2); Mean Corpuscular HGB Conc 31.9 g/dl (32-36); Mean Corpuscular Hemoglobin 31.4 pg (26-34); Mean Corpuscular Volume 98.3 fl (80-100); Monocytes Absolute Auto 0.5 K/mm3 (0.1-0.6); Neutrophils Absolute Auto 4.2 K/mm3 (1.3-6.7); Neutrophils Percent Auto 72.2 % (45.5-73.1); Platelet Count Result 184 k/mm3 (150-375); Red Blood Count 4.05 M/mm3 (4.2-5.4); Red Cell Distribution Width 12.4 % (11.5-14.5); White Blood Count 5.8 K/mm3 (4.5-10.0)
--- NOTE | 2024-08-06 14:40 | PC.NURSE ---
gave pt ice water to help her urinate
[2024-08-06 14:49] LABS: Alanine Aminotransferase 33 U/L (6-35); Albumin Level 4.8 g/dL (3.5-5.1); Alkaline Phosphatase 54 U/L (38-126); Anion Gap 9 mmol/L (4-12); Aspartate Amino Transferase 53 U/L (14-36); Bilirubin,Total 0.4 mg/dL (0.2-1.3); Blood Urea Nitrogen 23 mg/dL (7-17); Calcium 10.1 mg/dL (8.4-10.2); Carbon Dioxide 32 mmol/L (22-30); Chloride 98 mmol/L (98-107); Estimated CRCL calculation 38 ml/min; Estimated Glomerular Filt Rate 49; Glucose 86 mg/dL (65-110); Lipase 159 U/L (23-300); Potassium 3.9 mmol/L (3.4-5.0); Sodium 139 mmol/L (137-145); Total Protein 7.6 g/dL (6.3-8.2)
[2024-08-06] MEDS: SODIUM CHLORIDE 0.9% IV 1,000 ML 999 ML IV CONT (14:51)
[2024-08-06] MEDS: MORPHINE SULFATE (*CRX) 4 MG/ML INJ IV PUSH (14:51)
[2024-08-06] MEDS: ONDANSETRON INJ 4 MG/2 ML VIAL IV PUSH (14:51)
--- OUTSIDE RECORDS SUMMARY | 2024-08-06 14:51 | XMS_ITS | Encounter Summary ---
Author Organization [facility] Healthcare Address [address] [place] [address] Care Team Providers Care Customer Data Technician Name Role Phone Claudio Suazo MD Primary Care Provider [phone] Job Coker MD Unavailable [phone] Kendra Steiner MD PhD Unavailable [phone] Mike Levy MD Unavailable [phone] Subha Rodriguez MD Primary Care Provider [phone] Encounter Details Date Type Department Care Team (Late st Contact Info) Description 09/01/2023 Telephone 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 Gender Identity Female 11/21/2020 8:28 AM CDT Sexual Orientation Not on file documented as of this encounter Plan of Treatment Scheduled Procedures Name Priority Associated Diagnoses Date/Ti me ESOPHAGOGASTRODUODENOSCOPY Iron deficiency anemia, unspecified iron deficiency anemia type documented as of this encounter Visit Diagnoses Not on filedocumented in this encounter Care Teams Customer Data Technician Relationship Specialty Start Date End Date Claudio Suazo MD PCP - General 06/19/16 03/06/24 Subha Rodriguez MD [address] DEPT [place] [address] PCP - General Family Medicine 03/07/24 Job Coker MD [address] [place] [address] Referring Physician Psychiatry 06/19/22 Kendra Steiner MD PhD [address] [place] [address] Referring Physician Neurology 06/19/22 Mike Levy MD [address] DEPT [place] [id number] Referring Physician Emergency Medicine 06/19/22 documented as of this encounter
--- OUTSIDE RECORDS SUMMARY | 2024-08-06 14:51 | XMS_ITS | Continuity of Care Document ---
Author Organization [facility] Address [address] [place] [address] [address] [place] [address] Phone Care Team Providers Care Green Meat Grader Name Role Phone Bar[place] PT,MPT,ATC, Mike Unavailable [...] Diagnoses Date Provider Providers Copied on Encounter [facility] [address] [facility], [place], [place], [id number], tel:[phone] [place] No Information Nov-2 3 [place], [place], [place]. Referring Provider: Palma Trevino, [address] [place] [address], [id number]. tel:[phone] [place] [address] [address], [place], [place], [id number], tel:[phone] [place] No Information Nov-1 3 [place], [place]. Referring Provider: Palma Trevino, [address] [place] [address], [address]. tel:[phone] [facility] [address], [place], [place], [id number], tel:[phone] [place] No Information Nov-1 3 [facility] Referring Provider: Palma Trevino, [address] [place] [address], [id number]. tel:[phone] [facility] [address], [place], [place], [id number], [place] tel:[phone] [place] No Information Nov-0 3 [place], [place]. Referring Provider: Palma Trevino, [address] [place] [address], [address]. tel:[phone] [facility] [address], [place], [place], [id number], tel:[phone] [place] No Information Nov-0 1-202 3 [place], [place], [place]. Referring Provider: Palma Trevino, [address] [place] [address], [address]. tel:[phone] [facility], [address], [place], [place], [id number], [place] tel:[phone] [place] Pain in left shoulderWeakness May-1 5-201 9 Makler Luke. . Referring Provider: Claudio Suazo, [address] [place] [address], [place], [address]. tel:[phone] [facility], [address], [place], [place], [id number], [place] tel:[phone] [place] Pain in left shoulderWeakness May-0 8-201 9 Makler Luke. . Referring Provider: Claudio Suazo, [address] [place] [address], [place], [address]. tel:[phone] [facility], [address], [place], [place], [id number], [place] tel:[phone] [place] Pain in left shoulderWeakness May-0 1-201 9 Makler Luke. . Referring Provider: Claudio Suazo, [address] [place] [address], [place], [address]. tel:[phone] [facility] [address], [place], [place], [id number], [place] tel:[phone] [place] Pain in left shoulderWeakness Apr-2 4-201 9 Makler Luke. . Referring Provider: Claudio Suazo, [address] [place] [address], [place], [address]. tel:[phone] [facility], [address], [place], [place], [id number], [place] tel:[phone] [place] Pain in left shoulderWeakness Apr-1 6-201 9 Makler Luke. . Referring Provider: Claudio Suazo [address] [place] [address], [place], [address]. tel:[phone] [facility], [address] [facility] [address] [facility] [address], [place], [place], [id number], [place] tel:[phone] [place] Pain in left shoulderWeakness 9 Mady Toth. . Referring Provider: Claudio Suazo, [address] [address], [place], [address]. tel:[phone] Family History Family Member Type Diagnosis Age At Onset No Information Payers Payer name Insurance type Covered libertarian ID Authorchaa debbie(s) [facility] [id number] Social History Type Description Quantity Date Captured [...]
--- OUTSIDE RECORDS SUMMARY | 2024-08-06 14:51 | XMS_ITS | Referral Summary ---
Author Organization [facility] Address [address] [place] [address] Care Team Providers Care Pharmacy Benefits Coordinator Name Role Phone Job Coker MD Unavailable [phone] Kendra Steiner MD PhD Unavailable [phone] Mike Levy MD Unavailable [phone] Subha Rodriguez MD Primary Care Provider Encounters Date Type Department Care Team Description 07/27/2024 2:00 PM CDT [facility] [address] [facility] 4th Floor [address] [place] [address] Lucas Silveira MD Fingernail abnormalities 07/27/2024 4:00 PM CDT Office Visit [facility] Endocrinology Metabolism and Lipid [address] [facility] Medicine 13th [place] [address] [place] [address] Dariel Chow MD PhD Chronic fatigue (Primary Dx) 07/13/2024 12:30 PM CDT Office Visit [place] [address] [facility] [address] [place] [address] Marlne Wright NP Fingernail abnormalities (Primary Dx); Dysphagia, unspecified type 06/29/2024 Results [facility] [place] [address] [facility] [address] [place] [address] Leila Woods MRI Brain WO Contrast 06/21/2024 1:15 PM CDT Office Visit [address] [place] [address] Subha Rodriguez MD Mixed hyperlipidemia (Primary Dx); Bowel obstruction (HCC); Bilateral hip pain; Stage 3a chronic kidney disease (HCC); Osteopenia, unspecified location 06/12/2024 Orders Only [facility] Health Information Management [address] [place] [address] Scanning, Provider 06/11/2024 Nurse Triage [address] [place] [address] Subha Rodriguez MD 05/26/2024 Telephone [facility] with [facility] [address] [facility] [address] [place] [address] Lexii Pritchard 05/24/2024 Telephone [facility] at [facility] [address] 1st [place] [address] Melanie Ramos, LUISANA Treat Facial [...] mg tablet every 8 hours Active rizatriptan SUPERVISOR RIDES (MAXALT-SUPERVISOR RIDES) 10 mg disintegrating tablet DISSOLVE 1 TABLET ON THE TONGUE AT ONSET OF HEADACHE. MAY REPEAT IN 2 HOURS NEEDED. MAX DOSE 2 IN 24 HOURS 12 tablet 3 025 Active Qulipta 60 mg tablet TAKE 1 TABLET BY MOUTH DAILY 30 tablet 5 024 2024 Discontinued rizatriptan SUPERVISOR RIDES (MAXALT-SUPERVISOR RIDES) 10 mg disintegrating tablet DISSOLVE 1 TABLET [...] 04/17/2024 Assessment & Plan (04/23/2024 11:47 PM RN ADMISSION): New Order PT Pure hypercholesterolemia 03/20/2024 Assessment & Plan (03/26/2024 10:50 PM RN ADMISSION): Chronic Stable Follow low chol diet Goal: TC<200, LDL<100, TG<150 Family history of heart disease 03/20/2024 Well adult exam 03/20/2024 Other general symptoms and signs 01/06/2024 Assessment & Plan (01/06/2024 2:52 PM RN ADMISSION): Nonspecific, episodic generalized sxs ongoing for over [...] 05/04/2023 Assessment & Plan (05/04/2023 2:30 PM RN ADMISSION): Exam favorable of crusted SK lesion though would appreciate second option from derm for reassurance Provided multiple derm contact in [place] & [place] to arrange and update to route referral once scheduled Interim concerns warranting update discussed Onychomycosis 05/04/2023 Assessment & Plan (05/04/2023 2:26 PM RN ADMISSION): Moderate onychomycosis along multiple BL feet digits [...] 12/22/2022 Assessment & Plan (02/10/2023 1:21 PM RN ADMISSION): May use Tylenol and/or Ibuprofen as needed. [...] 10/07/2022 Assessment & Plan (03/26/2024 10:50 PM RN ADMISSION): Chronic Stable Cont supplmeent Assessment & Plan [...] 08/18/2017 Assessment & Plan (03/26/2024 10:50 PM RN ADMISSION): Chronic Stable Cont maxalt, imitrex prn Assessment & Plan (06/19/2022 10:39 AM CDT): Tolerable though ongoing severe. Seeing a headache specialist. Assessment & Plan (05/02/2021 2:02 PM RN ADMISSION): Lingering migraine post fall -improving with abortive [...] 04/09/2015 Assessment & Plan (01/14/2023 5:59 PM RN ADMISSION): Patient continue to complain of burning sensation [...] on file Legal Sex Female 3:24 PM RN ADMISSION Gender Identity Female 11/21/2020 8:28 AM CDT [...] D 25-OH 66 30 - 100 ng/mL [facility] Comment: Vitamin D Status 25-OH Vitamin D: Deficiency: <20 ng/mL Insufficiency: 20 - 29 ng/mL Optimal: > or = 30 ng/mL For 25-OH Vitamin D testing on patients on D2-supplementation and patients for whom quantitation of D2 and D3 fractions is required, the QuestAssureD(TM) 25-OH VIT D, (D2,D3), LC/MS/MS is recommended: order code 04981 (patients >2yrs). See Note 1 Note 1 For additional information, please refer to http://education.Monogram/faq/VNH417 (This link is being provided for informational/ educational purposes only.) 07/31/2024 11:2 4 AM CDT 07/31/2024 11:25 AM CDT Narrative [facility] - 08/03/2024 11:40 AM CDT FASTING:NO FASTING: NO Dariel Chow MD PhD LAB BLOOD ORDERABLES Fin al Result Performing Organization Address [facility] Co de Phone Number [facility] [address] [place] [address] * Prolactin (07/31/2024 11:24 AM CDT) Pathologist [facility] Prolactin 8.1 ng/mL [facility] Comment: Reference Range Females Non- 3.0-30.0 10.0-209.0 Postmenopausal 2.0-20.0 07/31/2024 11:2 4 AM CDT 07/31/2024 11:25 AM CDT Narrative [facility] - 08/03/2024 11:40 AM CDT FASTING:NO FASTING: NO Dariel Chow MD PhD LAB BLOOD ORDERABLES Fin al Result Performing Organization Address [facility] [address] [facility] Co de Phone Number [facility] [address] [place] [address] * ACTH (07/31/2024 11:24 AM CDT) ACTH, PLASMA 15 6 - 50 pg/mL [facility] Comment: Reference range applies only to specimens collected between 7am-10am. Blood 07/31/2024 11:2 4 AM CDT 07/31/2024 11:25 AM CDT Narrative [facility] - 08/03/2024 11:40 AM CDT FASTING:NO FASTING: NO Dariel Chow MD PhD LAB BLOOD ORDERABLES Fin al Result Performing Organization Address [facility] [address]/[facility] Co de Phone Number [facility] [address] [place] [address] * Creatine kinase (CK), total (07/31/2024 11:24 AM CDT) CK 84 20 - 243 U/L [facility] 07/31/2024 11:2 4 AM CDT 07/31/2024 11:25 AM CDT Narrative [facility] - 08/03/2024 11:40 AM CDT FASTING:NO FASTING: NO Dariel Chow MD PhD LAB BLOOD ORDERABLES Fin al Result Performing Organization Address [facility] [address]/[facility] Co de Phone Number [facility] [address] [place] [address] * Cortisol (07/31/2024 11:24 AM CDT) Cortisol 12.0 mcg/dL [facility] Comment: Reference Range: For 8 a.m.(7-9 a.m.) Specimen: 4.0-22.0 Reference Range: For 4 p.m.(3-5 p.m.) Specimen: 3.0-17.0 * Please interpret above results accordingly * Blood 07/31/2024 11:2 4 AM CDT 07/31/2024 11:25 AM CDT Narrative [facility] - 08/03/2024 11:40 AM CDT FASTING:NO FASTING: NO Dariel Chow MD PhD LAB BLOOD ORDERABLES Fin al Result [facility] [address] [address] * (ABNORMAL) Renal function panel (07/31/2024 11:24 AM CDT) Glucose 85 65 - 99 mg/dL [facility] Comment: Fasting reference interval BUN 36(H) 7 - 25 mg/dL [facility] Creatinine 1.13(H) 0.50 - 1.05 mg/dL [facility] eGFR 55(L) > OR = 60 mL/min/1.7 3m2 [facility] BUN/creat ratio 32(H) 6 - 22 (calc) [facility] [place] Sodium 141 135 - 146 mmol/L [facility] Potassium, pl 4.1 3.5 - 5.3 mmol/L [facility] Chloride 101 98 - 110 mmol/L [facility] [place] CO2 31 20 - 32 mmol/L [facility] Calcium 9.3 8.6 - 10.4 mg/dL [facility] Phosphorus, sr 3.1 2.5 - 4.5 mg/dL [facility] Albumin 4.5 3.6 - 5.1 g/dL [facility] 07/31/2024 11:2 4 AM CDT 07/31/2024 11:25 AM CDT Narrative [facility] - 08/03/2024 11:40 AM CDT FASTING:NO FASTING: NO us Dariel Chow MD PhD LAB BLOOD ORDERABLES Fin al Result [facility] [address] [place] [address] * SCAN - RADIOLOGY/IMAGING (06/12/2024) Anatomical Region [...] compared to prior imaging studies performed at [facility] on 08/19/2012, and at [facility] on 09/06/2017 and 08/25/2022. There are [...] compared to prior imaging studies performed at [facility] on 08/19/2012, and at [facility] on 09/06/2017 and 08/25/2022. There are [...] Comment: For additional information, please refer to http://education.[employer].Moblico/faq/TER399 (This link is being provided for informational/ educational purposes only.) HepBsAg NON-REACTI VE NON-REACT MAURIZIO [facility] Comment: For additional information, please refer to http://[facility] OKCD.Motion Engine/faq/FNZ100 (This link is being provided for informational/ educational purposes only.) Hep B core IgM NON-REACTI VE NON-REACT MAURIZIO [facility] Comment: For additional information, please refer to http://FolderBoy/faq/LAF496 (This link is being provided for informational/ educational purposes only.) Hep C Ab NON-REACTI VE NON-REACT MAURIZIO [facility] Comment: HCV antibody was non-reactive. There is no laboratory evidence of HCV infection. In most cases, no further action is required. However, if recent HCV exposure is suspected, a test for HCV RNA (test code 18921) is suggested. For additional information please refer to http://FolderBoy/faq/FAV52j3 (This link is being provided for informational/ educational purposes only.) Blood 12/23/2022 9:46 AM CDT 12/23/2022 9:47 AM CDT Narrative [facility] - 12/25/2022 3:26 PM CDT FASTING:YES FASTING: YES Palma Trevino HYDROGEN OPERATOR LAB MICROBIOLOGY - NERAL ORDERABLES Final Result [facility] [address] [place] [address] * COLONOSCOPY (11/26/2022 8:14 AM CDT) Anatomical Region Laterality Modality Other Narrative Procedure Note Gómez Kirk MD PhD - 11/26/2022 8:14 AM CDT GI ENDOSCOPY [facility] Patient Name: Sabrina Barajas Procedure Date: 11/26/2022 8:14 AM Date of : 1960 Admit Type: Outpatient Age: 62 Gender: Female Attending MD: Gómez Kirk MD,PHD Room: [facility] ENDOSCOPY ROOM 4 Note Status: [...] passed under direct vision.The CF HQ 190L 5502-066 endoscope was introducedthrough the anus and advanced to the cecum, identified by appendiceal orifice and ileocecal valve. The colonoscopy was performed without difficulty. The patient tolerated the procedure well. The qualityof the bowel preparation was good. The quality of the bowel preparation was evaluated using the BBPS([place] Bowel Preparation Scale) with scores of: RightColon [...] On: 11/26/2022 8:14 AM Recognized by the [employer] for promoting quality in endoscopy Gómez Kirk MD PhD ENDOSCOPY PROCEDURES F inal Result from Last 3 Months or Most Recently Relevant to Health Maintenance [place] Advance Directives For more information, please contact: [phone] * Full Code (Latest Code Status on File) Date Activated Date Inactivated Comments 11/26/2022 7:28 AM 11/26/2022 1:55 PM Care Teams Pharmacy Benefits Coordinator Relationship Specialty Start Date End Date Subha Rodriguez MD [address] [facility] DEPT [place] [address] PCP - General Family Medicine 03/07/24 Job Coker MD [address] [place] [address] Referring Physician Psychiatry 06/19/22 Kendra Steiner MD PhD [address] [place] [address] Referring Physician Neurology 06/19/22 Mike Levy MD [address] [facility] DEPT [place] [address] Referring Physician Emergency Medicine 06/19/22
--- OUTSIDE RECORDS SUMMARY | 2024-08-06 14:51 | XMS_ITS | Encounter Summary ---
Author Organization [facility] Healthcare Address [address] [place] [address] Care Team Providers Care Mosaic Technician Name Role Phone Claudio Suazo MD Primary Care Provider [phone] Job Coker MD Unavailable [phone] Kendra Steiner MD PhD Unavailable [phone] Mike Levy MD Unavailable [phone] Subha Rodriguez MD Primary Care Provider [phone] Reason for Visit * Reason Onset Date Comments ready to schedule 06/23/2022 Encounter Details Date Type Department Care Team (Late st Contact Info) Description 06/23/[address] [facility] Specialty Services [address] [place] [address] Miscellaneous, Not In File ready to schedule [...] on file Legal Sex Female 3:24 PM [employer]AT [employer] Gender Identity Female 11/21/2020 8:28 AM CDT Sexual Orientation Not on file documented as of this encounter Plan of Treatment Scheduled Procedures Name Priority Associated Diagnoses Date/Ti me ESOPHAGOGASTRODUODENOSCOPY Iron deficiency anemia, unspecified iron deficiency anemia type documented as of this encounter Visit Diagnoses Not on filedocumented in this encounter Care Teams Mosaic Technician Relationship Specialty Start Date End Date Claudio Suazo MD PCP - General 06/19/16 03/06/24 Subha Rodriguez MD [address] [place] [address] PCP - General Family Medicine 03/07/24 Job Coker MD [address] [place] [address] Referring Physician Psychiatry 06/19/22 Kendra Steiner MD PhD [address] [place] [address] Referring Physician Neurology 06/19/22 Mike Levy MD [address] [place] [address] Referring Physician Emergency Medicine 06/19/22 documented as of this encounter
--- OUTSIDE RECORDS SUMMARY | 2024-08-06 14:51 | XMS_ITS | Clinical Summary ---
Author Organization [facility] Address [address] [place] [address] Care Team Providers Care Cocktail Waitress Name Role Phone Candy Rankin RN Unavailable [phone] Subha Rodriguez MD Primary Care Provider [phone] Source Comments [facility],non-owned Affiliates and Associated Physician Practices is amultiple site organization consisting of ambulatory clinics and hospital sitesin [place], [place], [place] and [place]. This disclosure is being madepursuant to the Care Everywhere program and may not contain all information available regarding this patient. Last updated 17.[facility] [employer] Allergies Active Allergy Reactions Criticality Noted Date [...] 03/28/19 24 Active rizatriptan, disintegratin g, (Maxalt APPRAISER IRRIGATION TAX) 10 MG tablet Take 1 (one) tablet [...] 07/14/2024 Refill [facility] - [facility]NT [address] [place] [address] Ren Adame MD Refill Request 05/18/2024 1:00 PM CDT Office Visit [facility] - [facility]NT [address] [place] [address] David Martin, DMD Burning mouth syndrome (Primary [...] 36.7 C (98.1 F) 04/19/2024 3:08 PM ELDERLY SITTER Respiratory Rate 16 04/19/2024 3:08 PM ELDERLY SITTER Oxygen Saturation 96% 02/10/2024 7:53 AM ELDERLY SITTER Inhaled Oxygen Concentration - - Weight 52.6 kg (116 lb) 05/18/2024 1:12 PM CDT Height 162.6 cm (5' 4) 05/18/2024 1:12 PM CDT Body Mass Index 19.91 05/18/2024 1:12 PM CDT Plan of Treatment Upcoming Encounters Date Type Department Care Team (Late st Contact Info) Description 11/16/2024 1:00 PM CDT Office Visit [facility] - ENT [facility] [place] [address] David Martin, DMD [address] [place] [address] [place] [address] Health Maintenance Due Date Last Done Comments [...] this topic Medical Devices Implanted Type Area Fire Equipment Inspector Device Identifier Shelf Expiration Date Model / Serial / Lot Dev Sys Sgl Obtryx Implanted:Qty: 1 on 07/17/2014 by Katya Mccall MD at [facility] [employer]ed 04/29/2017 [id number] / / [id number] Gr Tiss Rep Xenform 4 X 7cm Implanted:Qty: 1 on 07/17/2014 by Katya Mccall MD at [facility] [employer] [id number] / / [id number] Insurance [employer] Advance Directives * Full Code (Latest Code Status on File) Date Activated Date Inactivated Comments 07/17/2014 1:33 PM 07/18/2014 4:00 PM Care Teams Cocktail Waitress Relationship Specialty Start Date End Date Subha Rodriguez MD [address] [facility] [address] [address] PCP - General Family Medicine 05/18/24 Candy Rankin, RN Rodbuster 07/17/14
--- OUTSIDE RECORDS SUMMARY | 2024-08-06 14:51 | XMS_ITS | Encounter Summary ---
Author Organization [facility] Healthcare Address [address] [place] [address] Care Team Providers Care Digital Media Representative Name Role Phone Job Coker MD Unavailable [phone] Kendra Steiner MD PhD Unavailable [phone] Mike Levy MD Unavailable [phone] Subha Rodriguez MD Primary Care Provider [phone] Encounter Details Date Type Department Care Team (Late st Contact Info) Description 06/12/2024 Orders Only [facility] Health Information Management [address] [place] [address] Scanning, Provider Social History Tobacco [...] on file Legal Sex Female 3:24 PM VP LEGAL AFFA[employer] Gender Identity Female 11/21/2020 8:28 AM CDT [...] on filedocumented in this encounter Care Teams Digital Media Representative Relationship Specialty Start Date End Date Subha Rodriguez MD [address] [facility] [place] [address] PCP - General Family Medicine 03/07/24 Job Coker MD [address] [place] [address] Referring Physician Psychiatry 06/19/22 Kendra Steiner MD PhD [address] [place] [address] Referring Physician Neurology 06/19/22 Mike Levy MD [address] [facility] [place] [address] Referring Physician Emergency Medicine 06/19/22 documented as of this encounter
--- OUTSIDE RECORDS SUMMARY | 2024-08-06 14:51 | XMS_ITS | Clinical Summary ---
Author Organization [facility] Address [address] [place] [address] Care Team Providers Care Customer Service And Sales Consultant Name Role Phone Job Coker MD Unavailable [phone] Kendra Steiner MD PhD Unavailable [phone] Mike Levy MD Unavailable [phone] Subha Rodriguez MD Primary Care Provider [phone] Allergies Active Allergy Reactions Criticality Noted Date [...] mg tablet every 8 hours Active rizatriptan CHAIN TENDER (MAXALT-CHAIN TENDER) 10 mg disintegrating tablet DISSOLVE 1 TABLET ON THE TONGUE AT ONSET OF HEADACHE. MAY REPEAT IN 2 HOURS NEEDED. MAX DOSE 2 IN 24 HOURS 12 tablet 3 025 Active Qulipta 60 mg tablet TAKE 1 TABLET BY MOUTH DAILY 30 tablet 5 024 2024 Discontinued rizatriptan CHAIN TENDER (MAXALT-CHAIN TENDER) 10 mg disintegrating tablet DISSOLVE 1 TABLET [...] 04/17/2024 Assessment & Plan (04/23/2024 11:47 PM PROGRAM ARRANGER): New Order PT Pure hypercholesterolemia 03/20/2024 Assessment & Plan (03/26/2024 10:50 PM PROGRAM ARRANGER): Chronic Stable Follow low chol diet Goal: TC<200, LDL<100, TG<150 Family history of heart disease 03/20/2024 Well adult exam 03/20/2024 Other general symptoms and signs 01/06/2024 Assessment & Plan (01/06/2024 2:52 PM PROGRAM ARRANGER): Nonspecific, episodic generalized sxs ongoing for over [...] 05/04/2023 Assessment & Plan (05/04/2023 2:30 PM PROGRAM ARRANGER): Exam favorable of crusted SK lesion though would appreciate second option from derm for reassurance Provided multiple derm contact in [place] & [place] to arrange and update to route referral once scheduled Interim concerns warranting update discussed Onychomycosis 05/04/2023 Assessment & Plan (05/04/2023 2:26 PM PROGRAM ARRANGER): Moderate onychomycosis along multiple BL feet digits [...] 12/22/2022 Assessment & Plan (02/10/2023 1:21 PM PROGRAM ARRANGER): May use Tylenol and/or Ibuprofen as needed. [...] 10/07/2022 Assessment & Plan (03/26/2024 10:50 PM PROGRAM ARRANGER): Chronic Stable Cont supplmeent Assessment & Plan [...] 08/18/2017 Assessment & Plan (03/26/2024 10:50 PM PROGRAM ARRANGER): Chronic Stable Cont maxalt, imitrex prn Assessment & Plan (06/19/2022 10:39 AM CDT): Tolerable though ongoing severe. Seeing a headache specialist. Assessment & Plan (05/02/2021 2:02 PM PROGRAM ARRANGER): Lingering migraine post fall -improving with abortive [...] 04/09/2015 Assessment & Plan (01/14/2023 5:59 PM PROGRAM ARRANGER): Patient continue to complain of burning sensation [...] Description 07/27/2024 4:00 PM CDT Office Visit [facility] Endocrinology Metabolism and Lipid [address]th [place] [address] [place] [address] Dariel Chow MD PhD Chronic fatigue (Primary Dx) 07/27/2024 2:00 PM CDT [facility] [address] 4th [address] [place] [address] Lucas Silveira MD Fingernail abnormalities 07/13/2024 12:30 PM CDT Office Visit [address] [place] [address] Marlen Wright NP Fingernail abnormalities (Primary Dx); Dysphagia, unspecified type 06/29/2024 Results Follow-Up [address] [place] [address] Leila Woods MRI Brain WO Contrast 06/21/2024 1:15 PM CDT Office Visit [address] [place] [address] Subha Rodriguez MD Mixed hyperlipidemia (Primary Dx); Bowel obstruction (HCC); Bilateral hip pain; Stage 3a chronic kidney disease (HCC); Osteopenia, unspecified location 06/12/2024 Orders Only [facility] Information Management [address] [place] [address] Scanning, Provider 06/11/2024 Nurse Triage [address] [place] [address] Subha Rodriguez MD 05/26/2024 Telephone [facility] with [facility] Physicians [address] [place] [address] Lexii Pritchard 05/24/2024 Telephone [facility] Pain Center at [facility] [address] 1[address] [place] [address] Melanie Ramos, LUISANA Treat Facial Pain? from Last 3 Months Immunizations Immunization Administration Dates Next Due Influenza, Trivalent, Adjuvanted, Intramuscular 01/06/2024 Influenza, Trivalent, Recomb inant, Egg Free, Preservative Free, Antibiotic Free, IM (FLUBLOK) 01/06/2024 Influenza, Trivalent, Split, Preservative Free, Intradermal 12/24/2016 Pneumococcal Conjugate Pcv21 01/21/2024 Tdap 04/27/2021 ZOSTER Recombinant 01/21/2024 Surgical History Surgery Date Site/Laterality Comments [place] ECTOPIC ABDOMINAL/VAGINAL APPR Salpingectomy For Ectopic - (Added by TW Conv) [place] OOPHORECTOMY PARTIAL/TOTA L UNI/BI Oophorectomy Unilateral Left Side - (Added by TW Conv) EYE SURGERY Eye Surgery - muscle repair after trauma as child (Added by TW Conv) [place] CLOSED TX NASAL SEPTAL FR ACT W/WO [...] Marisela Escalante r Arthritis Sister [address] [place] Migraines Sister 1 [place] Migraine Heada [...] on file Legal Sex Female 3:24 PM PROGRAM ARRANGER Gender Identity Female 11/21/2020 8:28 AM CDT [...] D 25-OH 66 30 - 100 ng/mL [email or web address] Comment: Vitamin D Status 25-OH Vitamin D: Deficiency: <20 ng/mL Insufficiency: 20 - 29 ng/mL Optimal: > or = 30 ng/mL For 25-OH Vitamin D testing on patients on D2-supplementation and patients for whom quantitation of D2 and D3 fractions is required, the QuestAssureD(TM) 25-OH VIT D, (D2,D3), LC/MS/MS is recommended: order code 64564 (patients >2yrs). See Note 1 Note 1 For additional information, please refer to http://education.ICVRx/faq/JKY947 (This link is being provided for informational/ educational purposes only.) 07/31/2024 11:2 4 AM CDT 07/31/2024 11:25 AM CDT Narrative [facility] - 08/03/2024 11:40 AM CDT FASTING:NO FASTING: NO Dariel hCow MD PhD LAB BLOOD ORDERABLES Fin al Result Performing Organization Address [facility] Co de Phone Number [facility] [address] [place] [address] * Prolactin (07/31/2024 11:24 AM CDT) Pathologist [facility] Prolactin 8.1 ng/mL [facility] Comment: Reference Range Females Non- 3.0-30.0 10.0-209.0 Postmenopausal 2.0-20.0 07/31/2024 11:2 4 AM CDT 07/31/2024 11:25 AM CDT Narrative [facility] - 08/03/2024 11:40 AM CDT FASTING:NO FASTING: NO Dariel Chow MD PhD LAB BLOOD ORDERABLES Fin al Result Performing Organization Address [facility]/ZIP Co de Phone Number [facility] [address] [place] [address] * ACTH (07/31/2024 11:24 AM CDT) Pathologist [facility] ACTH, PLASMA 15 6 - 50 pg/mL [facility] Comment: Reference range applies only to specimens collected between 7am-10am. Blood 07/31/2024 11:2 4 AM CDT 07/31/2024 11:25 AM CDT Narrative [facility] - 08/03/2024 11:40 AM CDT FASTING:NO FASTING: NO Dariel Chow MD PhD LAB BLOOD ORDERABLES Fin al Result [facility] [address] [address] [place] [address] * Creatine kinase (CK), total (07/31/2024 11:24 AM CDT) CK 84 20 - 243 U/L [email or web address] 07/31/2024 11:2 4 AM CDT 07/31/2024 11:25 AM CDT Narrative [facility] - 08/03/2024 11:40 AM CDT FASTING:NO FASTING: NO Dariel Chow MD PhD LAB BLOOD ORDERABLES Fin al Result Performing Organization Address [facility] Co de Phone Number [email or web address] [address] [place] [address] * Cortisol (07/31/2024 11:24 AM CDT) Cortisol 12.0 mcg/dL [facility] Comment: Reference Range: For 8 a.m.(7-9 a.m.) Specimen: 4.0-22.0 Reference Range: For 4 p.m.(3-5 p.m.) Specimen: 3.0-17.0 * Please interpret above results accordingly * Blood 07/31/2024 11:2 4 AM CDT 07/31/2024 11:25 AM CDT Narrative [facility] - 08/03/2024 11:40 AM CDT FASTING:NO FASTING: NO Dariel Chow MD PhD LAB BLOOD ORDERABLES Fin al Result Performing Organization Address City[facility]/ZIP Co de Phone Number [facility] [address] [place] [address] * (ABNORMAL) Renal function panel (07/31/2024 11:24 AM CDT) Glucose 85 65 - 99 mg/dL [facility] Comment: Fasting reference interval BUN 36(H) 7 - 25 mg/dL [facility] Creatinine 1.13(H) 0.50 - 1.05 mg/dL [facility] eGFR 55(L) > OR = 60 mL/min/1.7 3m2 [facility] BUN/creat ratio 32(H) 6 - 22 (calc) [facility] Sodium 141 135 - 146 mmol/L [facility] Potassium, pl 4.1 3.5 - 5.3 mmol/L [facility] Chloride 101 98 - 110 mmol/L [facility] CO2 31 20 - 32 mmol/L [facility] Calcium 9.3 8.6 - 10.4 mg/dL [facility] Phosphorus, sr 3.1 2.5 - 4.5 mg/dL [facility] Albumin 4.5 3.6 - 5.1 g/dL [facility] 07/31/2024 11:2 4 AM CDT 07/31/2024 11:25 AM CDT Narrative [facility] - 08/03/2024 11:40 AM CDT FASTING:NO FASTING: NO Dariel Chow MD PhD LAB BLOOD ORDERABLES Fin al Result [facility] [address] [place] [address] * SCAN - RADIOLOGY/IMAGING (06/12/2024) Anatomical Region [...] compared to prior imaging studies performed at [facility] on 08/19/2012, and at [facility] on 09/06/2017 and 08/25/2022. There [...] compared to prior imaging studies performed at [facility] on 08/19/2012, and at [facility] on 09/06/2017 and 08/25/2022. There [...] Comment: For additional information, please refer to http://education.[employer]aceuticals/faq/MLU957 (This link is being provided for informational/ educational purposes only.) HepBsAg NON-REACTI VE NON-REACT MAURIZIO [facility] Comment: For additional information, please refer to http://education.[employer]aceuticals/faq/KUR639 (This link is being provided for informational/ educational purposes only.) Hep B core IgM NON-REACTI VE NON-REACT MAURIZIO [facility] Comment: For additional information, please refer to http://Piehole.TapRoot Systems/faq/QHN800 (This link is being provided for informational/ educational purposes only.) Hep C Ab NON-REACTI VE NON-REACT MAURIZIO [facility] Comment: HCV antibody was non-reactive. There is no laboratory evidence of HCV infection. In most cases, no further action is required. However, if recent HCV exposure is suspected, a test for HCV RNA (test code 18140) is suggested. For additional information please refer to http://Piehole.TapRoot Systems/faq/MIT28w7 (This link is being provided for informational/ educational purposes only.) Blood 12/23/2022 9:46 AM CDT 12/23/2022 9:47 AM CDT Narrative [facility] - 12/25/2022 3:26 PM CDT FASTING:YES FASTING: YES Palma Trevino NP LAB MICROBIOLOGY - NERAL ORDERABLES Final Result [facility] [address] [place] [address] * COLONOSCOPY (11/26/2022 8:14 AM CDT) Anatomical Region Laterality Modality Other Narrative Procedure Note Gómez Kirk MD PhD - 11/26/2022 8:14 AM CDT GI ENDOSCOPY [facility] Patient Name: Sabrina Barajas Procedure Date: 11/26/2022 8:14 AM Date of : 1960 Admit Type: Outpatient Age: 62 Gender: Female Attending MD: Gómez Kirk MD,PHD Room: [facility] ENDOSCOPY ROOM 4 Note Status: Finalized Procedure: [...] passed under direct vision.The CF HQ [id number] endoscope was introducedthrough the anus and advanced to the cecum, identified by appendiceal orifice and ileocecal valve. The colonoscopy was performed without difficulty. The patient tolerated the procedure well. The qualityof the bowel preparation was good. The quality of the bowel preparation was evaluated using the BBPS([place] Bowel Preparation Scale) with scores of: RightColon [...] On: 11/26/2022 8:14 AM Recognized by the [employer] for promoting quality in endoscopy Gómez Kirk MD PhD ENDOSCOPY PROCEDURES F inal Result from Last 3 Months or Most Recently Relevant to Health Maintenance [place] Advance Directives For more information, please contact: [phone] * Full Code (Latest Code Status on File) Date Activated Date Inactivated Comments 11/26/2022 7:28 AM 11/26/2022 1:55 PM Care Teams Customer Service And Sales Consultant Relationship Specialty Start Date End Date Subha Rodriguez MD [address] [facility] [place] [address] PCP - General Family Medicine 03/07/24 Job Coker MD [address] [place] [address] Referring Physician Psychiatry 06/19/22 Kendra Steiner MD PhD [address] [place] [address] Referring Physician Neurology 06/19/22 Mike Levy MD [address] [facility] [place] [address] Referring Physician Emergency Medicine 06/19/22
--- OUTSIDE RECORDS SUMMARY | 2024-08-06 14:51 | XMS_ITS | Encounter Summary ---
Author Organization [facility] Healthcare Address [address] [place] [address] Care Team Providers Care Transmission Inspector Name Role Phone Job Coker MD Unavailable [phone] Kendra Steiner MD PhD Unavailable [phone] Mike Levy MD Unavailable [phone] Subha Rodriguez MD Primary Care Provider [phone] Encounter Details Date Type Department Care Team (Late st Contact Info) Description 06/29/2024 Results Follow-Up [facility] Medical Group Family Medicine [address] [address] Leila Woods MRI Brain WO [...] on file Legal Sex Female 3:24 PM 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 Gender Identity Female 11/21/2020 8:28 AM CDT Sexual Orientation Not on file documented as of this encounter Plan of Treatment Scheduled Procedures Name Priority Associated Diagnoses Date/Ti me ESOPHAGOGASTRODUODENOSCOPY Iron deficiency anemia, unspecified iron deficiency anemia type documented as of this encounter Visit Diagnoses Not on filedocumented in this encounter Care Teams Transmission Inspector Relationship Specialty Start Date End Date Subha Rodriguez MD [address] [place] [address] PCP - General Family Medicine 03/07/24 Job Coker MD [address] [place] [address] Referring Physician Psychiatry 06/19/22 Kendra Steiner MD PhD [address] [place] [address] Referring Physician Neurology 06/19/22 Mike Levy MD [address] [place] [address] Referring Physician Emergency Medicine 06/19/22 documented as of this encounter
[2024-08-06 15:00] LABS: BEDSIDEPREGUCG Negative (Negative)
[2024-08-06 15:07] LABS: Add Urine Microscopic? NO; Appearance Urine Clear (Clear); Bilirubin Urine Negative (Negative); Blood Urine Negative (Negative); Color Urine Yellow (Yellow); Glucose Urine UA Negative (Negative); Ketones Urine Negative (Negative); Leukocyte Esterase Ur Negative LEU/UL (Negative); Nitrate Urine Negative (Negative); Protein Urine Negative (Negative); Specific Grav Ur 1.004 (1.001-1.035); Urobilinogen Urine 0.2 mg/dL (<2.0); pH Urine 7.5 (5.0-9.0)
[2024-08-06 15:49] VITALS: BP 130/82; PULSE 80; RESP 16; O2SAT 100
== END 2024-08-06 19:51 | disposition home or self-care (01) ==
PROVIDERS: Emergency Provider Emergency Medicine
DX: R33.9 Retention of urine, unspecified (principal); K59.00 Constipation, unspecified; F41.9 Anxiety disorder, unspecified; F32.A Depression, unspecified
CPT/HCPCS: 36415; 51702; 74177; 80053; 81003; 81025; 83690; 85025; 96361; 96374; 96375; 99284; J2270; J2405; J7030; Q9967

== ENCOUNTER 2025-01-25 01:56 | Emergency (ER) | payer BC, SELFPAY ==
[2025-01-25 01:59] VITALS: BP 133/81; PULSE 88; RESP 16; TEMP 36.8; O2SAT 98
--- NOTE | 2025-01-25 02:07 | ED.UPPEXIN ---
HPI - Extremity Injury (Upper) General Chief Complaint: Extremity Injury, Upper Stated Complaint: shoulder pain Time Seen by Provider: 01/25/25 02:00 History of Present Illness HPI narrative: 64-year-old female with a history of osteoarthritis presenting to the emergency department with left-sided trapezius muscle strain. Patient states she was working out yesterday morning and then throughout the evening had some pain in her left trapezius region. Not responding to Tylenol at home. She is on diclofenac for chronic osteoarthritis pain. Has tried some topical creams and Salonpas without relief. No other symptoms. No pain with manipulation of the arm or shoulder. No restricted range of motion of the neck or shoulder. No midline tenderness to the spine or any step-offs, deformities. No overlying skin changes. No other symptoms at this time besides pain. Related Data Home Medications ?Medication ?Instructions ?Recorded ?Confirmed ?Last Taken ?Type acyclovir 400 mg tablet 400 mg PO DAILY 04/27/21 01/25/25 Unknown History lamotrigine 100 mg tablet 100 mg PO DAILY 04/27/21 01/25/25 Unknown History (Lamictal) rizatriptan 10 mg disintegrating 10 mg PO PRN PRN Migraine Headache 04/27/21 01/25/25 09/01/22 History tablet sumatriptan succinate 6 mg/0.5 mL 6 mg subcut PRN PRN Migraine 04/27/21 06/11/24 Unknown History subcutaneous pen injector Headache atogepant 60 mg tablet (Qulipta) 60 mg PO DAILY 09/01/22 06/11/24 Unknown History alendronate 70 mg tablet 70 mg PO WEEKLY 06/11/24 01/25/25 Unknown History alpha lipoic acid 600 mg tablet 600 mg PO DAILY 06/11/24 06/11/24 Unknown History calcium 600 mg (as carbonate)-vit 1 tablet PO DAILY 06/11/24 01/25/25 Unknown History D3 10 mcg (400 unit)-minerals tablet cyanocobalamin (vitamin B-12) 100 400 mcg PO DAILY 06/11/24 06/11/24 Unknown History mcg tablet (Vitamin B-12) cyclobenzaprine 10 mg tablet 10 mg PO HS 06/11/24 06/11/24 Unknown History estradiol 0.01% (0.1 mg/gram) 1 appful vaginal WEEKLY 06/11/24 01/25/25 Unknown History vaginal cream ferrous sulfate 325 mg (65 mg 325 mg PO DAILY 06/11/24 06/11/24 Unknown History iron) tablet lidocaine HCl 2 % mucosal solution 5 ml PO Q4H PRN pain 06/11/24 01/25/25 Unknown History magnesium citrate 100 mg capsule 500 mg PO DAILY 06/11/24 01/25/25 Unknown History ondansetron 4 mg disintegrating 8 mg PO DAILY 06/11/24 01/25/25 Unknown History tablet quetiapine 200 mg tablet 200 mg PO DAILY 06/11/24 01/25/25 Unknown History riboflavin (vitamin B2) 400 mg 400 mg PO DAILY 06/11/24 06/11/24 Unknown History tablet trospium 20 mg tablet 20 mg PO Q12H 06/11/24 06/11/24 Unknown History buspirone 5 mg tablet 5 mg PO TID 06/13/24 01/25/25 Unknown History clonazepam 0.5 mg tablet 0.5 mg PO BID 06/13/24 01/25/25 Unknown History multivitamin (Daily Multi-Vitamin 1 tablet PO DAILY 06/13/24 01/25/25 Unknown History tablet) diclofenac sodium 50 mg mg PO 01/25/25 Unknown History tablet,delayed release promethazine 12.5 mg tablet mg 01/25/25 Unknown History rosuvastatin 5 mg tablet mg 01/25/25 Unknown History Allergies Allergy/AdvReac Type Severity Reaction Status Date / Time clarithromycin Allergy Intermediate NAUSEA/RASH Verified 01/25/25 02:05 Review of Systems Review of Systems: As reviewed above in HPI All systems reviewed & are unremarkable except as noted in HPI and below PMFSH Past Medical History Medical History Anxiety and depression History of ectopic History of posttraumatic stress disorder (PTSD) Migraine Surgical History Surgical History History of hysterectomy History of oophorectomy Social History Social History Smoking status: Former smoker Alcohol intake: never Substance use: never Substance use type: prescription drug Lack of Transportation: No Lack of Food: Never True Current Housing: I Have Housing Concerned About Future Housing: No Difficulty Paying Gas/Electric Bills: No Difficulty Paying for Meds: No Currently Unemployed: No Education: Trade/Vocational Certificate Difficulty w/ Childcare or Family Care: No Spiritual care concerns: No Exam Narrative: GENERAL: [Well-appearing, well-nourished, and in no acute distress.] HEAD: [Normocephalic, atraumatic.] EYES: [PERRLA and EOMI.] ENT: Nares clear, no rhinorrhea or epistaxis. Mucous membranes moist. NECK: Supple. CHEST: No respiratory distress, symmetric chest rise HEART: Strong symmetric pulses, regular rate and rhythm. Warm extremities. ABDOMEN: Nondistended EXTREMITIES: No edema. Full range of motion of the upper extremities. No midline step-offs deformities. Negative Spurling's testing. Pain reproducible with palpation over the trapezius muscle on the left side. No deformity or traumatic injury. SKIN: Warm, dry, no rash. NEURO: [No focal deficits]. Alert and oriented [x3.] PSYCH: [Normal mood and affect.] Course Vital Signs Vital signs: Vital Signs Temperature 36.8 C 01/25/25 01:59 Pulse Rate 88 01/25/25 01:59 Respiratory Rate 16 01/25/25 01:59 Blood Pressure 133/81 01/25/25 01:59 Pulse Oximetry 98 01/25/25 01:59 Oxygen Delivery Room Air 01/25/25 01:59 Temperature 36.6 C 01/25/25 02:35 Pulse Rate 66 01/25/25 02:35 Respiratory Rate 14 01/25/25 02:35 Blood Pressure 109/74 01/25/25 02:35 Pulse Oximetry 98 01/25/25 02:35 Oxygen Delivery Room Air 01/25/25 01:59 MDM - Extremity Injury (Upper) MDM Narrative Medical decision making narrative: 64-year-old female with a history of osteoarthritis presenting to the emergency department with left-sided trapezius muscle strain. Patient states she was working out yesterday morning and then throughout the evening had some pain in her left trapezius region. Not responding to Tylenol at home. She is on diclofenac for chronic osteoarthritis pain. Has tried some topical creams and Salonpas without relief. No other symptoms. No pain with manipulation of the arm or shoulder. No restricted range of motion of the neck or shoulder. No midline tenderness to the spine or any step-offs, deformities. No overlying skin changes. No other symptoms at this time besides pain. No edema. Full range of motion of the upper extremities. No midline step-offs deformities. Negative Spurling's testing. Pain reproducible with palpation over the trapezius muscle on the left side. No deformity or traumatic injury. Hemodynamically stable with normal vital signs. No urgent or emergent concerns found. Patient given intramuscular Toradol and low-dose Robaxin for symptoms. Discharge with Robaxin prescription and return precautions. Medical Records Attestation: I reviewed the patient's medical records. Discharge Plan Discharge Clinical Impression: Strain of left trapezius muscle Patient Disposition: Home Condition: Stable Instructions: Antibiotic Form, Muscle Strain (DC) Additional Instructions: Symptoms consistent with trapezius strain. Recommend Tylenol 650 mg every 6-8 hours as well as your diclofenac at home. Ice up to 20 minutes at a time, can alternate with heat products. We have prescribed a muscle relaxer that can help symptoms of muscle strain and spasm. Follow-up with your regular doctor. No emergent concerns today. Patient Language: Wolof Prescriptions: New methocarbamol 750 mg tablet 750 mg PO TID PRN (Reason: pain) Qty: 20 0RF methocarbamol 750 mg tablet 750 mg PO TID PRN (Reason: pain) Qty: 20 0RF No Action acyclovir 400 mg tablet 400 mg PO DAILY rizatriptan 10 mg tablet,disintegrating 10 mg PO PRN PRN (Reason: Migraine Headache) lamotrigine [Lamictal] 100 mg tablet 100 mg PO DAILY sumatriptan succinate 6 mg/0.5 mL pen injector 6 mg SUBCUT PRN PRN (Reason: Migraine Headache) bisacodyl [Laxative (bisacodyl)] 10 mg suppository 10 mg RECTAL TID PRN (Reason: constipation) Qty: 12 0RF promethazine 12.5 mg tablet diclofenac sodium 50 mg tablet,delayed release (DR/EC) PO rosuvastatin 5 mg tablet Qulipta 60 mg tablet 60 mg PO DAILY alendronate 70 mg tablet 70 mg PO WEEKLY estradiol 0.01 % (0.1 mg/gram) cream 1 appful VAGINAL WEEKLY lidocaine HCl 2 % solution 5 ml PO Q4H PRN (Reason: pain) ondansetron 4 mg tablet,disintegrating 8 mg PO DAILY quetiapine 200 mg tablet 200 mg PO DAILY riboflavin (vitamin B2) 400 mg tablet 400 mg PO DAILY alpha lipoic acid 600 mg tablet 600 mg PO DAILY cyanocobalamin (vitamin B-12) [Vitamin B-12] 100 mcg tablet 400 mcg PO DAILY calcium carbonate-vit D3-min 600 mg-10 mcg (400 unit) tablet 1 tablet PO DAILY ferrous sulfate 325 mg (65 mg iron) tablet 325 mg PO DAILY cyclobenzaprine 10 mg tablet 10 mg PO HS trospium 20 mg tablet 20 mg PO Q12H magnesium citrate 100 mg capsule 500 mg PO DAILY clonazepam 0.5 mg tablet 0.5 mg PO BID multivitamin [Daily Multi-Vitamin] Tablet 1 tablet PO DAILY buspirone 5 mg tablet 5 mg PO TID amoxicillin-pot clavulanate [Augmentin] 500-125 mg tablet 1 tablet PO TID Qty: 10 0RF Follow-up/Referrals: PHYSICIAN NOT ON STAFF,NONSTAFF [Non-Staff] Time of Disposition: 02:27
--- OUTSIDE RECORDS SUMMARY | 2025-01-25 02:11 | XMS_ITS | Encounter Summary ---
Author Organization [facility] Healthcare Address [address] [place] [address] Care Team Providers Care Hairmasters Manager Name Role Phone Job Coker MD Unavailable [phone] Kendra Steiner MD PhD Unavailable [phone] Mike Levy MD Unavailable [phone] Subha Rodriguez MD Primary Care Provider [phone] Encounter Details Date Type Department Care Team (Late st Contact Info) Description 12/23/2024 Results Follow-Up [facility] Family Medicine [address] [facility] [address] [place] [phone] Subha Rodriguez MD [address] [place] [address] X-ray lumbar spine complete 4+ views Social History Tobacco Use Types Packs/Day Years Used Date Smoking Tobacco: Never Smokeless Tobacco: Never AUDIT-C Answer Date Recorded Q1: How often do you have a drink containing alcohol? Never 08/10/2024 Q2: How many drinks containi ng alcohol do you have on a typical day when you are drinking? Patient does not drink Q3: How often do you have si x or more drinks on one occasion? Never 08/10/2024 PHQ-2 Answer Date Recorded PHQ-2 Total Score (If total score is 3 or more points, staff should administer the PHQ-9) 2 12/13/2024 Hunger Vital Sign Answer Date Recorded Within the past 12 months, y ou worried that your food would run out before you got the money to buy more. Never true 07/28/19 25 Within the past 12 months, t he food you bought just didn't last and you didn't have money to get more. Never true 07/27/2024 PHQ-9 Answer Date Recorded PHQ-9 Total Score 5 12/13/2024 Personal Safety Answer Date Recorded Have you ever been in or are you currently in a harmful physical or emotional relationship or is someone making you feel afraid or unsafe? 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 Gender Identity Female 11/21/2020 8:28 AM CDT Sexual Orientation Not on file documented as of this encounter Plan of Treatment Scheduled Procedures Name Priority Associated Diagnoses Date/Ti me ESOPHAGOGASTRODUODENOSCOPY Iron deficiency anemia, unspecified iron deficiency anemia type documented as of this encounter Visit Diagnoses Not on filedocumented in this encounter Care Teams Hairmasters Manager Relationship Specialty Start Date End Date Subha Rodriguez MD [address] [facility] DEPT [place] [phone] PCP - General Family Medicine 03/07/24 Job Coker MD [address] [place] [address] Referring Physician Psychiatry 06/19/22 Kendra Steiner MD PhD [address] [place] [address] Referring Physician Neurology 06/19/22 Mike Levy MD [address] [facility] [place] [address] Referring Physician Emergency Medicine 06/19/22 documented as of this encounter
--- OUTSIDE RECORDS SUMMARY | 2025-01-25 02:11 | XMS_ITS | Encounter Summary ---
Author Organization [facility] Healthcare Address [address] [place] [address] Care Team Providers Care Automotive Vehicle Inspector Name Role Phone Claudio Suazo MD Primary Care Provider [phone] Job Coker MD Unavailable [phone] Kendra Steiner MD PhD Unavailable [phone] Mike Levy MD Unavailable [phone] Subha Rodriguez MD Primary Care Provider [phone] Encounter Details Date Type Department Care Team (Late st Contact Info) Description 09/01/2023 Telephone [facility] [address] 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 Gender Identity Female 11/21/2020 8:28 AM CDT Sexual Orientation Not on file documented as of this encounter Plan of Treatment Scheduled Procedures Name Priority Associated Diagnoses Date/Ti me ESOPHAGOGASTRODUODENOSCOPY Iron deficiency anemia, unspecified iron deficiency anemia type documented as of this encounter Visit Diagnoses Not on filedocumented in this encounter Additional Health Concerns Infection Onset Date Last Indicated Resolved Time COVID: Suspected 12/13/2024 12/13/2024 12/14/2024 7:26 PM CDT documented as of this encounter Care Teams Automotive Vehicle Inspector Relationship Specialty Start Date End Date Claudio Suazo MD PCP - General 06/19/16 03/06/24 Subha Rodriguez MD [address] [place] [phone] PCP - General Family Medicine 03/07/24 Job Coker MD [address] [place] [address] Referring Physician Psychiatry 06/19/22 Kendra Steiner MD PhD [address] [place] [address] Referring Physician Neurology 06/19/22 Mike Levy MD [address] [place] [address] Referring Physician Emergency Medicine 06/19/22 documented as of this encounter
--- OUTSIDE RECORDS SUMMARY | 2025-01-25 02:11 | XMS_ITS | Encounter Summary ---
Author Organization [facility] Healthcare Address [address] [place] [address] Care Team Providers Care Wallpaper Cleaner Name Role Phone Job Coker MD Unavailable [phone] Kendra Steiner MD PhD Unavailable [phone] Mike Levy MD Unavailable [phone] Subha Rodriguez MD Primary Care Provider [phone] Encounter Details Date Type Department Care Team (Late st Contact Info) Description 12/23/2024 Results Follow-Up [facility] Medical [facility] Family Medicine [address] [facility] [address] [place] [phone] Subha Rodriguez MD [address] [place] [address] POC Influenza A/B, COVID-19 antigen, West nile virus antibody, IgG and IgM Blood, Lyme Disease Antibodies (IgG, IgM) Blood, Additional followed-up results: 2 Social History Tobacco Use Types Packs/Day Years [...] on file 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 Gender Identity Female 11/21/2020 8:28 AM CDT Sexual Orientation Not on file documented as of this encounter Plan of Treatment Scheduled Procedures Name Priority Associated Diagnoses Date/Ti me ESOPHAGOGASTRODUODENOSCOPY Iron deficiency anemia, unspecified iron deficiency anemia type documented as of this encounter Visit Diagnoses Not on filedocumented in this encounter Care Teams Wallpaper Cleaner Relationship Specialty Start Date End Date Subha Rodriguez MD [address] [facility] [place] [phone] PCP - General Family Medicine 03/07/24 Job Coker MD [address] [place] [address] Referring Physician Psychiatry 06/19/22 Kednra Steiner MD PhD [address] [place] [address] Referring Physician Neurology 06/19/22 Mike Levy MD [address] [facility] [place] [phone] Referring Physician Emergency Medicine 06/19/22 documented as of this encounter
--- OUTSIDE RECORDS SUMMARY | 2025-01-25 02:11 | XMS_ITS | Encounter Summary ---
Author Organization [facility] Healthcare Address [address] [place] [address] Care Team Providers Care Inspector And Unloader Name Role Phone Job Coker MD Unavailable [phone] Kendra Steiner MD PhD Unavailable [phone] Mike Levy MD Unavailable [phone] Subha Rodriguez MD Primary Care Provider [phone] Encounter Details Date Type Department Care Team (Late st Contact Info) Description 12/10/2024 Results Follow-Up [facility] Obstetrical Gynecology [address] [address] Maira Jones MD [address] [address] Dexa Axial Skeleton Bone Density 1 Or 2 Site, Comprehensive metabolic panel, Lipid panel, Vitamin B12 Social History Tobacco Use Types Packs/Day Years [...] on file 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 Gender Identity Female 11/21/2020 8:28 AM CDT Sexual Orientation Not on file documented as of this encounter Functional Status documented as of this encounter Plan of Treatment Scheduled Procedures Name Priority Associated Diagnoses Date/Ti ks ESOPHAGOGASTRODUODENOSCOPY Iron deficiency anemia, unspecified iron deficiency anemia type documented as of this encounter Visit Diagnoses Not on filedocumented in this encounter Additional Health Concerns Infection Onset Date Last Indicated Resolved Time COVID: Suspected 12/13/2024 12/13/2024 12/14/2024 7:26 PM CDT documented as of this encounter Care Teams Inspector And Unloader Relationship Specialty Start Date End Date Subha Rodriguez MD [address] [facility] [place] [phone] PCP - General Family Medicine 03/07/24 Job Coker MD [address] [place] [address] Referring Physician Psychiatry 06/19/22 Kendra Steiner MD PhD [address] [place] [address] Referring Physician Neurology 06/19/22 Mike Levy MD [address] [facility] [place] [address] Referring Physician Emergency Medicine 06/19/22 documented as of this encounter
--- OUTSIDE RECORDS SUMMARY | 2025-01-25 02:11 | XMS_ITS | Encounter Summary ---
Author Organization [facility] Healthcare Address [address] [place] [address] Care Team Providers Care Venetian Blind Mechanic Name Role Phone Claudio Suazo MD Primary Care Provider [phone] Job Coker MD Unavailable [phone] Kendra Steiner MD PhD Unavailable [phone] Mike Levy MD Unavailable [phone] Subha Rodriguez MD Primary Care Provider [phone] Reason for Visit * Reason Onset Date Comments ready to schedule 06/23/2022 Encounter Details Date Type Department Care Team (Late st Contact Info) Description 06/23/2022 Telephone [facility] Specialty Services [address] [place] [address] Miscellaneous, Not In File ready to schedule [...] on file 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 Gender Identity Female 11/21/2020 8:28 AM CDT [...] documented as of this encounter Care Teams Venetian Blind Mechanic Relationship Specialty Start Date End Date Claudio Suazo MD PCP - General 06/19/16 03/06/24 Subha Rodriguez MD [address] [place] [phone] PCP - General Family Medicine 03/07/24 Job Coker MD [address] [place] [address] Referring Physician Psychiatry 06/19/22 Kendra Steiner MD PhD [address] [place] [address] Referring Physician Neurology 06/19/22 Mike Levy MD [address] [place] [address] Referring Physician Emergency Medicine 06/19/22 documented as of this encounter
--- OUTSIDE RECORDS SUMMARY | 2025-01-25 02:11 | XMS_ITS | Encounter Summary ---
Author Organization [facility] Healthcare Address [address] [place] [address] Care Team Providers Care Weigh And Charge Worker Name Role Phone Job Coker MD Unavailable [phone] Kendra Steiner MD PhD Unavailable [phone] Mike Levy MD Unavailable [phone] Subha Rodriguez MD Primary Care Provider [phone] Encounter Details Date Type Department Care Team (Late st Contact Info) Description 06/12/2024 Orders Only [facility] Health Information Management [address] [place] [address] Scanning, Provider Social History Tobacco [...] on file 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 Gender Identity Female 11/21/2020 8:28 AM CDT [...] documented as of this encounter Care Teams Weigh And Charge Worker Relationship Specialty Start Date End Date Subha Rodriguez MD [address] [place] [address] PCP - General Family Medicine 03/07/24 Job Coker MD [address] [place] [address] Referring Physician Psychiatry 06/19/22 Kendra Steiner MD PhD [address] [place] [address] Referring Physician Neurology 06/19/22 Mike Levy MD [address] [place] [address] Referring Physician Emergency Medicine 06/19/22 documented as of this encounter
--- OUTSIDE RECORDS SUMMARY | 2025-01-25 02:11 | XMS_ITS | Encounter Summary ---
Author Organization [facility] Address [address] [place] [address] Phone Care Team Providers Care Industrial Controls Technician Name Role Phone Job Coker MD Unavailable [phone] Kendra Steiner MD PhD Unavailable [phone] Mike Levy MD Unavailable [phone] Subha Rodriguez MD Primary Care Provider [phone] Reason for Visit * Reason Onset Date Comments Catheter Order 01/24/2025 Encounter Details Date Type Department Care Team (Late st Contact Info) Description 01/24/[address] [facility] Medicine Obstetrics and Gynecology [facility] 7th Floor [address] [place] [address] Danuta Berger, LUISANA Catheter Order Social History Tobacco Use Types Packs/Day Years [...] points, staff should administer the PHQ-9) 1 01/03/2025 Hunger Vital Sign Answer Date Recorded Within the past 12 months, y ou worried that your food would run out before you got the money to buy more. Never true 07/28/19 25 Within the past 12 months, t he food you bought just didn't last and you didn't have money to get more. Never true 07/27/2024 PHQ-9 Answer Date Recorded PHQ-9 Total Score 3 01/03/2025 Personal Safety Answer Date Recorded Have you ever been in or are you currently in a harmful physical or emotional relationship or is someone making you feel afraid or unsafe? 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 Email response received they are working on the order. L MAINTENANCE WORKER documented in this encounter Plan of Treatment Scheduled Procedures Name Priority Associated Diagnoses Date/Ti me ESOPHAGOGASTRODUODENOSCOPY Iron deficiency anemia, unspecified iron deficiency anemia type documented as of this encounter Visit Diagnoses Not on filedocumented in this encounter Care Teams Industrial Controls Technician Relationship Specialty Start Date End Date Subha Rodriguez MD [address] [facility] DEPT [place] [phone] PCP - General Family Medicine 03/07/24 Job Coker MD [address] [place] [address] Referring Physician Psychiatry 06/19/22 Kendra Steiner MD PhD [address] [place] [address] Referring Physician Neurology 06/19/22 iMke Levy MD [address] [facility] DEPT [place] [address] Referring Physician Emergency Medicine 06/19/22 documented as of this encounter
--- OUTSIDE RECORDS SUMMARY | 2025-01-25 02:12 | XMS_ITS | Clinical Summary ---
Author Organization [facility] Address [address] [place] [address] Care Team Providers Care [employer] Name Role Phone Job Coker MD Unavailable [phone] Kendra Steiner MD PhD Unavailable [phone] Mike Levy MD Unavailable [phone] Subha Rodriguez MD Primary Care Provider [phone] Allergies Active Allergy Reactions Criticality Noted Date Comments Clarithromycin Rash Medium BIAcin Medications acyclovir (ZOVIRAX) 400 mg tablet Take 1 tablet (400 mg total) by mouth 2 (two) times a day 180 tablet 019 Active multivitamin tablet Take 1 tablet by [...] -800 unit per tablet daily Acti ve lamoTRIgine XR (LaMICtal XR) 200 mg tablet extended release 24hr Take 1 tablet (200 mg total) by mouth daily 024 Active QUEtiapine (SEROquel) 200 mg tablet Take 1 tablet (200 mg total) by mouth nightly Active clonazePAM (KlonoPIN) 0.5 mg tablet Take 1 tablet (0.5 mg total) by mouth 2 (two) times a day Active busPIRone (BUSPAR) 5 mg tablet every 8 hours Active rosuvastatin (CRESTOR) 5 mg tabletIndications :Mixed hyperlipidemia TAKE 1 TABLET(5 MG) BY MOUTH DAILY 30 tablet 5 Active SUMAtriptan (IMITREX) 6 mg/0.5 mL injection INJECT 6 MG UNDER THE SKIN NEEDED FOR MIGRAINE. MAY REPEAT DOSE IN 2 HOURS IF NEEDED. DO NOT EXCEED 2 DOSES IN 24 HOURS. 12 mL 6 025 Active estradioL (Estrace) 0.01 % (0.1 mg/gram) vaginal cream Insert 1 g into the vagina 2 (two) times a week 42.5 g 3 025 Active promethazine (PHENERGAN) 12.5 mg tablet Take 1-2 tablets (12.5-25 mg total) by mouth every 6 (six) hours as needed for nausea or vomiting 30 tablet 11 025 Active rizatriptan MACHINE CHOCOLATE MOLDER (MAXALT-MACHINE CHOCOLATE MOLDER) 10 mg disintegrating tablet DISSOLVE 1 TABLET ON THE TONGUE AT ONSET OF HEADACHE. MAY REPEAT IN 2 HOURS NEEDED. MAX DOSE 2 IN 24 HOURS 12 tablet 3 025 Active ondansetron ODT (ZOFRAN-ODT) 4 mg disintegrating tablet DISSOLVE 1 TABLET(4 MG) ON THE TONGUE EVERY 8 HOURS NEEDED FOR NAUSEA OR VOMITING 20 tablet 3 025 Active alendronate (FOSAMAX) 70 mg tablet Take 1 tablet (70 mg total) by mouth every 7 days Take in the morning with a full glass of water, on an empty stomach, and do not take anything else by mouth or lie down for the next 30 min. 12 tablet 3 025 Active predniSONE (DELTASONE) 10 mg tablet Take 5 tablets (50mg) by mouth on day one, then 4 tablets (40mg) on day two and continue to decrease by one tablet (10mg) daily until finished. 15 tablet 025 Active zavegepant 10 mg/actuation spray,non-aerosol Indications:Intra ctable chronic migraine without aura and without status migrainosus Administer 1 Dose into affected nostril(s) daily as needed (for migraines) 9 each 025 Active escitalopram (LEXAPRO) 20 mg tablet Take 0.5 tablets (10 mg total) by mouth 2 (two) times a day Active ubrogepant (UBRELVY) 100 mg tablet Take 1 tablet (100 mg total) by mouth once as needed for migraine May repeat dose once in 2 hours if no relief. Do not exceed 2 doses in 24 hours. 10 tablet 11 [address] (VOLTAREN) 50 mg EC tabletIndications :Bilateral primary osteoarthritis of hip TAKE 1 TABLET(50 MG) BY MOUTH TWICE DAILY 60 tablet 2 Active Qulipta 60 mg tablet TAKE 1 TABLET BY MOUTH DAILY 30 tablet 5 025 2024 Discontinued(P atient Reported) ubrogepant (UBRELVY) 100 mg tablet Take 1 tablet (100 mg total) by mouth once as needed for migraine May repeat dose once in 2 hours if no relief. Do not exceed 2 doses in 24 hours. 10 tablet 11 025 2024 Discontinued(P atient Reported) diclofenac DR (VOLTAREN) 50 mg EC tabletIndications :Bilateral primary osteoarthritis of hip Take 1 tablet (50 mg total) by mouth 2 (two) times a day 60 tablet 2 025 2024 Discontinued Active Problems Problem Noted Date Diagnosed Date Chronic migraine without aura, with status migra inosus 01/17/2025 Myalgia 12/13/2024 Assessment & Plan (12/18/2024 4:36 AM CDT): Orders: POC Influenza A/B, COVID-19 antigen Comprehensive metabolic panel; Future CBC with auto differential; Future West nile virus antibody, IgG and IgM Blood; Future Lyme Disease Antibodies (IgG, IgM) Blood; Future Feels feverish 12/13/2024 Assessment & Plan (12/18/2024 4:36 AM CDT): Orders: POC Influenza A/B, COVID-19 antigen Comprehensive metabolic panel; Future CBC with auto differential; Future West nile virus antibody, IgG and IgM Blood; Future Lyme Disease Antibodies (IgG, IgM) Blood; Future Malaise and fatigue 12/13/2024 Assessment & Plan (12/18/2024 4:36 AM CDT): Orders: Comprehensive metabolic panel; Future CBC with auto differential; Future West nile virus antibody, IgG and IgM Blood; Future Lyme Disease Antibodies (IgG, IgM) Blood; Future Pelvic floor dysfunction [M62.89] 12/01/2024 Urinary frequency 12/01/2024 Urinary urgency 12/01/2024 Bilateral myofascial pain 12/01/2024 Constipation 12/01/2024 Left hip pain 11/17/2024 Assessment & Plan (11/26/2024 10:41 PM CDT): Left arm pain 10/02/2024 Assessment & Plan (10/02/2024 1:36 PM CDT): Recommend taking diclofenac 50 mg twice daily as prescribed Recommend resistance band exercises Patient declines physical therapy Patient declines x-rays Try icy hot with lidocaine for additional pain relief Follow up as needed Chronic foot pain, left 10/02/2024 Assessment & Plan (10/02/2024 1:36 PM CDT): Recommend taking diclofenac 50 mg twice daily as prescribed Recommend purchasing new shoes Patient declines physical therapy Patient declines x-rays Try Epsom salt soaks Try icy hot with lidocaine for additional pain relief Follow up as needed Primary insomnia 08/17/2024 History of small bowel obstruction 08/11/2024 Assessment & Plan (08/11/2024 10:25 AM CDT): Take Linzess 92 mcg daily as prescribed; hold MiraLax while assessing if Linzess works adequately. Patient advised that she can take up to 2 tablet daily of Linzess for constipation if 1 tablet does not work to produce a bowel movement. Continue to use MiraLax as needed if Linzess does not work alone. Next follow-up on 09/05/2024 History of urinary retention 08/11/2024 Assessment & Plan (08/11/2024 10:25 AM CDT): Take Linzess 92 mcg daily as prescribed; hold MiraLax while assessing if Linzess works adequately. Patient advised that she can take up to 2 tablet daily of Linzess for constipation if 1 tablet does not work to produce a bowel movement. Continue to use MiraLax as needed if Linzess does not work alone. Next follow-up on 09/05/2024 Chronic constipation 08/11/2024 Assessment & Plan (11/26/2024 10:41 PM CDT): Assessment & Plan (09/24/2024 4:50 PM CDT): Chronic Stable Cont linzess Assessment & Plan (08/11/2024 10:26 AM CDT): Take Linzess 92 mcg daily as prescribed; hold MiraLax while assessing if Linzess works adequately. Patient advised that she can take up to 2 tablet daily of Linzess for constipation if 1 tablet does not work to produce a bowel movement. Continue to use MiraLax as needed if Linzess does not work alone. Next follow-up on 09/05/2024 Indwelling Connell catheter present 08/11/2024 Assessment & Plan (08/11/2024 10:26 AM CDT): Appointment with urology next Hx of abdominal surgery 08/11/2024 Assessment & Plan (08/11/2024 10:26 AM CDT): Take Linzess 92 mcg daily as prescribed; hold MiraLax while assessing if Linzess works adequately. Patient advised that she can take up to 2 tablet daily of Linzess for constipation if 1 tablet does not work to produce a bowel movement. Continue to use MiraLax as needed if Linzess does not work alone. Next follow-up on 09/05/2024 Abdominal adhesions 08/11/2024 Assessment & Plan (08/11/2024 10:27 AM CDT): Take Linzess 72 mcg daily as prescribed; hold MiraLax while assessing if Linzess works adequately. Patient advised that she can take up to 2 tablet daily of Linzess for constipation if 1 tablet does not work to produce a bowel movement. Continue to use MiraLax as needed if Linzess does not work alone. Next follow-up on 09/05/2024 Acute left-sided low back pain without sciatica 08/11/2024 Assessment & Plan (08/11/2024 10:24 AM CDT): Improved with ibuprofen Continue to take ibuprofen as needed for back pain BMI 20.0-20.9, adult 08/11/2024 Chronic fatigue 07/27/2024 Assessment & Plan (10/09/2024 1:18 PM CDT): 64 y.o. female with chronic [...] or MRI to assess the adrenal glands). She demonstrated and adequate cortical response back in (09/06/2023) Corticotropin (standard 250 mcg) stimulation test Basal: 1.5 mcg/dL 30-min: 13.8 mcg/dL 60-min: 20.5 mcg/dL A rise from the baseline of at least 7 to 10 mcg/dL of cortisol, reaching at least 18 mcg/dL at 60 minutes post stimulation effectively rules out primary adrenal insufficiency and suggests that adrenal suppression is minimal. Plan: 1) Check basal (8 am) cortisol, ACTH, Aldosterone, Renin levels, CBC w diff, renal function panel, ionized Ca, Hgb A1c, TSH, free T4 Stage 3a chronic kidney disease 07/02/2024 Assessment & Plan (07/02/2024 5:37 PM CDT): Chornic stable Bowel obstruction 06/21/2024 Assessment & Plan (08/11/2024 10:35 AM CDT): Take Linzess 72 mcg daily as prescribed; hold MiraLax while assessing if Linzess works adequately. Patient advised that she can take up to 2 tablet daily of Linzess for constipation if 1 tablet does not work to produce a bowel movement. Continue to use MiraLax as needed if Linzess does not work alone. Next follow-up on 09/05/2024 Assessment & Plan (07/02/2024 5:37 PM CDT): New resolved Mixed hyperlipidemia 06/21/2024 Assessment & Plan (01/07/2025 11:48 PM SALES AND MARKETING ASSISTANT): Orders: Comprehensive metabolic panel; Future Lipid panel; Future CBC with auto differential; Future Assessment & Plan (11/26/2024 10:41 PM CDT): Assessment & Plan (09/24/2024 4:50 PM CDT): Chronic Stable Cont Crestor Goal: TC<200, LDL<100, TG<150 Orders: Comprehensive metabolic panel; Future Lipid panel; Future Vitamin B12; Future Assessment & Plan (07/02/2024 5:35 PM CDT): Chornic Stable Cont crestor Goal: TC<200, LDL<100, TG<150 Bilateral hip pain 06/21/2024 Vertigo 04/17/2024 Assessment & Plan (04/23/2024 11:47 PM SALES AND MARKETING ASSISTANT): New Order PT Pure hypercholesterolemia 03/20/2024 Assessment & Plan (03/26/2024 10:50 PM SALES AND MARKETING ASSISTANT): Chronic Stable Follow low chol diet Goal: TC<200, LDL<100, TG<150 Family history of heart disease 03/20/2024 Other general symptoms and signs 01/06/2024 Assessment & Plan (01/06/2024 2:52 PM SALES AND MARKETING ASSISTANT): Nonspecific, episodic generalized sxs ongoing for [...] 05/04/2023 Assessment & Plan (05/04/2023 2:30 PM SALES AND MARKETING ASSISTANT): Exam favorable of crusted SK lesion though would appreciate second option from derm for reassurance Provided multiple derm contact in [place] & [place] to arrange and update to route referral once scheduled Interim concerns warranting update discussed Onychomycosis 05/04/2023 Assessment & Plan (05/04/2023 2:26 PM SALES AND MARKETING ASSISTANT): Moderate onychomycosis along multiple BL feet [...] 12/22/2022 Assessment & Plan (02/10/2023 1:21 PM SALES AND MARKETING ASSISTANT): May use Tylenol and/or Ibuprofen as [...] Vitamin B12 deficiency 10/07/2022 Assessment & Plan (09/24/2024 4:50 PM CDT): Chronic Stable Cont B12 supplement Orders: Comprehensive metabolic panel; Future Lipid panel; Future Vitamin B12; Future Assessment & Plan (03/26/2024 10:50 PM SALES AND MARKETING ASSISTANT): Chronic Stable Cont supplmeent Assessment & Plan (10/07/2022 2:10 PM CDT): WNL per prior labs in june Discussed updating w/ any recurrent or persisting stomatitis if warranted Cnt current Vit b12 oral supp interim Generalized anxiety disorder 06/19/2022 Assessment & Plan (09/24/2024 4:50 PM CDT): Chronic Stable Cont buspar Major depressive disorder 09/06/2017 Overview (09/06/2017): Stable [...] without status migrainosus 08/18/2017 Assessment & Plan (01/07/2025 11:48 PM SALES AND MARKETING ASSISTANT): Orders: zavegepant 10 mg/actuation spray,non-aerosol; Administer 1 Dose into affected nostril(s) daily as needed (for migraines) Comprehensive metabolic panel; Future Lipid panel; Future CBC with auto differential; Future Assessment & Plan (03/26/2024 10:50 PM SALES AND MARKETING ASSISTANT): Chronic Stable Cont maxalt, imitrex prn Assessment & Plan (06/19/2022 10:39 AM CDT): Tolerable though ongoing severe. Seeing a headache specialist. Assessment & Plan (05/02/2021 2:02 PM SALES AND MARKETING ASSISTANT): Lingering migraine post fall -improving with [...] Burning mouth syndrome 04/09/2015 Assessment & Plan (11/26/2024 10:41 PM CDT): Assessment & Plan (01/14/2023 5:59 PM SALES AND MARKETING ASSISTANT): Patient continue to complain of burning [...] PM CDT): Checking labs as per routine. Major depressive disorder, recurrent episode Nausea 02/21/2013 Migraines 01/14/2013 Severe recurrent major depre ssion without psychotic features 01/14/2013 Unspecified urinary incontinence 11/20/2011 Osteopenia 03/11/2010 Assessment & Plan (09/24/2024 4:50 PM CDT): Chronic Stable Cont fosamx Orders: Dexa Axial Skeleton Bone Density 1 Or 2 Site; Future Comprehensive metabolic panel; Future Lipid panel; Future Vitamin B12; Future Assessment & Plan (07/02/2024 5:37 PM CDT): Chronic Stable Cont fosamax Assessment & Plan (06/06/2018 12:13 PM CDT): Checking vitamin d. Resolved Problems Problem Noted Date Diagnosed Date Resolved Date Well adult exam 03/20/2024 12/14/2024 Assessment & Plan (09/24/2024 4:50 PM CDT): Orders: Comprehensive metabolic panel; Future Lipid panel; Future Vitamin B12; Future Aphthous ulcer of mouth 10/07/2022 082 03/2022 Assessment & Plan (10/07/2022 2:09 PM CDT): Exam C/W mild, aphthaous oropharyngitis Discussed pred course- declined p + valacyclovir, magic mouth wash prn;SER Counseled of expectations in viral illness & treatment, OTC supportives, food avoidances & sx warranting further f/u Update status 1-2wks revisit steroids, labs, etc Routine physical examination 06/19/2022 12/14/2024 Assessment & Plan (07/09/2023 3:36 PM CDT): [...] Checking routine labs Colonoscopy/mammogram to be scheduled Rib pain on right side 09/06/201706/19 Overview [...] Encounters Date Type Department Care Team Description 01/24/[address] [facility] Medicine Obstetrics and Gynecology [address] [place] [address] Danuta Berger, LUISANA Catheter Order 01/19/2025 Orders Only [facility] General Neurology [address] [place] [phone] Cele Roman 01/17/2025 Orders Only [facility] Neurology [address] [place] [address] Won Harris RN 01/17/2025 Orders Only [facility] [address] [place] [phone] Cele Roman 01/11/[address] [facility] Medicine Obstetrics and Gynecology [address] [place] [address] Floor [address] [place] [phone] Davina Escobar RN 01/09/2025 3:00 PM SALES AND MARKETING ASSISTANT Office Visit [facility] Medicine Obstetrics and Gynecology [address] [place] [address] Floor [address] [place] [phone] Falguni Correa MD Urinary urgency (Primary Dx); Pelvic floor dysfunction; Bilateral myofascial pain; History of urinary retention 01/03/2025 2:30 PM SALES AND MARKETING ASSISTANT Office Visit [facility] Family Medicine [address] [place] [address] [place] [phone] Subha Rodriguez MD Intractable chronic migraine without aura and without status migrainosus (Primary Dx); Mixed hyperlipidemia 01/02/2025 Telephone [facility] Obstetrics and Gynecology [address] [facility] 7th Floor [address] [place] [address] Danuta Berger, LUISANA 12/29/2024 Telephone [facility] Neurology [address] [facility] 6th Floor [address] [place] [address] Kendra Steiner MD PhD Daniela CALDWELL 12/23/2024 Results Follow-Up [address] [place] [phone] Subha Rodriguez MD X-ray lumbar spine complete 4+ views 12/23/2024 Results Follow-Up [address] [place] [phone] Subha Rodriguez MD POC Influenza A/B, COVID-19 antigen, West nile virus antibody, IgG and IgM Blood, Lyme Disease Antibodies (IgG, IgM) Blood, Additional followed-up results: 2 12/22/2024 9:00 AM CDT Therapy [facility] Physical Therapy [address] [facility] 1st Floor [address] [place] [address] Camelia Robertson DPT Pelvic floor dysfunction [M62.89] (Primary Dx); Constipation, unspecified constipation type; Urinary frequency; Urinary urgency; Bilateral myofascial pain 12/18/2024 Telephone [facility] Neurology [address] [facility] 6th Floor [address] [place] [address] Cele Roman 12/14/2024 3:15 PM CDT Office Visit [facility] Obstetrical Gynecology [facility] [address] [place] [address] Maira Jones MD Age-related osteoporosis without current pathological fracture (Primary Dx); Well woman exam; Mixed incontinence urge and stress 12/14/2024 Telephone [facility] Medicine [facility] [place] [address] [address] [place] [address] Subha Rodriguez MD Symptom Based Call 12/13/2024 1:45 PM CDT Office Visit [facility] Family Medicine [address] [place] [address] [address] [place] [address] Subha Rodriguez MD Myalgia (Primary Dx); Feels feverish; Malaise and fatigue 12/10/2024 Results Follow-Up [facility] Obstetrical Gynecology [address] [facility] [address] [place] [phone] Maira Jones MD Dexa Axial Skeleton Bone Density 1 Or 2 Site, Comprehensive metabolic panel, Lipid panel, Vitamin B12 12/06/2024 9:23 AM CDT - 12/06/2024 11:59 PM CDT Hospital Encounter [facility] Medical Office Bldg 1 [facility] [address] [facility] [address] [place] [address] Osteopenia of lumbar spine Discharge Disposition: Discharge to home or self care 12/01/2024 2:[address] [facility] Medicine Physical Therapy [address] [facility] 1st Floor [address] [place] [address] Camelia Robertson DPT Pelvic floor dysfunction [M62.89] (Primary Dx); Constipation, unspecified constipation type; Urinary frequency; Urinary urgency; Bilateral myofascial pain 11/27/2024 2:30 PM CDT Ancillary Procedure Radiology - [address] [place] [address] [address] [place] [address] Acute left-sided low back pain, unspecified whether sciatica present 11/27/2024 2:00 PM CDT Office Visit [facility] Medicine Orthopaedic Surgery [address] [place] [address] 2nd Floor [address] [place] [address] Noa Snyder PA Acute left-sided low back pain, unspecified whether sciatica present (Primary Dx) 11/21/[address] [facility] Medicine Orthopaedic Surgery [address] [place] [address] [address] [place] [address] Leidy Wiggins PA Low back pain, unspecified back pain laterality, unspecified chronicity, unspecified whether sciatica present (Primary Dx) 11/18/[address] [facility] Medicine Physical Therapy [address] [place] [address] [place] [phone] Camelia Robertson DPT 11/17/2024 9:15 AM CDT Telemedicine [address] [place] [phone] Subha Rodriguez MD Left hip pain (Primary Dx); Mixed hyperlipidemia; Burning mouth syndrome; Chronic constipation 11/15/2024 2:[address] [facility] Medicine Physical Therapy [address] [place] [address] [place] [phone] Camelia Robertson DPT Bilateral myofascial pain (Primary Dx); Constipation, unspecified constipation type; Urinary frequency; Urinary urgency; Pelvic floor dysfunction [M62.89] 11/15/[address] [facility] Medicine Physical Therapy [address] [place] [address] Floor [address] [place] [phone] 11/13/[address] [place] [phone] Subha Rodriguez MD Med Refill 11/02/2024 12:34 PM CDT - 11/02/2024 11:59 PM CDT Hospital Encounter [facility] Medical Office Bldg 1 Breast [facility] [address] [place] [address] [address] [place] [address] Well woman exam Discharge Disposition: Discharge to home or self care 11/02/2024 Results Follow-Up [facility] Obstetrical Gynecology [address] [place] [address] [address] [place] [address] Maira Jones MD Screening Mammogram Bilateral W Que 11/01/2024 8:38 AM CDT - 11/01/2024 11:59 PM CDT Hospital Encounter [facility] [address] [facility] [address] [place] [phone] Pascual Gaines MD Left hip pain Discharge Disposition: Discharge to home or self care 11/01/2024 Telephone [facility] General Neurology [address] [facility] 6th Floor [address] [place] [address] Kendra Steiner MD PhD Zhen CALDWELL (R) 10/31/2024 11:30 AM CDT Office Visit [facility] General Neurology [address] [facility] 6th Floor [address] [place] [address] Kendra Steiner MD PhD Intractable chronic migraine without aura and without status migrainosus (Primary Dx); Constipation, unspecified constipation type 10/27/2024 Orders Only [facility] Orthopaedic Surgery [address] [facility] Medical Office Building 4 [address] [place] [address] Leidy Wiggins PA Left hip pain (Primary Dx) from Last 3 Months Immunizations Immunization Administration Dates Next Due Influenza, Trivalent, Adjuvanted, Intramuscular 01/06/2024 Influenza, Trivalent, Recomb inant, Egg Free, Preservative Free, Antibiotic Free, IM (FLUBLOK) 01/06/2024 Influenza, Trivalent, Split, Preservative Free, Intradermal 12/24/2016 Pneumococcal Conjugate Pcv21 01/21/2024 Tdap 04/27/2021 ZOSTER Recombinant 01/21/2024 Surgical History Surgery Date Site/Laterality Comments [place] TX ECTOPIC ABDOMINAL/VAGINAL APPR Salpingectomy For Ectopic - (Added by TW Conv) [place] OOPHORECTOMY PARTIAL/TOTA L UNI/BI Oophorectomy Unilateral Left Side - (Added by TW Conv) EYE SURGERY Eye Surgery - muscle repair after trauma as child (Added by TW Conv) VT CLOSED TX NASAL SEPTAL FR ACT W/WO STABILIZATION Closed Treatment Of Nasal Septal Fracture - (Added by TW Conv) FLUORO GUIDED INJECTION SHOULDER LEFT 08/22/2018 Left HYSTERECTOMY BLADDER SURGERY Sling FLUORO GUIDED ASPIRATION OR INJECTION LARGE JOINT BILATERAL 06/04/2023 Bilateral SINUS SURGERY BLADDER SUSPENSION PELVIC LAPAROSCOPY FLUORO GUIDED ASPIRATION OR INJECTION LARGE JOINT LEFT 11/01/2024 Left Medical History Medical History Date Comments Urinary [...] Arthritis yes Brain concussion Bowel obstruction (HCC) Cataract Ectopic Menopause ovarian failure Ovarian cyst Recurrent loss, an tepartum condition or complication Family History Medical History Relation Name Comments Alcohol abuse Brother 1 eleazar recovered alcohol Brother 1 eleazar No Known Problems Brother 2 regan myocardial infarction Brother 3 autumn Asthma Brother 4 marianela Depression Daughter 1 adolfo Mental illness Daughter 1 adolfo Migraines Daughter 1 adolfo Migraine Headac he - (Added by TW Conv) pots Daughter 1 adolfo Mental illness Daughter 2 christina COPD Father Alex Mouna Hearing loss Father Alex Mouna Heart disease Father Alex Mouna Migraines Father Alex Mouna Migraine Hea dache - (Added by TW Conv) Anemia Mother Marisela Mouna Migraines Mother Marisela Mouna Migraine Hea dache - (Added by TW Conv) Miscarriages / Stillbirths Mother Marisela Schluete r Thyroid disease Mother Marisela Mouna Anemia Sister 1 Elmira Tofte Arthritis Sister 1 Elmira Tofte Migraines Sister 1 Elmira Kaz Migraine Heada colt - (Added by TW Conv) Osteoarthritis Sister 1 Elmira Tofte Migraines Sister 2 Padmini Edmi[place] polysubstance abuse Son 1 santo Breast cancer Neg Hx Ovarian cancer Neg Hx Uterine cancer Neg Hx Relation Name Status Comments Brother 1 eleazar Alive Brother 2 ergan Alive Brother 3 autumn Alive Brother 4 marianela Alive Daughter 1 adolfo Alive Daughter 2 christina Alive Father Alex Mouna Alive Mother Marisela Mouna Alive Sister 1 Elmira Tofte Sister 2 Padmini [place] Alive Son 1 santo Alive Son 2 [...] on file Legal Sex Female 3:24 PM SALES AND MARKETING ASSISTANT Gender Identity Female 11/21/2020 8:28 AM CDT Sexual Orientation Not on file Obstetrics History Para Term AB IAB SAB Ectopic Multiple Livin g Live Births 7 4 4 0 3 2 1 2 2 Date Outcome GA Total Labor Labor/2nd/3rd Weight Sex Type Anes PTL Aleida A1 A5 Name Clin SAB SAB Ectopic Term Vaginal Term Vaginal Term Vaginal Term Vaginal Comments 4 term, all vaginal delivery Ectopic x 2 with left salpingectomy Last Filed Vital Signs Vital Sign Reading Time Taken Comments Blood Pressure 111/73 01/09/2025 2:44 PM SALES AND MARKETING ASSISTANT Pulse 85 01/03/2025 2:43 PM SALES AND MARKETING ASSISTANT Temperature 36.1 C (96.9 F) 01/03/2025 2:43 PM SALES AND MARKETING ASSISTANT Respiratory Rate 16 01/03/2025 2:43 PM SALES AND MARKETING ASSISTANT Oxygen Saturation 98% 01/03/2025 2:43 PM SALES AND MARKETING ASSISTANT Inhaled Oxygen Concentration - - Weight 58.5 kg (129 lb) 01/09/2025 2:44 PM SALES AND MARKETING ASSISTANT Height 162.6 cm (5' 4) 01/09/2025 2:44 PM SALES AND MARKETING ASSISTANT Body Mass Index 22.14 01/09/2025 2:44 PM SALES AND MARKETING ASSISTANT Plan of Treatment Scheduled Procedures Name Priority Associated Diagnoses Date/Ti me ESOPHAGOGASTRODUODENOSCOPY Iron deficiency anemia, unspecified iron deficiency anemia type Health Maintenance Due Date Last Done Comments Zoster Vaccine (2 of 2) 03/17/2024 01/21/2024 Covid-19 Vaccine ( - season) 2024 02/17/2021, 06/26/2020, 06/04/2020 Influenza Vaccine (#1) 2024 , 01/06/2024, 12/24/2016 Breast Cancer Screening-Mammogram 11/02/2025 11/02/2024, 09/07/2023, 08/25/2022, Additional history exists Regular Well Visit/Exam 18-64 12/14/2025 12/14/2024, 11/30/2023, 07/09/2023, Additional history exists Depression Screening 01/03/2026 01/03/2025, 01/03/2025, 12/13/2024, Additional history exists Colon Cancer Screening-Colonoscopy 11/27/2027 11/26/2022 DTaP/Tdap/Td Vaccine (2 - Td or Tdap) 04/27/2031 04/27/2021 Colon Cancer Screening-CT Colonography Discontinued 11/26/2022 Colon Cancer Screening-DNA Stool Discontinued 11/26/2022 Colon Cancer Screening-FIT Discontinued 11/26/2022 Colon Cancer Screening-Sigmoidoscopy Discontinued 11/26/2022 Hepatitis C Screening Completed 12/23/2022 Hepatitis B Screening Completed 08/02/2023 Pneumococcal vaccine <65 Aged Out 01/21/2024 No longer eligible based on patient's age to complete this topic Procedures Procedure Name Priority Date/Time Associated Diagnosis Comments COMPREHENSIVE METABOLIC PANEL Routine 12/13/2024 3:30 PM CDT CBC WITH AUTO DIFFERENTIAL Routine 12/13/2024 3:30 PM CDT LYME DISEASE ANTIBODIES (IGG, IGM) Routine 12/13/2024 3:30 PM CDT Myalgia Feels feverish Malaise and fatigue WEST NILE VIRUS ANTIBODY, IGG AND IGM Routine 12/13/2024 3:30 PM CDT Myalgia Feels feverish Malaise and fatigue POC INFLUENZA A/B, COVID-19 ANTIGEN Routine 12/13/2024 2:58 PM CDT Myalgia Feels feverish DEXA AXIAL SKELETON BONE DENSITY 1 OR MORE SITES Schedule Routine, Read Routine (OP Routine) 12/06/2024 9:38 AM CDT Osteopenia of lumbar spine VITAMIN B12 Routine 11/29/2024 9:39 AM CDT Mixed hyperlipidemia Osteopenia of lumbar spine Vitamin B12 deficiency Well adult exam LIPID PANEL Routine 11/29/2024 9:39 AM CDT Mixed hyperlipidemia Osteopenia of lumbar spine Vitamin B12 deficiency Well adult exam COMPREHENSIVE METABOLIC PANEL Routine 11/29/2024 9:39 AM CDT Mixed hyperlipidemia Osteopenia of lumbar spine Vitamin B12 deficiency Well adult exam XR SPINE LUMBAR COMPLETE 4 OR MORE VIEWS Schedule Routine, Read Routine (OP Routine) 11/27/2024 2:45 PM CDT Acute left-sided low back pain, unspecified whether sciatica present SCREENING MAMMOGRAM BILATERAL W QUE Schedule Routine, Read Routine (OP Routine) 11/02/2024 12:58 PM CDT Well woman exam FLUORO GUIDED ASPIRATION OR INJECTION LARGE JOINT LEFT Schedule Routine, Read Routine (OP Routine) 11/01/2024 9:26 AM CDT Left hip pain HEPATITIS PANEL, ACUTE Routine 12/23/2022 9:46 AM CDT Polyarthralgia COLONOSCOPY 11/26/2022 8:14 AM CDT from Last 3 Months or Most Recently Relevant to Health Maintenance Results * Lyme Disease Antibodies (IgG, IgM) Blood (12/13/2024 3:30 PM CDT) Lyme ab, IgG, Western blot, quant NEGATIVE NEGATIVE [facility] Lyme ab, 18kD bands detected NON-REACTIVE [facility] Lyme ab, 23kD bands detected NON-REACTIVE [facility] Lyme ab, 28kD bands detected NON-REACTIVE [facility] Lyme ab, 30kD bands detected NON-REACTIVE [facility] Lyme ab, 39kD bands detected NON-REACTIVE [facility] Lyme ab, 41kD bands detected NON-REACTIVE [facility] Lyme ab, 45kD bands detected NON-REACTIVE [facility] Lyme ab, 58kD bands detected NON-REACTIVE [facility] Lyme ab, 66kD bands detected NON-REACTIVE [facility] Lyme ab, 93kD bands detected NON-REACTIVE [facility] Lyme ab, IgM, Western blot, quant NEGATIVE NEGATIVE [facility] Lyme ab, 23kD IgM bands NON-REACTIVE [facility] Lyme ab, 39kD IgM bands NON-REACTIVE [facility] Lyme ab, 41kD IgM bands NON-REACTIVE [facility] Comment: Lyme immunoblot testing should only be performed on samples from patients who have had a Positive or Equivocal result in a screening assay. As per CDC criteria, a Lyme disease IgG Immunoblot must show reactivity to at least 5 of 10 specific borrelial proteins to be considered positive; similarly, a positive Lyme disease IgM immunoblot requires reactivity to 2 of 3 specific borrelial proteins. Although considered negative, IgG reactivity to fewer specific borrelial proteins or IgM reactivity to only 1 protein may indicate recent B. burgdorferi infection and warrant testing of a later sample. A positive IgM but negative IgG result obtained more than a month after onset of symptoms likely represents a false- positive IgM result rather than acute Lyme disease. In rare instances, Lyme disease immunoblot reactivity may represent antibodies induced by exposure to other spirochetes. Blood 12/13/2024 3:30 PM CDT 12/13/2024 3:30 PM CDT [facility] - 12/16/2024 10:26 AM CDT FASTING:NO FASTING: NO us Subha Rodriguez MD LAB MICROBIOLOGY - GENERA L ORDERABLES Final Result [facility] [address] [address] * (ABNORMAL) CBC with auto differential (12/13/2024 3:30 PM CDT) [facility] WBC 9.7 3.8 - 10.8 Thousand/u L [facility] RBC, POC 3.78(L) 3.80 - 5.10 Million/uL [facility] Hgb 11.9 11.7 - 15.5 g/dL [facility] Hct 37.1 35.0 - 45.0 % [facility] MCV 98.1 80.0 - 100.0 fL [facility] MCH 31.5 27.0 - 33.0 pg [facility] MCHC 32.1 32.0 - 36.0 g/dL [facility] Comment: For adults, a slight decrease in the calculated MCHC value (in the range of 30 to 32 g/dL) is most likely not clinically significant; however, it should be interpreted with caution in correlation with other red cell parameters and the patient's clinical condition. Rdw 12.5 11.0 - 15.0 % [facility] Platelets 161 140 - 400 Thousand/u L [facility] MPV 9.5 7.5 - 12.5 fL [facility] Neutrophils, abs 8,061(H) 1,500 - 7,800 cells/uL [facility] Lymphocytes, abs 825(L) 850 - 3,900 cells/uL [facility] Monocyte abs 737 200 - 950 cells/uL [facility] Eosinophils, abs 49 15 - 500 cells/uL [facility] Basophils, abs 29 0 - 200 cells/uL [facility] Neutrophils 83.1 % [facility] Lymphocyte pct 8.5 % [facility] Monocytes 7.6 % [facility] Eosinophils 0.5 % [facility] Basophils 0.3 % [facility] 12/13/2024 3:30 PM CDT 12/13/2024 3:30 PM CDT Narrative - 12/16/2024 10:26 AM CDT FASTING:NO FASTING: NO Subha Rodriguez MD LAB BLOOD ORDERABLES Alissa l Result [facility] [address] [place] [address] * West nile virus antibody, IgG and IgM Blood (12/13/2024 3:30 PM CDT) West Nile virus IgG <1.30 index [facility] Comment: Index Interpretation <1.30 Antibody not detected 1.30-1.49 Equivocal >1.49 Antibody detected West Nile IgG antibodies are often not detectable until day 4 or 5 of illness. In a patient who is IgM positive but IgG negative, a convalescent phase specimen obtained 7 to 14 days after the initial specimen should be tested to document IgG seroconversion. West Nile virus IgM <0.90 index [facility] Comment: Index Interpretation <0.90 Antibody not detected 0.90-1.10 Equivocal >1.10 Antibody detected West Nile virus (WNV) IgM is usually detectable in serum specimens from WNV-infected patients at the time of clinical presentation. Because serum IgM antibody may persist for more than a year in some patients, its presence may indicate WNV infection in the previous year and be unrelated to the current clinical presentation. Antibodies induced by other flavivirus infections (e.g. Dengue virus, Gregg encephalitis virus) may show cross-reactivity with WNV. Blood 12/13/2024 3:30 PM CDT 12/13/2024 3:30 PM CDT Narrative [facility] - 12/16/2024 10:26 AM CDT FASTING:NO FASTING: NO Subha Rodriguez MD LAB MICROBIOLOGY - GENERA L ORDERABLES Final Result [facility] [address] [place] [address] * (ABNORMAL) Comprehensive metabolic panel (12/13/2024 3:30 PM CDT) Pathologist [facility] Glucose 88 65 - 139 mg/dL [facility] Comment: Non-fasting reference interval BUN 41(H) 7 - 25 mg/dL [facility] Creatinine 1.01 0.50 - 1.05 mg/dL [facility] eGFR 63 > OR = 60 mL/min/1.7 3m2 [facility] BUN/creat ratio 41(H) 6 - 22 (calc) [facility] Sodium 141 135 - 146 mmol/L [facility] Potassium, pl 4.0 3.5 - 5.3 mmol/L [facility] Chloride 106 98 - 110 mmol/L [facility] CO2 28 20 - 32 mmol/L [facility] Calcium 9.3 8.6 - 10.4 mg/dL [facility] Protein, sr 6.3 6.1 - 8.1 g/dL [facility] Albumin 4.0 3.6 - 5.1 g/dL [facility] GLOBULIN 2.3 1.9 - 3.7 g/dL (calc) [facility] Alb/glob ratio 1.7 1.0 - 2.5 (calc) [facility] Bilirubin, total 0.5 0.2 - 1.2 mg/dL [facility] Alk phos 61 37 - 153 U/L [facility] AST 23 10 - 35 U/L [facility] ALT (SGPT) 25 6 - 29 U/L [facility] 12/13/2024 3:30 PM CDT 12/13/2024 3:30 PM CDT Narrative [facility] 12/16/2024 10:26 AM CDT FASTING:NO FASTING: NO us Subha Rodriguez MD LAB BLOOD ORDERABLES Alissa l Result [facility] [address] [place] [address] * POC Influenza A/B, COVID-19 antigen (12/13/2024 2:58 PM CDT) Influenza A Ag, POC Negative Negative [facility] Influenza B Ag, POC Negative Negative [facility] COVID-19 Ag POC Presumptive Negative Presumptive Negative, Invalid [facility] 12/13/2024 2:58 PM CDT Subha Rodriguez MD POINT OF CARE TEST ORDERA BLES Final Result [facility] [address] [facility] [address] [place] [address] * Dexa Axial Skeleton Bone Density 1 Or 2 Site (12/06/2024 9:38 AM CDT) Anatomical Region Laterality Modality Body N/A Mammography 12/06/2024 9:51 AM CDT Narrative 12/06/2024 9:53 AM CDT EXAM DESCRIPTION: DEXA AXIAL SKELETON BONE DENSITY 1 OR MORE SITES REASON FOR STUDY: 64 y/o year old F with given history of: Post menopausal status. History of taking Fosamax and calcium. 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 CLINICAL INFORMATION: Current height: 62 inches Maximum height: 64 inches Weight: 120 pounds Risk factors: None COMPARISON: None available FINDINGS: AP LUMBAR SPINE L1-L4: Total BMD is 0.976 g/cm2 T-score is -0.6 LEFT HIP: Total BMD is 0.754 g/cm2 T-score is -1.5 Femoral neck BMD is 0.645 g/cm2 T-score is -1.8 FRAX: 10 year risk for a major osteoporotic fracture is 9 %, 10 year risk for a hip fracture is 1.2 % Per National Osteoporosis Foundation guidelines, this patient does not meet the criteria for pharmacological treatment of patients with FRAX 10 year major osteoporotic fracture risk scores of = or greater than 20% or a 10 year probability of a hip fracture = or greater than 3%, to reduce fracture risk. Additional factors such as frequent falls are not represented in FRAX and warrant individual clinical judgment. IMPRESSION: 1. Low bone mass REFERENCE: Bone mineral density: T-Score: Normal (T-score above or = -1.0) Low bone mass (T-score between -1.0 and -2.5) replaces the previously used term osteopenia Osteoporosis (T-score = or below -2.5) Z-Score: Within the expected range for age (Z-score above -2.0) Below the expected range for age (Z-score is -2.0 or below) Please see below follow up recommendations. Medical evaluation for secondary causes of low bone mineral density may be appropriate. FRAX is a World Health Organization validated fracture risk assessment tool that calculates a person's 10 year probability of a major osteoporosis related fracture and hip fracture. According to the National Osteoporosis Foundation guidelines, postmenopausal women and men age 50 or older with low bone mass and a 10 year probability of a major osteoporosis related fracture = or greater than 20% or a 10 year probability of a hip fracture = or greater than 3% should be considered for pharmacological treatment for the prevention of osteoporosis. For further information, including treatment recommendations, please refer to the 2019 ISCD Official Positions (http://www.iscd.org) and the NOF's Clinician's Guide to Prevention and Treatment of Osteoporosis (http://www.nof.org/professionals/clinical-guidelines) THIS IS AN ELECTRONICALLY VERIFIED FINAL REPORT 12/06/2024 9:53 AM - Electronically signed by Lauren Godoy M.D. TW: TW Report ID: [id number] Reading Location: [place] [address] Procedure Note Lauren Godoy MD - 12/06/2024 EXAM DESCRIPTION: DEXA AXIAL SKELETON BONE DENSITY 1 OR MORE SITES REASON FOR STUDY: 64 y/o year old F with given history of: Post menopausal status. History of taking Fosamax and calcium. 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 CLINICAL INFORMATION: Current height: 62 inches Maximum height: 64 inches Weight: 120 pounds Risk factors: None COMPARISON: None available FINDINGS: AP LUMBAR SPINE L1-L4: Total BMD is 0.976 g/cm2 T-score is -0.6 LEFT HIP: Total BMD is 0.754 g/cm2 T-score is -1.5 Femoral neck BMD is 0.645 g/cm2 T-score is -1.8 FRAX: 10 year risk for a major osteoporotic fracture is 9 %, 10 year risk for ahip fracture is 1.2 % Per National Osteoporosis Foundation guidelines, this patient does notmeet the criteria for pharmacological treatment of patients with FRAX 10 yearmajor osteoporotic fracture risk scores of = or greater than 20% or a 10 year probability of a hip fracture = or greater than 3%, to reduce fracturerisk. Additional factors such as frequent falls are not represented in FRAX and warrant individual clinical judgment. IMPRESSION: 1. Low bone mass REFERENCE: Bone mineral density: T-Score: Normal (T-score above or = -1.0) Low bone mass (T-score between -1.0 and -2.5) replaces thepreviously used term osteopenia Osteoporosis (T-score = or below -2.5) Z-Score: Within the expected range for age (Z-score above -2.0) Below the expected range for age (Z-score is -2.0 or below) Please see below follow up recommendations. Medical evaluation forsecondary causes of low bone mineral density may be appropriate. FRAX is a World Health Organization validated fracture risk assessmenttool that calculates a person's 10 year probability of a major osteoporosisrelated fracture and hip fracture. According to the National OsteoporosisFoundation guidelines, postmenopausal women and men age 50 or older with low bonemass and a 10 year probability of a major osteoporosis related fracture = or greater than 20% or a 10 year probability of a hip fracture = or greaterthan 3% should be considered for pharmacological treatment for the preventionof osteoporosis. For further information, including treatment recommendations, please referto the 2019 ISCD Official Positions (http://www.iscd.org) and the NOF's Clinician's Guide to Prevention and Treatment of Osteoporosis (http://www.nof.org/professionals/clinical-guidelines) THIS IS AN ELECTRONICALLY VERIFIED FINAL REPORT 12/06/2024 9:53 AM - Electronically signed by Lauren Godoy M.D. TW: EVIE Report ID: [id number] Reading Location: [id number] Subha Rodriguez MD IMG DXA PROCEDURES Final Result * Vitamin B12 (11/29/2024 9:39 AM CDT) Vitamin B12 1,076 200 - 1,100 pg/mL [facility] Blood 11/29/2024 9:39 AM CDT 11/29/2024 9:39 AM CDT Subha Rodriguez MD LAB BLOOD ORDERABLES Alissa l Result [facility] [address] [place] [address] * Lipid panel (11/29/2024 9:39 AM CDT) Cholesterol 194 <200 mg/dL [facility] HDL 83 > OR = 50 mg/dL [facility] Triglycerides 52 <150 mg/dL [facility] LDL 98 mg/dL (calc) [facility] Comment: Reference range: <100 Desirable range <100 mg/dL for primary prevention; <70 mg/dL for patients with CHD or diabetic patients with > or = 2 CHD risk factors. LDL-C is now calculated using the Leandro-Gray calculation, which is a validated novel method providing better accuracy than the Friedewald equation in the estimation of LDL-C. Leandro SHETH et al. JANKI. 2013;310(19): 7589-0083 (http://education.Zipalong.500Shops/faq/HLW319) Chol/HDL ratio 2.3 <5.0 (calc) [facility] Non-HDL, (LDL+VLDL) 111 <130 mg/dL (calc) [facility] Comment: For patients with diabetes plus 1 major ASCVD risk factor, treating to a non-HDL-C goal of <100 mg/dL (LDL-C of <70 mg/dL) is considered a therapeutic option. Blood 11/29/2024 9:39 AM CDT 11/29/2024 9:39 AM CDT Subha Rodriguez MD LAB BLOOD ORDERABLES Alissa seamus Result [facility] [address] [place] [address] * (ABNORMAL) Comprehensive metabolic panel (11/29/2024 9:39 AM CDT) Pathologist [facility] Glucose 88 65 - 99 mg/dL [facility] Comment: Fasting reference interval BUN 26(H) 7 - 25 mg/dL [facility] Creatinine 1.01 0.50 - 1.05 mg/dL [facility] eGFR 63 > OR = 60 mL/min/1.7 3m2 [facility] BUN/creat ratio 26(H) 6 - 22 (calc) [facility] Sodium 141 135 - 146 mmol/L [facility] Potassium, pl 4.5 3.5 - 5.3 mmol/L [facility] Chloride 105 98 - 110 mmol/L [facility] CO2 27 20 - 32 mmol/L [facility] Calcium 9.1 8.6 - 10.4 mg/dL [facility] Protein, sr 6.8 6.1 - 8.1 g/dL [facility] Albumin 4.5 3.6 - 5.1 g/dL [facility] GLOBULIN 2.3 1.9 - 3.7 g/dL (calc) [facility] Alb/glob ratio 2.0 1.0 - 2.5 (calc) [facility] Bilirubin, total 0.7 0.2 - 1.2 mg/dL [facility] Alk phos 60 37 - 153 U/L [facility] AST 36(H) 10 - 35 U/L [facility] ALT (SGPT) 36(H) 6 - 29 U/L [facility] Blood 11/29/2024 9:39 AM CDT 11/29/2024 9:39 AM CDT Subha Rodriguez MD LAB BLOOD ORDERABLES Alissa l Result [facility] [address] [place] [address] * X-ray lumbar spine complete 4+ views (11/27/2024 2:45 PM CDT) Anatomical Region Laterality Modality Spine N/A Computed Radiogr aphy 11/27/2024 3:16 PM CDT Impressions 11/27/2024 3:16 PM CDT 1. 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 2. Neutral sagittal alignment, and normal motion with bending. Electronically signed by: Kimo Pedroza MD Narrative 11/27/2024 3:16 PM CDT EXAMINATION: XR SPINE LUMBAR 4 OR MORE VIEWS HISTORY: Low back pain FINDINGS: 4 views the lumbar spine are submitted for interpretation, with comparison CT dated 09/14/2017. There is no acute fracture. There is normal sagittal alignment. There is mild rightward curvature of the lumbar spine. Multilevel disc height loss is greatest and mild at L4-L5. There is normal motion of bending. There is mild multilevel facet arthropathy. Procedure Note Kimo Pedroza MD - 11/27/2024 EXAMINATION: XR SPINE LUMBAR 4 OR MORE VIEWS HISTORY: Low back pain FINDINGS: 4 views the lumbar spine are submitted for interpretation, with comparison CT dated 09/14/2017. There is no acute fracture. There is normal sagittal alignment. There is mild rightward curvature of the lumbar spine. Multilevel disc height loss is greatest and mild at L4-L5. There is normal motion of bending. There is mild multilevel facet arthropathy. IMPRESSION: 1. 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 2. Neutral sagittal alignment, and normal motion with bending. Electronically signed by: Kimo Pedroza MD Noa CALDWELL IMG XR PROCEDURES Final Result * Screening Mammogram Bilateral W Que (11/02/2024 12:58 PM CDT) Anatomical Region Laterality Modality Breast Bilateral Mammography Impressions 11/02/2024 1:21 PM CDT Bilateral No evidence of malignancy in either breast. OVERALL BI-RADS FINAL ASSESSMENT: 1 - Negative RECOMMENDATION: Recommend bilateral annual screening mammography. Narrative 11/02/2024 1:21 PM CDT EXAMINATION: Screening Mammogram Bilateral W Que: 11/02/2024 COMPARISON: Relevant prior studies available at the time of interpretation were reviewed, including the most recent mammogram on: 09/07/2023. TECHNIQUE: Mammography was performed with 2D and 3D digital breast tomosynthesis (DBT) images. CAD was utilized. BREAST PARENCHYMAL COMPOSITION: There are scattered areas of fibroglandular density. FINDINGS: Bilateral There is no suspicious mass, calcification, or architectural distortion in either breast. There has been no suspicious interval change. Maira Jones MD IMG MAMMO PROCEDURES Final Result * FL Fluoro Guided Aspiration or Injection Large Joint Left (11/01/2024 9:26 AM CDT) Narrative [facility] - 11/01/2024 9:28 AM CDT The images from this study are not interpreted by Radiology. Please refer to the physician's procedure / OR operative note. Leidy CALDWELL IMG FLUOROSCOPY PROCED URES Final Result [facility] * Hepatitis panel, acute Blood (12/23/2022 9:46 AM CDT) Hep A IgM NON-REACTI VE NON-REACT MAURIZIO [facility] Comment: For additional information, please refer to http://education.[employer].500Shops/faq/HXQ892 (This link is being provided for informational/ educational purposes only.) HepBsAg NON-REACTI VE NON-REACT MAURIZIO [facility] Comment: For additional information, please refer to http://education.[employer].500Shops/faq/PYC731 (This link is being provided for informational/ educational purposes only.) Hep B core IgM NON-REACTI VE NON-REACT MAURIZIO [facility] Comment: For additional information, please refer to http://[employer]aelectric/faq/XWH879 (This link is being provided for informational/ educational purposes only.) Hep C Ab NON-REACTI VE NON-REACT MAURIZIO [facility] Comment: HCV antibody was non-reactive. There is no laboratory evidence of HCV infection. In most cases, no further action is required. However, if recent HCV exposure is suspected, a test for HCV RNA (test code 01893) is suggested. For additional information please refer to [email or web address] (This link is being provided for informational/ educational purposes only.) Blood 12/23/2022 9:46 AM CDT 12/23/2022 9:47 AM CDT Narrative [facility] - 12/25/2022 3:26 PM CDT FASTING:YES FASTING: YES Palma Trevino NP LAB MICROBIOLOGY - NERAL ORDERABLES Final Result [facility] [id number] [address] [place] [id number] * COLONOSCOPY (11/26/2022 8:14 AM CDT) Anatomical Region Laterality Modality Other Narrative Procedure Note Gómez Kirk MD PhD - 11/26/2022 8:14 AM CDT [facility] ENDOS[facility] Patient Name: Sabrina Barajas Procedure Date: 11/26/2022 8:14 AM Date of : 1960 Admit Type: Outpatient Age: 62 Gender: Female Attending MD: Gómez Kirk MD,PHD Room: [facility] ENDOSCOPY ROOM 4 Note Status: Finalized Procedure: [...] passed under direct vision.The CF HQ [id number] endoscope was introducedthrough the anus and advanced to the cecum, identified by appendiceal orifice and ileocecal valve. The colonoscopy was performed without difficulty. The patient tolerated the procedure well. The qualityof the bowel preparation was good. The quality of the bowel preparation was evaluated using the BBPS([place] Bowel Preparation Scale) with scores of: RightColon [...] On: 11/26/2022 8:14 AM Recognized by the [place] [employer] for promoting quality in endoscopy Gómez Kirk MD PhD ENDOSCOPY PROCEDURES F inal Result from Last 3 Months or Most Recently Relevant to Health Maintenance [place] Advance [place]ives For more information, please contact: [phone] * Full Code (Latest Code Status on File) Date Activated Date Inactivated Comments 11/26/2022 7:28 AM 11/26/2022 1:55 PM Care Teams [employer] Relationship Specialty Start Date End Date Subha Rodriguez MD [address] [facility] [place] [address] PCP - General Family Medicine 03/07/24 Job Coker MD [address] [place] [address] Referring Physician Psychiatry 06/19/22 Kendra Steiner MD PhD [address] [place] [address] Referring Physician Neurology 06/19/22 Mike Levy MD [address] [facility] [place] [id number] Referring Physician Emergency Medicine 06/19/22
--- OUTSIDE RECORDS SUMMARY | 2025-01-25 02:12 | XMS_ITS | Patient Health Record ---
Author Organization [facility] [place] Address [address] [place] [address] Care Team Providers Care Terminal System Operator Name Role Phone Jennifer PÉREZ, Subha Primary Care Provider Un available Job Coker Unavailable [phone] David Martin DMD Unavailable Unavailable Allergies Allergen (clinical drug ingredient) Drug/Non Drug Allergy documented on EMR Reaction Allergy Type Onset Date Status Biaxin Unknown Drug Allergy 05/14/2023 Active clarithromycin Clarithromycin rash Drug Allergy Active Results Component Value Reference Range Notes UDT Reviewed date:03/24/2024 01:14:14 PM Interpretation: Performing Lab: Notes/Report: Amphetamine (AMP) NEG 0 - 1000 ng/ml Buprenorphine (BUP) NEG 0 - 10 ng/ml Oxazepam (BZO) NEG 0 - 300 ng/ml Cocaine (PATTY) NEG 0 - 300 ng/ml Methamphetamine (mAMP) NEG 0 - 300 ng/ml Methylenedioxymethamphetamine (MDMA) NEG 0 - 500 ng/ml Morphine (MOP) NEG 0 - 25 ng/ml Methadone (MTD) NEG 0 - 300 ng/ml Oxycodone (OXY) NEG 0 - 300 ng/ml THC NEG 0 - 50 ng/ml x NEG 0 - 1000 ng/ml x NEG 0 - 1000 ng/ml x NEG 0 - 300 ng/ml x NEG 0 - 300 ng/ml x NEG 0 - 300 ng/ml UDT Reviewed date:10/19/2024 03:06:15 PM Interpretation: Performing Lab: Notes/Report: Amphetamine (AMP) n 0 - 1000 ng/ml Buprenorphine (BUP) p 0 - 10 ng/ml Oxazepam (BZO) n 0 - 300 ng/ml Cocaine (PATTY) n 0 - 300 ng/ml Methamphetamine (mAMP) n 0 - 300 ng/ml Methylenedioxymethamphetamine (MDMA) n 0 - 500 ng/ml Morphine (MOP) n 0 - 25 ng/ml Methadone (MTD) n 0 - 300 ng/ml Oxycodone (OXY) n 0 - 300 ng/ml THC n 0 - 50 ng/ml x n 0 - 1000 ng/ml x n 0 - 1000 ng/ml x n 0 - 300 ng/ml x n 0 - 300 ng/ml Reason For Referral No Information Medications Medication SIG (Take, Route, Frequency, Duration) Notes Start Date End Date Status busPIRone HCl 5 MG Tablet 1 tablet Oral 3 times a day; Duration: 90 days 01/12/2025 04/12/2025 Active Rizatriptan Benzoate 10 MG Tablet Disintegrating Oral; Duration: 12 Days Active clonazePAM 0.5 MG Tablet 1 tablet Orally Twice a day; Duration: 30 days 01/12/2025 Active Estradiol 0.1 MG/GM Cream as directed Vaginal Active Magnesium Citrate 100 MG Tablet as directed Orally Active busPIRone HCl 5 MG Tablet TAKE 1 TABLET BY MOUTH DAILY FOR 4 DAYS THEN TAKE 1 TABLET BY MOUTH TWICE DAILY FOR 4 DAYS THEN TAKE 1 TABLET BY MOUTH THREE TIMES DAILY FOR 22 DAYS; Duration: 30 Active lamoTRIgine ER 200 MG Tablet Extended Release 24 Hour 1 tablet Orally Once a day; Duration: 90 days 01/12/2025 Active QUEtiapine Fumarate 200 MG Tablet 1 tablet Oral Once a day; Duration: 90 days 01/12/2025 Active Multi Vitamin Active QUEtiapine Fumarate 200 MG Tablet TAKE 1 TABLET BY MOUTH EVERY NIGHT; Duration: 90 Active Alendronate Sodium 70 MG Tablet Oral; Duration: 84 Days Acti ve Ferrous Sulfate 325 (65 Fe) MG Tablet 1 tablet Orally Three times a Week Active Rosuvastatin Calcium 5 MG Tablet 1 tablet Orally Once a day Active Acyclovir 400 MG Tablet TAKE 1 TABLET BY MOUTH DAILY Oral; Duration: 90 Days Active Immunizations Vaccine Route Administration Date [...] History Observation Description Sex Assigned At Female Social History Miscellaneous: Social Info Question Answer Notes Advance Care Planning Are you your own decision-maker Yes Do you have Power of Associate Director Of Sales for Health or Medi herlinda? No Social History Social Info Question Answer Notes Household: Marital Status: Number of Adults in household: 1 Number of Children in Household: 0 Level of Education: Not Finished College Drug/Alcohol: Social Info Question Answer Notes Drugs Have you used drugs other than those for medical reasons in the past 12 months? No AUDIT-C (Standard) Did you have a drink containing alcohol in the past year? No Tobacco Use: Social Info Question Answer Notes Tobacco Control (Standard) Tobacco use: Nonsmoker Additional Details Category Social Info Options Details Migrated Social History Migrated Social History Alcohol Intake: None 06/26/2022,Tobacco Years: Never smoker 11/25/2022 Problems Problem Type SNOMED Code ICD Code Onset Dates Problem Status W/U Status Risk Notes Problem Severe recurrent major depression without psychotic features (61443394) Major depressive disorder, recurrent severe without psychotic features (F33.2) Active confirmed Problem Generalized anxiety disorder (04025028) Generalized anxiety disorder (F41.1) Active confirmed Problem Primary insomnia (6554204) Primary insomnia (F51.01) Active confirmed Problem Migraine without aura, not refractory (disorder) (701610164) Migraine, unspecified, not intractable, without status migrainosus (G43.909) Active confirmed Problem Vitamin B12 deficiency (324266448) Vitamin B12 deficiency (E53.8) 4 Active confirmed Problem Chronic intractable migraine without aura (562707967489498 ) Intractable chronic migraine without aura and without status migrainosus (G43.719) 4 Active confirmed Problem Burning mouth syndrome (681418189) Burning mouth syndrome (K14.6) 3 Active confirmed Problem Vertigo (807827300) Vertigo (R42) 5 Active confirmed Vital Signs Heart Rate 78 /min 01/12/2025 Height-cm 162.56 cm 01/12/2025 Blood pressure diastolic 67 mm Hg 01/12/2025 Weight-kg 58.51 kg 01/12/2025 Height 64.00 in 01/12/2025 Blood pressure systolic 101 mm Hg 01/12/2025 Weight 129 lbs 01/12/2025 BMI 22.14 kg/m2 01/12/2025 Encounters Encounter Location Date Provider Diagnosis [facility] [address] [place] [address] 01/26/2024 Job Sheela Major depressive disorder, recurrent severe without psychotic features F33.2 ; Generalized anxiety disorder F41.1 and Primary insomnia F51.01 [facility] [address] [place] [address] 02/28/2024 Job Sheela Major depressive disorder, recurrent severe without psychotic features F33.2 ; Generalized anxiety disorder F41.1 and Primary insomnia F51.01 [facility] [address] [place] [address] 03/24/2024 Job Sheela Major depressive disorder, recurrent severe without psychotic features F33.2 ; Generalized anxiety disorder F41.1 and Primary insomnia F51.01 [facility] [address] [place] [address] 04/27/2024 Job Sheela Major depressive disorder, recurrent severe without psychotic features F33.2 ; Generalized anxiety disorder F41.1 and Primary insomnia F51.01 [facility] [address] [place] [address] 05/11/2024 Job Sheela Encounter for screen ing for cardiovascular disorders Z13.6 ; Burning mouth syndrome K14.6 ; Vertigo R42 ; Encounter for screening for depression Z13.31 ; Major depressive disorder, recurrent severe without psychotic features F33.2 ; Generalized anxiety disorder F41.1 and Primary insomnia F51.01 [facility] [address] [place] [address] 06/08/2024 Job Sheela Encounter for screen ing for depression Z13.31 ; Encounter for screening for cardiovascular disorders Z13.6 ; Burning mouth syndrome K14.6 ; Vertigo R42 ; Major depressive disorder, recurrent severe without psychotic features F33.2 ; Generalized anxiety disorder F41.1 and Primary insomnia F51.01 [facility] [address] [place] [address] 07/06/2024 Job Sheela Major depressive disorder, recurrent severe without psychotic features F33.2 ; Generalized anxiety disorder F41.1 ; Primary insomnia F51.01 ; Burning mouth syndrome K14.6 ; Vertigo R42 ; Encounter for screening for depression Z13.31 and Encounter for screening for cardiovascular disorders Z13.6 [facility], [facility] [address] [place] [address] 10/19/2024 Job Sheela Major depressive disorder, recurrent severe without psychotic features F33.2 ; Generalized anxiety disorder F41.1 ; Primary insomnia F51.01 ; Burning mouth syndrome K14.6 and Vertigo R42 [facility] [address] [place] [address] 11/13/2024 Job Sheela Major depressive disorder, recurrent severe without psychotic features F33.2 and Generalized anxiety disorder F41.1 [facility] [address] [place] [address] 01/12/2025 Job Sheela Major depressive disorder, recurrent severe without psychotic features F33.2 ; Generalized anxiety disorder F41.1 ; Migraine, unspecified, not intractable, without status migrainosus G43.909 and Unspecified symptoms and signs involving the genitourinary system R39.9 [facility] [address] [place] [address] 03/27/2024 Job Sheela [facility], [facility] [address] [place] [address] 03/28/2024 Job Sheela Major depressive disorder, recurrent severe without psychotic features F33.2 [facility] [address] [place] [address] 04/19/2024 Job Sheela [facility], [facility] [address] [place] [address] 04/26/2024 Job Sheela [facility], [facility] [address] [place] [address] 06/22/2024 Job Sheela [facility], [facility] [address] [place] [address] 06/26/2024 Job Sheela [facility], [facility] [address] [place] [address] 08/10/2024 Job Sheela [facility], [facility] [address] [place] [address] 08/21/2024 Job Sheela Generalized anxiety disorder F41.1 [facility], [facility] [address] [place] [address] 09/20/2024 Job Sheela Generalized anxiety disorder F41.1 [facility], [facility] [address] [place] [address] 04/05/2024 [facility] [address] [place] [address] 04/05/2024 Job Sheela [facility], [facility] [address] [place] [address] 04/06/2024 Jobyakov Coker Major depressive disorder, recurrent severe without psychotic features F33.2 [facility], [facility] [address] [place] [address] 05/10/2024 [facility] [address] [place] [address] 05/10/2024 Job Sheela [facility], [facility] [address] [place] [address] 05/10/2024 Job Sheela [facility], [facility] [address] [place] [address] 07/03/2024 Job Sheela [facility], [facility] [address] [place] [address] 08/01/2024 Job Sheela [facility], [facility] [address] [place] [address] 08/22/2024 Job Sheela [facility], [facility] [address] [place] [address] 08/22/2024 Job Sheela [facility], [facility] [address] [place] [address] 08/22/2024 Job Sheela Generalized anxiety disorder F41.1 [facility] [address] [place] [address] 08/23/2024 [facility], [place] [address] [facility] [address] [place] [address] 10/05/2024 [facility], [place] [address] [facility] [address] [place] [address] 10/07/2024 [facility], [place] [address] [facility] [address] [place] [address] 10/12/2024 [facility], [place] [address] [facility] [address] [place] [address] 10/24/2024 [facility], [address] [facility] [address] [place] [address] 10/24/2024 [facility], [address] [address] 11/27/2024 [facility], [address] [address] 01/08/2025 [facility] Assessments Encounter Date Diagnosis (ICD Code) Assessment Notes Treatment Notes Treatment Clinical Notes Section Notes 01/26/2024 Major depressive disorder, recurrent severe without [...] exercising and pursuing volunteer opportunities at the [facility] [place]. - Support the patient in managing her [...] after Andres due to provider's time off. 03/28/2024 Major [...] week and plans to volunteer at the [employer]. Patient has a good relationship with siblings [...] screening for cardiovascular disorders (ICD-10 - Z13.6) 07/06/2024 Major depressive disorder, recurrent severe without psychotic features (ICD-10 - F33.2) Imported from View3: The patient had several encounters with [facility] from May to June 2024. On June 11, 2024, the patient had a nurse triage with Dr. Subha Rodriguez. A subsequent order was placed on June 12, 2024, by Provider Scanning. The patient had an office visit on June 21, 2024, with Dr. Subha Rodriguez, during which several health issues were identified, including bilateral hip pain, bowel obstruction, mixed hyperlipidemia , osteopenia at an unspecified location, and stage 3a chronic kidney disease. A follow-up for these results was conducted on June 29, 2024, with Leila Woods. 07/06/2024 Generalized anxiety disorder (ICD-10 - F41.1) Imported from View3: The patient had several encounters with [facility] from May to June 2024. On June 11, 2024, the patient had a nurse triage with Dr. Subha Rodriguez. A subsequent order was placed on June 12, 2024, by Provider Scanning. The patient had an office visit on June 21, 2024, with Dr. Subha Rodriguez, during which several health issues were identified, including bilateral hip pain, bowel obstruction, mixed hyperlipidemia , osteopenia at an unspecified location, and stage 3a chronic kidney disease. A follow-up for these results was conducted on June 29, 2024, with Leila Woods. 06/08/2024 Encounter for screening for depression (ICD-10 - Z13.31) 08/21/2024 Generalized anxiety disorder (ICD-10 - F41.1) 08/22/2024 Generalized anxiety disorder (ICD-10 - F41.1) 09/20/2024 Generalized anxiety disorder (ICD-10 - F41.1) 10/19/2024 Major depressive disorder, recurrent severe without psychotic features (ICD-10 - F33.2) Electronic Prior Authorization was requested for QUEtiapine Fumarate ER 200 MG Tablet Extended Release 24 Hour. Provider can order medication once approval received. Electronic Prior Authorization was requested for QUEtiapine Fumarate ER 200 MG Tablet Extended Release 24 Hour. Provider can order medication once approval received. Imported from Highlights: The patient had several encounters with [facility] from May to June 2024. On June 11, 2024, the patient had a nurse triage with Dr. Subha Rodriguez. A subsequent order was placed on June 12, 2024, by Provider Scanning. The patient had an office visit on June 21, 2024, with Dr. Subha Rodriguez, during which several health issues were identified, including bilateral hip pain, bowel obstruction, mixed hyperlipidemia , osteopenia at an unspecified location, and stage 3a chronic kidney disease. A follow-up for these results was conducted on June 29, 2024, with Leila Woods. 11/13/2024 Major depressive disorder, recurrent severe without psychotic features (ICD-10 - F33.2) Depression is currently stable with no major symptoms reported. Patient finds mood is much better overall and manages motivation by staying busy. Medication regimen includes Lamotrigine ER and Lycotap, which have been effective. Recent attempt to switch medication formulation resulted in dizziness, resolved by returning to regular regimen. - Continue Lamotrigine ER 200 mg. - Continue quetiapine 200 mg at night. - Monitor for any changes in mood or motivation. 11/13/2024 Generalized anxiety disorder (ICD-10 - F41.1) Anxiety is currently stable with no major anxiety or panic attacks reported. Patient continues on Buspar and Clonazepam as part of her regimen. - Continue Buspar 5 mg three times a day. - Continue Clonazepam 0.5 mg twice a day. - Monitor for any changes in anxiety symptoms. 01/12/2025 Major depressive disorder, recurrent severe without psychotic features (ICD-10 - F33.2) 01/12/2025 Generalized anxiety disorder (ICD-10 - F41.1) Occasional morning anxiety, about once a week, resolves after getting up. No major anxiety attacks or panic attacks reported. Patient continues on current medications for anxiety. - Refilled quetiapine 200 mg daily. - Refilled Lamotrigine 200 mg once a day. - Refilled clonazepam 0.5 mg twice a day. - Refilled buspirone 5 mg three times a day. 01/12/2025 Migraine, unspecified, not intractable, without status migrainosus (ICD-10 - G43.909) Patient reports ongoing migraines. Neurologist recommends infusions every three months. 10/19/2024 Generalized anxiety disorder (ICD-10 - F41.1) Morning anxiety and restlessness reported, lasting 45 minutes to an hour. Symptoms improve with activity. No anxiety at bedtime or mind racing at night. Current medications include Lamotrigine, Clonazepam, and Buspirone. - Start Quetiapine ER 150 mg pending prior authorization. - Continue Lamotrigine 200 mg. - Continue Clonazepam 0.5 mg twice a day. - Continue Buspirone 5 mg. - Send prior authorization for Quetiapine ER. - If Quetiapine ER is denied, send regular Quetiapine prescription. - Schedule follow-up appointment in 3 months. Imported from Highlights: The patient had several encounters with [facility] from May to June 2024. On June 11, 2024, the patient had a nurse triage with Dr. Subha Rodriguez. A subsequent order was placed on June 12, 2024, by Provider Scanning. The patient had an office visit on June 21, 2024, with Dr. Subha Rodriguez, during which several health issues were identified, including bilateral hip pain, bowel obstruction, mixed hyperlipidemia , osteopenia at an unspecified location, and stage 3a chronic kidney disease. A follow-up for these results was conducted on June 29, 2024, with Leila Woods. 07/06/2024 Primary insomnia (ICD-10 - F51.01) Imported from Highlights: The patient had several encounters with [facility] from May to June 2024. On June 11, 2024, the patient had a nurse triage with Dr. Subha Rodriguez. A subsequent order was placed on June 12, 2024, by Provider Scanning. The patient had an office visit on June 21, 2024, with Dr. Subha Rodriguez, during which several health issues were identified, including bilateral hip pain, bowel obstruction, mixed hyperlipidemia , osteopenia at an unspecified location, and stage 3a chronic kidney disease. A follow-up for these results was conducted on June 29, 2024, with Leila Woods. 05/11/2024 Encounter for screening for depression (ICD-10 [...] week and plans to volunteer at the [facility] [place]. Patient has a good relationship with siblings [...] exercising and pursuing volunteer opportunities at the [facility] [place]. - Support the patient in managing her relationship with her daughter and navigating insurance issues. Follow-up - Plan: - Schedule a follow-up appointment after [place] to assess the effectiveness of the increased quetiapine dosage and overall mental health status. - Ensure the patient has an adequate supply of medications and adjust prescriptions as needed. - Next appointment may be after Andres due to provider's time off. 01/26/2024 Primary insomnia (ICD-10 - F51.01) Anxiety [...] exercising and pursuing volunteer opportunities at the [facility] [place]. - Support the patient in managing her relationship with her daughter and navigating insurance issues. Follow-up - Plan: - Schedule a follow-up appointment after Andres to assess the effectiveness of the increased quetiapine dosage and overall mental health status. - Ensure the patient has an adequate supply of medications and adjust prescriptions as needed. - Next appointment may be after [place] due to provider's time off. 04/27/2024 Primary [...] week and plans to volunteer at the [facility] [place]. Patient has a good relationship with siblings and nieces, which provides strong social support. - Plan: - Encourage patient to continue engaging in social activities and maintaining relationships. Follow-up - Assessment: Patient requests to extend the time between appointments to 3 months. - Plan: - Schedule a follow-up appointment in 3 months. 03/24/2024 Primary insomnia (ICD-10 - F51.01) 10/19/2024 Primary insomnia (ICD-10 - F51.01) Imported from View3: The patient had several encounters with [facility] from May to June 2024. On June 11, 2024, the patient had a nurse triage with Dr. Subha Rodriguez. A subsequent order was placed on June 12, 2024, by Provider Scanning. The patient had an office visit on June 21, 2024, with Dr. Subha Rodriguez, during which several health issues were identified, including bilateral hip pain, bowel obstruction, mixed hyperlipidemia , osteopenia at an unspecified location, and stage 3a chronic kidney disease. A follow-up for these results was conducted on June 29, 2024, with Leila Peggy. 06/08/2024 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) 01/12/2025 Unspecified symptoms and signs involving the genitourinary system (ICD-10 - R39.9) Patient reports problems with bladder. 07/06/2024 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) Imported from View3: The patient had several encounters with [facility] from May to June 2024. On June 11, 2024, the patient had a nurse triage with Dr. Subha Rodriguez. A subsequent order was placed on June 12, 2024, by Provider Scanning. The patient had an office visit on June 21, 2024, with Dr. Subha Rodriguez, during which several health issues were identified, including bilateral hip pain, bowel obstruction, mixed hyperlipidemia , osteopenia at an unspecified location, and stage 3a chronic kidney disease. A follow-up for these results was conducted on June 29, 2024, with Leila Peggy. 07/06/2024 Vertigo (ICD-10 - R42) Imported from View3: The patient had several encounters with [facility] from May to June 2024. On June 11, 2024, the patient had a nurse triage with Dr. Subha Rodriguez. A subsequent order was placed on June 12, 2024, by Provider Scanning. The patient had an office visit on June 21, 2024, with Dr. Subha Rodriguez, during which several health issues were identified, including bilateral hip pain, bowel obstruction, mixed hyperlipidemia , osteopenia at an unspecified location, and stage 3a chronic kidney disease. A follow-up for these results was conducted on June 29, 2024, with Leila Woods. 10/19/2024 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) Persistent burning mouth sensation reported. Imported from View3: The patient had several encounters with [facility] from May to June 2024. On June 11, 2024, the patient had a nurse triage with Dr. Subha Rodriguez. A subsequent order was placed on June 12, 2024, by Provider Scanning. The patient had an office visit on June 21, 2024, with Dr. Subha Rodriguez, during which several health issues were identified, including bilateral hip pain, bowel obstruction, mixed hyperlipidemia , osteopenia at an unspecified location, and stage 3a chronic kidney disease. A follow-up for these results was conducted on June 29, 2024, with Leila Woods. 06/08/2024 Vertigo (ICD-10 - R42) 05/11/2024 Generalized anxiety disorder (ICD-10 - F41.1) 05/11/2024 Primary insomnia (ICD-10 - F51.01) 07/06/2024 Encounter for screening for depression (ICD-10 - Z13.31) Imported from View3: The patient had several encounters with [facility] from May to June 2024. On June 11, 2024, the patient had a nurse triage with Dr. Subha Rodriguez. A subsequent order was placed on June 12, 2024, by Provider Scanning. The patient had an office visit on June 21, 2024, with Dr. Subha Rodriguez, during which several health issues were identified, including bilateral hip pain, bowel obstruction, mixed hyperlipidemia , osteopenia at an unspecified location, and stage 3a chronic kidney disease. A follow-up for these results was conducted on June 29, 2024, with Leila Woods. 10/19/2024 Vertigo (ICD-10 - R42) Imported from Highlights: The patient had several encounters with [facility] from May to June 2024. On June 11, 2024, the patient had a nurse triage with Dr. Subha Rodriguez. A subsequent order was placed on June 12, 2024, by Provider Scanning. The patient had an office visit on June 21, 2024, with Dr. Subha Rodriguez, during which several health issues were identified, including bilateral hip pain, bowel obstruction, mixed hyperlipidemia , osteopenia at an unspecified location, and stage 3a chronic kidney disease. A follow-up for these results was conducted on June 29, 2024, with Leila Woods. 06/08/2024 Major depressive disorder, recurrent severe without psychotic features (ICD-10 - F33.2) 06/08/2024 Generalized anxiety disorder (ICD-10 - F41.1) 07/06/2024 Encounter for screening for cardiovascular disorders (ICD-10 - Z13.6) Imported from Highlights: The patient had several encounters with [facility] from May to June 2024. On June 11, 2024, the patient had a nurse triage with Dr. Subha Rodriguez. A subsequent order was placed on June 12, 2024, by Provider Scanning. The patient had an office visit on June 21, 2024, with Dr. Subha Rodriguez, during which several health issues were identified, including bilateral hip pain, bowel obstruction, mixed hyperlipidemia , osteopenia at an unspecified location, and stage 3a chronic kidney disease. A follow-up for these results was conducted on June 29, 2024, with Leila Woods. 06/08/2024 Primary insomnia (ICD-10 - F51.01) 03/24/2024 [...] Continue physical therapy. - Follow up with firmware test engineer and neurologist as scheduled. - Monitor symptoms [...] appointment with Dr. Martin, a specialist in [place], on May 18. Previous ENT specialist, Dr. [...] have been made to correct them. 06/08/2024 Carolyn Santamaria, a female patient with a [...] anxiety symptoms. During a past hospitalization in [place], buspirone was helpful. Antidepressant trials, including desvenlafaxine [...] coping strategies: yoga, exercise classes, yard work, [employer] volunteering, and companionship with new puppy - Follow up in 4 weeks Disclaimer: This note has been transcribed using speech recognition software and serves as a reflection of the patient's visit. While efforts have been made to ensure accuracy, there may be errors, including dye stand loader inaccuracies and misspellings of medication names. This document should not be considered a verbatim record, and any discrepancies should be verified with the provider. 07/06/2024 Carolyn Santamaria, a female patient with [...] plans to discuss it further with her solid waste technician in July. Plan: - Encourage adherence to recommended fiber intake and MiraLAX regimen - Advise patient to follow up with solid waste technician as scheduled in July to address ongoing constipation issues Disclaimer: This note has been transcribed using speech recognition software and serves as a reflection of the patient's visit. While efforts have been made to ensure accuracy, there may be errors, including dye stand loader inaccuracies and misspellings of medication names. This document should not be considered a verbatim record, and any discrepancies should be verified with the provider. Imported from Highlights: The patient had several encounters with [facility] from May to June 2024. On June 11, 2024, the patient had a nurse triage with Dr. Subha Rodriguez. A subsequent order was placed on June 12, 2024, by Provider Scanning. The patient had an office visit on June 21, 2024, with Dr. Subha Rodriguez, during which several health issues were identified, including bilateral hip pain, bowel obstruction, mixed hyperlipidemia , osteopenia at an unspecified location, and stage 3a chronic kidney disease. A follow-up for these results was conducted on June 29, 2024, with Leila Woods. 10/19/2024 Carolyn Santamaria presents with morning anxiety, burning mouth sensation, and osteoarthritis, with a history of recent bowel obstruction and acute urinary retention. Morning Anxiety Assessment: Patient reports experiencing high anxiety upon waking, lasting for 45 minutes to an hour. Symptoms include feeling very anxious, nervous, and restless in the body. The anxiety is not associated with racing thoughts or difficulty falling asleep at night. Physical activity and staying busy help alleviate symptoms. This pattern suggests a possible circadian component to the anxiety or could be related to medication timing. Plan: - Consider switching from quetiapine to quetiapine ER 150 mg, pending insurance approval - Continue lamotrigine 200 mg - Continue clonazepam 0.5 mg twice daily - Continue buspirone 5 mg - Follow up in 3 months Burning Mouth Syndrome Assessment: Patient reports persistent burning mouth sensation that worsens with increased anxiety levels. This suggests a possible psychosomatic component or exacerbation of the condition due to stress. Plan: - Continue current management - Monitor symptoms in relation to anxiety levels Osteoarthritis Assessment: Patient reports morning stiffness and need to get moving due to osteoarthritis. This is consistent with the typical presentation of osteoarthritis, which often improves with activity. Plan: - Continue current management - Encourage regular physical activity, including morning walks Disclaimer: This note has been transcribed using speech recognition software and serves as a reflection of the patient's visit. While efforts have been made to ensure accuracy, there may be errors, including dye stand loader inaccuracies and misspellings of medication names. This document should not be considered a verbatim record, and any discrepancies should be verified with the provider. Body aches on waking, needs to get moving to alleviate discomfort. Imported from Highlights: The patient had several encounters with [facility] from May to June 2024. On June 11, 2024, the patient had a nurse triage with Dr. Subha Rodriguez. A subsequent order was placed on June 12, 2024, by Provider Scanning. The patient had an office visit on June 21, 2024, with Dr. Subha Rodriguez, during which several health issues were identified, including bilateral hip pain, bowel obstruction, mixed hyperlipidemia , osteopenia at an unspecified location, and stage 3a chronic kidney disease. A follow-up for these results was conducted on June 29, 2024, with Leila Woods. 08/10/2024 Other Electronic Prior Authorization was requested for QUEtiapine Fumarate 200 MG Tablet. Provider can order medication once approval received. Electronic Prior Authorization was requested for clonazePAM 0.5 MG Tablet. Provider can order medication once approval received. Plan Of Treatment No Information Insurance Providers Payer Name Payer Address Payer Phone Subscriber Number Group Number Insured Name Patient Relationship to Insured Coverage Start Date Coverage End Date [employer] [address] [place] [phone] [id number] ROSA SANTAMARIA Self - patient is the insured Medical (General) History Medical History History ICD Code Problems: Generalized anxiety disorder Major depression in remission Primary insomnia Past Psychiatric History: Anxiety Disord er,Major Depressive Episode undefined Major depressive disorder, recurrent Generalized anxiety disorder Surgical History Surgery Date(Month/Year) Hysterectomy (73281) Oophorectomy (98943) Sinus surgery
[2025-01-25] MEDS: KETOROLAC 30 MG/ML VIAL (*BKC) IM (02:18)
[2025-01-25 02:35] VITALS: BP 109/74; PULSE 66; RESP 14; TEMP 36.6; O2SAT 98
== END 2025-01-25 02:36 | disposition home or self-care (01) ==
PROVIDERS: Emergency Provider Student in an Organized Health Care Education/Training Program
DX: S46.812A Strain of other muscles, fascia and tendons at shoulder and upper arm level, left arm, initial encounter (principal); M19.90 Unspecified osteoarthritis, unspecified site; Z87.891 Personal history of nicotine dependence; X50.9XXA Other and unspecified overexertion or strenuous movements or postures, initial encounter
CPT/HCPCS: 96372; 99283; A9270; J1885